=== PATIENT | female | born 1950 | race African-American/Black ===

== ENCOUNTER 2019-01-14 08:41 | Inpatient (IN) | payer MEDICARE, OTHER ==
[~2019-01-14] VITALS: Ht 160 cm; Wt 42.6 kg
[~2019-01-14 08:41] MED LIST: ACETAMINOPHEN-1 EAC2 ORAL; ADVAIR 250/501 PUFFS INH; ALBUTEROL SULF8.5 GM INH; ALBUTEROL2.5 MG/3 M INH; ANTIBIOTICS; ASPIRIN EC81 MG ORAL; ASPIRIN81 MG ORAL; Antibiotic; BENADRYL25 M3 PO; BENTYL10 MG ORAL; CULTURELLE1 EACH ORAL; DEPAKENE L250 MG/5 M GT; DIGOXIN0.25 MG/5 GT; DILANTIN100 MG GT; DILAUDID8 MG PO; DULCOLAX STOOL100 M1 PO; FLAGYL500 MG ORAL; IMODIUM2 MG ORAL; IPRATROPIU0.2 MG/1 M HHN; LACTULOSE20 GM/301 GT; LIPITOR20 MG ORAL; LOVENOX10 M4 SUBQ; MEDROL DOSEPAK4 MG ORAL; METOPROLOL TAR100 M1 GT; MIDODRINE HCL2.5 MG GT; MIRALAX17 GM ORAL; NEXIUM40 MG ORAL; NICODERM 21MG/241 EA TDERMAL; NKM; NORCO 5-325 TA1 EACH GT; PANCREASE1 EA ORAL; PANCRELIPASE ORAL; PANTOPRAZOLE SO40 MG GT; PERI-COLACE1 EA ORAL; PROAIR HFA8.5 GM INH; PROMETHAZINE-C118 M1 ORAL; PROTONIX40 MG ORAL; REGLAN5 MG ORAL; SPIRIVA18 MCG INH; TEGRETOL200 MG GT; UNOBMED; VANCOMYCIN250 MG/5 M ORAL; VITAMIN C500 M1 GT; XIFAXAN200 MG ORAL; ZOFRAN ODT4 MG ORAL; ZOFRAN4 M1 ORAL; ZOFRAN4 MG ORAL; antibio
--- NOTE | 2019-01-14 08:55 | NUR ---
ED Nurse Note: Patient walked into ED from home c/o flu like illness for 2 weeks, patient reports she has been coughing persistently with runny nose and pain in her chest for 2 days. patient also reports right hip pain, reports had hip surgery before. patient is alert awake x4 ambulatory.
[2019-01-14] MEDS ORDERED: cefTRIAXone 1 GM in NS 55 ML IVPB ONE (09:30)
[2019-01-14] MEDS ORDERED: Ipratropium 0.02% Inh Soln 2.5ml UD HHN ONE (09:30)
[2019-01-14] MEDS ORDERED: Albuterol ud Inhalation HHN ONE ×2 (09:30→10:15)
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
[2019-01-14] MEDS ORDERED: Heparin1,000 units/500ml Premix(Conc:2 units/ml) IV ONE (10:00)
[2019-01-14] MEDS ORDERED: Lidocaine 1% Plain 30 ml INJ ONE (10:00)
[2019-01-14 10:07] LABS: HEMATOCRIT 38.3 % (37.0-47.0); HEMOGLOBIN 12.1 G/DL (12.0-16.0); MEAN CORPUSCULAR VOLUME 107 FL (80-99); PLATELET COUNT 204 K/UL (150-450); RED BLOOD COUNT 3.57 M/UL (4.20-5.40); RED CELL DISTRIBUTION WIDTH 14.5 % (11.6-14.8); WHITE BLOOD COUNT 3.1 K/UL (4.8-10.8)
[2019-01-14 10:09] VITALS: BP 136/85
[2019-01-14] MEDS ORDERED: Ipratropium 0.02% Inh Soln 2.5ml UD ONE (10:13)
[2019-01-14] MEDS ORDERED: Albuterol ud Inhalation ONE (10:13)
[2019-01-14 10:18] LABS: ANION GAP 7 mmol/L (5-15); BLOOD UREA NITROGEN 6 mg/dL (7-18); CALCIUM 9.4 MG/DL (8.5-10.1); CARBON DIOXIDE 27 MMOL/L (21-32); CHLORIDE 107 MMOL/L (98-107); CREATININE 0.6 MG/DL (0.55-1.30); POTASSIUM 3.8 MMOL/L (3.5-5.1); SODIUM 141 MMOL/L (136-145)
[2019-01-14 10:30] LABS: ALANINE AMINOTRANSFERASE 20 U/L (12-78); ALBUMIN 3.6 G/DL (3.4-5.0); ALKALINE PHOSPHATASE 75 U/L (46-116); ASPARTATE AMINO TRANSFERASE 20 U/L (15-37); BILIRUBIN,TOTAL 0.4 MG/DL (0.2-1.0); CKMB 0.9 NG/ML (0.0-3.6); CREATINE KINASE 76 U/L (26-308)
--- NOTE | 2019-01-14 10:55 | NUR ---
ED Nurse Note: notified Dr. Sifuentes about patient's c/o of right hip pain and wants to get xray.
[2019-01-14] MEDS ORDERED: Ketorolac 30mg Inj IV ONE (11:15)
--- NOTE | 2019-01-14 11:19 | NUR ---
ED Nurse Note: notified Dr. Sifuentes that patient declined to take Toradol stating that it is not going to help her pain.
--- NOTE | 2019-01-14 11:41 | Diagnostic Imaging Report ---
Indication: Cough Technique: One view of the chest Comparison: 07/23/2016 Findings: Lungs and pleural spaces are clear. Heart size is normal. The aorta is tortuous ectatic and calcified. Upper mediastinum is unremarkable Impression: No acute process
--- NOTE | 2019-01-14 11:55 | NUR ---
ED Nurse Note: patient went to xray
--- NOTE | 2019-01-14 12:04 | NUR ---
ED Nurse Note: Report given to Thierry MARTÍNEZ in 2E, endorsed all plan of care
--- NOTE | 2019-01-14 12:12 | NUR ---
ED Nurse Note: patient transferred to with all of her belongings in stable condition.
--- NOTE | 2019-01-14 12:13 | Diagnostic Imaging Report ---
Indication: Pelvic pain Technique: One view of the pelvis, 2 views of the right hip Comparison: none Findings: There are bilateral total hip arthroplasty prostheses. These appear well aligned. No evidence of hardware fracture. No acute fractures. No dislocations. No worrisome periprosthetic lucency. Impression: No acute process. Findings as noted
--- NOTE | 2019-01-14 12:23 | NUR ---
NURSE NOTES: received pt awake alert, no distress. no sob. call light within reach. bed in lowest position, locked
--- NOTE | 2019-01-14 12:28 | NUR ---
NURSE NOTES: left msg to Dr Arndt re admit orders, awaiting orders
[2019-01-14] MEDS ORDERED: Nitroglycerin Subl 0.4mg tab SL PRN (12:30)
[2019-01-14] MEDS ORDERED: Promethazine/Codeine 5ml UD ORAL PRN (12:30)
[2019-01-14 12:40] VITALS: BP 160/92
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
[2019-01-14] MEDS: Pancrelipase Dr Cap ORAL SCH ×2 (13:00→17:01)
--- NOTE | 2019-01-14 13:05 | NUR ---
NURSE NOTES: PER PT SHE DOESNT TAKE PANCREASE CAPS
[2019-01-14] MEDS ORDERED: carBAMazepine 200mg tab GT SCH (14:00)
[2019-01-14] MEDS ORDERED: Piperacillin/Tazobactam 2.25 GM in D5W 55 ML IV SCH (14:00)
--- NOTE | 2019-01-14 15:08 | NUR ---
CASE MANAGEMENT: INITIAL REVIEW 68 YO F PRESENTED TO OUR ED FROM HOME CC: CP PMHx: ASTHMA. COPD. CERVICAL CA. SBO. [place]. SI:COPD EXACERBATION. T 96.4 HR 88 RR 20 B/P 108/66 SATS 99% ON RA WBC 3.1 BUN 6 GLU 110 IS: ALBUTEROL HHN X1 CEFTRIAXONE IV X1 PREDNISONE PO X1 NS BOLUS X1 PATIENT ADMITTED TO TELE 01/14/2019 @ 0948 DCP: PATIENT TO BE DISCHARGED TO HOME ONCE MEDICALLY CLEARED. PLAN OF CARE: IV STEROID 2D ECHO SPUTUM CX Addendum: 01/14/19 at 1518 by Angle Hines CM INTERQUAL MET
[2019-01-14] MEDS: carBAMazepine 200mg tab ORAL SCH ×2 (15:28→21:18)
[2019-01-14] MEDS: Zosyn 3.375gm q8h **Extended infusion IVPB SCH ×4 (15:28→21:20)
--- NOTE | 2019-01-14 16:14 | History & Physical ---
History and Physical History & Physicial Dictated for Int Med-Dr Garrison no. [id number]. Harvey Olivares MD Jan 14, 2019 16:14
[2019-01-14] MEDS: Solu-MEDROL 125mg Inj IV SCH ×2 (17:11→23:46)
--- NOTE | 2019-01-14 19:30 | NUR ---
NURSE NOTES: Received report from TANYA Molina. Pt is awake and resting in bed. In no acute distress. IV line intact and patent. Bed in lowest position, call light within reach. Will continue plan of care.
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
[2019-01-14 20:00] VITALS: BP 131/78
[2019-01-14] MEDS ORDERED: Dyna-Hex 2% Top Sol 2oz TOPIC SCH (20:00)
--- NOTE | 2019-01-14 21:00 | NUR ---
NURSE NOTES:Patient AT 20:20 pm c/o generalized pain. pain rating 6 out of 10 .Dilaudid 1 mg ivp given by Arnulfo ZARATE and fletcher assist with good relief. Explained to patient her pain will be controlled with pain medications . patient verbalized her understanding .will continue to monitor .
[2019-01-14] MEDS: Theophylline ER 100mg ORAL SCH (21:17)
[2019-01-14] MEDS: Albuterol/Ipratropium 3ml neb HHN PRN (21:19)
[2019-01-14] MEDS: Heparin 5000 units/ml inj SUBQ SCH (21:21)
--- NOTE | 2019-01-14 23:15 | Consultation ---
DATE OF CONSULTATION: 01/14/2019 CONSULTING PHYSICIAN: Anne-Marie Faria M.D. HISTORY OF PRESENT ILLNESS: This is a 68-year-old female, who has been admitted to the hospital for cough and shortness of breath. The patient is severely agitated, yelling, screaming, and verbally abusive towards the staff. The patient was uncooperative with the examination. The patient is very entitled and at times refusing care. Prior to the hospitalization, the patient has been on Tegretol 300 mg t.i.d. The patient presents with target symptoms of irritable mood, anger, anxiety, insomnia, mood lability, volatile. PAST PSYCHIATRIC HISTORY: The patient was uncooperative with providing the history however per records the patient has a history of bipolar disorder and anxiety disorder. PAST MEDICAL HISTORY: Significant for chronic pancreatitis, UTI, history of C. difficile colitis, gastritis, CAD, CHF, GERD, hypertension, anemia, gastroparesis, COPD, VRE carrier. ALLERGIES: 1. Hydrocodone. 2. Lorazepam. 3. Morphine. 4. Prochlorperazine. 5. Vancomycin. SUBSTANCE ABUSE HISTORY: The patient has history of opiate dependence and has med-seeking behaviors. She has been taking Dilaudid 4 mg 2 tablets every 4 hours as needed. She also is a smoker 1 pack a day. MENTAL STATUS EXAMINATION: The patient is alert, oriented times self, place, and situation. Irritable and uncooperative. Mood is angry. Affect is constricted, congruent with mood. Thought process is concrete. Thought content, no suicidal or homicidal ideations. Memory is impaired. Insight and judgment is impaired. ASSESSMENT: [place] I Bipolar disorder. Anxiety disorder. [place] II Deferred. [place] III Chest pain. [place] IV Moderate. [place] V 50. PLAN: 1. We will start the patient on Tegretol 200 mg t.i.d. 2. She was given 1 dose of Valium for severe agitation. 3. Start the patient on Depakote 250 at bedtime. 4. Provide the patient with reality orientation. Discussed with the charge nurse. Anne-Marie Faria M.D. DR: ALFRED JOB#: [id number] CC:
[2019-01-15] VITALS: BP 115/83
--- NOTE | 2019-01-15 00:29 | NUR ---
NURSE NOTES: Per Pt's request, handed 2 house keys to son Jacinto in the lobby.
[2019-01-15 04:00] VITALS: BP 132/71
[2019-01-15] MEDS: Albuterol/Ipratropium 3ml neb HHN PRN ×2 (04:43→22:48)
[2019-01-15] MEDS: carBAMazepine 200mg tab ORAL SCH ×3 (06:30→21:09)
[2019-01-15] MEDS: Solu-MEDROL 125mg Inj IV SCH ×4 (06:30→23:32)
[2019-01-15] MEDS: Zosyn 3.375gm q8h **Extended infusion IVPB SCH ×6 (06:31→22:16)
[2019-01-15 06:38] LABS: HEMATOCRIT 34.9 % (37.0-47.0); HEMOGLOBIN 11.1 G/DL (12.0-16.0); MEAN CORPUSCULAR VOLUME 107 FL (80-99); PLATELET COUNT 195 K/UL (150-450); RED BLOOD COUNT 3.26 M/UL (4.20-5.40); RED CELL DISTRIBUTION WIDTH 14.5 % (11.6-14.8); WHITE BLOOD COUNT 6.6 K/UL (4.8-10.8)
[2019-01-15] MEDS: HYDROmorphone 1mg/ml Carpuject IVP PRN ×2 (06:40→23:37)
--- NOTE | 2019-01-15 07:22 | NUR ---
HAND-OFF: Report given to TANYA Molina.
[2019-01-15 07:24] LABS: ALANINE AMINOTRANSFERASE 16 U/L (12-78); ALBUMIN 3.5 G/DL (3.4-5.0); ALBUMIN/GLOBULIN RATIO 1.1 (1.0-2.7); ALKALINE PHOSPHATASE 70 U/L (46-116); ANION GAP 10 mmol/L (5-15); ASPARTATE AMINO TRANSFERASE 20 U/L (15-37); BILIRUBIN,TOTAL 0.2 MG/DL (0.2-1.0); BLOOD UREA NITROGEN 15 mg/dL (7-18); CALCIUM 9.5 MG/DL (8.5-10.1); CARBON DIOXIDE 24 MMOL/L (21-32); CHLORIDE 103 MMOL/L (98-107); CREATININE 0.8 MG/DL (0.55-1.30); PHOSPHORUS 3.1 MG/DL (2.5-4.9); SODIUM 137 MMOL/L (136-145)
--- NOTE | 2019-01-15 07:56 | NUR ---
Report was given by Arnulfo MARTÍNEZ. Patient's awake and sitting in Semi-Willis position. Patient's comfortable, AO x 4, no s/s of distress, SOB, no pain or discomfort. Patient's on NC 2L. Bed is in lowest position, side rails on and call light within reach. IV site is on the Left, no s/s of tenderness, occlusion, patient denied pain.
[2019-01-15 08:00] VITALS: BP 105/53
[2019-01-15] MEDS: Theophylline ER 100mg ORAL SCH ×2 (09:14→20:23)
[2019-01-15] MEDS: Pancrelipase Dr Cap ORAL SCH ×3 (09:15→17:04)
[2019-01-15] MEDS: Heparin 5000 units/ml inj SUBQ SCH ×2 (09:18→20:27)
[2019-01-15 12:00] VITALS: BP 120/85
--- NOTE | 2019-01-15 12:32 | NUR ---
RD ASSESSMENT & RECOMMENDATIONS SEE CARE ACTIVITY FOR COMPLETE ASSESSMENT DAILY ESTIMATED NEEDS: Needs based on Pulmonary, underweight 43kg 30-35 kcals/kg 7069-1953 total kcals 1-1.5 g protein/kg 43-65 g total protein 25-30 mL/kg 5130-6665 total fluid mLs NUTRITION DIAGNOSIS: 1) Underweight R/T chronic disease, linical status as evidenced by BMI 16.7, @ 82% [place] Body Weight, w COPD, on solumedrol. CURRENT DIET:Regular PO DIET RECOMMENDATIONS: Regular diet + Ensure BID . ADDITIONAL RECOMMENDATIONS: 1) Obtain a standing weight for accurate CBW 2) Monitor BG w/ solumedrol / need for ssi 3) Snacks in b/w meals as tolerated 4) Weekly weights
--- NOTE | 2019-01-15 13:03 | NUR ---
CASE MANAGEMENT:REVIEW 01/15/19 SI: COPD EXACERBATION. ACS. CAD COSTOCHONDRITIS 98.4 97 18 120/85 97% ON 2L/NC H/H-11.1/34.9 IS: IV SOLUMEDROL 60MG Q6HRS IV ZOSYN Q8HRS HEPARIN SQ Q12 INEZ-DUR PO Q12 DEPAKOTE PO QHS TEGRETOL PO Q8HRS : TELEMETRY STATUS DCP: FROM HOME
--- NOTE | 2019-01-15 13:36 | Pulmonology Progress Note ---
Assessment/Plan Problems: (1) COPD exacerbation (2) ACS (acute coronary syndrome) (3) Costochondritis (4) CAD (coronary artery disease) (5) Severe protein-calorie malnutrition Assessment/Plan improving respiratory treatment pain management psych evaluation check electrolytes all reviewed Subjective ROS Limited/Unobtainable: No Constitutional: Reports: no symptoms HEENT: Repors: no symptoms Respiratory: Reports: no symptoms Allergies: Coded Allergies: HYDROCODONE (Verified Allergy, Severe, 06/23/13) LORAZEPAM (Verified Allergy, Severe, Hives, 02/13/14) RASH/HIVES MORPHINE (Unverified Allergy, Severe, 01/14/19) Not true allergy; tolerated Dilaudid in past. Extensive opiate hx PROCHLORPERAZINE (Verified Allergy, Severe, 06/23/13) VANCOMYCIN (Unverified Allergy, Mild, Itching, 03/06/14) Objective Last 24 Hour Vital Signs Date Time Temp Pulse Resp B/P (MAP) Pulse Ox O2 Delivery O2 Flow Rate FiO2 01/15/19 12:00 98.4 97 18 120/85 (97) 97 01/15/19 12:00 94 01/15/19 08:57 Nasal Cannula 2.0 01/15/19 08:00 98.3 92 20 105/53 (70) 99 01/15/19 08:00 84 01/15/19 04:50 63 20 99 Nasal Cannula 2.0 28 01/15/19 04:44 64 20 90 Room Air 21 01/15/19 04:00 77 01/15/19 04:00 98.5 77 18 132/71 (91) 99 01/15/19 00:00 90 01/15/19 00:00 97.6 90 18 115/83 (94) 98 01/14/19 21:18 95 20 99 Nasal Cannula 2.0 28 01/14/19 21:08 96 20 99 Nasal Cannula 2.0 28 01/14/19 21:07 99 Nasal Cannula 2.0 28 01/14/19 21:06 96 20 99 Nasal Cannula 2.0 28 01/14/19 21:00 Nasal Cannula 2.0 01/14/19 20:00 98.6 109 18 131/78 (95) 96 01/14/19 20:00 109 01/14/19 17:33 98.0 01/14/19 16:00 98 Intake and Output 6/13/19 6/14/19 19:00 07:00 Intake Total 560 ml Balance 560 ml Intake Oral 560 ml # Voids 3 General Appearance: WD/WN, no acute distress HEENT: normocephalic, atraumatic Respiratory/Chest: chest wall non-tender, normal breath sounds Abdomen: soft, non tender, no organomegaly Genitourinary: normal external genitalia Neurologic/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: 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 II-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 grossly normal Lymphatic: no neck adenopathy Laboratory Tests 01/15/19 05:20: White Blood Count 6.6#, Red Blood Count 3.26L, Hemoglobin 11.1L, Hematocrit 34.9L, Mean Corpuscular Volume 107H, Mean Corpuscular Hemoglobin 33.9H, Mean Corpuscular Hemoglobin Concent 31.7L, Red Cell Distribution Width 14.5, Platelet Count 195, Mean Platelet Volume 5.3L, Neutrophils (%) (Auto) , Lymphocytes (%) (Auto) , Monocytes (%) (Auto) , Eosinophils (%) (Auto) , Basophils (%) (Auto) , Differential Total Cells Counted 100, Neutrophils % ( Manual) 94H, Lymphocytes % (Manual) 5L, Monocytes % (Manual) 1, Eosinophils % ( Manual) 0, Basophils % (Manual) 0, Band Neutrophils 0, Platelet Estimate Adequate, Platelet Morphology Normal, Hypochromasia 2+, Anisocytosis , Macrocytosis 2+, Erythrocyte Sedimentation Rate 44H, Sodium Level 137, Potassium Level 4.0, Chloride Level 103, Carbon Dioxide Level 24, Anion Gap 10, Blood Urea Nitrogen 15, Creatinine 0.8, Estimat Glomerular Filtration Rate > 60 , Glucose Level 160H, Calcium Level 9.5, Phosphorus Level 3.1, Magnesium Level 2.0, Total Bilirubin 0.2, Aspartate Amino Transf (AST/SGOT) 20, Alanine Aminotransferase (ALT/SGPT) 16, Alkaline Phosphatase 70, Troponin I 0.000, Total Protein 6.7, Albumin 3.5, Globulin 3.2, Albumin/Globulin Ratio 1.1 Current Medications Medications (Trade) Dose Ordered Sig/Haley Route PRN Reason Start Time Stop Time Status Last Admin Dose Admin Albuterol/ Ipratropium (Albuterol/ Ipratropium) 3 ml Q4H PRN HHN dyspnea 01/14/19 12:30 01/19/19 12:29 01/15/19 04:43 Amylase/Lipase/ Protease (Zenpep) 2 ea THREE TIMES A DAY ORAL 01/14/19 13:00 02/13/19 12:59 01/15/19 12:31 Carbamazepine (TEGretol) 200 mg Q8HR ORAL 01/14/19 14:00 02/13/19 13:59 01/15/19 06:30 Dextrose (Dextrose 50%) 25 ml Q30M PRN IV Hypoglycemia 01/14/19 12:30 02/13/19 12:29 Dextrose (Dextrose 50%) 50 ml Q30M PRN IV Hypoglycemia 01/14/19 12:30 02/13/19 12:29 Diphenhydramine HCl (Benadryl) 25 mg Q8HR PRN ORAL Itching 01/14/19 22:00 02/13/19 21:59 01/15/19 09:48 Divalproex Sodium (Depakote) 250 mg BEDTIME ORAL 01/14/19 21:00 02/13/19 20:59 01/14/19 21:17 Heparin Sodium (Porcine) (Heparin 5000 units/ml) 5,000 units EVERY 12 HOURS SUBQ 01/14/19 21:00 02/13/19 20:59 01/15/19 09:18 Hydromorphone HCl (Dilaudid) 1 mg Q3H PRN IVP pain 5-6 01/14/19 13:15 01/21/19 13:14 01/15/19 06:40 Hydromorphone HCl (Dilaudid) 2 mg Q3H PRN IVP Severe Pain (Pain Scale 7-10) 01/14/19 13:15 01/21/19 13:14 01/15/19 09:40 Methylprednisolone Sodium Succinate (Solu-MEDROL) 60 mg EVERY 6 HOURS IV 01/14/19 18:00 02/13/19 17:59 01/15/19 11:58 Nitroglycerin (Ntg) 0.4 mg Q5M X 3 DOSES PRN SL Prn Chest Pain 01/14/19 12:30 02/13/19 12:29 Ondansetron HCl (Zofran) 4 mg Q6H PRN IVP Nausea & Vomiting 01/14/19 12:30 02/13/19 12:29 01/15/19 09:40 Piperacillin Sod/ Tazobactam Sod 3.375 gm/Sodium Chloride 110 ml @ 27.5 mls/hr EVERY 8 HOURS IVPB 01/14/19 14:00 01/19/19 13:59 01/15/19 06:31 Promethazine HCl/ Codeine (Phenergan with Codeine) 5 ml Q6H PRN ORAL cough 01/14/19 12:30 02/13/19 12:29 Theophylline (Juancho-Dur) 100 mg EVERY 12 HOURS ORAL 01/14/19 21:00 02/13/19 20:59 01/15/19 09:14 Lorraine Arndt MD Jan 15, 2019 13:36
[2019-01-15 16:00] VITALS: BP 113/70
--- NOTE | 2019-01-15 19:11 | Internal Med Progress Note ---
Subjective Physician Name Dawood Garrison Attending Physician Dawood Garrison MD Current Medications Medications (Trade) Dose Ordered Sig/Haley Route PRN Reason Start Time Stop Time Status Last Admin Dose Admin Albuterol/ Ipratropium (Albuterol/ Ipratropium) 3 ml Q4H PRN HHN dyspnea 01/14/19 12:30 01/19/19 12:29 01/15/19 04:43 Amylase/Lipase/ Protease (Zenpep) 2 ea THREE TIMES A DAY ORAL 01/14/19 13:00 02/13/19 12:59 01/15/19 17:04 Carbamazepine (TEGretol) 200 mg Q8HR ORAL 01/14/19 14:00 02/13/19 13:59 01/15/19 06:30 Dextrose (Dextrose 50%) 25 ml Q30M PRN IV Hypoglycemia 01/14/19 12:30 02/13/19 12:29 Dextrose (Dextrose 50%) 50 ml Q30M PRN IV Hypoglycemia 01/14/19 12:30 02/13/19 12:29 Diphenhydramine HCl (Benadryl) 25 mg Q8HR PRN ORAL Itching 01/14/19 22:00 02/13/19 21:59 01/15/19 09:48 Divalproex Sodium (Depakote) 250 mg BEDTIME ORAL 01/14/19 21:00 02/13/19 20:59 01/14/19 21:17 Heparin Sodium (Porcine) (Heparin 5000 units/ml) 5,000 units EVERY 12 HOURS SUBQ 01/14/19 21:00 02/13/19 20:59 01/15/19 09:18 Hydromorphone HCl (Dilaudid) 1 mg Q3H PRN IVP pain 5-6 01/14/19 13:15 01/21/19 13:14 01/15/19 06:40 Hydromorphone HCl (Dilaudid) 2 mg Q3H PRN IVP Severe Pain (Pain Scale 7-10) 01/14/19 13:15 01/21/19 13:14 01/15/19 17:06 Methylprednisolone Sodium Succinate (Solu-MEDROL) 60 mg EVERY 6 HOURS IV 01/14/19 18:00 02/13/19 17:59 01/15/19 17:07 Nitroglycerin (Ntg) 0.4 mg Q5M X 3 DOSES PRN SL Prn Chest Pain 01/14/19 12:30 02/13/19 12:29 Ondansetron HCl (Zofran) 4 mg Q6H PRN IVP Nausea & Vomiting 01/14/19 12:30 02/13/19 12:29 01/15/19 09:40 Piperacillin Sod/ Tazobactam Sod 3.375 gm/Sodium Chloride 110 ml @ 27.5 mls/hr EVERY 8 HOURS IVPB 01/14/19 14:00 01/19/19 13:59 01/15/19 13:36 Promethazine HCl/ Codeine (Phenergan with Codeine) 5 ml Q6H PRN ORAL cough 01/14/19 12:30 02/13/19 12:29 Theophylline (Juancho-Dur) 100 mg EVERY 12 HOURS ORAL 01/14/19 21:00 02/13/19 20:59 01/15/19 09:14 Allergies: Coded Allergies: HYDROCODONE (Verified Allergy, Severe, 06/23/13) LORAZEPAM (Verified Allergy, Severe, Hives, 02/13/14) RASH/HIVES MORPHINE (Unverified Allergy, Severe, 01/14/19) Not true allergy; tolerated Dilaudid in past. Extensive opiate hx PROCHLORPERAZINE (Verified Allergy, Severe, 06/23/13) VANCOMYCIN (Unverified Allergy, Mild, Itching, 03/06/14) Subjective awake, alert, responsive, NAD, No CP or SOB, C/O Right hip pain Objective Last Vital Signs Date Time Temp Pulse Resp B/P (MAP) Pulse Ox O2 Delivery O2 Flow Rate FiO2 01/15/19 17:36 98.1 01/15/19 16:00 88 20 113/70 (84) 97 01/15/19 08:57 Nasal Cannula 2.0 01/15/19 04:50 28 Laboratory Tests Test 01/15/19 05:20 White Blood Count 6.6 K/UL (4.8-10.8) # Red Blood Count 3.26 M/UL (4.20-5.40) L Hemoglobin 11.1 G/DL (12.0-16.0) L Hematocrit 34.9 % (37.0-47.0) L Mean Corpuscular Volume 107 FL (80-99) H Mean Corpuscular Hemoglobin 33.9 PG (27.0-31.0) H Mean Corpuscular Hemoglobin Concent 31.7 G/DL (32.0-36.0) L Red Cell Distribution Width 14.5 % (11.6-14.8) Platelet Count 195 K/UL (150-450) Mean Platelet Volume 5.3 FL (6.5-10.1) L Neutrophils (%) (Auto) % (45.0-75.0) Lymphocytes (%) (Auto) % (20.0-45.0) Monocytes (%) (Auto) % (1.0-10.0) Eosinophils (%) (Auto) % (0.0-3.0) Basophils (%) (Auto) % (0.0-2.0) Differential Total Cells Counted 100 Neutrophils % (Manual) 94 % (45-75) H Lymphocytes % (Manual) 5 % (20-45) L Monocytes % (Manual) 1 % (1-10) Eosinophils % (Manual) 0 % (0-3) Basophils % (Manual) 0 % (0-2) Band Neutrophils 0 % (0-8) Platelet Estimate Adequate Platelet Morphology Normal Hypochromasia 2+ Anisocytosis Macrocytosis 2+ Erythrocyte Sedimentation Rate 44 MM/HR (0-30) H Sodium Level 137 MMOL/L (136-145) Potassium Level 4.0 MMOL/L (3.5-5.1) Chloride Level 103 MMOL/L (98-107) Carbon Dioxide Level 24 MMOL/L (21-32) Anion Gap 10 mmol/L (5-15) Blood Urea Nitrogen 15 mg/dL (7-18) Creatinine 0.8 MG/DL (0.55-1.30) Estimat Glomerular Filtration Rate > 60 mL/min (>60) Glucose Level 160 MG/DL (74-106) H Calcium Level 9.5 MG/DL (8.5-10.1) Phosphorus Level 3.1 MG/DL (2.5-4.9) Magnesium Level 2.0 MG/DL (1.8-2.4) Total Bilirubin 0.2 MG/DL (0.2-1.0) Aspartate Amino Transf (AST/SGOT) 20 U/L (15-37) Alanine Aminotransferase (ALT/SGPT) 16 U/L (12-78) Alkaline Phosphatase 70 U/L (46-116) Troponin I 0.000 ng/mL (0.000-0.056) Total Protein 6.7 G/DL (6.4-8.2) Albumin 3.5 G/DL (3.4-5.0) Globulin 3.2 g/dL Albumin/Globulin Ratio 1.1 (1.0-2.7) Intake and Output 01/14/19 01/15/19 18:59 06:59 Intake Total 560 ml Balance 560 ml Intake Oral 560 ml # Voids 3 Objective General: No acute distress, awake and alert HEENT: NCAT, sclera anicteric, PERRL, EOMI. Neck: Supple, no significant jugular venous distention, Lungs: Good inspiratory effort, clear to auscultation bilaterally, no Wheeze or Rales. Heart: Regular rate and rhythm, normal S1/S2, no murmur. Abdomen: soft, nontender, nondistended. Normoactive bowel sounds. / Rectal: Refused and deferred. Extremities: No Cyanosis , clubbing or edema. Neuro: A&O x 3, Able to move all extremities Skin: warm, no rash. Psych: Anxious mood and affect Assessment/Plan Assessment/Plan (1) COPD exacerbation (2) Chest pain possible ACS (acute coronary syndrome) (3) Costochondritis (4) CAD (coronary artery disease) (5) Severe protein-calorie malnutrition (6) Bipolar disorder. Plan: Psych consult by Dr. Faria noted PT Mobility Monitor Labs DVT prophylaxis with Heparin SQ Full code DC planning in 1 or 2 days. Dawood Garrison MD Jan 15, 2019 19:11
--- NOTE | 2019-01-15 19:16 | NUR ---
HAND-OFF: Report given to NEAL Khan; TANYA Arredondo.
--- NOTE | 2019-01-15 19:30 | NUR ---
NURSE NOTES:Patient received from [facility]. Patient A/A/O X3 with episode of confusion . Patient denies any pain at this time . no s/s of distress noted . JOSELUIS g# 20 H/L Patent and intact . Patient ambulated uses BSC. Safety. fall implemented . call light within reach . bed in low position at all times.. will continue to monitor.
[2019-01-15 20:00] VITALS: BP 114/76
--- NOTE | 2019-01-15 20:22 | Cardiology Progress Note ---
Assessment/Plan Assessment/Plan full note to follow Objective Last 24 Hour Vital Signs Date Time Temp Pulse Resp B/P (MAP) Pulse Ox O2 Delivery O2 Flow Rate FiO2 01/15/19 17:36 98.1 01/15/19 16:00 98.1 88 20 113/70 (84) 97 01/15/19 16:00 105 01/15/19 12:00 98.4 97 18 120/85 (97) 97 01/15/19 12:00 94 01/15/19 08:57 Nasal Cannula 2.0 01/15/19 08:00 98.3 92 20 105/53 (70) 99 01/15/19 08:00 84 01/15/19 04:50 63 20 99 Nasal Cannula 2.0 28 01/15/19 04:44 64 20 90 Room Air 21 01/15/19 04:00 77 01/15/19 04:00 98.5 77 18 132/71 (91) 99 01/15/19 00:00 90 01/15/19 00:00 97.6 90 18 115/83 (94) 98 01/14/19 21:18 95 20 99 Nasal Cannula 2.0 28 01/14/19 21:08 96 20 99 Nasal Cannula 2.0 28 01/14/19 21:07 99 Nasal Cannula 2.0 28 01/14/19 21:06 96 20 99 Nasal Cannula 2.0 28 01/14/19 21:00 Nasal Cannula 2.0 Intake and Output 01/14/19 01/15/19 19:00 07:00 Intake Total 560 ml Balance 560 ml Intake Oral 560 ml # Voids 3 Laboratory Tests Test 01/15/19 05:20 White Blood Count 6.6 K/UL (4.8-10.8) # Red Blood Count 3.26 M/UL (4.20-5.40) L Hemoglobin 11.1 G/DL (12.0-16.0) L Hematocrit 34.9 % (37.0-47.0) L Mean Corpuscular Volume 107 FL (80-99) H Mean Corpuscular Hemoglobin 33.9 PG (27.0-31.0) H Mean Corpuscular Hemoglobin Concent 31.7 G/DL (32.0-36.0) L Red Cell Distribution Width 14.5 % (11.6-14.8) Platelet Count 195 K/UL (150-450) Mean Platelet Volume 5.3 FL (6.5-10.1) L Neutrophils (%) (Auto) % (45.0-75.0) Lymphocytes (%) (Auto) % (20.0-45.0) Monocytes (%) (Auto) % (1.0-10.0) Eosinophils (%) (Auto) % (0.0-3.0) Basophils (%) (Auto) % (0.0-2.0) Differential Total Cells Counted 100 Neutrophils % (Manual) 94 % (45-75) H Lymphocytes % (Manual) 5 % (20-45) L Monocytes % (Manual) 1 % (1-10) Eosinophils % (Manual) 0 % (0-3) Basophils % (Manual) 0 % (0-2) Band Neutrophils 0 % (0-8) Platelet Estimate Adequate Platelet Morphology Normal Hypochromasia 2+ Anisocytosis Macrocytosis 2+ Erythrocyte Sedimentation Rate 44 MM/HR (0-30) H Sodium Level 137 MMOL/L (136-145) Potassium Level 4.0 MMOL/L (3.5-5.1) Chloride Level 103 MMOL/L (98-107) Carbon Dioxide Level 24 MMOL/L (21-32) Anion Gap 10 mmol/L (5-15) Blood Urea Nitrogen 15 mg/dL (7-18) Creatinine 0.8 MG/DL (0.55-1.30) Estimat Glomerular Filtration Rate > 60 mL/min (>60) Glucose Level 160 MG/DL (74-106) H Calcium Level 9.5 MG/DL (8.5-10.1) Phosphorus Level 3.1 MG/DL (2.5-4.9) Magnesium Level 2.0 MG/DL (1.8-2.4) Total Bilirubin 0.2 MG/DL (0.2-1.0) Aspartate Amino Transf (AST/SGOT) 20 U/L (15-37) Alanine Aminotransferase (ALT/SGPT) 16 U/L (12-78) Alkaline Phosphatase 70 U/L (46-116) Troponin I 0.000 ng/mL (0.000-0.056) Total Protein 6.7 G/DL (6.4-8.2) Albumin 3.5 G/DL (3.4-5.0) Globulin 3.2 g/dL Albumin/Globulin Ratio 1.1 (1.0-2.7) Wale Collins MD Jan 15, 2019 20:22
[2019-01-16] VITALS: BP 117/76
--- NOTE | 2019-01-16 01:00 | Progress Note ---
DATE: 01/15/2019 SUBJECTIVE: The patient is still having episodes of confusion and anxiety, overall improved than previous encounter. The patient is having anxiety . She has taken her Depakote. Irritable today. MENTAL STATUS EXAMINATION: The patient is alert, oriented times self, place, and situation. Mood is less irritable. Affect is constricted, congruent with mood. Thought process is concrete. Thought content, no suicidal or homicidal ideations. ASSESSMENT: Bipolar disorder. PLAN: 1. We will continue Tegretol 200 mg t.i.d. and Depakote 250 mg at bedtime. 2. Provide the patient with reality orientation. Anne-Marie Faria M.D. DR: LIV JOB#: [id number] CC:
[2019-01-16] MEDS: HYDROmorphone 1mg/ml Carpuject IVP PRN ×2 (02:43→09:25)
[2019-01-16 04:00] VITALS: BP 112/77
[2019-01-16] MEDS: carBAMazepine 200mg tab ORAL SCH ×3 (05:33→20:26)
[2019-01-16] MEDS: Solu-MEDROL 125mg Inj IV SCH (05:36)
[2019-01-16] MEDS: Zosyn 3.375gm q8h **Extended infusion IVPB SCH ×6 (05:36→20:30)
--- NOTE | 2019-01-16 07:20 | NUR ---
HAND-OFF: Report given to Rodney Suarez
--- NOTE | 2019-01-16 07:35 | NUR ---
NURSE NOTES: Pt received from [facility] SUSTAINABLE SYSTEMS ANALYST alert and oriented x3 with no acute s/s of distress noted. IV site asymptomatic and patent on L UA 20g running to [employer] as ordered. Bed in lowest position, call light and belongings within reach. services delivery driver on - ST (102).
[2019-01-16 08:00] VITALS: BP 117/71
--- NOTE | 2019-01-16 08:33 | Pulmonology Progress Note ---
Assessment/Plan Assessment/Plan ASSESSMENT Chest pain , possibly due to COPD exacerbation , r/o ACS Possible costochondritis COPD exacerbation History of CHF Hypertension Chronic back pain Severe protein calorie malnutrition History of cervical cancer Bipolar disorder PLAN OF CARE tele supplemental O2 titrate to keep pulse ox above 92% HHN with bronchodilator IV steroids and taper empiric abx, fup with CX antitussive PRN trial of theophylline DVT prophylaxis Echo with pEF 60-65 %, mild LVH , no evidence of WMA Serial troponin x2 negative , ECG no acute ischemic changes, pt ruled out for acute MD TSH within normal limits. Cardio on board home medication resumed dietary recs implemented in plan of care pain management psych follows PT eval and Rx case discussed and evaluated by supervising physician case discussed and evaluated by supervising physician Subjective Allergies: Coded Allergies: HYDROCODONE (Verified Allergy, Severe, 06/23/13) LORAZEPAM (Verified Allergy, Severe, Hives, 02/13/14) RASH/HIVES MORPHINE (Unverified Allergy, Severe, 01/14/19) Not true allergy; tolerated Dilaudid in past. Extensive opiate hx PROCHLORPERAZINE (Verified Allergy, Severe, 06/23/13) VANCOMYCIN (Unverified Allergy, Mild, Itching, 03/06/14) Subjective reports cough, wheezing, pulse ox stable on O2 2 L via NC Objective Last 24 Hour Vital Signs Date Time Temp Pulse Resp B/P (MAP) Pulse Ox O2 Delivery O2 Flow Rate FiO2 01/16/19 06:13 97.7 01/16/19 04:00 96 01/16/19 04:00 97.7 88 20 112/77 (89) 96 01/16/19 03:13 98.1 01/16/19 00:00 99 01/16/19 00:00 98.0 99 20 117/76 (90) 95 01/15/19 23:04 78 24 100 Room Air 21 01/15/19 22:57 93 Nasal Cannula 2.0 28 01/15/19 22:54 78 23 93 Nasal Cannula 21 01/15/19 22:49 78 18 93 Nasal Cannula 21 01/15/19 21:00 Nasal Cannula 2.0 01/15/19 20:00 99.0 99 20 114/76 (89) 98 01/15/19 20:00 89 01/15/19 16:00 98.1 88 20 113/70 (84) 97 01/15/19 16:00 105 01/15/19 12:00 98.4 97 18 120/85 (97) 97 01/15/19 12:00 94 01/15/19 08:57 Nasal Cannula 2.0 Intake and Output 01/15/19 01/16/19 19:00 07:00 Intake Total 840 ml Balance 840 ml Intake Oral 840 ml # Voids 3 # Bowel Movements 1 General Appearance: no acute distress HEENT: normocephalic, atraumatic, anicteric, mucous membranes moist Respiratory/Chest: expiratory wheezing Cardiovascular: normal rate, regular rhythm Abdomen: normal bowel sounds, soft, non tender Extremities: no edema, pedal pulses normal Neurologic/Psychiatric: abnormal gait - unsteady, alert, oriented x 3 Musculoskeletal: normal muscle bulk Current Medications Medications (Trade) Dose Ordered Sig/Haley Route PRN Reason Start Time Stop Time Status Last Admin Dose Admin Albuterol/ Ipratropium (Albuterol/ Ipratropium) 3 ml Q4H PRN HHN dyspnea 01/14/19 12:30 01/19/19 12:29 01/15/19 22:48 Amylase/Lipase/ Protease (Zenpep) 2 ea THREE TIMES A DAY ORAL 01/14/19 13:00 02/13/19 12:59 01/15/19 17:04 Carbamazepine (TEGretol) 200 mg Q8HR ORAL 01/14/19 14:00 02/13/19 13:59 01/16/19 05:33 Dextrose (Dextrose 50%) 25 ml Q30M PRN IV Hypoglycemia 01/14/19 12:30 02/13/19 12:29 Dextrose (Dextrose 50%) 50 ml Q30M PRN IV Hypoglycemia 01/14/19 12:30 02/13/19 12:29 Diphenhydramine HCl (Benadryl) 25 mg Q8HR PRN ORAL Itching 01/14/19 22:00 02/13/19 21:59 01/16/19 05:33 Divalproex Sodium (Depakote) 250 mg BEDTIME ORAL 01/14/19 21:00 02/13/19 20:59 01/15/19 20:24 Heparin Sodium (Porcine) (Heparin 5000 units/ml) 5,000 units EVERY 12 HOURS SUBQ 01/14/19 21:00 02/13/19 20:59 01/15/19 20:27 Hydromorphone HCl (Dilaudid) 1 mg Q3H PRN IVP pain 5-6 01/14/19 13:15 01/21/19 13:14 01/16/19 02:43 Hydromorphone HCl (Dilaudid) 2 mg Q3H PRN IVP Severe Pain (Pain Scale 7-10) 01/14/19 13:15 01/21/19 13:14 01/16/19 05:43 Methylprednisolone Sodium Succinate (Solu-MEDROL) 60 mg EVERY 6 HOURS IV 01/14/19 18:00 02/13/19 17:59 01/16/19 05:36 Nitroglycerin (Ntg) 0.4 mg Q5M X 3 DOSES PRN SL Prn Chest Pain 01/14/19 12:30 02/13/19 12:29 Ondansetron HCl (Zofran) 4 mg Q6H PRN IVP Nausea & Vomiting 01/14/19 12:30 02/13/19 12:29 01/15/19 20:14 Piperacillin Sod/ Tazobactam Sod 3.375 gm/Sodium Chloride 110 ml @ 27.5 mls/hr EVERY 8 HOURS IVPB 01/14/19 14:00 01/19/19 13:59 01/16/19 05:36 Promethazine HCl/ Codeine (Phenergan with Codeine) 5 ml Q6H PRN ORAL cough 01/14/19 12:30 02/13/19 12:29 Theophylline (Juancho-Dur) 100 mg EVERY 12 HOURS ORAL 01/14/19 21:00 02/13/19 20:59 01/15/19 20:23 Nakia Alvarenga SHIRT CLEANER Jan 16, 2019 08:33
--- NOTE | 2019-01-16 09:25 | NUR ---
NURSE NOTES: Pt complaining of pain on lower legs, asked for Dilaudid 2mg PRN, RN administered Dilaudid 2mg PRN to manage pain. Addendum: 01/16/19 at 1313 by Rodney Castillo RN TANYA discussed and clarified Youth Program Director schedule with Sree pharmacist. Addendum: 01/16/19 at 1320 by Rodney Castillo RN RN administered 1mg PRN instead of 2 mg PRN to manage pain.
[2019-01-16] MEDS: Pancrelipase Dr Cap ORAL SCH ×3 (09:26→17:23)
[2019-01-16] MEDS: Theophylline ER 100mg ORAL SCH ×2 (09:26→20:27)
[2019-01-16] MEDS: Heparin 5000 units/ml inj SUBQ SCH ×2 (09:34→20:29)
[2019-01-16 12:00] VITALS: BP 114/69
--- NOTE | 2019-01-16 14:31 | Internal Med Progress Note ---
Subjective Date of Service: Jan 16, 2019 Physician Name Harvey Olivares Attending Physician Dawood Garrison MD Current Medications Medications (Trade) Dose Ordered Sig/Haley Route PRN Reason Start Time Stop Time Status Last Admin Dose Admin Albuterol/ Ipratropium (Albuterol/ Ipratropium) 3 ml Q4H PRN HHN dyspnea 01/14/19 12:30 01/19/19 12:29 01/15/19 22:48 Amylase/Lipase/ Protease (Zenpep) 2 ea THREE TIMES A DAY ORAL 01/14/19 13:00 02/13/19 12:59 01/16/19 13:22 Carbamazepine (TEGretol) 200 mg Q8HR ORAL 01/14/19 14:00 02/13/19 13:59 01/16/19 13:21 Dextrose (Dextrose 50%) 25 ml Q30M PRN IV Hypoglycemia 01/14/19 12:30 02/13/19 12:29 Dextrose (Dextrose 50%) 50 ml Q30M PRN IV Hypoglycemia 01/14/19 12:30 02/13/19 12:29 Diphenhydramine HCl (Benadryl) 25 mg Q8HR PRN ORAL Itching 01/14/19 22:00 02/13/19 21:59 01/16/19 14:19 Divalproex Sodium (Depakote) 250 mg BEDTIME ORAL 01/14/19 21:00 02/13/19 20:59 01/15/19 20:24 Heparin Sodium (Porcine) (Heparin 5000 units/ml) 5,000 units EVERY 12 HOURS SUBQ 01/14/19 21:00 02/13/19 20:59 01/16/19 09:34 Hydromorphone HCl (Dilaudid) 1 mg Q3H PRN IVP pain 5-6 01/14/19 13:15 01/21/19 13:14 01/16/19 09:25 Hydromorphone HCl (Dilaudid) 2 mg Q3H PRN IVP Severe Pain (Pain Scale 7-10) 01/14/19 13:15 01/21/19 13:14 01/16/19 14:04 Methylprednisolone Sodium Succinate (Solu-MEDROL) 60 mg EVERY 8 HOURS IM 01/16/19 22:00 02/13/19 17:59 Nitroglycerin (Ntg) 0.4 mg Q5M X 3 DOSES PRN SL Prn Chest Pain 01/14/19 12:30 02/13/19 12:29 Ondansetron HCl (Zofran) 4 mg Q6H PRN IVP Nausea & Vomiting 01/14/19 12:30 02/13/19 12:29 01/16/19 09:26 Piperacillin Sod/ Tazobactam Sod 3.375 gm/Sodium Chloride 110 ml @ 27.5 mls/hr EVERY 8 HOURS IVPB 01/14/19 14:00 01/19/19 13:59 01/16/19 13:21 Promethazine HCl/ Codeine (Phenergan with Codeine) 5 ml Q6H PRN ORAL cough 01/14/19 12:30 02/13/19 12:29 Theophylline (Juancho-Dur) 100 mg EVERY 12 HOURS ORAL 01/14/19 21:00 02/13/19 20:59 01/16/19 09:26 Allergies: Coded Allergies: HYDROCODONE (Verified Allergy, Severe, 06/23/13) LORAZEPAM (Verified Allergy, Severe, Hives, 02/13/14) RASH/HIVES MORPHINE (Unverified Allergy, Severe, 01/14/19) Not true allergy; tolerated Dilaudid in past. Extensive opiate hx PROCHLORPERAZINE (Verified Allergy, Severe, 06/23/13) VANCOMYCIN (Unverified Allergy, Mild, Itching, 03/06/14) ROS Limited/Unobtainable: No Constitutional: Reports: no symptoms HEENT: Reports: no symptoms Cardiovascular: Reports: no symptoms Respiratory: Reports: shortness of breath Gastrointestinal/Abdominal: Reports: no symptoms Genitourinary: Reports: no symptoms Neurologic/Psychiatric: Reports: no symptoms Subjective 68 YO F admitted with shortness of breath and chest pain. Cvoer for Int Derian-Dr Torres. Objective Last Vital Signs Date Time Temp Pulse Resp B/P (MAP) Pulse Ox O2 Delivery O2 Flow Rate FiO2 01/16/19 12:00 98.3 97 20 114/69 (84) 99 01/16/19 09:00 Nasal Cannula 2.0 01/15/19 23:04 21 Intake and Output 01/15/19 01/16/19 19:00 07:00 Intake Total 840 ml Balance 840 ml Intake Oral 840 ml # Voids 3 # Bowel Movements 1 Objective PHYSICAL EXAMINATION: GENERALLY: The patient is thin-appearing female, no apparent distress. HEENT: Eyes, pupils are equal and responsive to light and accommodation. Extraocular movements are intact. NECK: Supple without lymphadenopathy. CHEST: Lungs are clear to auscultation bilaterally without wheezes or rales. CARDIOVASCULAR: Regular rate. S1 and S2 normal without murmurs, rubs, gallops. ABDOMEN: Soft, nontender, and nondistended. Positive bowel sounds. No evidence of hepatosplenomegaly. Currently, no rebound or guarding noted. EXTREMITIES: Negative for clubbing, cyanosis, or edema. RECTAL/GENITAL: Refused. NEUROLOGIC: Cranial nerves II through XII are grossly intact without focal deficits. Motor strength is 5/5 bilaterally. Deep tendon reflexes are 2+ plantar. Assessment/Plan Assessment/Plan ASSESSMENT: This is a 68-year-old female. 1. Chest pain. 2. Shortness of breath. 3. Hypertension. 4. Hypercholesterolemia. 5. History of congestive heart failure. 6. COPD 7. Coronary artery dis 8. Bipolar D/O TREATMENT: 1. Chest pain/shortness of breath. This may be bronchitis or acute coronary syndrome. Serial troponin levels will be performed. A chest x-ray was reported as no acute disease. A Pulmonary consultation has been obtained with Dr. Lorraine Arndt. The patient has been started on albuterol nebulized q. 4 h p.r.n. The patient is also on Zosyn intravenously. We will follow recommendations of Pulmonary. 2. Hypertension, the patient is currently normotensive. 3. Hypercholesterolemia. Continue atorvastatin as above. 4. Congestive heart failure. 5. Seroquel per psych Harvey Olivares MD Jan 16, 2019 14:31
--- NOTE | 2019-01-16 15:16 | Cardiology Progress Note ---
Assessment/Plan Status: stable, unchanged Status Narrative Chest pain - ruled out for [place] COPD/ bronchitis Tobacco use Assessment/Plan Consider stress testing to r/o ischemia when pulmonary status improved. Continue steroids, bronchodilators, iv abx for treatment of COPD exacerbation. Pt advised to dc tobacco use Subjective ROS Limited/Unobtainable: No Subjective Cardiology for Dr. Collins Pt c/o cough, congestion. Some chest pain w/ cough Objective Last 24 Hour Vital Signs Date Time Temp Pulse Resp B/P (MAP) Pulse Ox O2 Delivery O2 Flow Rate FiO2 01/16/19 12:00 74 20 95 Nasal Cannula 2.0 28 01/16/19 12:00 96 Nasal Cannula 2.0 28 01/16/19 12:00 98.3 97 20 114/69 (84) 99 01/16/19 12:00 95 01/16/19 09:00 Nasal Cannula 2.0 01/16/19 08:00 98.0 89 18 117/71 (86) 98 01/16/19 08:00 103 01/16/19 06:13 97.7 01/16/19 04:00 96 01/16/19 04:00 97.7 88 20 112/77 (89) 96 01/16/19 03:13 98.1 01/16/19 00:00 99 01/16/19 00:00 98.0 99 20 117/76 (90) 95 01/15/19 23:04 78 24 100 Room Air 21 01/15/19 22:57 93 Nasal Cannula 2.0 28 01/15/19 22:54 78 23 93 Nasal Cannula 21 01/15/19 22:49 78 18 93 Nasal Cannula 21 01/15/19 21:00 Nasal Cannula 2.0 01/15/19 20:00 99.0 99 20 114/76 (89) 98 01/15/19 20:00 89 01/15/19 16:00 98.1 88 20 113/70 (84) 97 01/15/19 16:00 105 General Appearance: WD/WN, alert, mild distress EENT: PERRL/EOMI Neck: supple, no JVD Rhythm: NSR Cardiovascular: regular rhythm, no gallop/murmur Respiratory/Chest: other - coarse BS bilat, occ expiratory wheezes Abdomen: normal bowel sounds, non tender, soft Extremities: no swelling Intake and Output 01/15/19 01/16/19 19:00 07:00 Intake Total 840 ml Balance 840 ml Intake Oral 840 ml # Voids 3 # Bowel Movements 1 Cyn Pate MD Jan 16, 2019 15:16
[2019-01-16 16:00] VITALS: BP 111/68
--- NOTE | 2019-01-16 19:44 | NUR ---
HAND-OFF: Report given to TANYA Cormier. No acute s/s of distress noted.
--- NOTE | 2019-01-16 19:45 | NUR ---
NURSE NOTES: Received report from TANYA Stevens. Pt awake, alert, and complaining of the care shes receiving. Bed in lowest position. Call light within reach. Will continue to monitor.
[2019-01-16 20:00] VITALS: BP 118/65
[2019-01-16] MEDS: Solu-MEDROL 125mg Inj IM SCH (23:15)
[2019-01-17] VITALS: BP 117/66
[2019-01-17 04:00] VITALS: BP 121/79
[2019-01-17] MEDS: Solu-MEDROL 125mg Inj IM SCH ×2 (06:49→21:34)
[2019-01-17] MEDS: Zosyn 3.375gm q8h **Extended infusion IVPB SCH ×4 (06:49→13:21)
[2019-01-17] MEDS: carBAMazepine 200mg tab ORAL SCH ×3 (06:49→21:34)
--- NOTE | 2019-01-17 07:45 | NUR ---
NURSE NOTES: Received pt from TANYA Cormier in stable condition with no cardiopulmonary distress noted. Pt is [id number] Addendum: 01/17/19 at 0801 by Marilyn Montgomery RN Correction: Received pt from TANYA Cormier in stable condition with no cardiopulmonary distress noted. Pt is [id number] 2L NC. Pt uses bedside commodeto eliminate and was instructed to call me for assistance out of bed. No skin alterations noted. Pt has a JOSELUIS 20g IV.Bed is in lowest position, side rails up x2, call light within reach, will continue to monitor.
--- NOTE | 2019-01-17 07:57 | NUR ---
HAND-OFF: Report given to TANYA Bay. Pt stable.
[2019-01-17 07:59] LABS: HEMATOCRIT 32.5 % (37.0-47.0); HEMOGLOBIN 10.2 G/DL (12.0-16.0); MEAN CORPUSCULAR VOLUME 108 FL (80-99); PLATELET COUNT 206 K/UL (150-450); RED BLOOD COUNT 3.01 M/UL (4.20-5.40); RED CELL DISTRIBUTION WIDTH 14.6 % (11.6-14.8); WHITE BLOOD COUNT 6.6 K/UL (4.8-10.8)
[2019-01-17 08:00] VITALS: BP 122/79
[2019-01-17 08:07] LABS: ANION GAP 8 mmol/L (5-15); BLOOD UREA NITROGEN 23 mg/dL (7-18); CALCIUM 9.5 MG/DL (8.5-10.1); CARBON DIOXIDE 29 MMOL/L (21-32); CHLORIDE 106 MMOL/L (98-107); CREATININE 0.9 MG/DL (0.55-1.30); POTASSIUM 3.5 MMOL/L (3.5-5.1); SODIUM 143 MMOL/L (136-145)
[2019-01-17] MEDS: Theophylline ER 100mg ORAL SCH ×2 (08:33→21:33)
[2019-01-17] MEDS: HYDROmorphone 1mg/ml Carpuject IVP PRN ×5 (08:33→21:30)
[2019-01-17] MEDS: Pancrelipase Dr Cap ORAL SCH ×3 (08:33→18:17)
[2019-01-17] MEDS: Heparin 5000 units/ml inj SUBQ SCH ×2 (08:35→21:36)
--- NOTE | 2019-01-17 10:01 | Pulmonology Progress Note ---
Assessment/Plan Assessment/Plan ASSESSMENT Chest pain , possibly due to COPD exacerbation , r/o ACS Possible costochondritis COPD exacerbation History of CHF Hypertension Chronic back pain Severe protein calorie malnutrition History of cervical cancer Bipolar disorder PLAN OF CARE tele supplemental O2 titrate to keep pulse ox above 92% HHN with bronchodilator IV steroids and taper empiric abx, fup with CX antitussive PRN trial of theophylline DVT prophylaxis Echo with pEF 60-65 %, mild LVH , no evidence of WMA serial troponin x2 negative , ECG no acute ischemic changes, pt ruled out for acute PR TSH within normal limits. cardio on board home medication resumed dietary recs implemented in plan of care pain management psych follows PT eval and Rx transfer to [place] if ok with cardio case discussed and evaluated by supervising physician Subjective Allergies: Coded Allergies: HYDROCODONE (Verified Allergy, Severe, 06/23/13) LORAZEPAM (Verified Allergy, Severe, Hives, 02/13/14) RASH/HIVES MORPHINE (Unverified Allergy, Severe, 01/14/19) Not true allergy; tolerated Dilaudid in past. Extensive opiate hx PROCHLORPERAZINE (Verified Allergy, Severe, 06/23/13) VANCOMYCIN (Unverified Allergy, Mild, Itching, 03/06/14) Subjective reports cough, wheezing, pulse ox stable on O2 2 L via NC Objective Last 24 Hour Vital Signs Date Time Temp Pulse Resp B/P (MAP) Pulse Ox O2 Delivery O2 Flow Rate FiO2 01/17/19 09:44 95 Room Air 21 01/17/19 09:44 83 18 96 Room Air 21 01/17/19 04:00 81 01/17/19 04:00 98.0 93 18 121/79 (93) 97 01/17/19 00:00 92 01/17/19 00:00 98.5 107 18 117/66 (83) 100 01/16/19 23:49 92 18 95 Room Air 21 01/16/19 23:49 95 Room Air 21 01/16/19 21:00 Nasal Cannula 2.0 01/16/19 20:00 98.7 107 18 118/65 (82) 98 01/16/19 20:00 98 01/16/19 16:00 111 01/16/19 16:00 98.4 108 18 111/68 (82) 98 01/16/19 12:00 74 20 95 Nasal Cannula 2.0 28 01/16/19 12:00 96 Nasal Cannula 2.0 28 01/16/19 12:00 98.3 97 20 114/69 (84) 99 01/16/19 12:00 95 Intake and Output 01/16/19 01/17/19 19:00 07:00 Intake Total 360 ml Balance 360 ml Intake Oral 360 ml # Voids 3 Objective General Appearance: no acute distress HEENT: normocephalic, atraumatic, anicteric, mucous membranes moist Respiratory/Chest: scattered expiratory wheezes Cardiovascular: normal rate, regular rhythm Abdomen: normal bowel sounds, soft, non tender Extremities: no edema, pedal pulses normal Neurologic/Psychiatric: abnormal gait - unsteady, alert, oriented x 3 Musculoskeletal: normal muscle bulk Microbiology Date/Time Source Procedure Growth Status 01/16/19 18:16 Sputum Gram Stain - Final Resulted 01/16/19 18:16 Sputum Sputum Culture Pending Resulted Laboratory Tests 01/17/19 07:35: White Blood Count 6.6, Red Blood Count 3.01L, Hemoglobin 10.2L, Hematocrit 32.5L , Mean Corpuscular Volume 108H, Mean Corpuscular Hemoglobin 34.0H, Mean Corpuscular Hemoglobin Concent 31.5L, Red Cell Distribution Width 14.6, Platelet Count 206, Mean Platelet Volume 6.0L, Neutrophils (%) (Auto) , Lymphocytes (%) (Auto) , Monocytes (%) (Auto) , Eosinophils (%) (Auto) , Basophils (%) (Auto) , Neutrophils % (Manual) [Pending], Lymphocytes % (Manual) [Pending], Platelet Estimate [Pending], Platelet Morphology [Pending], Sodium Level 143, Potassium Level 3.5, Chloride Level 106, Carbon Dioxide Level 29, Anion Gap 8, Blood Urea Nitrogen 23H, Creatinine 0.9, Estimat Glomerular Filtration Rate > 60, Glucose Level 143H, Calcium Level 9.5 Current Medications Medications (Trade) Dose Ordered Sig/Haley Route PRN Reason Start Time Stop Time Status Last Admin Dose Admin Albuterol/ Ipratropium (Albuterol/ Ipratropium) 3 ml Q4H PRN HHN dyspnea 01/14/19 12:30 01/19/19 12:29 01/15/19 22:48 Amylase/Lipase/ Protease (Zenpep) 2 ea THREE TIMES A DAY ORAL 01/14/19 13:00 02/13/19 12:59 01/17/19 08:33 Carbamazepine (TEGretol) 200 mg Q8HR ORAL 01/14/19 14:00 02/13/19 13:59 01/17/19 06:49 Dextrose (Dextrose 50%) 25 ml Q30M PRN IV Hypoglycemia 01/14/19 12:30 02/13/19 12:29 Dextrose (Dextrose 50%) 50 ml Q30M PRN IV Hypoglycemia 01/14/19 12:30 02/13/19 12:29 Diphenhydramine HCl (Benadryl) 25 mg Q8HR PRN ORAL Itching 01/14/19 22:00 02/13/19 21:59 01/17/19 03:47 Divalproex Sodium (Depakote) 250 mg BEDTIME ORAL 01/14/19 21:00 02/13/19 20:59 01/15/19 20:24 Heparin Sodium (Porcine) (Heparin 5000 units/ml) 5,000 units EVERY 12 HOURS SUBQ 01/14/19 21:00 02/13/19 20:59 01/17/19 08:35 Hydromorphone HCl (Dilaudid) 1 mg Q3H PRN IVP pain 5-6 01/14/19 13:15 01/21/19 13:14 01/17/19 08:33 Hydromorphone HCl (Dilaudid) 2 mg Q3H PRN IVP Severe Pain (Pain Scale 7-10) 01/14/19 13:15 01/21/19 13:14 01/17/19 03:47 Methylprednisolone Sodium Succinate (Solu-MEDROL) 60 mg EVERY 8 HOURS IM 01/16/19 22:00 02/13/19 17:59 01/17/19 06:49 Nitroglycerin (Ntg) 0.4 mg Q5M X 3 DOSES PRN SL Prn Chest Pain 01/14/19 12:30 02/13/19 12:29 Ondansetron HCl (Zofran) 4 mg Q6H PRN IVP Nausea & Vomiting 01/14/19 12:30 02/13/19 12:29 01/16/19 23:16 Piperacillin Sod/ Tazobactam Sod 3.375 gm/Sodium Chloride 110 ml @ 27.5 mls/hr EVERY 8 HOURS IVPB 01/14/19 14:00 01/19/19 13:59 01/17/19 06:49 Promethazine HCl/ Codeine (Phenergan with Codeine) 5 ml Q6H PRN ORAL cough 01/14/19 12:30 02/13/19 12:29 01/17/19 03:47 Theophylline (Juancho-Dur) 100 mg EVERY 12 HOURS ORAL 01/14/19 21:00 02/13/19 20:59 01/17/19 08:33 Nakia Alvarenga TRAINING CONSULTANT Jan 17, 2019 10:01
[2019-01-17] MEDS ORDERED: Albuterol/Ipratropium 3ml neb HHN PRN (10:05)
[2019-01-17 12:00] VITALS: BP 114/71
--- NOTE | 2019-01-17 13:31 | NUR ---
NURSE NOTES: Pt observed removing NC. SaO2 w/o NC 94%. Explained to pt importance of keeping it on but pt insisted on removing it. Will monitor pt.
--- NOTE | 2019-01-17 13:54 | Cardiology Report ---
APPROVED REPORT EKG Measurement Heart [id number] Normal sinus rhythm Nonspecific ST and T wave abnormality Abnormal ECG
--- NOTE | 2019-01-17 14:25 | Internal Med Progress Note ---
Subjective Date of Service: Jan 17, 2019 Physician Name Harvey Olivares Attending Physician Dawood Garrison MD Current Medications Medications (Trade) Dose Ordered Sig/Haley Route PRN Reason Start Time Stop Time Status Last Admin Dose Admin Albuterol/ Ipratropium (Albuterol/ Ipratropium) 3 ml Q4H PRN HHN dyspnea 01/17/19 10:05 01/22/19 10:04 Amylase/Lipase/ Protease (Zenpep) 2 ea THREE TIMES A DAY ORAL 01/14/19 13:00 02/13/19 12:59 01/17/19 12:12 Carbamazepine (TEGretol) 200 mg Q8HR ORAL 01/14/19 14:00 02/13/19 13:59 01/17/19 13:21 Dextrose (Dextrose 50%) 25 ml Q30M PRN IV Hypoglycemia 01/14/19 12:30 02/13/19 12:29 Dextrose (Dextrose 50%) 50 ml Q30M PRN IV Hypoglycemia 01/14/19 12:30 02/13/19 12:29 Diphenhydramine HCl (Benadryl) 25 mg Q8HR PRN ORAL Itching 01/14/19 22:00 02/13/19 21:59 01/17/19 03:47 Divalproex Sodium (Depakote) 250 mg BEDTIME ORAL 01/14/19 21:00 02/13/19 20:59 01/15/19 20:24 Heparin Sodium (Porcine) (Heparin 5000 units/ml) 5,000 units EVERY 12 HOURS SUBQ 01/14/19 21:00 02/13/19 20:59 01/17/19 08:35 Hydromorphone HCl (Dilaudid) 1 mg Q3H PRN IVP pain 5-6 01/14/19 13:15 01/21/19 13:14 01/17/19 12:15 Hydromorphone HCl (Dilaudid) 2 mg Q3H PRN IVP Severe Pain (Pain Scale 7-10) 01/14/19 13:15 01/21/19 13:14 01/17/19 03:47 Methylprednisolone Sodium Succinate (Solu-MEDROL) 60 mg EVERY 12 HOURS IM 01/17/19 21:00 02/13/19 17:59 Nitroglycerin (Ntg) 0.4 mg Q5M X 3 DOSES PRN SL Prn Chest Pain 01/14/19 12:30 02/13/19 12:29 Ondansetron HCl (Zofran) 4 mg Q6H PRN IVP Nausea & Vomiting 01/14/19 12:30 02/13/19 12:29 01/16/19 23:16 Piperacillin Sod/ Tazobactam Sod 3.375 gm/Sodium Chloride 110 ml @ 27.5 mls/hr EVERY 8 HOURS IVPB 01/14/19 14:00 01/19/19 13:59 01/17/19 13:21 Promethazine HCl/ Codeine (Phenergan with Codeine) 5 ml Q6H PRN ORAL cough 01/14/19 12:30 02/13/19 12:29 01/17/19 03:47 Theophylline (Juancho-Dur) 100 mg EVERY 12 HOURS ORAL 01/14/19 21:00 02/13/19 20:59 01/17/19 08:33 Allergies: Coded Allergies: HYDROCODONE (Verified Allergy, Severe, 06/23/13) LORAZEPAM (Verified Allergy, Severe, Hives, 02/13/14) RASH/HIVES MORPHINE (Unverified Allergy, Severe, 01/14/19) Not true allergy; tolerated Dilaudid in past. Extensive opiate hx PROCHLORPERAZINE (Verified Allergy, Severe, 06/23/13) VANCOMYCIN (Unverified Allergy, Mild, Itching, 03/06/14) ROS Limited/Unobtainable: No Constitutional: Reports: no symptoms HEENT: Reports: no symptoms Cardiovascular: Reports: chest pain Respiratory: Reports: no symptoms Gastrointestinal/Abdominal: Reports: no symptoms Genitourinary: Reports: no symptoms Neurologic/Psychiatric: Reports: no symptoms Subjective 68 YO F admitted with shortness of breath and chest pain. Cvoer for Int Derian-Dr Torres. Objective Last Vital Signs Date Time Temp Pulse Resp B/P (MAP) Pulse Ox O2 Delivery O2 Flow Rate FiO2 01/17/19 12:00 87 01/17/19 12:00 98.2 20 114/71 (85) 98 01/17/19 09:44 Room Air 21 01/17/19 09:00 2.0 Laboratory Tests Test 01/17/19 07:35 White Blood Count 6.6 K/UL (4.8-10.8) Red Blood Count 3.01 M/UL (4.20-5.40) L Hemoglobin 10.2 G/DL (12.0-16.0) L Hematocrit 32.5 % (37.0-47.0) L Mean Corpuscular Volume 108 FL (80-99) H Mean Corpuscular Hemoglobin 34.0 PG (27.0-31.0) H Mean Corpuscular Hemoglobin Concent 31.5 G/DL (32.0-36.0) L Red Cell Distribution Width 14.6 % (11.6-14.8) Platelet Count 206 K/UL (150-450) Mean Platelet Volume 6.0 FL (6.5-10.1) L Neutrophils (%) (Auto) % (45.0-75.0) Lymphocytes (%) (Auto) % (20.0-45.0) Monocytes (%) (Auto) % (1.0-10.0) Eosinophils (%) (Auto) % (0.0-3.0) Basophils (%) (Auto) % (0.0-2.0) Differential Total Cells Counted 100 Neutrophils % (Manual) 86 % (45-75) H Lymphocytes % (Manual) 9 % (20-45) L Monocytes % (Manual) 5 % (1-10) Eosinophils % (Manual) 0 % (0-3) Basophils % (Manual) 0 % (0-2) Band Neutrophils 0 % (0-8) Platelet Estimate Adequate Platelet Morphology Normal Hypochromasia 1+ Anisocytosis 1+ Macrocytosis 1+ Sodium Level 143 MMOL/L (136-145) Potassium Level 3.5 MMOL/L (3.5-5.1) Chloride Level 106 MMOL/L (98-107) Carbon Dioxide Level 29 MMOL/L (21-32) Anion Gap 8 mmol/L (5-15) Blood Urea Nitrogen 23 mg/dL (7-18) H Creatinine 0.9 MG/DL (0.55-1.30) Estimat Glomerular Filtration Rate > 60 mL/min (>60) Glucose Level 143 MG/DL (74-106) H Calcium Level 9.5 MG/DL (8.5-10.1) Microbiology Date/Time Source Procedure Growth Status 01/16/19 18:16 Sputum Gram Stain - Final Resulted 01/16/19 18:16 Sputum Sputum Culture Pending Resulted Intake and Output 01/16/19 01/17/19 19:00 07:00 Intake Total 360 ml Balance 360 ml Intake Oral 360 ml # Voids 3 Objective PHYSICAL EXAMINATION: GENERALLY: The patient is thin-appearing female, no apparent distress. HEENT: Eyes, pupils are equal and responsive to light and accommodation. Extraocular movements are intact. NECK: Supple without lymphadenopathy. CHEST: Lungs are clear to auscultation bilaterally without wheezes or rales. CARDIOVASCULAR: Regular rate. S1 and S2 normal without murmurs, rubs, gallops. ABDOMEN: Soft, nontender, and nondistended. Positive bowel sounds. No evidence of hepatosplenomegaly. Currently, no rebound or guarding noted. EXTREMITIES: Negative for clubbing, cyanosis, or edema. RECTAL/GENITAL: Refused. NEUROLOGIC: Cranial nerves II through XII are grossly intact without focal deficits. Motor strength is 5/5 bilaterally. Deep tendon reflexes are 2+ plantar. Assessment/Plan Assessment/Plan ASSESSMENT: This is a 68-year-old female. 1. Chest pain. 2. Shortness of breath. 3. Hypertension. 4. Hypercholesterolemia. 5. History of congestive heart failure. 6. COPD 7. Coronary artery dis 8. Bipolar D/O TREATMENT: 1. Chest pain/shortness of breath. This may be bronchitis or acute coronary syndrome. Serial troponin levels will be performed. A chest x-ray was reported as no acute disease. A Pulmonary consultation has been obtained with Dr. Lorraine Arndt. The patient has been started on albuterol nebulized q. 4 h. The patient is also on Zosyn intravenously. We will follow recommendations of Pulmonary. 2. Hypertension, the patient is currently normotensive. 3. Hypercholesterolemia. Continue atorvastatin as above. 4. Congestive heart failure. 5. Seroquel per psych Harvey Olivares MD Jan 17, 2019 14:25
--- NOTE | 2019-01-17 14:42 | NUR ---
TRANSFER TO FLOOR: Patient transferred to [facility] via hospital bed in stable condition with no cardiopulmonary distress noted, per Nakia Alvarenga NP. Report given to TANYA Angel. Belongings and medications given to TANYA Angel. secured entrance monitor removed and returned to tele floor.
[2019-01-17] MEDS ORDERED: Nitroglycerin Subl 0.4mg tab SL PRN (14:45)
--- NOTE | 2019-01-17 14:50 | NUR ---
NURSE NOTES: patient transfered from tele to room 415-2. dx with copd ex. patient alert. oriented. verbally responsive. no respiratory distress on room air. refused to use o2 via NC. c/o pain both legs. pain med due at 1520. IV on JOSELUIS 20 running Zosyn. no ase noted. skin intact. no n/v at this time. bed in the lowest position. call light within reach. will continue to provide plan of care and monitor condition.
[2019-01-17 16:00] VITALS: BP 123/76
--- NOTE | 2019-01-17 16:42 | Cardiology Progress Note ---
Assessment/Plan Status: stable, unchanged Status Narrative Chest pain - ruled out for [place] w/ negative troponins COPD/ bronchitis - continues w/ dry cough/wheeze Tobacco use Assessment/Plan Pt transferred off telemetry. On steroids, iv abx, and bronchodilator rx. CXR w/o infiltrate. Maintain hydration. Consider for stress testing ( can be done as outpt) for evaluation of CP. Suspect noncardiac CP, however, given EKG, troponins and ECHO findings Subjective ROS Limited/Unobtainable: No Subjective Cardiology for Dr. Collins Pt continues w/ cough w/o sputum. CP w/ cough Objective Last 24 Hour Vital Signs Date Time Temp Pulse Resp B/P (MAP) Pulse Ox O2 Delivery O2 Flow Rate FiO2 01/17/19 16:00 98.4 108 20 123/76 (92) 100 01/17/19 12:00 87 01/17/19 12:00 98.2 82 20 114/71 (85) 98 01/17/19 09:44 95 Room Air 21 01/17/19 09:44 83 18 96 Room Air 21 01/17/19 09:00 Nasal Cannula 2.0 01/17/19 08:00 98.0 116 18 122/79 (93) 97 01/17/19 08:00 101 01/17/19 04:00 81 01/17/19 04:00 98.0 93 18 121/79 (93) 97 01/17/19 00:00 92 01/17/19 00:00 98.5 107 18 117/66 (83) 100 01/16/19 23:49 92 18 95 Room Air 21 01/16/19 23:49 95 Room Air 21 01/16/19 21:00 Nasal Cannula 2.0 01/16/19 20:00 98.7 107 18 118/65 (82) 98 01/16/19 20:00 98 General Appearance: WD/WN, alert, mild distress EENT: PERRL/EOMI Neck: no JVD Rhythm: NSR Cardiovascular: normal rate, regular rhythm, no gallop/murmur Respiratory/Chest: chest wall non-tender, other - bilat expir wheezing. Fair air movement Abdomen: non tender, soft, no mass Extremities: no swelling Intake and Output 01/16/19 01/17/19 19:00 07:00 Intake Total 360 ml Balance 360 ml Intake Oral 360 ml # Voids 3 Laboratory Tests Test 01/17/19 07:35 White Blood Count 6.6 K/UL (4.8-10.8) Red Blood Count 3.01 M/UL (4.20-5.40) L Hemoglobin 10.2 G/DL (12.0-16.0) L Hematocrit 32.5 % (37.0-47.0) L Mean Corpuscular Volume 108 FL (80-99) H Mean Corpuscular Hemoglobin 34.0 PG (27.0-31.0) H Mean Corpuscular Hemoglobin Concent 31.5 G/DL (32.0-36.0) L Red Cell Distribution Width 14.6 % (11.6-14.8) Platelet Count 206 K/UL (150-450) Mean Platelet Volume 6.0 FL (6.5-10.1) L Neutrophils (%) (Auto) % (45.0-75.0) Lymphocytes (%) (Auto) % (20.0-45.0) Monocytes (%) (Auto) % (1.0-10.0) Eosinophils (%) (Auto) % (0.0-3.0) Basophils (%) (Auto) % (0.0-2.0) Differential Total Cells Counted 100 Neutrophils % (Manual) 86 % (45-75) H Lymphocytes % (Manual) 9 % (20-45) L Monocytes % (Manual) 5 % (1-10) Eosinophils % (Manual) 0 % (0-3) Basophils % (Manual) 0 % (0-2) Band Neutrophils 0 % (0-8) Platelet Estimate Adequate Platelet Morphology Normal Hypochromasia 1+ Anisocytosis 1+ Macrocytosis 1+ Sodium Level 143 MMOL/L (136-145) Potassium Level 3.5 MMOL/L (3.5-5.1) Chloride Level 106 MMOL/L (98-107) Carbon Dioxide Level 29 MMOL/L (21-32) Anion Gap 8 mmol/L (5-15) Blood Urea Nitrogen 23 mg/dL (7-18) H Creatinine 0.9 MG/DL (0.55-1.30) Estimat Glomerular Filtration Rate > 60 mL/min (>60) Glucose Level 143 MG/DL (74-106) H Calcium Level 9.5 MG/DL (8.5-10.1) Microbiology Date/Time Source Procedure Growth Status 01/16/19 18:16 Sputum Gram Stain - Final Resulted 01/16/19 18:16 Sputum Sputum Culture Pending Resulted Cyn Pate MD Jan 17, 2019 16:42
--- NOTE | 2019-01-17 19:00 | NUR ---
NURSE NOTES: Received a report from TANYA Angel. Pt is in stable condition. AAOX4. Able to make needs known. On room air. No c/o pain/discomfort. IV site is patent and intact. Bed in lowest position. Bed alarm is on. Call light within reach. Will continue to monitor.
--- NOTE | 2019-01-17 19:29 | NUR ---
HAND-OFF: Report given to TANYA Calvillo.
[2019-01-17 19:48] VITALS: BP 116/66
[2019-01-17] MEDS: Albuterol/Ipratropium 3ml neb HHN PRN (19:53)
[2019-01-17] MEDS ORDERED: Solu-MEDROL 125mg Inj IM SCH (21:00)
[2019-01-17] MEDS: Piperacillin/Tazobactam 3.375 GM in NS 110 ML IVPB SCH (21:35)
[2019-01-18] VITALS (7 sets, daily range): BP systolic 106–121; BP diastolic 68–79
[2019-01-18] MEDS: carBAMazepine 200mg tab ORAL SCH ×3 (05:03→21:09)
[2019-01-18] MEDS: Piperacillin/Tazobactam 3.375 GM in NS 110 ML IVPB SCH ×3 (05:04→21:11)
[2019-01-18 06:43] LABS: BASOPHILS % (AUTO) 1.1 % (0.0-2.0); EOSINOPHILS % (AUTO) 0.1 % (0.0-3.0); HEMATOCRIT 31.3 % (37.0-47.0); HEMOGLOBIN 9.9 G/DL (12.0-16.0); LYMPHOCYTES % (AUTO) 15.3 % (20.0-45.0); MEAN CORPUSCULAR VOLUME 108 FL (80-99); MONOCYTES % (AUTO) 5.6 % (1.0-10.0); NEUTROPHILS % (AUTO) 77.9 % (45.0-75.0); PLATELET COUNT 213 K/UL (150-450); RED BLOOD COUNT 2.89 M/UL (4.20-5.40); RED CELL DISTRIBUTION WIDTH 15.2 % (11.6-14.8); WHITE BLOOD COUNT 6.1 K/UL (4.8-10.8)
[2019-01-18 06:49] LABS: ANION GAP 5 mmol/L (5-15); BLOOD UREA NITROGEN 21 mg/dL (7-18); CALCIUM 9.1 MG/DL (8.5-10.1); CARBON DIOXIDE 32 MMOL/L (21-32); CHLORIDE 107 MMOL/L (98-107); CREATININE 0.8 MG/DL (0.55-1.30); POTASSIUM 3.9 MMOL/L (3.5-5.1); SODIUM 144 MMOL/L (136-145)
--- NOTE | 2019-01-18 07:43 | NUR ---
HAND-OFF: Report given to Tara Walters RN.
--- NOTE | 2019-01-18 07:53 | NUR ---
NURSE NOTES: Patient received eating breakfast in bed. Breathing unlabored on room air. Patient denies SOB. IV on left arm observed. Dressing is c/d/i. Patient anticipating pain medication q3h. Bed locked in lowest position, call light placed within reach. Will continue to monitor.
[2019-01-18] MEDS: Theophylline ER 100mg ORAL SCH ×2 (08:02→21:10)
[2019-01-18] MEDS: Solu-MEDROL 125mg Inj IM SCH ×2 (08:02→21:10)
[2019-01-18] MEDS: Pancrelipase Dr Cap ORAL SCH ×3 (08:02→18:20)
[2019-01-18] MEDS: Heparin 5000 units/ml inj SUBQ SCH ×2 (08:16→21:12)
--- NOTE | 2019-01-18 09:16 | NUR ---
CASE MANAGEMENT:REVIEW 01/18/19 SI: COPD EXACERBATION. ACS. CAD COSTOCHONDRITIS 98.9 96 19 121/79 95% 2L/NC IS: IV SOLUMEDROL 60MG Q6HRS IV ZOSYN Q8HRS HEPARIN SQ Q12 INEZ-DUR PO Q12 DEPAKOTE PO QHS TEGRETOL PO Q8HRS : TELEMETRY STATUS DCP: FROM HOME
--- NOTE | 2019-01-18 09:23 | NUR ---
DISCHARGE PLANNING PATIENT WILL RETURN HOME UPON DISCHARGE AWAITING OFFICIAL DISCHARGE ORDER
--- NOTE | 2019-01-18 09:49 | Cardiology Report ---
APPROVED REPORT EXAM: Two-dimensional and M-mode echocardiogram with Doppler and color Doppler. INDICATION Coronary artery disease M-Mode DIMENSIONS IVSd0.8 (0.7-1.1cm)Left Atrium (MM)2.3 (1.6-4.0cm) LVDd3.8 (3.5-5.6cm)Aortic Root3.9 (2.0-3.7cm) PWd0.9 (0.7-1.1cm)Aortic Cusp Exc.1.7 (1.5-2.0cm) IVSs1.2 cm LVDs2.5 (2.5-4.0cm) PWs0.9 cm Normal left ventricular chamber size, systolic function and wall motion to extent visualized. Left ventricular ejection fraction estimated to be 60-65%. Mild left ventricular hypertrophy. No evidence of pericardial effusion . All other cardiac chamber sizes are within normal limits. Aortic valve calcification with normal cusp excursion . Moderately thickened mitral valve leaflets with normal excursion. Mild mitral annulus and aortic root calcification. Pulmonic valve not well visualized. IVC at normal size with physiologic collapse. A color flow and spectral Doppler study was performed and revealed: No aortic insufficiency . Mitral diastolic velocities suggest reduced left ventricular relaxation c/w mild LV diastolic dysfunction (Grade I ) Mild mitral regurgitation. Trace tricuspid regurgitation. Tricuspid systolic velocities suggests peak right ventricular systolic pressure of 13mmHg.
--- NOTE | 2019-01-18 10:30 | NUR ---
PT EVALUATION NOTE Patient seen for initial evaluation, see complete evaluation for details. Patient presents with generalized weakness and decreased activity tolerance. Patient able to ambulate 100 ft with CGA, impaired balance and c/o dizziness. Patient will benefit from skilled inpatient PT intervention to address strength, balance, safety and functional mobility. Anticipate discharge home once medically cleared by MD. Addendum: 01/18/19 at 1336 by CALLI ARMIJO PT Amended: Links added.
--- NOTE | 2019-01-18 14:32 | Pulmonology Progress Note ---
Assessment/Plan Problems: (1) COPD exacerbation (2) ACS (acute coronary syndrome) (3) Costochondritis (4) CAD (coronary artery disease) (5) Severe protein-calorie malnutrition Assessment/Plan still coughing improving respiratory treatment pain management psych evaluation check electrolytes all reviewed Subjective ROS Limited/Unobtainable: No Constitutional: Reports: no symptoms HEENT: Repors: no symptoms Allergies: Coded Allergies: HYDROCODONE (Verified Allergy, Severe, 06/23/13) LORAZEPAM (Verified Allergy, Severe, Hives, 02/13/14) RASH/HIVES MORPHINE (Unverified Allergy, Severe, 01/14/19) Not true allergy; tolerated Dilaudid in past. Extensive opiate hx PROCHLORPERAZINE (Verified Allergy, Severe, 06/23/13) VANCOMYCIN (Unverified Allergy, Mild, Itching, 03/06/14) Objective Last 24 Hour Vital Signs Date Time Temp Pulse Resp B/P (MAP) Pulse Ox O2 Delivery O2 Flow Rate FiO2 01/18/19 12:00 98.4 93 18 118/74 (89) 94 01/18/19 09:00 Nasal Cannula 2.0 01/18/19 08:00 98.9 96 19 121/79 (93) 95 01/18/19 03:54 98.2 91 18 106/70 (82) 100 01/18/19 01:08 98.0 01/18/19 00:00 98.0 87 19 108/68 (81) 99 01/17/19 21:00 Nasal Cannula 2.0 01/17/19 20:01 75 20 99 Room Air 21 01/17/19 19:55 95 Room Air 21 01/17/19 19:55 75 18 95 Room Air 21 01/17/19 19:53 74 18 95 Nasal Cannula 21 01/17/19 19:48 98.2 101 18 116/66 (83) 97 01/17/19 16:00 98.4 108 20 123/76 (92) 100 Intake and Output 01/17/19 01/18/19 19:00 07:00 Intake Total 497.5 ml 137.5 ml Balance 497.5 ml 137.5 ml Intake Oral 360 ml IV Total 137.5 ml 137.5 ml # Voids 3 General Appearance: WD/WN HEENT: normocephalic Respiratory/Chest: chest wall non-tender, accessory muscle use, stridor Cardiovascular: normal peripheral pulses, normal rate Abdomen: normal bowel sounds, soft, non tender 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 Microbiology Date/Time Source Procedure Growth Status 01/16/19 18:16 Sputum Gram Stain - Final Resulted 01/16/19 18:16 Sputum Sputum Culture Pending Resulted Laboratory Tests 01/18/19 05:45: White Blood Count 6.1, Red Blood Count 2.89L, Hemoglobin 9.9L, Hematocrit 31.3L , Mean Corpuscular Volume 108H, Mean Corpuscular Hemoglobin 34.3H, Mean Corpuscular Hemoglobin Concent 31.6L, Red Cell Distribution Width 15.2H, Platelet Count 213, Mean Platelet Volume 5.2L, Neutrophils (%) (Auto) 77.9H, Lymphocytes (%) (Auto) 15.3L, Monocytes (%) (Auto) 5.6, Eosinophils (%) (Auto) 0.1, Basophils (%) (Auto) 1.1, Sodium Level 144, Potassium Level 3.9, Chloride Level 107, Carbon Dioxide Level 32, Anion Gap 5, Blood Urea Nitrogen 21H, Creatinine 0.8, Estimat Glomerular Filtration Rate > 60, Glucose Level 128H, Calcium Level 9.1 Current Medications Medications (Trade) Dose Ordered Sig/Haley Route PRN Reason Start Time Stop Time Status Last Admin Dose Admin Albuterol/ Ipratropium (Albuterol/ Ipratropium) 3 ml Q4H PRN HHN dyspnea 01/17/19 14:50 01/22/19 14:49 01/17/19 19:53 Amylase/Lipase/ Protease (Zenpep) 2 ea THREE TIMES A DAY ORAL 01/17/19 18:00 02/13/19 12:59 01/18/19 11:55 Carbamazepine (TEGretol) 200 mg Q8HR ORAL 01/17/19 22:00 02/13/19 13:59 01/18/19 13:51 Dextrose (Dextrose 50%) 25 ml Q30M PRN IV Hypoglycemia 01/17/19 15:00 02/13/19 12:29 Dextrose (Dextrose 50%) 50 ml Q30M PRN IV Hypoglycemia 01/17/19 15:00 02/13/19 12:29 Diphenhydramine HCl (Benadryl) 25 mg Q8H PRN ORAL Itching 01/17/19 14:50 02/16/19 14:49 01/18/19 11:52 Divalproex Sodium (Depakote) 250 mg BEDTIME ORAL 01/17/19 21:00 02/13/19 20:59 01/17/19 21:33 Heparin Sodium (Porcine) (Heparin 5000 units/ml) 5,000 units EVERY 12 HOURS SUBQ 01/17/19 21:00 02/13/19 20:59 01/18/19 08:16 Hydromorphone HCl (Dilaudid) 1 mg Q3H PRN IVP pain 5-6 01/17/19 14:51 01/24/19 14:50 01/17/19 21:30 Hydromorphone HCl (Dilaudid) 2 mg Q3H PRN IVP Severe Pain (Pain Scale 7-10) 01/17/19 14:51 01/24/19 14:50 01/18/19 11:46 Methylprednisolone Sodium Succinate (Solu-MEDROL) 60 mg EVERY 12 HOURS IM 01/17/19 21:00 02/13/19 17:59 01/18/19 08:02 Nitroglycerin (Ntg) 0.4 mg Q5M X 3 DOSES PRN SL Prn Chest Pain 01/17/19 14:45 02/13/19 12:29 Ondansetron HCl (Zofran) 4 mg Q6H PRN IVP Nausea & Vomiting 01/17/19 14:51 02/16/19 14:50 01/18/19 11:52 Piperacillin Sod/ Tazobactam Sod 3.375 gm/Sodium Chloride 110 ml @ 27.5 mls/hr EVERY 8 HOURS IVPB 01/17/19 22:00 01/19/19 13:59 01/18/19 13:52 Promethazine HCl/ Codeine (Phenergan with Codeine) 5 ml Q6H PRN ORAL cough 01/17/19 14:52 02/16/19 14:51 Theophylline (Juancho-Dur) 100 mg EVERY 12 HOURS ORAL 01/17/19 21:00 02/13/19 20:59 01/18/19 08:02 Lorraine Arndt MD Jan 18, 2019 14:32
--- NOTE | 2019-01-18 19:03 | Internal Med Progress Note ---
Subjective Date of Service: Jan 18, 2019 Physician Name Olivares,Harvey Attending Physician Dawood Garrison MD Current Medications Medications (Trade) Dose Ordered Sig/Haley Route PRN Reason Start Time Stop Time Status Last Admin Dose Admin Albuterol/ Ipratropium (Albuterol/ Ipratropium) 3 ml Q4H PRN HHN dyspnea 01/17/19 14:50 01/22/19 14:49 01/17/19 19:53 Amylase/Lipase/ Protease (Zenpep) 2 ea THREE TIMES A DAY ORAL 01/17/19 18:00 02/13/19 12:59 01/18/19 18:20 Carbamazepine (TEGretol) 200 mg Q8HR ORAL 01/17/19 22:00 02/13/19 13:59 01/18/19 13:51 Dextrose (Dextrose 50%) 25 ml Q30M PRN IV Hypoglycemia 01/17/19 15:00 02/13/19 12:29 Dextrose (Dextrose 50%) 50 ml Q30M PRN IV Hypoglycemia 01/17/19 15:00 02/13/19 12:29 Diphenhydramine HCl (Benadryl) 25 mg Q8H PRN ORAL Itching 01/17/19 14:50 02/16/19 14:49 01/18/19 11:52 Divalproex Sodium (Depakote) 250 mg BEDTIME ORAL 01/17/19 21:00 02/13/19 20:59 01/17/19 21:33 Heparin Sodium (Porcine) (Heparin 5000 units/ml) 5,000 units EVERY 12 HOURS SUBQ 01/17/19 21:00 02/13/19 20:59 01/18/19 08:16 Hydromorphone HCl (Dilaudid) 1 mg Q3H PRN IVP pain 5-6 01/17/19 14:51 01/24/19 14:50 01/17/19 21:30 Hydromorphone HCl (Dilaudid) 2 mg Q3H PRN IVP Severe Pain (Pain Scale 7-10) 01/17/19 14:51 01/24/19 14:50 01/18/19 18:21 Methylprednisolone Sodium Succinate (Solu-MEDROL) 60 mg EVERY 12 HOURS IM 01/17/19 21:00 02/13/19 17:59 01/18/19 08:02 Nitroglycerin (Ntg) 0.4 mg Q5M X 3 DOSES PRN SL Prn Chest Pain 01/17/19 14:45 02/13/19 12:29 Ondansetron HCl (Zofran) 4 mg Q6H PRN IVP Nausea & Vomiting 01/17/19 14:51 02/16/19 14:50 01/18/19 18:21 Piperacillin Sod/ Tazobactam Sod 3.375 gm/Sodium Chloride 110 ml @ 27.5 mls/hr EVERY 8 HOURS IVPB 01/17/19 22:00 01/19/19 13:59 01/18/19 13:52 Promethazine HCl/ Codeine (Phenergan with Codeine) 5 ml Q6H PRN ORAL cough 01/17/19 14:52 02/16/19 14:51 Theophylline (Juancho-Dur) 100 mg EVERY 12 HOURS ORAL 01/17/19 21:00 02/13/19 20:59 01/18/19 08:02 Allergies: Coded Allergies: HYDROCODONE (Verified Allergy, Severe, 06/23/13) LORAZEPAM (Verified Allergy, Severe, Hives, 02/13/14) RASH/HIVES MORPHINE (Unverified Allergy, Severe, 01/14/19) Not true allergy; tolerated Dilaudid in past. Extensive opiate hx PROCHLORPERAZINE (Verified Allergy, Severe, 06/23/13) VANCOMYCIN (Unverified Allergy, Mild, Itching, 03/06/14) ROS Limited/Unobtainable: No Constitutional: Reports: no symptoms HEENT: Reports: no symptoms Cardiovascular: Reports: no symptoms Respiratory: Reports: shortness of breath Gastrointestinal/Abdominal: Reports: no symptoms Genitourinary: Reports: no symptoms Subjective 68 YO F admitted with shortness of breath and chest pain. Now COPD exacerbation. Cover for Int Med-Dr Torres. Objective Last Vital Signs Date Time Temp Pulse Resp B/P (MAP) Pulse Ox O2 Delivery O2 Flow Rate FiO2 01/18/19 16:00 98.4 100 20 113/72 (86) 92 01/18/19 09:00 Nasal Cannula 2.0 01/17/19 20:01 21 Laboratory Tests Test 01/18/19 05:45 White Blood Count 6.1 K/UL (4.8-10.8) Red Blood Count 2.89 M/UL (4.20-5.40) L Hemoglobin 9.9 G/DL (12.0-16.0) L Hematocrit 31.3 % (37.0-47.0) L Mean Corpuscular Volume 108 FL (80-99) H Mean Corpuscular Hemoglobin 34.3 PG (27.0-31.0) H Mean Corpuscular Hemoglobin Concent 31.6 G/DL (32.0-36.0) L Red Cell Distribution Width 15.2 % (11.6-14.8) H Platelet Count 213 K/UL (150-450) Mean Platelet Volume 5.2 FL (6.5-10.1) L Neutrophils (%) (Auto) 77.9 % (45.0-75.0) H Lymphocytes (%) (Auto) 15.3 % (20.0-45.0) L Monocytes (%) (Auto) 5.6 % (1.0-10.0) Eosinophils (%) (Auto) 0.1 % (0.0-3.0) Basophils (%) (Auto) 1.1 % (0.0-2.0) Sodium Level 144 MMOL/L (136-145) Potassium Level 3.9 MMOL/L (3.5-5.1) Chloride Level 107 MMOL/L (98-107) Carbon Dioxide Level 32 MMOL/L (21-32) Anion Gap 5 mmol/L (5-15) Blood Urea Nitrogen 21 mg/dL (7-18) H Creatinine 0.8 MG/DL (0.55-1.30) Estimat Glomerular Filtration Rate > 60 mL/min (>60) Glucose Level 128 MG/DL (74-106) H Calcium Level 9.1 MG/DL (8.5-10.1) Microbiology Date/Time Source Procedure Growth Status 01/16/19 18:16 Sputum Gram Stain - Final Resulted 01/16/19 18:16 Sputum Sputum Culture Pending Resulted Intake and Output 01/17/19 01/18/19 19:00 07:00 Intake Total 497.5 ml 137.5 ml Balance 497.5 ml 137.5 ml Intake Oral 360 ml IV Total 137.5 ml 137.5 ml # Voids 3 Objective PHYSICAL EXAMINATION: GENERALLY: The patient is thin-appearing female, no apparent distress. HEENT: Eyes, pupils are equal and responsive to light and accommodation. Extraocular movements are intact. NECK: Supple without lymphadenopathy. CHEST: Lungs are clear to auscultation bilaterally without wheezes or rales. CARDIOVASCULAR: Regular rate. S1 and S2 normal without murmurs, rubs, gallops. ABDOMEN: Soft, nontender, and nondistended. Positive bowel sounds. No evidence of hepatosplenomegaly. Currently, no rebound or guarding noted. EXTREMITIES: Negative for clubbing, cyanosis, or edema. RECTAL/GENITAL: Refused. NEUROLOGIC: Cranial nerves II through XII are grossly intact without focal deficits. Motor strength is 5/5 bilaterally. Deep tendon reflexes are 2+ plantar. Assessment/Plan Assessment/Plan ASSESSMENT: This is a 68-year-old female. 1. Chest pain. 2. Shortness of breath. 3. Hypertension. 4. Hypercholesterolemia. 5. History of congestive heart failure. 6. COPD Exacerbation 7. Coronary artery dis 8. Bipolar D/O TREATMENT: 1. Copd exacerbation/bronchitis A Pulmonary consultation has been obtained with Dr. Lorraine Arndt. The patient has been started on albuterol nebulized q. 4 hr and IV solumedrol. The patient is also on Zosyn intravenously. We will follow recommendations of Pulmonary. 2. Hypertension, the patient is currently normotensive. 3. Hypercholesterolemia. Continue atorvastatin as above. 4. Congestive heart failure. 5. Seroquel per Harvey Shaw MD Jan 18, 2019 19:03
--- NOTE | 2019-01-18 19:15 | NUR ---
NURSE NOTES: Received a report from Tara Walters RN. Pt is in stable condition. Sleeping comfortably. On room air. No c/o pain/discomfort. IV site is patent and intact. Bed in lowest position. Bed alarm is on. Call light within reach. Will continue to monitor.
--- NOTE | 2019-01-18 19:21 | NUR ---
HAND-OFF: Report given to Karli MARTÍNEZ.
[2019-01-18] MEDS: Albuterol/Ipratropium 3ml neb HHN PRN (20:04)
--- NOTE | 2019-01-19 00:15 | Progress Note ---
DATE: 01/19/2019 SUBJECTIVE: The patient is much improved, less agitated, calmer, more cooperative, but still has episodes of agitation. MENTAL STATUS EXAMINATION: The patient is alert and oriented to time, self, place, and situation. Mood is dysphoric. Affect is constricted. Congruent mood. Thought process is concrete. Thought content, no suicidal or homicidal ideation. ASSESSMENT: Stable. PLAN: We will continue the current medication. Provide the patient with reality orientation and supportive therapy. Anne-Marie Faria M.D. DR: JYOTI JOB#: [id number] CC:
[2019-01-19 04:00] VITALS: BP 143/96
--- NOTE | 2019-01-19 05:00 | NUR ---
NURSE NOTES: Pt was upset because she wanted the Dilaudid, Zofran, and Benadryl every 3 hours. She also wanted to get those medications without her asking for those. Karli MARTÍNEZ explained to the pt that she needs to ask for those medications because they were not scheduled. They are as needed. Karli MARTÍNEZ also explained to the pt that the frequency of those 3 medications are different such as Dilaudid 2 mg q3h, Benadryl q8h, and Zofran q6h. But she kept insisting that she wanted all 3 medications altogether. Pt is being mean to the staff. She kept complaining about everything. Charge Nurse Meryl made aware.
[2019-01-19] MEDS: Piperacillin/Tazobactam 3.375 GM in NS 110 ML IVPB SCH (05:09)
[2019-01-19] MEDS: carBAMazepine 200mg tab ORAL SCH ×3 (05:09→22:15)
[2019-01-19 06:47] LABS: BASOPHILS % (AUTO) 0.3 % (0.0-2.0); EOSINOPHILS % (AUTO) 0.4 % (0.0-3.0); HEMATOCRIT 30.9 % (37.0-47.0); HEMOGLOBIN 9.6 G/DL (12.0-16.0); LYMPHOCYTES % (AUTO) 17.4 % (20.0-45.0); MEAN CORPUSCULAR VOLUME 109 FL (80-99); MONOCYTES % (AUTO) 5.8 % (1.0-10.0); NEUTROPHILS % (AUTO) 76.1 % (45.0-75.0); PLATELET COUNT 226 K/UL (150-450); RED BLOOD COUNT 2.83 M/UL (4.20-5.40); RED CELL DISTRIBUTION WIDTH 15.5 % (11.6-14.8); WHITE BLOOD COUNT 5.6 K/UL (4.8-10.8)
[2019-01-19 07:15] LABS: ANION GAP 12 mmol/L (5-15); BLOOD UREA NITROGEN 24 mg/dL (7-18); CALCIUM 9.1 MG/DL (8.5-10.1); CARBON DIOXIDE 28 MMOL/L (21-32); CHLORIDE 104 MMOL/L (98-107); CREATININE 0.8 MG/DL (0.55-1.30); POTASSIUM 3.8 MMOL/L (3.5-5.1); SODIUM 144 MMOL/L (136-145)
--- NOTE | 2019-01-19 07:35 | NUR ---
HAND-OFF: Report given to TANYA Gresham.
--- NOTE | 2019-01-19 07:40 | NUR ---
NURSE NOTES: WALKING ROUNDS DONE WITH OUTGOING RN. PATIENT AWAKE IN BED. QUESTIONS ANSWERED, NEEDS MET. DISCUSSED PLAN OF CARE FOR THE DAY, VERBALIZED UNDERSTANDING. CALL LIGHT WITHIN REACH. BED IN LOWEST POSITION.
[2019-01-19 08:00] VITALS: BP 121/62
[2019-01-19] MEDS: Pancrelipase Dr Cap ORAL SCH ×3 (09:00→18:22)
[2019-01-19] MEDS: Theophylline ER 100mg ORAL SCH ×2 (09:01→20:56)
[2019-01-19] MEDS: Solu-MEDROL 125mg Inj IM SCH (09:01)
[2019-01-19] MEDS: Heparin 5000 units/ml inj SUBQ SCH ×2 (09:02→20:57)
[2019-01-19 12:00] VITALS: BP 128/72
--- NOTE | 2019-01-19 14:58 | NUR ---
RD ASSESSMENT & RECOMMENDATIONS SEE CARE ACTIVITY FOR COMPLETE ASSESSMENT DAILY ESTIMATED NEEDS: Needs based on Pulmonary, underweight 43kg 30-35 kcals/kg 5942-5257 total kcals 1-1.5 g protein/kg 43-65 g total protein 25-30 mL/kg 3969-1298 total fluid mLs NUTRITION DIAGNOSIS: 1) Underweight R/T chronic disease, clinical status as evidenced by BMI 16.7, @ 82% [place] Body Weight, w COPD, on solumedrol. CURRENT DIET:Regular PO DIET RECOMMENDATIONS: Regular diet + Ensure BID . ADDITIONAL RECOMMENDATIONS: 1) Obtain a standing weight for accurate CBW 2) Monitor BG w/ solumedrol / need for ssi 3) Snacks in b/w meals as tolerated 4) Weekly weights
--- NOTE | 2019-01-19 15:05 | Pulmonology Progress Note ---
Assessment/Plan Problems: (1) COPD exacerbation (2) ACS (acute coronary syndrome) (3) Costochondritis (4) CAD (coronary artery disease) (5) Severe protein-calorie malnutrition Assessment/Plan wants more pain meds still coughing improving respiratory treatment pain management psych evaluation check electrolytes all reviewed Subjective ROS Limited/Unobtainable: No Constitutional: Reports: no symptoms HEENT: Repors: no symptoms Respiratory: Reports: no symptoms Allergies: Coded Allergies: HYDROCODONE (Verified Allergy, Severe, 06/23/13) LORAZEPAM (Verified Allergy, Severe, Hives, 02/13/14) RASH/HIVES MORPHINE (Unverified Allergy, Severe, 01/14/19) Not true allergy; tolerated Dilaudid in past. Extensive opiate hx PROCHLORPERAZINE (Verified Allergy, Severe, 06/23/13) VANCOMYCIN (Unverified Allergy, Mild, Itching, 03/06/14) Objective Last 24 Hour Vital Signs Date Time Temp Pulse Resp B/P (MAP) Pulse Ox O2 Delivery O2 Flow Rate FiO2 01/19/19 12:00 98.3 67 19 128/72 (90) 97 01/19/19 10:30 97.9 01/19/19 09:00 Room Air 01/19/19 08:00 97.9 100 21 121/62 (81) 95 01/19/19 04:00 98.2 92 17 143/96 (112) 99 01/18/19 23:45 98.4 97 17 118/72 (87) 99 01/18/19 21:00 Nasal Cannula 2.0 01/18/19 20:14 78 18 99 Room Air 21 01/18/19 20:04 94 18 95 Room Air 21 01/18/19 20:00 98.4 101 18 116/75 (89) 99 01/18/19 19:32 79 16 95 Room Air 21 01/18/19 19:32 96 Room Air 21 01/18/19 16:00 98.4 100 20 113/72 (86) 92 Intake and Output 01/18/19 01/19/19 19:00 07:00 Intake Total 480 ml 877.5 ml Balance 480 ml 877.5 ml Intake Oral 480 ml 740 ml IV Total 137.5 ml # Voids 2 3 # Bowel Movements 1 1 General Appearance: WD/WN HEENT: normocephalic Respiratory/Chest: chest wall non-tender Breasts: no masses Cardiovascular: normal rate Abdomen: normal bowel sounds, no scars Extremities: no clubbing Microbiology Date/Time Source Procedure Growth Status 01/16/19 18:16 Sputum Gram Stain - Final Resulted 01/16/19 18:16 Sputum Culture - Preliminary YEAST Usual Respiratory Roxann Resulted Laboratory Tests 01/19/19 05:30: White Blood Count 5.6, Red Blood Count 2.83L, Hemoglobin 9.6L, Hematocrit 30.9L , Mean Corpuscular Volume 109H, Mean Corpuscular Hemoglobin 34.0H, Mean Corpuscular Hemoglobin Concent 31.1L, Red Cell Distribution Width 15.5H, Platelet Count 226, Mean Platelet Volume 5.6L, Neutrophils (%) (Auto) 76.1H, Lymphocytes (%) (Auto) 17.4L, Monocytes (%) (Auto) 5.8, Eosinophils (%) (Auto) 0.4, Basophils (%) (Auto) 0.3, Sodium Level 144, Potassium Level 3.8, Chloride Level 104, Carbon Dioxide Level 28, Anion Gap 12, Blood Urea Nitrogen 24H, Creatinine 0.8, Estimat Glomerular Filtration Rate > 60, Glucose Level 144H, Calcium Level 9.1 Current Medications Medications (Trade) Dose Ordered Sig/Haley Route PRN Reason Start Time Stop Time Status Last Admin Dose Admin Albuterol/ Ipratropium (Albuterol/ Ipratropium) 3 ml Q4H PRN HHN dyspnea 01/17/19 14:50 01/22/19 14:49 01/18/19 20:04 Amylase/Lipase/ Protease (Zenpep) 2 ea THREE TIMES A DAY ORAL 01/17/19 18:00 02/13/19 12:59 01/19/19 14:15 Carbamazepine (TEGretol) 200 mg Q8HR ORAL 01/17/19 22:00 02/13/19 13:59 01/19/19 14:15 Dextrose (Dextrose 50%) 25 ml Q30M PRN IV Hypoglycemia 01/17/19 15:00 02/13/19 12:29 Dextrose (Dextrose 50%) 50 ml Q30M PRN IV Hypoglycemia 01/17/19 15:00 02/13/19 12:29 Diphenhydramine HCl (Benadryl) 25 mg Q8H PRN ORAL Itching 01/17/19 14:50 02/16/19 14:49 01/19/19 04:01 Divalproex Sodium (Depakote) 250 mg BEDTIME ORAL 01/17/19 21:00 02/13/19 20:59 01/18/19 21:10 Heparin Sodium (Porcine) (Heparin 5000 units/ml) 5,000 units EVERY 12 HOURS SUBQ 01/17/19 21:00 02/13/19 20:59 01/19/19 09:02 Hydromorphone HCl (Dilaudid) 1 mg Q3H PRN IVP pain 5-6 01/17/19 14:51 01/24/19 14:50 01/17/19 21:30 Hydromorphone HCl (Dilaudid) 2 mg Q3H PRN IVP Severe Pain (Pain Scale 7-10) 01/17/19 14:51 01/24/19 14:50 01/19/19 14:16 Methylprednisolone Sodium Succinate (Solu-MEDROL) 60 mg EVERY 12 HOURS IM 01/17/19 21:00 02/13/19 17:59 01/19/19 09:01 Nitroglycerin (Ntg) 0.4 mg Q5M X 3 DOSES PRN SL Prn Chest Pain 01/17/19 14:45 02/13/19 12:29 Ondansetron HCl (Zofran) 4 mg Q6H PRN IVP Nausea & Vomiting 01/17/19 14:51 02/16/19 14:50 01/19/19 14:15 Promethazine HCl/ Codeine (Phenergan with Codeine) 5 ml Q6H PRN ORAL cough 01/17/19 14:52 02/16/19 14:51 Theophylline (Juancho-Dur) 100 mg EVERY 12 HOURS ORAL 01/17/19 21:00 02/13/19 20:59 01/19/19 09:01 Lorraine Arndt MD Jan 19, 2019 15:05
--- NOTE | 2019-01-19 15:28 | Cardiology Progress Note ---
Assessment/Plan Assessment/Plan cp mi rulled out copd tobacco use do bp is magali elelvated mi rulled out hhn per pulm out pt fu Subjective Cardiovascular: Reports: chest pain, lightheadedness Respiratory: Reports: cough, shortness of breath Gastrointestinal/Abdominal: Denies: abdominal pain Genitourinary: Denies: burning Objective Last 24 Hour Vital Signs Date Time Temp Pulse Resp B/P (MAP) Pulse Ox O2 Delivery O2 Flow Rate FiO2 01/19/19 14:46 98.3 01/19/19 12:00 98.3 67 19 128/72 (90) 97 01/19/19 09:00 Room Air 01/19/19 08:00 97.9 100 21 121/62 (81) 95 01/19/19 04:00 98.2 92 17 143/96 (112) 99 01/18/19 23:45 98.4 97 17 118/72 (87) 99 01/18/19 21:00 Nasal Cannula 2.0 01/18/19 20:14 78 18 99 Room Air 21 01/18/19 20:04 94 18 95 Room Air 21 01/18/19 20:00 98.4 101 18 116/75 (89) 99 01/18/19 19:32 79 16 95 Room Air 21 01/18/19 19:32 96 Room Air 21 01/18/19 16:00 98.4 100 20 113/72 (86) 92 General Appearance: no apparent distress, alert Neck: supple Cardiovascular: normal rate Respiratory/Chest: expiratory wheezing Abdomen: normal bowel sounds, non tender, soft Extremities: no swelling Intake and Output 01/18/19 01/19/19 19:00 07:00 Intake Total 480 ml 877.5 ml Balance 480 ml 877.5 ml Intake Oral 480 ml 740 ml IV Total 137.5 ml # Voids 2 3 # Bowel Movements 1 1 Laboratory Tests Test 01/19/19 05:30 White Blood Count 5.6 K/UL (4.8-10.8) Red Blood Count 2.83 M/UL (4.20-5.40) L Hemoglobin 9.6 G/DL (12.0-16.0) L Hematocrit 30.9 % (37.0-47.0) L Mean Corpuscular Volume 109 FL (80-99) H Mean Corpuscular Hemoglobin 34.0 PG (27.0-31.0) H Mean Corpuscular Hemoglobin Concent 31.1 G/DL (32.0-36.0) L Red Cell Distribution Width 15.5 % (11.6-14.8) H Platelet Count 226 K/UL (150-450) Mean Platelet Volume 5.6 FL (6.5-10.1) L Neutrophils (%) (Auto) 76.1 % (45.0-75.0) H Lymphocytes (%) (Auto) 17.4 % (20.0-45.0) L Monocytes (%) (Auto) 5.8 % (1.0-10.0) Eosinophils (%) (Auto) 0.4 % (0.0-3.0) Basophils (%) (Auto) 0.3 % (0.0-2.0) Sodium Level 144 MMOL/L (136-145) Potassium Level 3.8 MMOL/L (3.5-5.1) Chloride Level 104 MMOL/L (98-107) Carbon Dioxide Level 28 MMOL/L (21-32) Anion Gap 12 mmol/L (5-15) Blood Urea Nitrogen 24 mg/dL (7-18) H Creatinine 0.8 MG/DL (0.55-1.30) Estimat Glomerular Filtration Rate > 60 mL/min (>60) Glucose Level 144 MG/DL (74-106) H Calcium Level 9.1 MG/DL (8.5-10.1) Microbiology Date/Time Source Procedure Growth Status 01/16/19 18:16 Sputum Gram Stain - Final Resulted 01/16/19 18:16 Sputum Culture - Preliminary YEAST Usual Respiratory Roxann Resulted Wale Collins MD Jan 19, 2019 15:28
[2019-01-19 16:00] VITALS: BP 151/80
--- NOTE | 2019-01-19 17:23 | NUR ---
NURSE NOTES: PATIENT REMAINS STABLE. SEEN BY P.T. AND MD CONSULTS. NEW ORDERS RECEIVED. PATIENT ENCOURAGED TO CALL FOR ASSISTANCE. VERBALIZED UNDERSTANDING. CALL LIGHT WITHIN REACH. BED IN LOWEST POSITION.
--- NOTE | 2019-01-19 18:19 | Internal Med Progress Note ---
Subjective Date of Service: Jan 19, 2019 Physician Name Olivares,Harvey Attending Physician Dawood Garrison MD Current Medications Medications (Trade) Dose Ordered Sig/Haley Route PRN Reason Start Time Stop Time Status Last Admin Dose Admin Albuterol/ Ipratropium (Albuterol/ Ipratropium) 3 ml Q4H PRN HHN dyspnea 01/17/19 14:50 01/22/19 14:49 01/18/19 20:04 Amylase/Lipase/ Protease (Zenpep) 2 ea THREE TIMES A DAY ORAL 01/17/19 18:00 02/13/19 12:59 01/19/19 14:15 Carbamazepine (TEGretol) 200 mg Q8HR ORAL 01/17/19 22:00 02/13/19 13:59 01/19/19 14:15 Dextrose (Dextrose 50%) 25 ml Q30M PRN IV Hypoglycemia 01/17/19 15:00 02/13/19 12:29 Dextrose (Dextrose 50%) 50 ml Q30M PRN IV Hypoglycemia 01/17/19 15:00 02/13/19 12:29 Diphenhydramine HCl (Benadryl) 25 mg Q8H PRN ORAL Itching 01/17/19 14:50 02/16/19 14:49 01/19/19 04:01 Divalproex Sodium (Depakote) 250 mg BEDTIME ORAL 01/17/19 21:00 02/13/19 20:59 01/18/19 21:10 Heparin Sodium (Porcine) (Heparin 5000 units/ml) 5,000 units EVERY 12 HOURS SUBQ 01/17/19 21:00 02/13/19 20:59 01/19/19 09:02 Hydromorphone HCl (Dilaudid) 1 mg Q3H PRN IVP pain 5-6 01/17/19 14:51 01/24/19 14:50 01/17/19 21:30 Hydromorphone HCl (Dilaudid) 3 mg Q3H PRN IVP Severe Pain (Pain Scale 7-10) 01/19/19 16:00 01/24/19 15:59 Methylprednisolone Sodium Succinate (Solu-MEDROL) 60 mg EVERY 12 HOURS IM 01/17/19 21:00 02/13/19 17:59 01/19/19 09:01 Nitroglycerin (Ntg) 0.4 mg Q5M X 3 DOSES PRN SL Prn Chest Pain 01/17/19 14:45 02/13/19 12:29 Ondansetron HCl (Zofran) 4 mg Q6H PRN IVP Nausea & Vomiting 01/17/19 14:51 02/16/19 14:50 01/19/19 14:15 Promethazine HCl/ Codeine (Phenergan with Codeine) 5 ml Q6H PRN ORAL cough 01/17/19 14:52 02/16/19 14:51 Theophylline (Juancho-Dur) 100 mg EVERY 12 HOURS ORAL 01/17/19 21:00 02/13/19 20:59 01/19/19 09:01 Allergies: Coded Allergies: HYDROCODONE (Verified Allergy, Severe, 06/23/13) LORAZEPAM (Verified Allergy, Severe, Hives, 02/13/14) RASH/HIVES MORPHINE (Unverified Allergy, Severe, 01/14/19) Not true allergy; tolerated Dilaudid in past. Extensive opiate hx PROCHLORPERAZINE (Verified Allergy, Severe, 06/23/13) VANCOMYCIN (Unverified Allergy, Mild, Itching, 03/06/14) ROS Limited/Unobtainable: No Constitutional: Reports: no symptoms HEENT: Reports: no symptoms Cardiovascular: Reports: no symptoms Respiratory: Reports: no symptoms Gastrointestinal/Abdominal: Reports: no symptoms Genitourinary: Reports: no symptoms Neurologic/Psychiatric: Reports: no symptoms Subjective 68 YO F admitted with shortness of breath and chest pain. Now COPD exacerbation. Cover for Int Med-Dr Torres. Objective Last Vital Signs Date Time Temp Pulse Resp B/P (MAP) Pulse Ox O2 Delivery O2 Flow Rate FiO2 01/19/19 16:00 99.5 100 20 151/80 (103) 96 01/19/19 09:00 Room Air 01/18/19 21:00 2.0 01/18/19 20:14 21 Laboratory Tests Test 01/19/19 05:30 White Blood Count 5.6 K/UL (4.8-10.8) Red Blood Count 2.83 M/UL (4.20-5.40) L Hemoglobin 9.6 G/DL (12.0-16.0) L Hematocrit 30.9 % (37.0-47.0) L Mean Corpuscular Volume 109 FL (80-99) H Mean Corpuscular Hemoglobin 34.0 PG (27.0-31.0) H Mean Corpuscular Hemoglobin Concent 31.1 G/DL (32.0-36.0) L Red Cell Distribution Width 15.5 % (11.6-14.8) H Platelet Count 226 K/UL (150-450) Mean Platelet Volume 5.6 FL (6.5-10.1) L Neutrophils (%) (Auto) 76.1 % (45.0-75.0) H Lymphocytes (%) (Auto) 17.4 % (20.0-45.0) L Monocytes (%) (Auto) 5.8 % (1.0-10.0) Eosinophils (%) (Auto) 0.4 % (0.0-3.0) Basophils (%) (Auto) 0.3 % (0.0-2.0) Sodium Level 144 MMOL/L (136-145) Potassium Level 3.8 MMOL/L (3.5-5.1) Chloride Level 104 MMOL/L (98-107) Carbon Dioxide Level 28 MMOL/L (21-32) Anion Gap 12 mmol/L (5-15) Blood Urea Nitrogen 24 mg/dL (7-18) H Creatinine 0.8 MG/DL (0.55-1.30) Estimat Glomerular Filtration Rate > 60 mL/min (>60) Glucose Level 144 MG/DL (74-106) H Calcium Level 9.1 MG/DL (8.5-10.1) Intake and Output 01/18/19 01/19/19 19:00 07:00 Intake Total 480 ml 877.5 ml Balance 480 ml 877.5 ml Intake Oral 480 ml 740 ml IV Total 137.5 ml # Voids 2 3 # Bowel Movements 1 1 Objective PHYSICAL EXAMINATION: GENERALLY: The patient is thin-appearing female, no apparent distress. HEENT: Eyes, pupils are equal and responsive to light and accommodation. Extraocular movements are intact. NECK: Supple without lymphadenopathy. CHEST: Lungs are clear to auscultation bilaterally without wheezes or rales. CARDIOVASCULAR: Regular rate. S1 and S2 normal without murmurs, rubs, gallops. ABDOMEN: Soft, nontender, and nondistended. Positive bowel sounds. No evidence of hepatosplenomegaly. Currently, no rebound or guarding noted. EXTREMITIES: Negative for clubbing, cyanosis, or edema. RECTAL/GENITAL: Refused. NEUROLOGIC: Cranial nerves II through XII are grossly intact without focal deficits. Motor strength is 5/5 bilaterally. Deep tendon reflexes are 2+ plantar. Assessment/Plan Assessment/Plan ASSESSMENT: This is a 68-year-old female. 1. Chest pain. 2. Shortness of breath. 3. Hypertension. 4. Hypercholesterolemia. 5. History of congestive heart failure. 6. COPD Exacerbation 7. Coronary artery dis 8. Bipolar D/O TREATMENT: 1. Copd exacerbation/bronchitis A Pulmonary consultation has been obtained with Dr. Lorraine Arndt. The patient has been started on albuterol nebulized q. 4 hr and IV solumedrol. The patient is also on Zosyn intravenously. We will follow recommendations of Pulmonary. 2. Hypertension, the patient is currently normotensive. 3. Hypercholesterolemia. Continue atorvastatin as above. 4. Congestive heart failure. 5. Seroquel per psych Harvey Olivares MD Jan 19, 2019 18:19
--- NOTE | 2019-01-19 19:30 | NUR ---
NURSE NOTES: Received patient in bed, awake, alert, oriented, no acute distress noted, VSS, afebrile, noted with slight cough and congestion. Call light is within reach, bed is in low position, locked and alarm is on, will continue to monitor for safety and comfort.
--- NOTE | 2019-01-19 19:36 | NUR ---
HAND-OFF: Report given to LIAN MARTIN RN.
[2019-01-19 20:00] VITALS: BP 109/67
[2019-01-19] MEDS: Solu-MEDROL 125mg Inj IVP SCH (20:58)
[2019-01-19] MEDS: Albuterol/Ipratropium 3ml neb HHN PRN (21:31)
[2019-01-20] VITALS: BP 101/65
--- NOTE | 2019-01-20 | Progress Note ---
DATE: 01/19/2019 SUBJECTIVE: The patient is doing better. , still has multiple complaints, less irritable, less hostile, and more cooperative. MENTAL STATUS EXAMINATION: The patient is alert and oriented to times self, place, and situation. She had makeup on. Mood was irritable. Affect is constricted. Congruent mood. Thought process is linear. Thought content, no suicidal or homicidal ideation. ASSESSMENT: . Anne-Marie Faria M.D. DR: LIV JOB#: [id number] CC:
[2019-01-20 04:00] VITALS: BP 109/65
[2019-01-20] MEDS: Promethazine/Codeine 5ml UD ORAL PRN ×2 (04:41→23:49)
[2019-01-20] MEDS: carBAMazepine 200mg tab ORAL SCH ×3 (05:45→22:11)
--- NOTE | 2019-01-20 07:40 | NUR ---
HAND-OFF: Report given to Nadia MARTÍNEZ.
--- NOTE | 2019-01-20 07:46 | NUR ---
NURSE NOTES: RN received pt alert and oriented in bed. No signs or symptoms of acute distress or SOB. Bed in low, locked position, call light within reach. Pt states she is in pain. RN will administer pain medication as ordered PRN. Will continue plan of care.
[2019-01-20 08:00] VITALS: BP 101/59
[2019-01-20] MEDS: Pancrelipase Dr Cap ORAL SCH ×3 (08:08→18:20)
[2019-01-20] MEDS: Theophylline ER 100mg ORAL SCH ×2 (08:08→22:11)
[2019-01-20] MEDS: Solu-MEDROL 125mg Inj IVP SCH ×2 (08:09→23:44)
[2019-01-20] MEDS: Heparin 5000 units/ml inj SUBQ SCH ×2 (08:11→22:17)
[2019-01-20 08:42] LABS: BASOPHILS % (AUTO) 0.6 % (0.0-2.0); HEMATOCRIT 29.5 % (37.0-47.0); HEMOGLOBIN 9.4 G/DL (12.0-16.0); LYMPHOCYTES % (AUTO) 13.9 % (20.0-45.0); MEAN CORPUSCULAR VOLUME 107 FL (80-99); MONOCYTES % (AUTO) 5.7 % (1.0-10.0); NEUTROPHILS % (AUTO) 79.7 % (45.0-75.0); PLATELET COUNT 234 K/UL (150-450); RED BLOOD COUNT 2.75 M/UL (4.20-5.40); RED CELL DISTRIBUTION WIDTH 14.9 % (11.6-14.8); WHITE BLOOD COUNT 6.5 K/UL (4.8-10.8)
[2019-01-20 09:03] LABS: ANION GAP 4 mmol/L (5-15); BLOOD UREA NITROGEN 20 mg/dL (7-18); CALCIUM 9.3 MG/DL (8.5-10.1); CARBON DIOXIDE 36 MMOL/L (21-32); CHLORIDE 102 MMOL/L (98-107); CREATININE 0.5 MG/DL (0.55-1.30); POTASSIUM 4.4 MMOL/L (3.5-5.1); SODIUM 142 MMOL/L (136-145)
--- NOTE | 2019-01-20 11:52 | Internal Med Progress Note ---
Subjective Date of Service: Jan 20, 2019 Physician Name Olivares,Harvey Attending Physician Dawood Garrison MD Current Medications Medications (Trade) Dose Ordered Sig/Haley Route PRN Reason Start Time Stop Time Status Last Admin Dose Admin Albuterol/ Ipratropium (Albuterol/ Ipratropium) 3 ml Q4H PRN HHN dyspnea 01/17/19 14:50 01/22/19 14:49 01/19/19 21:31 Amylase/Lipase/ Protease (Zenpep) 2 ea THREE TIMES A DAY ORAL 01/17/19 18:00 02/13/19 12:59 01/20/19 08:08 Carbamazepine (TEGretol) 200 mg Q8HR ORAL 01/17/19 22:00 02/13/19 13:59 01/20/19 05:45 Dextrose (Dextrose 50%) 25 ml Q30M PRN IV Hypoglycemia 01/17/19 15:00 02/13/19 12:29 Dextrose (Dextrose 50%) 50 ml Q30M PRN IV Hypoglycemia 01/17/19 15:00 02/13/19 12:29 Diphenhydramine HCl (Benadryl) 25 mg Q8H PRN ORAL Itching 01/17/19 14:50 02/16/19 14:49 01/19/19 18:22 Divalproex Sodium (Depakote) 250 mg BEDTIME ORAL 01/17/19 21:00 02/13/19 20:59 01/19/19 20:56 Heparin Sodium (Porcine) (Heparin 5000 units/ml) 5,000 units EVERY 12 HOURS SUBQ 01/17/19 21:00 02/13/19 20:59 01/20/19 08:11 Hydromorphone HCl (Dilaudid) 1 mg Q3H PRN IVP pain 5-6 01/17/19 14:51 01/24/19 14:50 01/17/19 21:30 Hydromorphone HCl (Dilaudid) 3 mg Q3H PRN IVP Severe Pain (Pain Scale 7-10) 01/19/19 16:00 01/24/19 15:59 01/20/19 11:13 Methylprednisolone Sodium Succinate (Solu-MEDROL) 60 mg EVERY 12 HOURS IVP 01/19/19 21:00 02/18/19 20:59 01/20/19 08:09 Nitroglycerin (Ntg) 0.4 mg Q5M X 3 DOSES PRN SL Prn Chest Pain 01/17/19 14:45 02/13/19 12:29 Ondansetron HCl (Zofran) 4 mg Q6H PRN IVP Nausea & Vomiting 01/17/19 14:51 02/16/19 14:50 01/19/19 14:15 Promethazine HCl/ Codeine (Phenergan with Codeine) 5 ml Q6H PRN ORAL cough 01/17/19 14:52 02/16/19 14:51 01/20/19 04:41 Theophylline (Juancho-Dur) 100 mg EVERY 12 HOURS ORAL 01/17/19 21:00 02/13/19 20:59 01/20/19 08:08 Allergies: Coded Allergies: HYDROCODONE (Verified Allergy, Severe, 06/23/13) LORAZEPAM (Verified Allergy, Severe, Hives, 02/13/14) RASH/HIVES MORPHINE (Unverified Allergy, Severe, 01/14/19) Not true allergy; tolerated Dilaudid in past. Extensive opiate hx PROCHLORPERAZINE (Verified Allergy, Severe, 06/23/13) VANCOMYCIN (Unverified Allergy, Mild, Itching, 03/06/14) ROS Limited/Unobtainable: No Constitutional: Reports: no symptoms HEENT: Reports: no symptoms Cardiovascular: Reports: no symptoms Respiratory: Reports: no symptoms Gastrointestinal/Abdominal: Reports: no symptoms Genitourinary: Reports: no symptoms Neurologic/Psychiatric: Reports: no symptoms Subjective 68 YO F admitted with shortness of breath and chest pain. Now COPD exacerbation. Cover for Int Med-Dr Torres. Objective Last Vital Signs Date Time Temp Pulse Resp B/P (MAP) Pulse Ox O2 Delivery O2 Flow Rate FiO2 01/20/19 09:00 Nasal Cannula 2.0 01/20/19 08:40 97.9 01/20/19 08:00 89 18 101/59 (73) 99 01/20/19 07:25 21 Laboratory Tests Test 01/20/19 06:40 White Blood Count 6.5 K/UL (4.8-10.8) Red Blood Count 2.75 M/UL (4.20-5.40) L Hemoglobin 9.4 G/DL (12.0-16.0) L Hematocrit 29.5 % (37.0-47.0) L Mean Corpuscular Volume 107 FL (80-99) H Mean Corpuscular Hemoglobin 34.2 PG (27.0-31.0) H Mean Corpuscular Hemoglobin Concent 31.9 G/DL (32.0-36.0) L Red Cell Distribution Width 14.9 % (11.6-14.8) H Platelet Count 234 K/UL (150-450) Mean Platelet Volume 5.9 FL (6.5-10.1) L Neutrophils (%) (Auto) 79.7 % (45.0-75.0) H Lymphocytes (%) (Auto) 13.9 % (20.0-45.0) L Monocytes (%) (Auto) 5.7 % (1.0-10.0) Eosinophils (%) (Auto) 0.0 % (0.0-3.0) Basophils (%) (Auto) 0.6 % (0.0-2.0) Sodium Level 142 MMOL/L (136-145) Potassium Level 4.4 MMOL/L (3.5-5.1) Chloride Level 102 MMOL/L (98-107) Carbon Dioxide Level 36 MMOL/L (21-32) H Anion Gap 4 mmol/L (5-15) L Blood Urea Nitrogen 20 mg/dL (7-18) H Creatinine 0.5 MG/DL (0.55-1.30) L Estimat Glomerular Filtration Rate > 60 mL/min (>60) Glucose Level 108 MG/DL (74-106) H Calcium Level 9.3 MG/DL (8.5-10.1) Intake and Output 01/19/19 01/20/19 18:59 06:59 Intake Total 960 ml Balance 960 ml Intake Oral 960 ml # Voids 3 # Bowel Movements 1 Objective PHYSICAL EXAMINATION: GENERALLY: The patient is thin-appearing female, no apparent distress. HEENT: Eyes, pupils are equal and responsive to light and accommodation. Extraocular movements are intact. NECK: Supple without lymphadenopathy. CHEST: Lungs are clear to auscultation bilaterally without wheezes or rales. CARDIOVASCULAR: Regular rate. S1 and S2 normal without murmurs, rubs, gallops. ABDOMEN: Soft, nontender, and nondistended. Positive bowel sounds. No evidence of hepatosplenomegaly. Currently, no rebound or guarding noted. EXTREMITIES: Negative for clubbing, cyanosis, or edema. RECTAL/GENITAL: Refused. NEUROLOGIC: Cranial nerves II through XII are grossly intact without focal deficits. Motor strength is 5/5 bilaterally. Deep tendon reflexes are 2+ plantar. Assessment/Plan Assessment/Plan ASSESSMENT: This is a 68-year-old female. 1. Chest pain. 2. Shortness of breath. 3. Hypertension. 4. Hypercholesterolemia. 5. History of congestive heart failure. 6. COPD Exacerbation 7. Coronary artery dis 8. Bipolar D/O TREATMENT: 1. Copd exacerbation/bronchitis A Pulmonary consultation has been obtained with Dr. Lorraine Arndt. The patient has been started on albuterol nebulized q. 4 hr and IV solumedrol. The patient is also on Zosyn intravenously. We will follow recommendations of Pulmonary. 2. Hypertension, the patient is currently normotensive. 3. Hypercholesterolemia. Continue atorvastatin as above. 4. Congestive heart failure. 5. Seroquel per psych Harvey Olivares MD Jan 20, 2019 11:52
[2019-01-20 12:00] VITALS: BP 118/72
--- NOTE | 2019-01-20 15:02 | Pulmonology Progress Note ---
Assessment/Plan Problems: (1) COPD exacerbation (2) ACS (acute coronary syndrome) (3) Costochondritis (4) CAD (coronary artery disease) (5) Severe protein-calorie malnutrition Assessment/Plan wants more pain meds, increase to 4 mg dilaudid still coughing improving respiratory treatment pain management psych evaluation check electrolytes all reviewed Subjective ROS Limited/Unobtainable: No Constitutional: Reports: no symptoms HEENT: Repors: no symptoms Respiratory: Reports: no symptoms Allergies: Coded Allergies: HYDROCODONE (Verified Allergy, Severe, 06/23/13) LORAZEPAM (Verified Allergy, Severe, Hives, 02/13/14) RASH/HIVES MORPHINE (Unverified Allergy, Severe, 01/14/19) Not true allergy; tolerated Dilaudid in past. Extensive opiate hx PROCHLORPERAZINE (Verified Allergy, Severe, 06/23/13) VANCOMYCIN (Unverified Allergy, Mild, Itching, 03/06/14) Objective Last 24 Hour Vital Signs Date Time Temp Pulse Resp B/P (MAP) Pulse Ox O2 Delivery O2 Flow Rate FiO2 01/20/19 12:00 98.9 91 18 118/72 (87) 100 01/20/19 11:43 98.9 01/20/19 09:00 Nasal Cannula 2.0 01/20/19 08:00 98.5 89 18 101/59 (73) 99 01/20/19 07:25 81 18 96 Room Air 21 01/20/19 07:25 97 Room Air 21 01/20/19 04:00 97.9 76 16 109/65 (80) 01/20/19 00:00 98.0 91 16 101/65 (77) 01/19/19 21:32 98 18 99 Room Air 21 01/19/19 21:21 97 18 97 Room Air 21 01/19/19 21:00 Nasal Cannula 2.0 01/19/19 20:00 99.1 89 16 109/67 (81) 01/19/19 20:00 97 20 97 Room Air 21 01/19/19 20:00 97 Room Air 21 01/19/19 16:00 99.5 100 20 151/80 (103) 96 Intake and Output 01/19/19 01/20/19 18:59 06:59 Intake Total 960 ml Balance 960 ml Intake Oral 960 ml # Voids 3 # Bowel Movements 1 General Appearance: WD/WN HEENT: normocephalic, anicteric Respiratory/Chest: chest wall non-tender, lungs clear Cardiovascular: normal peripheral pulses, normal rate, no JVD Abdomen: soft, non tender Genitourinary: normal external genitalia Extremities: no clubbing Skin: no lesions Laboratory Tests 01/20/19 06:40: White Blood Count 6.5, Red Blood Count 2.75L, Hemoglobin 9.4L, Hematocrit 29.5L , Mean Corpuscular Volume 107H, Mean Corpuscular Hemoglobin 34.2H, Mean Corpuscular Hemoglobin Concent 31.9L, Red Cell Distribution Width 14.9H, Platelet Count 234, Mean Platelet Volume 5.9L, Neutrophils (%) (Auto) 79.7H, Lymphocytes (%) (Auto) 13.9L, Monocytes (%) (Auto) 5.7, Eosinophils (%) (Auto) 0.0, Basophils (%) (Auto) 0.6, Sodium Level 142, Potassium Level 4.4, Chloride Level 102, Carbon Dioxide Level 36H, Anion Gap 4L, Blood Urea Nitrogen 20H, Creatinine 0.5L, Estimat Glomerular Filtration Rate > 60, Glucose Level 108H, Calcium Level 9.3 Current Medications Medications (Trade) Dose Ordered Sig/Haley Route PRN Reason Start Time Stop Time Status Last Admin Dose Admin Albuterol/ Ipratropium (Albuterol/ Ipratropium) 3 ml Q4H PRN HHN dyspnea 01/17/19 14:50 01/22/19 14:49 01/19/19 21:31 Amylase/Lipase/ Protease (Zenpep) 2 ea THREE TIMES A DAY ORAL 01/17/19 18:00 02/13/19 12:59 01/20/19 13:53 Carbamazepine (TEGretol) 200 mg Q8HR ORAL 01/17/19 22:00 02/13/19 13:59 01/20/19 13:54 Dextrose (Dextrose 50%) 25 ml Q30M PRN IV Hypoglycemia 01/17/19 15:00 02/13/19 12:29 Dextrose (Dextrose 50%) 50 ml Q30M PRN IV Hypoglycemia 01/17/19 15:00 02/13/19 12:29 Diphenhydramine HCl (Benadryl) 25 mg Q8H PRN ORAL Itching 01/17/19 14:50 02/16/19 14:49 01/19/19 18:22 Divalproex Sodium (Depakote) 250 mg BEDTIME ORAL 01/17/19 21:00 02/13/19 20:59 01/19/19 20:56 Heparin Sodium (Porcine) (Heparin 5000 units/ml) 5,000 units EVERY 12 HOURS SUBQ 01/17/19 21:00 02/13/19 20:59 01/20/19 08:11 Hydromorphone HCl (Dilaudid) 1 mg Q3H PRN IVP pain 5-6 01/17/19 14:51 01/24/19 14:50 01/17/19 21:30 Hydromorphone HCl (Dilaudid) 3 mg Q3H PRN IVP Severe Pain (Pain Scale 7-10) 01/19/19 16:00 01/24/19 15:59 01/20/19 14:33 Hydromorphone HCl (Dilaudid) 4 mg Q3H PRN IVP Severe Pain (Pain Scale 7-10) 01/20/19 15:00 01/27/19 14:59 Methylprednisolone Sodium Succinate (Solu-MEDROL) 60 mg EVERY 12 HOURS IVP 01/19/19 21:00 02/18/19 20:59 01/20/19 08:09 Nitroglycerin (Ntg) 0.4 mg Q5M X 3 DOSES PRN SL Prn Chest Pain 01/17/19 14:45 02/13/19 12:29 Ondansetron HCl (Zofran) 4 mg Q6H PRN IVP Nausea & Vomiting 01/17/19 14:51 02/16/19 14:50 01/19/19 14:15 Promethazine HCl/ Codeine (Phenergan with Codeine) 5 ml Q6H PRN ORAL cough 01/17/19 14:52 02/16/19 14:51 01/20/19 04:41 Theophylline (Juancho-Dur) 100 mg EVERY 12 HOURS ORAL 01/17/19 21:00 02/13/19 20:59 01/20/19 08:08 Lorraine Arndt MD Jan 20, 2019 15:02
--- NOTE | 2019-01-20 15:21 | NUR ---
SS note Chart reviewed; patient will discharge to home. No SW needs identified at this time.
--- NOTE | 2019-01-20 15:51 | NUR ---
CASE MANAGEMENT:REVIEW 01/20/19 SI: COPD EXACERBATION. ACS. CAD COSTOCHONDRITIS 98.9 91 18 118/72 100% ON 2L/NC H/H-9.4/29.5 BUN+20 IS: IV SOLUMEDROL 60MG Q12HRS IV DILAUDID Q3HRS PRN HEPARIN SQ Q12 INEZ-DUR PO Q12 DEPAKOTE PO QHS TEGRETOL PO Q8HRS : NOW ON MED/SURG UNIT DCP: FROM HOME
[2019-01-20 16:00] VITALS: BP 124/69
--- NOTE | 2019-01-20 19:46 | NUR ---
HAND-OFF: Report given to TANYA Quiles.
--- NOTE | 2019-01-20 19:48 | Cardiology Progress Note ---
Assessment/Plan Assessment/Plan cp mi rulled out copd tobacco use do bp is mildey elelvated mi rulled out hhn per pulm out pt fu Subjective Cardiovascular: Reports: chest pain, lightheadedness Respiratory: Reports: shortness of breath, wheezing Gastrointestinal/Abdominal: Denies: abdominal pain Genitourinary: Denies: burning Objective Last 24 Hour Vital Signs Date Time Temp Pulse Resp B/P (MAP) Pulse Ox O2 Delivery O2 Flow Rate FiO2 01/20/19 19:35 78 18 95 Room Air 21 01/20/19 16:00 99.6 108 18 124/69 (87) 99 01/20/19 15:03 98.9 01/20/19 12:00 98.9 91 18 118/72 (87) 100 01/20/19 09:00 Nasal Cannula 2.0 01/20/19 08:00 98.5 89 18 101/59 (73) 99 01/20/19 07:25 81 18 96 Room Air 21 01/20/19 07:25 97 Room Air 21 01/20/19 04:00 97.9 76 16 109/65 (80) 01/20/19 00:00 98.0 91 16 101/65 (77) 01/19/19 21:32 98 18 99 Room Air 21 01/19/19 21:21 97 18 97 Room Air 21 01/19/19 21:00 Nasal Cannula 2.0 01/19/19 20:00 99.1 89 16 109/67 (81) 01/19/19 20:00 97 20 97 Room Air 21 01/19/19 20:00 97 Room Air 21 General Appearance: alert Neck: supple Cardiovascular: normal rate Respiratory/Chest: expiratory wheezing Abdomen: normal bowel sounds, non tender, soft Extremities: no swelling Intake and Output 01/19/19 01/20/19 19:00 07:00 Intake Total 960 ml Balance 960 ml Intake Oral 960 ml # Voids 3 # Bowel Movements 1 Laboratory Tests Test 01/20/19 06:40 White Blood Count 6.5 K/UL (4.8-10.8) Red Blood Count 2.75 M/UL (4.20-5.40) L Hemoglobin 9.4 G/DL (12.0-16.0) L Hematocrit 29.5 % (37.0-47.0) L Mean Corpuscular Volume 107 FL (80-99) H Mean Corpuscular Hemoglobin 34.2 PG (27.0-31.0) H Mean Corpuscular Hemoglobin Concent 31.9 G/DL (32.0-36.0) L Red Cell Distribution Width 14.9 % (11.6-14.8) H Platelet Count 234 K/UL (150-450) Mean Platelet Volume 5.9 FL (6.5-10.1) L Neutrophils (%) (Auto) 79.7 % (45.0-75.0) H Lymphocytes (%) (Auto) 13.9 % (20.0-45.0) L Monocytes (%) (Auto) 5.7 % (1.0-10.0) Eosinophils (%) (Auto) 0.0 % (0.0-3.0) Basophils (%) (Auto) 0.6 % (0.0-2.0) Sodium Level 142 MMOL/L (136-145) Potassium Level 4.4 MMOL/L (3.5-5.1) Chloride Level 102 MMOL/L (98-107) Carbon Dioxide Level 36 MMOL/L (21-32) H Anion Gap 4 mmol/L (5-15) L Blood Urea Nitrogen 20 mg/dL (7-18) H Creatinine 0.5 MG/DL (0.55-1.30) L Estimat Glomerular Filtration Rate > 60 mL/min (>60) Glucose Level 108 MG/DL (74-106) H Calcium Level 9.3 MG/DL (8.5-10.1) Wale Collins MD Jan 20, 2019 19:48
[2019-01-20 20:00] VITALS: BP 127/77
--- NOTE | 2019-01-20 20:07 | NUR ---
NURSE NOTES: Patient received in bed. Patient is AAO X 4, on room air. No acute distress noted at this time. Bed locked in lowest position, call light placed within reach. Will continue to monitor.
[2019-01-20] MEDS: Albuterol/Ipratropium 3ml neb HHN PRN (20:22)
[2019-01-21] VITALS: BP 116/97
--- NOTE | 2019-01-21 02:45 | Progress Note ---
DATE: 01/20/2019 SUBJECTIVE: The patient is presenting with anxiety, irritable mood. Symptoms are much improved. She is more cooperative and pleasant. mood lability is improved. She is less impulsive. MENTAL STATUS EXAMINATION: The patient is alert and oriented times self, place, and situation. Mood is neutral. Affect is flat. Thought process, linear. Thought content, no suicidal or homicidal ideation. ASSESSMENT: Stable. PLAN: 1. We will continue current medication. 2. Provide the patient with reality orientation and supportive therapy. Anne-Marie Faria M.D. DR: ALFRED JOB#: [id number] CC: MARCELLA
[2019-01-21 04:00] VITALS: BP 160/92
--- NOTE | 2019-01-21 04:00 | NUR ---
NURSE NOTES: Patient c/o pain on the chest and hips. Pain meds given as ordered. IV on Left thumb 24G is intact and patent. Patient encouraged to call for assistance. Bed locked and lowest position, bed alarms on, side rails up X2, call light is within reach, will continue to monitor.
[2019-01-21] MEDS: carBAMazepine 200mg tab ORAL SCH ×3 (05:45→21:27)
--- NOTE | 2019-01-21 07:26 | NUR ---
NURSE NOTES: RN received pt in stable condition, drowsy, sitting on side of bed. RN assisted pt back in bed and advised pt use call light if needed to ambulate to bathroom. No signs or symptoms of acute distress. Bed in low, locked position, call light within reach. RN informed in report that pt's plan is discharge today. RN awaiting discharge order. Will continue plan of care.
--- NOTE | 2019-01-21 07:36 | NUR ---
HAND-OFF: Report given to TANYA Rodriguez.
[2019-01-21 08:00] VITALS: BP 118/74
--- NOTE | 2019-01-21 09:00 | NUR ---
NURSE NOTES: Pt states pain is 10/10 and requests Dilauded. RN to administer PRN med as ordered.
[2019-01-21] MEDS: Theophylline ER 100mg ORAL SCH ×2 (09:15→21:27)
[2019-01-21] MEDS: Pancrelipase Dr Cap ORAL SCH ×3 (09:16→17:15)
[2019-01-21] MEDS: Solu-MEDROL 125mg Inj IVP SCH (09:16)
[2019-01-21] MEDS: Heparin 5000 units/ml inj SUBQ SCH ×2 (09:18→21:29)
[2019-01-21 12:00] VITALS: BP 111/67
--- NOTE | 2019-01-21 13:10 | Pulmonology Progress Note ---
Assessment/Plan Problems: (1) COPD exacerbation (2) ACS (acute coronary syndrome) (3) Costochondritis (4) CAD (coronary artery disease) (5) Severe protein-calorie malnutrition Assessment/Plan on dilaudid 4 mg dilaudid still coughing taper steroids to qd improving respiratory treatment pain management psych evaluation check electrolytes all reviewed Subjective ROS Limited/Unobtainable: No Constitutional: Reports: no symptoms HEENT: Repors: no symptoms Respiratory: Reports: no symptoms Allergies: Coded Allergies: HYDROCODONE (Verified Allergy, Severe, 06/23/13) LORAZEPAM (Verified Allergy, Severe, Hives, 02/13/14) RASH/HIVES MORPHINE (Unverified Allergy, Severe, 01/14/19) Not true allergy; tolerated Dilaudid in past. Extensive opiate hx PROCHLORPERAZINE (Verified Allergy, Severe, 06/23/13) VANCOMYCIN (Unverified Allergy, Mild, Itching, 03/06/14) Objective Last 24 Hour Vital Signs Date Time Temp Pulse Resp B/P (MAP) Pulse Ox O2 Delivery O2 Flow Rate FiO2 01/21/19 09:46 98.6 01/21/19 08:31 101 18 96 Room Air 21 01/21/19 08:00 98.6 18 118/74 (89) 95 01/21/19 04:00 98.1 19 160/92 (114) 98 01/21/19 00:00 97.8 20 116/97 (103) 95 01/20/19 21:00 Room Air 01/20/19 20:31 102 20 99 Room Air 21 01/20/19 20:22 104 20 94 Room Air 21 01/20/19 20:00 98.3 115 18 127/77 (94) 99 01/20/19 19:35 78 18 95 Room Air 21 01/20/19 16:00 99.6 108 18 124/69 (87) 99 01/20/19 15:03 98.9 Intake and Output 01/20/19 01/21/19 18:59 06:59 Intake Total 1000 ml Balance 1000 ml Intake Oral 1000 ml # Voids 4 Objective General Appearance: WD/WN HEENT: normocephalic, atraumatic Respiratory/Chest: chest wall non-tender, rhonchi and wheezing Cardiovascular: normal peripheral pulses, normal rate Abdomen: normal bowel sounds, soft, non tender Genitourinary: normal external genitalia Extremities: no clubbing Skin: no rash Microbiology Date/Time Source Procedure Growth Status 01/20/19 13:00 Stool Clostridium difficile Toxin Assay - Final Complete Current Medications Medications (Trade) Dose Ordered Sig/Haley Route PRN Reason Start Time Stop Time Status Last Admin Dose Admin Albuterol/ Ipratropium (Albuterol/ Ipratropium) 3 ml Q4H PRN HHN dyspnea 01/17/19 14:50 01/22/19 14:49 01/20/19 20:22 Amylase/Lipase/ Protease (Zenpep) 2 ea THREE TIMES A DAY ORAL 01/17/19 18:00 02/13/19 12:59 01/21/19 13:00 Carbamazepine (TEGretol) 200 mg Q8HR ORAL 01/17/19 22:00 02/13/19 13:59 01/21/19 05:45 Dextrose (Dextrose 50%) 25 ml Q30M PRN IV Hypoglycemia 01/17/19 15:00 02/13/19 12:29 Dextrose (Dextrose 50%) 50 ml Q30M PRN IV Hypoglycemia 01/17/19 15:00 02/13/19 12:29 Diphenhydramine HCl (Benadryl) 25 mg Q8H PRN ORAL Itching 01/17/19 14:50 02/16/19 14:49 01/19/19 18:22 Divalproex Sodium (Depakote) 250 mg BEDTIME ORAL 01/17/19 21:00 02/13/19 20:59 01/20/19 22:14 Heparin Sodium (Porcine) (Heparin 5000 units/ml) 5,000 units EVERY 12 HOURS SUBQ 01/17/19 21:00 02/13/19 20:59 01/21/19 09:18 Hydromorphone HCl (Dilaudid) 1 mg Q3H PRN IVP pain 5-6 01/17/19 14:51 01/24/19 14:50 01/17/19 21:30 Hydromorphone HCl (Dilaudid) 4 mg Q3H PRN IVP Severe Pain (Pain Scale 7-10) 01/20/19 15:00 01/27/19 14:59 01/21/19 13:00 Methylprednisolone Sodium Succinate (Solu-MEDROL) 60 mg EVERY 12 HOURS IVP 01/19/19 21:00 02/18/19 20:59 01/21/19 09:16 Nitroglycerin (Ntg) 0.4 mg Q5M X 3 DOSES PRN SL Prn Chest Pain 01/17/19 14:45 02/13/19 12:29 Ondansetron HCl (Zofran) 4 mg Q6H PRN IVP Nausea & Vomiting 01/17/19 14:51 02/16/19 14:50 01/19/19 14:15 Promethazine HCl/ Codeine (Phenergan with Codeine) 5 ml Q6H PRN ORAL cough 01/17/19 14:52 02/16/19 14:51 01/20/19 23:49 Theophylline (Juancho-Dur) 100 mg EVERY 12 HOURS ORAL 01/17/19 21:00 02/13/19 20:59 01/21/19 09:15 Lorraine Arndt MD Jan 21, 2019 13:10
[2019-01-21 16:00] VITALS: BP 129/82
--- NOTE | 2019-01-21 17:04 | Internal Med Progress Note ---
Subjective Date of Service: Jan 21, 2019 Physician Name Olivares,Harvey Attending Physician Dawood Garrison MD Current Medications Medications (Trade) Dose Ordered Sig/Haley Route PRN Reason Start Time Stop Time Status Last Admin Dose Admin Albuterol/ Ipratropium (Albuterol/ Ipratropium) 3 ml Q4H PRN HHN dyspnea 01/17/19 14:50 01/22/19 14:49 01/20/19 20:22 Amylase/Lipase/ Protease (Zenpep) 2 ea THREE TIMES A DAY ORAL 01/17/19 18:00 02/13/19 12:59 01/21/19 13:00 Carbamazepine (TEGretol) 200 mg Q8HR ORAL 01/17/19 22:00 02/13/19 13:59 01/21/19 14:46 Dextrose (Dextrose 50%) 25 ml Q30M PRN IV Hypoglycemia 01/17/19 15:00 02/13/19 12:29 Dextrose (Dextrose 50%) 50 ml Q30M PRN IV Hypoglycemia 01/17/19 15:00 02/13/19 12:29 Diphenhydramine HCl (Benadryl) 25 mg Q8H PRN ORAL Itching 01/17/19 14:50 02/16/19 14:49 01/19/19 18:22 Divalproex Sodium (Depakote) 250 mg BEDTIME ORAL 01/17/19 21:00 02/13/19 20:59 01/20/19 22:14 Heparin Sodium (Porcine) (Heparin 5000 units/ml) 5,000 units EVERY 12 HOURS SUBQ 01/17/19 21:00 02/13/19 20:59 01/21/19 09:18 Hydromorphone HCl (Dilaudid) 1 mg Q3H PRN IVP pain 5-6 01/17/19 14:51 01/24/19 14:50 01/17/19 21:30 Hydromorphone HCl (Dilaudid) 4 mg Q3H PRN IVP Severe Pain (Pain Scale 7-10) 01/20/19 15:00 01/27/19 14:59 01/21/19 13:00 Methylprednisolone Sodium Succinate (Solu-MEDROL) 60 mg DAILY IVP 01/22/19 09:00 02/18/19 20:59 Nitroglycerin (Ntg) 0.4 mg Q5M X 3 DOSES PRN SL Prn Chest Pain 01/17/19 14:45 02/13/19 12:29 Ondansetron HCl (Zofran) 4 mg Q6H PRN IVP Nausea & Vomiting 01/17/19 14:51 02/16/19 14:50 01/19/19 14:15 Promethazine HCl/ Codeine (Phenergan with Codeine) 5 ml Q6H PRN ORAL cough 01/17/19 14:52 02/16/19 14:51 01/20/19 23:49 Theophylline (Juancho-Dur) 100 mg EVERY 12 HOURS ORAL 01/17/19 21:00 02/13/19 20:59 01/21/19 09:15 Allergies: Coded Allergies: HYDROCODONE (Verified Allergy, Severe, 06/23/13) LORAZEPAM (Verified Allergy, Severe, Hives, 02/13/14) RASH/HIVES MORPHINE (Unverified Allergy, Severe, 01/14/19) Not true allergy; tolerated Dilaudid in past. Extensive opiate hx PROCHLORPERAZINE (Verified Allergy, Severe, 06/23/13) VANCOMYCIN (Unverified Allergy, Mild, Itching, 03/06/14) ROS Limited/Unobtainable: No Constitutional: Reports: no symptoms HEENT: Reports: no symptoms Cardiovascular: Reports: no symptoms Respiratory: Reports: shortness of breath Gastrointestinal/Abdominal: Reports: no symptoms Genitourinary: Reports: no symptoms Neurologic/Psychiatric: Reports: no symptoms Subjective 68 YO F admitted with shortness of breath and chest pain. Now COPD exacerbation. Cover for Int Med-Dr Torres. Objective Last Vital Signs Date Time Temp Pulse Resp B/P (MAP) Pulse Ox O2 Delivery O2 Flow Rate FiO2 01/21/19 16:00 97.7 106 16 129/82 (98) 95 01/21/19 09:00 Room Air 01/21/19 08:31 21 01/20/19 09:00 2.0 Microbiology Date/Time Source Procedure Growth Status 01/20/19 13:00 Stool Clostridium difficile Toxin Assay - Final Complete Intake and Output 01/20/19 01/21/19 18:59 06:59 Intake Total 1000 ml Balance 1000 ml Intake Oral 1000 ml # Voids 4 Objective PHYSICAL EXAMINATION: GENERALLY: The patient is thin-appearing female, no apparent distress. HEENT: Eyes, pupils are equal and responsive to light and accommodation. Extraocular movements are intact. NECK: Supple without lymphadenopathy. CHEST: Lungs are clear to auscultation bilaterally without wheezes or rales. CARDIOVASCULAR: Regular rate. S1 and S2 normal without murmurs, rubs, gallops. ABDOMEN: Soft, nontender, and nondistended. Positive bowel sounds. No evidence of hepatosplenomegaly. Currently, no rebound or guarding noted. EXTREMITIES: Negative for clubbing, cyanosis, or edema. RECTAL/GENITAL: Refused. NEUROLOGIC: Cranial nerves II through XII are grossly intact without focal deficits. Motor strength is 5/5 bilaterally. Deep tendon reflexes are 2+ plantar. Assessment/Plan Assessment/Plan ASSESSMENT: This is a 68-year-old female. 1. Chest pain. 2. Shortness of breath. 3. Hypertension. 4. Hypercholesterolemia. 5. History of congestive heart failure. 6. COPD Exacerbation 7. Coronary artery dis 8. Bipolar D/O TREATMENT: 1. Copd exacerbation/bronchitis A Pulmonary consultation has been obtained with Dr. Lorraine Arndt. The patient has been started on albuterol nebulized q. 4 hr and IV solumedrol. The patient is also on Zosyn intravenously. We will follow recommendations of Pulmonary. 2. Hypertension, the patient is currently normotensive. 3. Hypercholesterolemia. Continue atorvastatin as above. 4. Congestive heart failure. 5. Seroquel per Harvey Shaw MD Jan 21, 2019 17:04
--- NOTE | 2019-01-21 19:22 | Cardiology Progress Note ---
Assessment/Plan Assessment/Plan cp mi rulled out copd tobacco use do bp is ok today mi rulled out hhn per pulm out pt fu Subjective ROS Limited/Unobtainable: Yes Subjective sleeping Objective Last 24 Hour Vital Signs Date Time Temp Pulse Resp B/P (MAP) Pulse Ox O2 Delivery O2 Flow Rate FiO2 01/21/19 16:00 97.7 106 16 129/82 (98) 95 01/21/19 13:30 98.6 01/21/19 12:00 98.1 84 18 111/67 (82) 100 01/21/19 09:00 Room Air 01/21/19 08:31 101 18 96 Room Air 21 01/21/19 08:00 98.6 18 118/74 (89) 95 01/21/19 04:00 98.1 19 160/92 (114) 98 01/21/19 00:00 97.8 20 116/97 (103) 95 01/20/19 21:00 Room Air 01/20/19 20:31 102 20 99 Room Air 21 01/20/19 20:22 104 20 94 Room Air 21 01/20/19 20:00 98.3 115 18 127/77 (94) 99 01/20/19 19:35 78 18 95 Room Air 21 General Appearance: no apparent distress Intake and Output 01/20/19 01/21/19 19:00 07:00 Intake Total 1000 ml Balance 1000 ml Intake Oral 1000 ml # Voids 4 Microbiology Date/Time Source Procedure Growth Status 01/20/19 13:00 Stool Clostridium difficile Toxin Assay - Final Complete Wale Collins MD Jan 21, 2019 19:22
--- NOTE | 2019-01-21 19:24 | NUR ---
HAND-OFF: Report given to TANYA Alvarado.
[2019-01-21 20:00] VITALS: BP 115/75
--- NOTE | 2019-01-21 20:01 | NUR ---
NURSE NOTES: Patient received in sleeping bed. Morning shift nurse informed she took off her IV on L hand. Will try a new IV. No acute distress noted at this time. Bed locked in lowest position, call light placed within reach. Will continue to monitor.
--- NOTE | 2019-01-21 23:30 | NUR ---
NURSE NOTES: New IV inserted on L hand with 24G. Patient c/o pain 10/10 and Dilaudid PRN med given as ordered. Will continue to monitor.
[2019-01-22] VITALS: BP 130/93
[2019-01-22 04:00] VITALS: BP 115/71
--- NOTE | 2019-01-22 04:00 | Progress Note ---
DATE: 01/21/2019 SUBJECTIVE: The patient is presenting with irritable mood today, has some anxiety, and overall more cooperative and is cooperative and pleasant. No suicidal or homicidal ideations, compliant with medications. MENTAL STATUS EXAMINATION: The patient is alert and oriented times self, place, and situation. Mood is irritable. Affect is constricted, congruent with mood. Thought process is concrete. Thought content, no suicidal or homicidal ideation. ASSESSMENT: 1. Depression. 2. Anxiety. PLAN: We will continue current medication. Provide the patient with reality orientation and supportive therapy. Anne-Marie Faria M.D. DR: HAYDEN JOB#: [id number] CC:
[2019-01-22] MEDS: carBAMazepine 200mg tab ORAL SCH ×2 (05:42→14:01)
[2019-01-22 06:55] LABS: ANION GAP 9 mmol/L (5-15); BLOOD UREA NITROGEN 21 mg/dL (7-18); CALCIUM 9.4 MG/DL (8.5-10.1); CARBON DIOXIDE 31 MMOL/L (21-32); CHLORIDE 102 MMOL/L (98-107); CREATININE 0.7 MG/DL (0.55-1.30); SODIUM 142 MMOL/L (136-145)
[2019-01-22 06:56] LABS: BASOPHILS % (AUTO) 1.2 % (0.0-2.0); EOSINOPHILS % (AUTO) 0.5 % (0.0-3.0); HEMATOCRIT 32.1 % (37.0-47.0); HEMOGLOBIN 10.5 G/DL (12.0-16.0); MEAN CORPUSCULAR VOLUME 107 FL (80-99); MONOCYTES % (AUTO) 9.7 % (1.0-10.0); NEUTROPHILS % (AUTO) 62.7 % (45.0-75.0); PLATELET COUNT 256 K/UL (150-450); RED BLOOD COUNT 3.01 M/UL (4.20-5.40); RED CELL DISTRIBUTION WIDTH 14.7 % (11.6-14.8)
--- NOTE | 2019-01-22 07:21 | NUR ---
HAND-OFF: Report given to TANYA Hoff.
--- NOTE | 2019-01-22 07:30 | NUR ---
NURSE NOTES: Received pt from RN JOYCELYN/DALIA. Pt is alert and orient x4. Pt is in RA, no SOB or acute respiratory distress noted. pt is eating breakfast independently. pt has intact iv access L thumb 24G is SL. all needs attended, bed is locked and is in the lowest position, call light within easy reach. will continue to monitor.
[2019-01-22 08:00] VITALS: BP 142/92
[2019-01-22] MEDS ORDERED: Solu-MEDROL 125mg Inj IVP SCH (09:00)
[2019-01-22] MEDS: HYDROmorphone 1mg/ml Carpuject IVP PRN (09:02)
[2019-01-22] MEDS: Pancrelipase Dr Cap ORAL SCH ×2 (09:05→14:01)
[2019-01-22] MEDS: Theophylline ER 100mg ORAL SCH (09:05)
[2019-01-22] MEDS: Heparin 5000 units/ml inj SUBQ SCH (09:11)
[2019-01-22 12:00] VITALS: BP 117/80
--- NOTE | 2019-01-22 13:14 | Pulmonology Progress Note ---
Assessment/Plan Problems: (1) COPD exacerbation (2) ACS (acute coronary syndrome) (3) Costochondritis (4) CAD (coronary artery disease) (5) Severe protein-calorie malnutrition Assessment/Plan on dilaudid 4 mg dilaudid less coughing improving respiratory treatment pain management psych evaluation check electrolytes all reviewed Subjective ROS Limited/Unobtainable: No Constitutional: Reports: no symptoms HEENT: Repors: no symptoms Respiratory: Reports: no symptoms Allergies: Coded Allergies: HYDROCODONE (Verified Allergy, Severe, 06/23/13) LORAZEPAM (Verified Allergy, Severe, Hives, 02/13/14) RASH/HIVES MORPHINE (Unverified Allergy, Severe, 01/14/19) Not true allergy; tolerated Dilaudid in past. Extensive opiate hx PROCHLORPERAZINE (Verified Allergy, Severe, 06/23/13) VANCOMYCIN (Unverified Allergy, Mild, Itching, 03/06/14) Objective Last 24 Hour Vital Signs Date Time Temp Pulse Resp B/P (MAP) Pulse Ox O2 Delivery O2 Flow Rate FiO2 01/22/19 12:00 98.5 90 20 117/80 (92) 96 01/22/19 09:32 97.7 01/22/19 09:00 Room Air 01/22/19 08:36 87 20 97 Room Air 21 01/22/19 08:00 97.7 100 20 142/92 (109) 98 01/22/19 04:00 98.1 81 18 115/71 (86) 99 01/22/19 00:00 98.3 93 18 130/93 (105) 95 01/21/19 21:00 Room Air 01/21/19 20:45 89 20 97 Room Air 21 01/21/19 20:00 98.7 97 18 115/75 (88) 96 01/21/19 16:00 97.7 106 16 129/82 (98) 95 01/21/19 13:30 98.6 Objective General Appearance: WD/WN HEENT: normocephalic, atraumatic Respiratory/Chest: chest wall non-tender, rhonchi and wheezing Cardiovascular: normal peripheral pulses, normal rate Abdomen: normal bowel sounds, soft, non tender Genitourinary: normal external genitalia Extremities: no clubbing Skin: no rash Microbiology Date/Time Source Procedure Growth Status 01/20/19 13:00 Stool Clostridium difficile Toxin Assay - Final Complete Laboratory Tests 01/22/19 05:55: White Blood Count 7.0, Red Blood Count 3.01L, Hemoglobin 10.5L, Hematocrit 32.1L , Mean Corpuscular Volume 107H, Mean Corpuscular Hemoglobin 34.9H, Mean Corpuscular Hemoglobin Concent 32.7, Red Cell Distribution Width 14.7, Platelet Count 256, Mean Platelet Volume 5.9L, Neutrophils (%) (Auto) 62.7, Lymphocytes ( %) (Auto) 26.0, Monocytes (%) (Auto) 9.7, Eosinophils (%) (Auto) 0.5, Basophils (%) (Auto) 1.2, Sodium Level 142, Potassium Level 4.0, Chloride Level 102, Carbon Dioxide Level 31, Anion Gap 9, Blood Urea Nitrogen 21H, Creatinine 0.7, Estimat Glomerular Filtration Rate > 60, Glucose Level 124H, Calcium Level 9.4 Current Medications Medications (Trade) Dose Ordered Sig/Haley Route PRN Reason Start Time Stop Time Status Last Admin Dose Admin Albuterol/ Ipratropium (Albuterol/ Ipratropium) 3 ml Q4H PRN HHN dyspnea 01/17/19 14:50 01/22/19 14:49 01/20/19 20:22 Amylase/Lipase/ Protease (Zenpep) 2 ea THREE TIMES A DAY ORAL 01/17/19 18:00 02/13/19 12:59 01/22/19 09:05 Carbamazepine (TEGretol) 200 mg Q8HR ORAL 01/17/19 22:00 02/13/19 13:59 01/22/19 05:42 Dextrose (Dextrose 50%) 25 ml Q30M PRN IV Hypoglycemia 01/17/19 15:00 02/13/19 12:29 Dextrose (Dextrose 50%) 50 ml Q30M PRN IV Hypoglycemia 01/17/19 15:00 02/13/19 12:29 Diphenhydramine HCl (Benadryl) 25 mg Q8H PRN ORAL Itching 01/17/19 14:50 02/16/19 14:49 01/19/19 18:22 Divalproex Sodium (Depakote) 250 mg BEDTIME ORAL 01/17/19 21:00 02/13/19 20:59 01/21/19 21:27 Heparin Sodium (Porcine) (Heparin 5000 units/ml) 5,000 units EVERY 12 HOURS SUBQ 01/17/19 21:00 02/13/19 20:59 01/22/19 09:11 Hydromorphone HCl (Dilaudid) 1 mg Q3H PRN IVP pain 5-6 01/17/19 14:51 01/24/19 14:50 01/22/19 09:02 Hydromorphone HCl (Dilaudid) 4 mg Q3H PRN IVP Severe Pain (Pain Scale 7-10) 01/20/19 15:00 01/27/19 14:59 01/22/19 12:15 Methylprednisolone Sodium Succinate (Solu-MEDROL) 60 mg DAILY IVP 01/22/19 09:00 02/18/19 20:59 01/22/19 09:05 Nitroglycerin (Ntg) 0.4 mg Q5M X 3 DOSES PRN SL Prn Chest Pain 01/17/19 14:45 02/13/19 12:29 Ondansetron HCl (Zofran) 4 mg Q6H PRN IVP Nausea & Vomiting 01/17/19 14:51 02/16/19 14:50 01/19/19 14:15 Promethazine HCl/ Codeine (Phenergan with Codeine) 5 ml Q6H PRN ORAL cough 01/17/19 14:52 02/16/19 14:51 01/20/19 23:49 Theophylline (Juancho-Dur) 100 mg EVERY 12 HOURS ORAL 01/17/19 21:00 02/13/19 20:59 01/22/19 09:05 Lorraine Arndt MD Jan 22, 2019 13:14
--- NOTE | 2019-01-22 15:00 | NUR ---
NURSE NOTES: pt has D/C order, all discharge assessments and instructions done and pt verbally confirmed to understand all. pt is stable. V/S stable. hospital provide taxi per pt's request. all belongings are with pt and checked with RN. iv access D/C. pt left hospital.
--- NOTE | 2019-01-22 16:31 | Internal Med Progress Note ---
Subjective Physician Name Dawood Garrison Attending Physician Dawood Garrison MD Allergies: Coded Allergies: HYDROCODONE (Verified Allergy, Severe, 06/23/13) LORAZEPAM (Verified Allergy, Severe, Hives, 02/13/14) RASH/HIVES MORPHINE (Unverified Allergy, Severe, 01/14/19) Not true allergy; tolerated Dilaudid in past. Extensive opiate hx PROCHLORPERAZINE (Verified Allergy, Severe, 06/23/13) VANCOMYCIN (Unverified Allergy, Mild, Itching, 03/06/14) Subjective awake, alert, responsive, NAD, No CP or SOB Objective Last Vital Signs Date Time Temp Pulse Resp B/P (MAP) Pulse Ox O2 Delivery O2 Flow Rate FiO2 01/22/19 12:45 97.7 01/22/19 12:00 90 20 117/80 (92) 96 01/22/19 09:00 Room Air 01/22/19 08:36 21 01/20/19 09:00 2.0 Laboratory Tests Test 01/22/19 05:55 White Blood Count 7.0 K/UL (4.8-10.8) Red Blood Count 3.01 M/UL (4.20-5.40) L Hemoglobin 10.5 G/DL (12.0-16.0) L Hematocrit 32.1 % (37.0-47.0) L Mean Corpuscular Volume 107 FL (80-99) H Mean Corpuscular Hemoglobin 34.9 PG (27.0-31.0) H Mean Corpuscular Hemoglobin Concent 32.7 G/DL (32.0-36.0) Red Cell Distribution Width 14.7 % (11.6-14.8) Platelet Count 256 K/UL (150-450) Mean Platelet Volume 5.9 FL (6.5-10.1) L Neutrophils (%) (Auto) 62.7 % (45.0-75.0) Lymphocytes (%) (Auto) 26.0 % (20.0-45.0) Monocytes (%) (Auto) 9.7 % (1.0-10.0) Eosinophils (%) (Auto) 0.5 % (0.0-3.0) Basophils (%) (Auto) 1.2 % (0.0-2.0) Sodium Level 142 MMOL/L (136-145) Potassium Level 4.0 MMOL/L (3.5-5.1) Chloride Level 102 MMOL/L (98-107) Carbon Dioxide Level 31 MMOL/L (21-32) Anion Gap 9 mmol/L (5-15) Blood Urea Nitrogen 21 mg/dL (7-18) H Creatinine 0.7 MG/DL (0.55-1.30) Estimat Glomerular Filtration Rate > 60 mL/min (>60) Glucose Level 124 MG/DL (74-106) H Calcium Level 9.4 MG/DL (8.5-10.1) Microbiology Date/Time Source Procedure Growth Status 01/20/19 13:00 Stool Clostridium difficile Toxin Assay - Final Complete Objective General: No acute distress, awake and alert HEENT: NCAT, sclera anicteric, PERRL, EOMI. Neck: Supple, no significant jugular venous distention, Lungs: Good inspiratory effort, clear to auscultation bilaterally, no Wheeze or Rales. Heart: Regular rate and rhythm, normal S1/S2, no murmur. Abdomen: soft, nontender, nondistended. Normoactive bowel sounds. / Rectal: Refused and deferred. Extremities: No Cyanosis , clubbing or edema. Neuro: A&O x 3, Able to move all extremities Skin: warm, no rash. Psych: Anxious mood and affect Assessment/Plan Assessment/Plan (1) COPD exacerbation (2) Chest pain possible ACS (acute coronary syndrome) (3) Costochondritis (4) CAD (coronary artery disease) (5) Severe protein-calorie malnutrition (6) Bipolar disorder. Plan: Psych consult by Dr. Faria PT Mobility Monitor Labs DVT prophylaxis with Heparin SQ Full code DC planning today. Dawood Garrison MD Jan 22, 2019 16:31
--- NOTE | 2019-01-25 07:41 | Discharge Summary ---
Discharge Summary Discharge Summary _ DATE OF ADMISSION: 01/14/2019 DATE OF DISCHARGE: 01/22/2019 DISCHARGED BY: Dr. Garrison REASON FOR ADMISSION: 68 years old female with past medical history of HTN, CHF, COPD, cervical cancer , chronic back pain, presented to emergency department complaining of shortness of breath , chest pain and coughing up greenish phlegm. No hemoptysis Cough was present for 2 weeks with some chest tightness. Patient also reported intermittent chest pain without radiation. She denied fever and chills. She denied nausea, vomiting, abdominal pain. Upon evaluation patient was afebrile. Vital signs overall were stable. Troponin was negative. EKG revealed normal sinus rhythm, no acute ischemic changes. Chest x-ray demonstrated no acute cardiopulmonary pathology. Laboratory work-up revealed leukopenia with WBC 3.1, stable hemoglobin and hematocrit. Stable electrolytes and renal parameters. Patient subsequently admitted initially to telemetry floor for further management. CONSULTANTS: analysis internship Dr. Collins pulmonary Dr. Arndt psychiatrist [facility] COURSE: Patient admitted initially to telemetry floor. [employer] Purchasing Agent followed. Serial troponin were negative. KG revealed no acute ischemic changes. Patient was ruled out for acute [place]. Echocardiogram revealed preserved ejection fraction of 60 to 65% with mild left ventricular hypertrophy, no evidence of wall motion abnormality. Supplemental oxygen titrated as needed to keep pulse oximetry above 90%. Pulmonary toilet provided with nebulizing therapy around the clock and as needed. [place] Brazer closely followed. Patient was started on intravenous steroids with gradual tapering down. Patient was started on empiric antibiotic. Sputum culture revealed growth of Berkley. CXR revealed no acute cardiopulmonary pathology. Trial of theophylline initiated. Antitussive provided as needed Patient was counseled on smoking cessation. Patient declined nicotine patch at this time.. DVT prophylaxis provided Chest pain was likely due to COPD exacerbation, possible costochondritis. Blood pressure was closely monitored. No evidence of CHF decompensation. Merch[employer] Purchasing Agent cleared for discharge with outpatient follow-up. Pain management was addressed as needed. Supportive care provided. Patient developed diarrhea. Stool for C. difficile was negative. Protein supplements implemented in plan of care as per registered respiratory technician recommendation. Psychiatric evaluation was requested. Per psychiatrist, patient started on Tegretol and Depakote. Reality orientation and supportive therapy provided. Patient clinically stabilized and was ready for discharge home. FINAL DIAGNOSES: Chest pain, probably due to COPD exacerbation resolved COPD exacerbation Possible costochondritis History of CHF Hypertension Chronic back pain Severe protein calorie malnutrition History of cervical cancer Bipolar disorder Tobacco use disorder DISCHARGE MEDICATIONS: See Medication Reconciliation list. DISCHARGE INSTRUCTIONS: Patient was discharged home. Follow up with primary care provider in one week. Follow-up with analysis internship as outpatient recommended. Nakia Alvarenga NP Jan 25, 2019 07:41
== END 2019-01-22 15:54 | disposition home or self-care (01) | DRG 190 ==
LOC: EMR 08:54 → 2E 09:48 → EDBEDREQ 11:56 → 4E 01-17 14:45
DX: J44.1 Chronic obstructive pulmonary disease with (acute) exacerbation (principal); E43 Unspecified severe protein-calorie malnutrition; Z68.1 Body mass index [BMI] 19.9 or less, adult; I24.9 Acute ischemic heart disease, unspecified; I25.10 Atherosclerotic heart disease of native coronary artery without angina pectoris; Z85.41 Personal history of malignant neoplasm of cervix uteri; I10 Essential (primary) hypertension; Z90.710 Acquired absence of both cervix and uterus; Z88.6 Allergy status to analgesic agent; Z88.1 Allergy status to other antibiotic agents; Z88.8 Allergy status to other drugs, medicaments and biological substances; Z96.643 Presence of artificial hip joint, bilateral; F17.200 Nicotine dependence, unspecified, uncomplicated; E78.00 Pure hypercholesterolemia, unspecified; I11.0 Hypertensive heart disease with heart failure; I50.9 Heart failure, unspecified; M94.0 Chondrocostal junction syndrome [Tietze]; G89.29 Other chronic pain; M54.9 Dorsalgia, unspecified; F31.9 Bipolar disorder, unspecified; K21.9 Gastro-esophageal reflux disease without esophagitis; F11.21 Opioid dependence, in remission; Z79.82 Long term (current) use of aspirin
CPT/HCPCS: 36415; 71045; 80048; 80053; 82550; 82553; 83735; 84100; 84484; 85007; 85025; 85651; 87070; 87205; 87324; 93005; 93306; 94640; 94664; 96361; 96365; 99285; J2405; J7620

== ENCOUNTER 2019-04-04 15:43 | Inpatient (IN) | payer MEDICARE, OTHER ==
[~2019-04-04] VITALS: Ht 160 cm; Wt 45.0 kg
[2019-04-04 15:50] VITALS: BP 130/81
--- NOTE | 2019-04-04 16:12 | NUR ---
ED Nurse Note: chest x-ray at bedside.
[2019-04-04] MEDS ORDERED: Albuterol ud Inhalation HHN ONE (16:15)
[2019-04-04] MEDS ORDERED: Dexamethasone 4mg/ml vial IVP ONE (16:15)
[2019-04-04] MEDS ORDERED: Ipratropium 0.02% Inh Soln 2.5ml UD HHN ONE (16:15)
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
[2019-04-04 17:29] LABS: BASOPHILS % (AUTO) 1.6 % (0.0-2.0); EOSINOPHILS % (AUTO) 0.8 % (0.0-3.0); HEMATOCRIT 35.2 % (37.0-47.0); HEMOGLOBIN 12.1 G/DL (12.0-16.0); LYMPHOCYTES % (AUTO) 35.7 % (20.0-45.0); MEAN CORPUSCULAR VOLUME 99 FL (80-99); NEUTROPHILS % (AUTO) 53.8 % (45.0-75.0); PLATELET COUNT 261 K/UL (150-450); RED BLOOD COUNT 3.54 M/UL (4.20-5.40); RED CELL DISTRIBUTION WIDTH 12.9 % (11.6-14.8); WHITE BLOOD COUNT 4.2 K/UL (4.8-10.8)
[2019-04-04 17:41] LABS: INR 0.9 (0.9-1.1)
--- NOTE | 2019-04-04 17:41 | Diagnostic Imaging Report ---
EXAM: XR Chest, 1 View CLINICAL HISTORY: CP TECHNIQUE: Frontal view of the chest. COMPARISON: Chest radiograph on 01/14/2019 FINDINGS: Hardware: None. Lungs/pleura: Normal. No focal consolidation. No pleural effusion or pneumothorax. Heart/mediastinum: Normal. No cardiomegaly. Soft tissues: Unremarkable. Bones: No acute fracture. Upper abdomen: Normal. IMPRESSION: No acute disease identified.
[2019-04-04 18:07] LABS: ANION GAP 11 mmol/L (5-15); BLOOD UREA NITROGEN 16 mg/dL (7-18); CALCIUM 9.7 MG/DL (8.5-10.1); CARBON DIOXIDE 24 MMOL/L (21-32); CHLORIDE 103 MMOL/L (98-107); CREATININE 0.8 MG/DL (0.55-1.30); POTASSIUM 4.1 MMOL/L (3.5-5.1); SODIUM 138 MMOL/L (136-145)
[2019-04-04 18:22] LABS: ALANINE AMINOTRANSFERASE 24 U/L (12-78); ALBUMIN 4.2 G/DL (3.4-5.0); ALBUMIN/GLOBULIN RATIO 1.1 (1.0-2.7); ALKALINE PHOSPHATASE 75 U/L (46-116); ASPARTATE AMINO TRANSFERASE 30 U/L (15-37); BILIRUBIN,TOTAL 0.3 MG/DL (0.2-1.0); CREATINE KINASE 96 U/L (26-308)
--- NOTE | 2019-04-04 18:36 | NUR ---
ED Nurse Note: REPORT GIVEN TO TANYA DING.
[2019-04-04] MEDS ORDERED: Morphine Sulfate 4mg/ml Inj (IV USE ONLY) IVP ONE (18:45)
[2019-04-04] MEDS ORDERED: DiphenhydrAMINE 50mg/ml Inj IVP ONE (18:45)
--- NOTE | 2019-04-04 18:59 | NUR ---
ED Nurse Note: pt left unit with 1 RN and 1 office technology instructor in stable condition.
--- NOTE | 2019-04-04 19:00 | NUR ---
NURSE NOTES: Patient arrived at 19:00 from ER. patient is AAO x 4. patient is breathing on room air. patient was placed on ekg monitor tech. IV of right arm is intact and patent. Patient belonging list was completed. Report was received. Orientate patient to unit. Call light within reach, bed in lowest position.
[2019-04-04] MEDS ORDERED: Albuterol/Ipratropium 3ml neb HHN PRN (19:30)
[2019-04-04] MEDS ORDERED: Nitroglycerin Subl 0.4mg tab SL PRN (19:30)
[2019-04-04 20:00] VITALS: BP 116/59
--- NOTE | 2019-04-04 20:10 | NUR ---
HAND-OFF: Patient stated she wanted a specific nurse to take care of her. Charge nurse and primary nurse spoke with patient. Afterwards, report was givent to TANYA Dolan.
--- NOTE | 2019-04-04 20:16 | NUR ---
NURSE NOTES: Received report from TANYA Monte. Patient is awake lying semi-chun's; resting comfortably. No signs of acute distress noted; complains of pain. AOx4; able to make needs known. Ambulates with assistance. Checked IV site; patent and flushed. No erythema, bleeding, or infiltration noted. Bed at lowest position, brakes on, siderails up x3. Call light within reach. Will continue to monitor.
--- NOTE | 2019-04-04 21:02 | NUR ---
NURSE NOTES: Received new order from Dr. Arndt for Dilaudid 1mg IV Q4HR PRN. Noted and carried out.
[2019-04-04] MEDS: Theophylline ER 100mg ORAL SCH (21:16)
[2019-04-04] MEDS: Heparin 5000 units/ml inj SUBQ SCH (21:17)
[2019-04-04] MEDS: Zoysn 3.37gm in NS 100ML IVPB SCH (21:18)
[2019-04-04] MEDS ORDERED: Piperacillin/Tazobactam 2.25 GM in D5W 55 ML IV SCH (22:00)
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
--- NOTE | 2019-04-04 23:54 | NUR ---
NURSE NOTES: Called Dr. Arndt regarding patient's request for Benadryl. Received new order for Benadryl 25 mg IV q4hr PRN. Noted and carried out.
[2019-04-05] VITALS: BP 124/81
[2019-04-05] MEDS: DiphenhydrAMINE 50mg/ml Inj IVP PRN ×5 (00:13→17:08)
[2019-04-05] MEDS: Solu-MEDROL 125mg Inj IV SCH ×2 (00:13→06:22)
[2019-04-05] MEDS: HYDROmorphone 1mg/ml Carpuject IVP PRN ×4 (00:14→12:47)
--- NOTE | 2019-04-05 03:47 | NUR ---
NURSE NOTES: Patient is assisted to bedside commode. No signs of acute distress noted; denies pain at this time.
[2019-04-05 04:00] VITALS: BP 129/77
[2019-04-05] MEDS: Zoysn 3.37gm in NS 100ML IVPB SCH (06:20)
--- NOTE | 2019-04-05 07:14 | NUR ---
HAND-OFF: Report given to TANYA Samuels. Patient is awake lying semi-chun's; resting comfortably. In stable condition.
--- NOTE | 2019-04-05 07:30 | NUR ---
NURSE NOTES: Received report from Roxanne Dunham RN. Patient awake in bed, alert and oriented x 4, able to make needs known. On room air, respirations even and unlabored. Right upper arm 20g IV site infusing Zosyn @ 27.5 cc/hr, asymptomatic. All needs attended to. Call light within reach. Will continue to monitor.
[2019-04-05 08:00] VITALS: BP 106/67
[2019-04-05] MEDS: carBAMazepine 200mg tab GT SCH ×3 (08:36→17:08)
[2019-04-05] MEDS: Theophylline ER 100mg ORAL SCH (08:36)
[2019-04-05] MEDS: Heparin 5000 units/ml inj SUBQ SCH ×2 (08:37→21:00)
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
--- NOTE | 2019-04-05 11:54 | Pulmonology Progress Note ---
Assessment/Plan Problems: (1) COPD (chronic obstructive pulmonary disease) (2) Constipation (3) Anxiety (4) Severe protein-calorie malnutrition (5) ACS (acute coronary syndrome) (6) GERD (gastroesophageal reflux disease) (7) Costochondritis (8) CAD (coronary artery disease) Assessment/Plan telemetry records reviewed, sinus rhythm, serial ekg, troponin, echo respiratory treatment check sputum GI evaluation symptomatic treatment. Subjective ROS Limited/Unobtainable: No Constitutional: Reports: no symptoms HEENT: Repors: no symptoms Respiratory: Reports: no symptoms Cardiovascular: Reports: no symptoms Allergies: Coded Allergies: HYDROCODONE (Verified Allergy, Severe, 06/23/13) LORAZEPAM (Verified Allergy, Severe, Hives, 02/13/14) RASH/HIVES MORPHINE (Unverified Allergy, Severe, 01/14/19) Not true allergy; tolerated Dilaudid in past. Extensive opiate hx PROCHLORPERAZINE (Verified Allergy, Severe, 06/23/13) VANCOMYCIN (Unverified Allergy, Mild, Itching, 03/06/14) Objective Last 24 Hour Vital Signs Date Time Temp Pulse Resp B/P (MAP) Pulse Ox O2 Delivery O2 Flow Rate FiO2 04/05/19 08:23 95 18 99 Room Air 21 04/05/19 08:00 98.2 83 18 106/67 (80) 99 04/05/19 07:40 78 04/05/19 04:00 98.4 91 18 129/77 (94) 100 04/05/19 04:00 82 04/05/19 00:00 99.5 100 18 124/81 (95) 97 04/05/19 00:00 98 04/04/19 23:25 Room Air 04/04/19 20:00 98.2 84 18 116/59 (78) 99 04/04/19 20:00 83 04/04/19 18:59 98.3 86 19 129/74 100 Room Air 04/04/19 16:25 81 14 100 Room Air 21 89 21 100 04/04/19 16:10 90 25 100 Room Air 21 04/04/19 15:50 95 21 Room Air 04/04/19 15:50 98.8 82 21 130/81 96 Room Air 04/04/19 15:47 98.8 95 21 130/81 (97) 96 Room Air Intake and Output 04/04/19 04/05/19 19:00 07:00 Intake Total 0 ml 748.3 ml Balance 0 ml 748.3 ml Intake Oral 0 ml 620 ml IV Total 128.3 ml # Voids 2 # Bowel Movements 2 General Appearance: WD/WN HEENT: normocephalic, anicteric Respiratory/Chest: chest wall non-tender, lungs clear Breasts: no masses Cardiovascular: normal rate, no JVD Abdomen: soft, non tender, no organomegaly Laboratory Tests 04/04/19 17:10: White Blood Count 4.2L, Red Blood Count 3.54L, Hemoglobin 12.1, Hematocrit 35.2L , Mean Corpuscular Volume 99, Mean Corpuscular Hemoglobin 34.3H, Mean Corpuscular Hemoglobin Concent 34.5, Red Cell Distribution Width 12.9, Platelet Count 261, Mean Platelet Volume 5.6L, Neutrophils (%) (Auto) 53.8, Lymphocytes ( %) (Auto) 35.7, Monocytes (%) (Auto) 8.0, Eosinophils (%) (Auto) 0.8, Basophils (%) (Auto) 1.6, Prothrombin Time 10.0, Prothromb Time International Ratio 0.9, Activated Partial Thromboplast Time 25, Sodium Level 138, Potassium Level 4.1, Chloride Level 103, Carbon Dioxide Level 24, Anion Gap 11, Blood Urea Nitrogen 16, Creatinine 0.8, Estimat Glomerular Filtration Rate > 60, Glucose Level 100, Calcium Level 9.7, Total Bilirubin 0.3, Aspartate Amino Transf (AST/SGOT) 30, Alanine Aminotransferase (ALT/SGPT) 24, Alkaline Phosphatase 75, Total Creatine Kinase 96, Creatine Kinase MB 1.0, Creatine Kinase MB Relative Index 1.0, Troponin I 0.000, Pro-B-Type Natriuretic Peptide 84, Total Protein 8.1, Albumin 4.2, Globulin 3.9, Albumin/Globulin Ratio 1.1 Current Medications Medications (Trade) Dose Ordered Sig/Haley Route PRN Reason Start Time Stop Time Status Last Admin Dose Admin Albuterol/ Ipratropium (Albuterol/ Ipratropium) 3 ml Q4H PRN HHN dyspnea 04/04/19 19:30 04/09/19 19:29 Carbamazepine (TEGretol) 400 mg TID GT 04/05/19 09:00 05/05/19 08:59 04/05/19 08:36 Dextrose (Dextrose 50%) 25 ml Q30M PRN IV Hypoglycemia 04/04/19 19:30 05/04/19 19:29 Dextrose (Dextrose 50%) 50 ml Q30M PRN IV Hypoglycemia 04/04/19 19:30 05/04/19 19:29 Diphenhydramine HCl (Benadryl) 25 mg Q4H PRN IVP Itching 04/05/19 00:00 05/05/19 00:00 04/05/19 08:50 Docusate Sodium (Colace) 100 mg TID ORAL 04/05/19 13:00 05/05/19 12:59 Heparin Sodium (Porcine) (Heparin 5000 units/ml) 5,000 units EVERY 12 HOURS SUBQ 04/04/19 21:00 05/04/19 20:59 04/05/19 08:37 Hydromorphone HCl (Dilaudid) 1 mg Q4H PRN IVP Severe Pain (Pain Scale 7-10) 04/04/19 22:30 04/11/19 22:29 04/05/19 08:39 Nitroglycerin (Ntg) 0.4 mg Q5M X 3 DOSES PRN SL Prn Chest Pain 04/04/19 19:30 05/04/19 19:29 Ondansetron HCl (Zofran) 4 mg Q6H PRN IVP Nausea & Vomiting 04/04/19 19:30 05/04/19 19:29 04/05/19 08:50 Polyethylene Glycol (Miralax) 17 gm BEDTIME ORAL 04/05/19 21:00 05/05/19 20:59 Lorraine Arndt MD Apr 05, 2019 11:54
[2019-04-05 12:00] VITALS: BP 123/73
[2019-04-05] MEDS: Docusate 100mg tablet ORAL SCH ×2 (12:45→17:08)
--- NOTE | 2019-04-05 14:53 | History & Physical ---
History and Physical History & Physicial Dictated for Int Med-Dr Garrison no. [id number]. Harvey Olivares MD Apr 05, 2019 14:53
[2019-04-05] MEDS ORDERED: HYDROmorphone 1mg/ml Carpuject IVP PRN (15:00)
[2019-04-05 16:00] VITALS: BP 120/70
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
--- NOTE | 2019-04-05 19:03 | NUR ---
HAND-OFF: Report given to Alex Valencia RN. Addendum: 04/05/19 at 1904 by THANG JOY RN Report given to Love Pappas RN.
--- NOTE | 2019-04-05 19:10 | NUR ---
NURSE NOTES: Received report TANYA Urena. Patient in bed awake showing no signs of acute distress. Respiration even and non labored on ra. No sob noted. Iv noted on right ua 20g sl patent and intact. Side rails up x2. Bed in lowest position, wheels locked and alarm on. Call light button within reach. All needs attended and met. Will continue plan of care.
[2019-04-05] MEDS: Albuterol/Ipratropium 3ml neb HHN SCH (19:32)
[2019-04-05] MEDS ORDERED: Miralax 17gm pkt ORAL SCH (21:00)
[2019-04-06] MEDS: Albuterol/Ipratropium 3ml neb HHN SCH ×4 (01:00→19:00)
[2019-04-06 04:00] VITALS: BP 164/61
--- NOTE | 2019-04-06 04:30 | NUR ---
NURSE NOTES: Found the IV was pulled out. Attempted to start IV access with 3 different RNs, still unsuccessful. Pt. refused to be poked again for IV. Pt. wanted to rest at the moment.
--- NOTE | 2019-04-06 07:15 | NUR ---
NURSE NOTES: Report received from TANYA Nance. Pt. sleeping comfortably. No breathing distress or discomfort noted. In RA. Bed on lowest position, side rails upx2, brakes engaged. Call light within easy reach.
[2019-04-06 07:24] LABS: BASOPHILS % (AUTO) 0.8 % (0.0-2.0); HEMATOCRIT 33.8 % (37.0-47.0); HEMOGLOBIN 10.8 G/DL (12.0-16.0); LYMPHOCYTES % (AUTO) 20.4 % (20.0-45.0); MEAN CORPUSCULAR VOLUME 106 FL (80-99); MONOCYTES % (AUTO) 6.2 % (1.0-10.0); NEUTROPHILS % (AUTO) 72.6 % (45.0-75.0); PLATELET COUNT 222 K/UL (150-450); RED BLOOD COUNT 3.18 M/UL (4.20-5.40); RED CELL DISTRIBUTION WIDTH 14.1 % (11.6-14.8); WHITE BLOOD COUNT 7.7 K/UL (4.8-10.8)
--- NOTE | 2019-04-06 07:25 | NUR ---
HAND-OFF: Report given to TANYA Gonzales.
[2019-04-06 07:29] LABS: ANION GAP 10 mmol/L (5-15); BLOOD UREA NITROGEN 21 mg/dL (7-18); CALCIUM 9.4 MG/DL (8.5-10.1); CARBON DIOXIDE 27 MMOL/L (21-32); CHLORIDE 107 MMOL/L (98-107); CREATININE 0.7 MG/DL (0.55-1.30); PHOSPHORUS 2.6 MG/DL (2.5-4.9); POTASSIUM 4.1 MMOL/L (3.5-5.1); SODIUM 143 MMOL/L (136-145)
[2019-04-06 08:00] VITALS: BP 119/73
--- NOTE | 2019-04-06 08:48 | Diagnostic Imaging Report ---
Indication: Abdominal pain and distention Technique: One view of the abdomen Comparison: 07/27/2016 Findings: Bowel gas pattern is unremarkable. Rounded opacities in the pelvis are more numerous than on the prior exam. Some of these clearly represent phleboliths, others may represent foreign bodies, either ingested or external to the patient. No unusual masses or hip prostheses Impression: No acute process
[2019-04-06] MEDS: Heparin 5000 units/ml inj SUBQ SCH ×2 (09:00→20:48)
[2019-04-06] MEDS: carBAMazepine 200mg tab GT SCH ×3 (09:19→18:01)
[2019-04-06] MEDS: Docusate 100mg tablet ORAL SCH ×4 (09:19→18:01)
--- NOTE | 2019-04-06 10:59 | Pulmonology Progress Note ---
Assessment/Plan Problems: (1) COPD (chronic obstructive pulmonary disease) (2) Constipation (3) Anxiety (4) Severe protein-calorie malnutrition (5) ACS (acute coronary syndrome) (6) GERD (gastroesophageal reflux disease) (7) Costochondritis (8) CAD (coronary artery disease) Assessment/Plan telemetry records reviewed, sinus rhythm, serial ekg, troponin, echo respiratory treatment check sputum GI evaluation symptomatic treatment. Subjective ROS Limited/Unobtainable: No Constitutional: Reports: no symptoms HEENT: Repors: no symptoms Respiratory: Reports: no symptoms Allergies: Coded Allergies: HYDROCODONE (Verified Allergy, Severe, 06/23/13) LORAZEPAM (Verified Allergy, Severe, Hives, 02/13/14) RASH/HIVES MORPHINE (Unverified Allergy, Severe, 01/14/19) Not true allergy; tolerated Dilaudid in past. Extensive opiate hx PROCHLORPERAZINE (Verified Allergy, Severe, 06/23/13) VANCOMYCIN (Unverified Allergy, Mild, Itching, 03/06/14) Objective Last 24 Hour Vital Signs Date Time Temp Pulse Resp B/P (MAP) Pulse Ox O2 Delivery O2 Flow Rate FiO2 04/06/19 09:00 Room Air 04/06/19 09:00 74 04/06/19 08:00 97.6 20 119/73 (88) 95 04/06/19 07:11 Room Air 21 04/06/19 04:00 98.0 77 18 164/61 (95) 98 04/06/19 04:00 77 04/06/19 01:14 Room Air 21 04/06/19 00:00 77 04/05/19 21:00 Room Air 04/05/19 20:00 80 04/05/19 19:32 90 14 99 Room Air 21 90 21 98 04/05/19 16:00 99.1 87 18 120/70 (87) 98 04/05/19 15:14 102 04/05/19 12:00 98.4 80 20 123/73 (90) 97 04/05/19 11:55 81 Intake and Output 04/05/19 04/06/19 19:00 07:00 Intake Total 720 ml Balance 720 ml Intake Oral 720 ml # Voids 2 3 General Appearance: cachetic HEENT: normocephalic, atraumatic Respiratory/Chest: chest wall non-tender, lungs clear Breasts: no masses Cardiovascular: normal peripheral pulses Abdomen: normal bowel sounds, soft, non tender, no mass, no scars Genitourinary: normal external genitalia Skin: no rash 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 Lymphatic: no neck adenopathy Laboratory Tests 04/06/19 06:27: White Blood Count 7.7, Red Blood Count 3.18L, Hemoglobin 10.8L, Hematocrit 33.8L , Mean Corpuscular Volume 106H, Mean Corpuscular Hemoglobin 34.1H, Mean Corpuscular Hemoglobin Concent 32.0, Red Cell Distribution Width 14.1, Platelet Count 222, Mean Platelet Volume 5.8L, Neutrophils (%) (Auto) 72.6, Lymphocytes ( %) (Auto) 20.4, Monocytes (%) (Auto) 6.2, Eosinophils (%) (Auto) 0.0, Basophils (%) (Auto) 0.8, Sodium Level 143, Potassium Level 4.1, Chloride Level 107, Carbon Dioxide Level 27, Anion Gap 10, Blood Urea Nitrogen 21H, Creatinine 0.7, Estimat Glomerular Filtration Rate > 60, Glucose Level 92, Calcium Level 9.4, Phosphorus Level 2.6, Magnesium Level 2.1, Troponin I 0.000, Pro-B-Type Natriuretic Peptide 135H Current Medications Medications (Trade) Dose Ordered Sig/Haley Route PRN Reason Start Time Stop Time Status Last Admin Dose Admin Albuterol/ Ipratropium (Albuterol/ Ipratropium) 3 ml Q6HRT HHN 04/05/19 18:00 04/10/19 17:59 04/05/19 19:32 Carbamazepine (TEGretol) 400 mg TID GT 04/05/19 09:00 05/05/19 08:59 04/06/19 09:19 Dextrose (Dextrose 50%) 25 ml Q30M PRN IV Hypoglycemia 04/04/19 19:30 05/04/19 19:29 Dextrose (Dextrose 50%) 50 ml Q30M PRN IV Hypoglycemia 04/04/19 19:30 05/04/19 19:29 Diphenhydramine HCl (Benadryl) 25 mg Q4H PRN IVP Itching 04/05/19 00:00 05/05/19 00:00 04/05/19 17:08 Docusate Sodium (Colace) 100 mg TID ORAL 04/05/19 13:00 05/05/19 12:59 04/06/19 09:19 Heparin Sodium (Porcine) (Heparin 5000 units/ml) 5,000 units EVERY 12 HOURS SUBQ 04/04/19 21:00 05/04/19 20:59 04/05/19 08:37 Hydromorphone HCl (Dilaudid) 1 mg Q4H PRN IVP Moderate Pain (Pain Scale 4-6) 04/05/19 15:00 04/11/19 14:59 Hydromorphone HCl (Dilaudid) 2 mg Q4H PRN IVP Severe Pain (Pain Scale 7-10) 04/05/19 15:00 04/12/19 14:59 04/05/19 17:09 Nitroglycerin (Ntg) 0.4 mg Q5M X 3 DOSES PRN SL Prn Chest Pain 04/04/19 19:30 05/04/19 19:29 Ondansetron HCl (Zofran) 4 mg Q6H PRN IVP Nausea & Vomiting 04/04/19 19:30 05/04/19 19:29 04/05/19 17:08 Polyethylene Glycol (Miralax) 17 gm BEDTIME ORAL 04/05/19 21:00 05/05/19 20:59 Lorraine Arndt MD Apr 06, 2019 10:59
[2019-04-06] MEDS ORDERED: DiphenhydrAMINE 50mg/ml Inj IVP PRN (11:00)
[2019-04-06] MEDS ORDERED: Nitroglycerin Subl 0.4mg tab SL PRN (11:00)
[2019-04-06] MEDS ORDERED: HYDROmorphone 1mg/ml Carpuject IVP PRN (11:00)
--- NOTE | 2019-04-06 11:30 | NUR ---
NURSE NOTES: Received patient from [facility] from tele. Patient is awake, but dozed off, verbally responsive. No IV received.Per tele nurse Dr. reid is aware. All belongings were checked and accounted for. Skin intact, re-orientation given about the unit. Bed alarm is on. Patient is able to transfer form bed to commode but unsteady. Call light within reach. Reminded patient to use call light if needed. Will continue plan of care.
--- NOTE | 2019-04-06 11:30 | NUR ---
TRANSFER TO FLOOR: Patient VS stable. Aware of transfer plan. Transferred to Med Surg unit, 419-1, per Dr. Arndt. Report given to Ana María Castle. Belongings given to TANYA.
[2019-04-06 12:00] VITALS: BP 115/77
--- NOTE | 2019-04-06 12:38 | NUR ---
RESPIRATORY NOTE: Pt became combative and terminated nebulized tx early. Will continue to monitor & follow up.
--- NOTE | 2019-04-06 13:00 | NUR ---
NURSE NOTES: Patient refused to have lunch and scheduled medication and wants to sleep @ this time. V/S stable.
--- NOTE | 2019-04-06 13:13 | GI Progress Note ---
Assessment/Plan Problems: (1) Severe protein-calorie malnutrition ICD Codes: E43 - Unspecified severe protein-calorie malnutrition SNOMED: 437170923 (2) GERD (gastroesophageal reflux disease) ICD Codes: K21.9 - Gastro-esophageal reflux disease without esophagitis SNOMED: 976279573 (3) Drug-seeking behavior ICD Codes: F19.10 - Other psychoactive substance abuse, uncomplicated SNOMED: 746904773 (4) Abdominal pain ICD Codes: R10.9 - Unspecified abdominal pain SNOMED: 42628401 (5) Constipation ICD Codes: K59.00 - Constipation, unspecified SNOMED: 29307498 (6) Anemia ICD Codes: D64.9 - Anemia SNOMED: 342369716 Status: stable, unchanged Status Narrative Discussed with Dr. Salazar. Assessment/Plan negative KUB symptomatically treatment at this time bowel regime, miralax + colace + prune juice pain mgmt zofran prn, reglan for gastroparesis ppi OB stool r/o any GI bleed adv diet as tolerated The patient was seen and examined at bedside and all new and available data was reviewed in the patients chart. I agree with the above findings, impression and plan. (Patient seen earlier today. Signature stamp does not reflect patient encounter time.). - Ruben Salazar MD Subjective Gastrointestinal/Abdominal: Reports: no symptoms Objective Last 24 Hour Vital Signs Date Time Temp Pulse Resp B/P (MAP) Pulse Ox O2 Delivery O2 Flow Rate FiO2 04/06/19 12:25 70 16 99 Room Air 21 66 16 96 04/06/19 09:00 Room Air 04/06/19 09:00 74 04/06/19 08:00 97.6 20 119/73 (88) 95 04/06/19 07:11 Room Air 21 04/06/19 04:00 98.0 77 18 164/61 (95) 98 04/06/19 04:00 77 04/06/19 01:14 Room Air 21 04/06/19 00:00 77 04/05/19 21:00 Room Air 04/05/19 20:00 80 04/05/19 19:32 90 14 99 Room Air 21 90 21 98 04/05/19 16:00 99.1 87 18 120/70 (87) 98 04/05/19 15:14 102 Intake and Output 04/05/19 04/06/19 19:00 07:00 Intake Total 720 ml Balance 720 ml Intake Oral 720 ml # Voids 2 3 Laboratory Tests Test 04/06/19 06:27 White Blood Count 7.7 K/UL (4.8-10.8) Red Blood Count 3.18 M/UL (4.20-5.40) L Hemoglobin 10.8 G/DL (12.0-16.0) L Hematocrit 33.8 % (37.0-47.0) L Mean Corpuscular Volume 106 FL (80-99) H Mean Corpuscular Hemoglobin 34.1 PG (27.0-31.0) H Mean Corpuscular Hemoglobin Concent 32.0 G/DL (32.0-36.0) Red Cell Distribution Width 14.1 % (11.6-14.8) Platelet Count 222 K/UL (150-450) Mean Platelet Volume 5.8 FL (6.5-10.1) L Neutrophils (%) (Auto) 72.6 % (45.0-75.0) Lymphocytes (%) (Auto) 20.4 % (20.0-45.0) Monocytes (%) (Auto) 6.2 % (1.0-10.0) Eosinophils (%) (Auto) 0.0 % (0.0-3.0) Basophils (%) (Auto) 0.8 % (0.0-2.0) Sodium Level 143 MMOL/L (136-145) Potassium Level 4.1 MMOL/L (3.5-5.1) Chloride Level 107 MMOL/L (98-107) Carbon Dioxide Level 27 MMOL/L (21-32) Anion Gap 10 mmol/L (5-15) Blood Urea Nitrogen 21 mg/dL (7-18) H Creatinine 0.7 MG/DL (0.55-1.30) Estimat Glomerular Filtration Rate > 60 mL/min (>60) Glucose Level 92 MG/DL (74-106) Calcium Level 9.4 MG/DL (8.5-10.1) Phosphorus Level 2.6 MG/DL (2.5-4.9) Magnesium Level 2.1 MG/DL (1.8-2.4) Troponin I 0.000 ng/mL (0.000-0.056) Pro-B-Type Natriuretic Peptide 135 pg/mL (0-125) H Height (Feet): 5 Height (Inches): 3.00 Weight (Pounds): 100 General Appearance: WD/WN, no apparent distress, alert Cardiovascular: normal rate Respiratory/Chest: normal breath sounds, no respiratory distress Abdominal Exam: normal bowel sounds, non tender, soft Extremities: normal range of motion, non-tender Arlyn Monsivais NP Apr 06, 2019 13:13
[2019-04-06 16:00] VITALS: BP 113/72
--- NOTE | 2019-04-06 16:50 | Internal Med Progress Note ---
Subjective Date of Service: Apr 06, 2019 Physician Name Harvey Olivares Attending Physician Dawood Garrison MD Current Medications Medications (Trade) Dose Ordered Sig/Haley Route PRN Reason Start Time Stop Time Status Last Admin Dose Admin Albuterol/ Ipratropium (Albuterol/ Ipratropium) 3 ml Q6HRT HHN 04/06/19 13:00 04/10/19 17:59 04/06/19 12:25 Carbamazepine (TEGretol) 400 mg TID GT 04/06/19 13:00 05/05/19 08:59 Dextrose (Dextrose 50%) 25 ml Q30M PRN IV Hypoglycemia 04/06/19 11:00 05/04/19 19:29 Dextrose (Dextrose 50%) 50 ml Q30M PRN IV Hypoglycemia 04/06/19 11:00 05/04/19 19:29 Diphenhydramine HCl (Benadryl) 25 mg Q4H PRN IVP Itching 04/06/19 11:00 05/05/19 10:59 Docusate Sodium (Colace) 100 mg TID ORAL 04/06/19 13:00 05/05/19 12:59 Heparin Sodium (Porcine) (Heparin 5000 units/ml) 5,000 units EVERY 12 HOURS SUBQ 04/06/19 21:00 05/04/19 20:59 Hydromorphone HCl (Dilaudid) 1 mg Q4H PRN IVP Moderate Pain (Pain Scale 4-6) 04/06/19 11:00 04/11/19 14:59 Hydromorphone HCl (Dilaudid) 2 mg Q4H PRN IVP Severe Pain (Pain Scale 7-10) 04/06/19 11:00 04/12/19 14:59 Nitroglycerin (Ntg) 0.4 mg Q5M X 3 DOSES PRN SL Prn Chest Pain 04/06/19 11:00 05/04/19 19:29 Ondansetron HCl (Zofran) 4 mg Q6H PRN IVP Nausea & Vomiting 04/06/19 11:03 05/04/19 11:02 Polyethylene Glycol (Miralax) 17 gm BEDTIME ORAL 04/06/19 21:00 05/05/19 20:59 Allergies: Coded Allergies: HYDROCODONE (Verified Allergy, Severe, 06/23/13) LORAZEPAM (Verified Allergy, Severe, Hives, 02/13/14) RASH/HIVES MORPHINE (Unverified Allergy, Severe, 01/14/19) Not true allergy; tolerated Dilaudid in past. Extensive opiate hx PROCHLORPERAZINE (Verified Allergy, Severe, 06/23/13) VANCOMYCIN (Unverified Allergy, Mild, Itching, 03/06/14) ROS Limited/Unobtainable: No Constitutional: Reports: no symptoms HEENT: Reports: no symptoms Cardiovascular: Reports: no symptoms Respiratory: Reports: no symptoms Gastrointestinal/Abdominal: Reports: no symptoms Genitourinary: Reports: no symptoms Neurologic/Psychiatric: Reports: no symptoms Subjective 68 YO F admitted with shortness of breath, chest pain and abdominal pain. Cover for Int Derian-Dr Garrison Objective Last Vital Signs Date Time Temp Pulse Resp B/P (MAP) Pulse Ox O2 Delivery O2 Flow Rate FiO2 04/06/19 16:00 98.7 78 18 113/72 (86) 98 04/06/19 12:25 Room Air 21 Laboratory Tests Test 04/06/19 06:27 White Blood Count 7.7 K/UL (4.8-10.8) Red Blood Count 3.18 M/UL (4.20-5.40) L Hemoglobin 10.8 G/DL (12.0-16.0) L Hematocrit 33.8 % (37.0-47.0) L Mean Corpuscular Volume 106 FL (80-99) H Mean Corpuscular Hemoglobin 34.1 PG (27.0-31.0) H Mean Corpuscular Hemoglobin Concent 32.0 G/DL (32.0-36.0) Red Cell Distribution Width 14.1 % (11.6-14.8) Platelet Count 222 K/UL (150-450) Mean Platelet Volume 5.8 FL (6.5-10.1) L Neutrophils (%) (Auto) 72.6 % (45.0-75.0) Lymphocytes (%) (Auto) 20.4 % (20.0-45.0) Monocytes (%) (Auto) 6.2 % (1.0-10.0) Eosinophils (%) (Auto) 0.0 % (0.0-3.0) Basophils (%) (Auto) 0.8 % (0.0-2.0) Sodium Level 143 MMOL/L (136-145) Potassium Level 4.1 MMOL/L (3.5-5.1) Chloride Level 107 MMOL/L (98-107) Carbon Dioxide Level 27 MMOL/L (21-32) Anion Gap 10 mmol/L (5-15) Blood Urea Nitrogen 21 mg/dL (7-18) H Creatinine 0.7 MG/DL (0.55-1.30) Estimat Glomerular Filtration Rate > 60 mL/min (>60) Glucose Level 92 MG/DL (74-106) Calcium Level 9.4 MG/DL (8.5-10.1) Phosphorus Level 2.6 MG/DL (2.5-4.9) Magnesium Level 2.1 MG/DL (1.8-2.4) Troponin I 0.000 ng/mL (0.000-0.056) Pro-B-Type Natriuretic Peptide 135 pg/mL (0-125) H Intake and Output 04/05/19 04/06/19 19:00 07:00 Intake Total 720 ml Balance 720 ml Intake Oral 720 ml # Voids 2 3 Objective PHYSICAL EXAMINATION: GENERALLY: The patient is a thin-appearing female, in no apparent distress. HEENT: Eyes, pupils are equal and responsive to light and accommodation. Extraocular movements are intact. NECK: Supple without lymphadenopathy. CHEST: Lungs are clear to auscultation bilaterally without wheezes or rales. CARDIOVASCULAR: Regular rhythm and rate. S1 and S2 are normal without murmurs, rubs, or gallops. ABDOMEN: Soft, nontender, and nondistended. Positive bowel sounds. No evidence of hepatosplenomegaly. Currently, no rebound or guarding noted. EXTREMITIES: Negative for clubbing, cyanosis, or edema. RECTAL/GENITAL: Not performed. NEUROLOGIC: Cranial nerves II through XII are grossly intact without focal deficits. Motor strength is 5/5 bilaterally. Deep tendon reflexes are 2+ plantar. Assessment/Plan Assessment/Plan ASSESSMENT: This is a 68-year-old female. 1. Shortness of breath. 2. Chest pain. 3. Constipation. 4. Abdominal pain. 5. Abdominal bloating. 6. Congestive heart failure. 7. Hypertension. 8. Hypercholesterolemia. 9. Chronic obstructive pulmonary disease. TREATMENT: 1. Shortness of breath. This may be secondary to congestive heart failure versus chronic obstructive pulmonary disease. BNP was not diagnostic for CHF. An initial chest x-ray is reported as no acute disease. A Pulmonary consultation has been obtained with Dr. Lorraine Arndt. 2. Constipation/abdominal pain/abdominal bloating. A Gastroenterology consultation has been obtained with Dr. Ruben Salazar. KUB = no acute disease No GI procedures are scheduled. 3. Congestive heart failure. BNP=non diagnostic for CHF. Cardiology consultation has been obtained with Dr. Wale Collins. 4. Hypertension. 5. Hypercholesterolemia. Continue atorvastatin as above. 6. Chronic obstructive pulmonary disease. As above, a Pulmonary consultation has been obtained with Dr. Lorraine Arndt. Duonebs q 6hr routine. Harvey Olivares MD Apr 06, 2019 16:50
--- NOTE | 2019-04-06 16:58 | NUR ---
CASE MANAGEMENT:REVIEW 68 YR OLD MALE PRESENTED TO ER FROM HOME CC: LT SIDED CHEST PAIN. NEAR SYNCOPAL EPISODE AT [facility] SOB. WHEEZING SI: ACS 98.8 95 21 130/81 96% ON RA TROPONIN(-) IS: DUONEB HHN IV DECADRON ASA IV MORPHINE CXR : TO TELEMETRY
--- NOTE | 2019-04-06 18:00 | NUR ---
NURSE NOTES: Patient is awake, verbally responsive. patient tried to grab fork but dropped it due to weakness on her right hand and arm. RN assessed the patient. Patient able to follow commands but response is delayed. Able to say her birthday, name right but no orientation about the place. Able to move her bilateral legs without any problems but left and right hands with weak strength, right is weaker than left. Able to stick her tongue put to the middle and able to move to left and right, face is symmetric and no drooling. Patient did not take any pain meds since yesterday , she is only taking tegretol. Bed is in lowest position and locked. Provide safe environment. Dr. Arndt was paged.
--- NOTE | 2019-04-06 18:45 | NUR ---
NURSE NOTES: Dr. Arndt agreed with CT scan and tegretol level but he changed his mind, he d/c CT of the head, Rn received to d/c dilvicid, do tegretol level and neuro consult with Dr. Umana and neuro check Q4Hr. Order read back and carried out. Will continue to monitor. V/S stable. Will continue to monitor.
--- NOTE | 2019-04-06 18:55 | NUR ---
NURSE NOTES: patient is asleep @ this time.
--- NOTE | 2019-04-06 19:26 | NUR ---
HAND-OFF: Report given to Connie.
[2019-04-06 20:00] VITALS: BP 108/70
--- NOTE | 2019-04-06 20:05 | NUR ---
NURSE NOTES: Carbamezepine level at 17.9, left message for Dr Arndt. Awaiting orders. Addendum: 04/06/19 at 2116 by Connie Barroso RN Aknowledged by Dr Arndt. No new orders.
[2019-04-06] MEDS ORDERED: Miralax 17gm pkt ORAL SCH (21:00)
--- NOTE | 2019-04-06 21:16 | NUR ---
NURSE NOTES: Patient extremely fatigued, arousable only by shaking. Dr Arndt aware.
[2019-04-07] MEDS: Albuterol/Ipratropium 3ml neb HHN SCH ×3 (01:00→13:15)
[2019-04-07 04:00] VITALS: BP 127/72
[2019-04-07 06:26] LABS: BASOPHILS % (AUTO) 0.8 % (0.0-2.0); EOSINOPHILS % (AUTO) 0.4 % (0.0-3.0); HEMATOCRIT 43.1 % (37.0-47.0); HEMOGLOBIN 13.4 G/DL (12.0-16.0); LYMPHOCYTES % (AUTO) 23.6 % (20.0-45.0); MEAN CORPUSCULAR VOLUME 107 FL (80-99); MONOCYTES % (AUTO) 5.4 % (1.0-10.0); NEUTROPHILS % (AUTO) 69.8 % (45.0-75.0); PLATELET COUNT 183 K/UL (150-450); RED BLOOD COUNT 4.03 M/UL (4.20-5.40); RED CELL DISTRIBUTION WIDTH 13.8 % (11.6-14.8); WHITE BLOOD COUNT 4.4 K/UL (4.8-10.8)
[2019-04-07 06:32] LABS: ANION GAP 8 mmol/L (5-15); BLOOD UREA NITROGEN 17 mg/dL (7-18); CALCIUM 9.8 MG/DL (8.5-10.1); CARBON DIOXIDE 28 MMOL/L (21-32); CHLORIDE 106 MMOL/L (98-107); CREATININE 0.6 MG/DL (0.55-1.30); POTASSIUM 4.2 MMOL/L (3.5-5.1); SODIUM 142 MMOL/L (136-145)
--- NOTE | 2019-04-07 07:34 | NUR ---
HAND-OFF: Report given to TANYA Ocasio. Patient LOC improved.
--- NOTE | 2019-04-07 07:35 | NUR ---
NURSE NOTES: patient is more awake and alert but still with weakness on hands and unsteady gait. Patient denies pain or discomfort. Reminded patient to use call light if needed. Bed alarm is on on sensitive. Will continue plan of care.
[2019-04-07 08:00] VITALS: BP 145/52
[2019-04-07] MEDS: carBAMazepine 200mg tab GT SCH ×2 (08:53→13:00)
[2019-04-07] MEDS: Docusate 100mg tablet ORAL SCH ×2 (09:31→13:00)
[2019-04-07] MEDS: Heparin 5000 units/ml inj SUBQ SCH (09:32)
--- NOTE | 2019-04-07 10:22 | GI Progress Note ---
Assessment/Plan Problems: (1) Severe protein-calorie malnutrition ICD Codes: E43 - Unspecified severe protein-calorie malnutrition SNOMED: 758624454 (2) GERD (gastroesophageal reflux disease) ICD Codes: K21.9 - Gastro-esophageal reflux disease without esophagitis SNOMED: 214595714 (3) Drug-seeking behavior ICD Codes: F19.10 - Other psychoactive substance abuse, uncomplicated SNOMED: 051414513 (4) Abdominal pain ICD Codes: R10.9 - Unspecified abdominal pain SNOMED: 73479083 (5) Constipation ICD Codes: K59.00 - Constipation, unspecified SNOMED: 11809438 (6) Anemia ICD Codes: D64.9 - Anemia SNOMED: 028490142 Status: stable Status Narrative Discussed with Dr. Salazar. Assessment/Plan negative KUB symptomatically treatment at this time bowel regime, miralax + colace + prune juice pain mgmt zofran prn, reglan for gastroparesis ppi OB stool r/o any GI bleed adv diet as tolerated PT evaluation The patient was seen and examined at bedside and all new and available data was reviewed in the patients chart. I agree with the above findings, impression and plan. (Patient seen earlier today. Signature stamp does not reflect patient encounter time.). - Ruben Salazar MD Subjective Gastrointestinal/Abdominal: Reports: no symptoms Objective Last 24 Hour Vital Signs Date Time Temp Pulse Resp B/P (MAP) Pulse Ox O2 Delivery O2 Flow Rate FiO2 04/07/19 08:00 98.4 78 19 145/52 (83) 95 04/07/19 07:51 88 16 99 Room Air 21 82 16 96 04/07/19 04:00 98.3 77 18 127/72 (90) 100 04/07/19 01:36 Room Air 04/06/19 23:12 Room Air 04/06/19 20:00 97.3 72 17 108/70 (83) 100 04/06/19 19:40 Room Air 04/06/19 16:00 98.7 78 18 113/72 (86) 98 04/06/19 12:25 70 16 99 Room Air 21 66 16 96 04/06/19 12:00 98.9 77 18 115/77 (90) 98 Intake and Output 04/06/19 04/07/19 19:00 07:00 Intake Total 200 ml 50 ml Balance 200 ml 50 ml Intake Oral 200 ml 50 ml # Voids 2 2 Laboratory Tests Test 04/06/19 19:00 04/07/19 06:04 Carbamazepine (Tegretol) Level 17.9 ug/mL (4.0-12.0) *H White Blood Count 4.4 K/UL (4.8-10.8) L Red Blood Count 4.03 M/UL (4.20-5.40) L Hemoglobin 13.4 G/DL (12.0-16.0) Hematocrit 43.1 % (37.0-47.0) Mean Corpuscular Volume 107 FL (80-99) H Mean Corpuscular Hemoglobin 33.2 PG (27.0-31.0) H Mean Corpuscular Hemoglobin Concent 31.0 G/DL (32.0-36.0) L Red Cell Distribution Width 13.8 % (11.6-14.8) Platelet Count 183 K/UL (150-450) Mean Platelet Volume 5.6 FL (6.5-10.1) L Neutrophils (%) (Auto) 69.8 % (45.0-75.0) Lymphocytes (%) (Auto) 23.6 % (20.0-45.0) Monocytes (%) (Auto) 5.4 % (1.0-10.0) Eosinophils (%) (Auto) 0.4 % (0.0-3.0) Basophils (%) (Auto) 0.8 % (0.0-2.0) Sodium Level 142 MMOL/L (136-145) Potassium Level 4.2 MMOL/L (3.5-5.1) Chloride Level 106 MMOL/L (98-107) Carbon Dioxide Level 28 MMOL/L (21-32) Anion Gap 8 mmol/L (5-15) Blood Urea Nitrogen 17 mg/dL (7-18) Creatinine 0.6 MG/DL (0.55-1.30) Estimat Glomerular Filtration Rate > 60 mL/min (>60) Glucose Level 99 MG/DL (74-106) Calcium Level 9.8 MG/DL (8.5-10.1) Height (Feet): 5 Height (Inches): 3.00 Weight (Pounds): 99 General Appearance: no apparent distress, alert, other - poor historian Cardiovascular: normal rate Respiratory/Chest: normal breath sounds, no respiratory distress Abdominal Exam: normal bowel sounds, non tender, soft Extremities: normal range of motion, non-tender Arlyn Monsivais NP Apr 07, 2019 10:22
--- NOTE | 2019-04-07 10:53 | NUR ---
NURSE NOTES: Patient is awake alert and oriented x3-4. Patient insisting to be discharge stating. " I want to go home. There is no reason for me to be here.Let me go. I have better place to go." Charge nurse contacted to Dr. Arndt and obtained discharge order.Rn contacted Dr. Umana but Dr. Umana cannot take new patient. Will follow up with Dr. Arndt.
--- NOTE | 2019-04-07 11:03 | NUR ---
NURSE NOTES: pt wants to leave [facility] , reported to dr Marina per ok to dc home w home health even if neuro hasnt seen pt and tegretol high. packet done, however pt son convinced pt to stay at this time. dr marina made aware pt in bed sitting , stable no sob. unsteady gait when walking, with regular clothes on , armband and iv still with patient
[2019-04-07 12:00] VITALS: BP 104/73
--- NOTE | 2019-04-07 12:00 | NUR ---
NURSE NOTES: Rn and patient contacted patient's son Sy Casey on the phone, after patient talked to her son , she changed her mind. She said she would stay.
--- NOTE | 2019-04-07 13:00 | NUR ---
NURSE NOTES: RN contacted Dr. Arndt for neuro consult. Dr. Cleveland Dewey on the case. Rn placed a call to Dr. Cleveland's office and left message to Pam. Patient started shouting and raised her voice saying " I want to go home, I am ok, I' am not sick." Patient was seen by Dr. Arndt and Dr. Arndt assessed patient himself. Patient is alert and oriented x4,able to walk steady, denies pain or discomfort.No SOB or other respiratory distress. Dr. Arndt said patient is clear to be discharged.
--- NOTE | 2019-04-07 13:15 | NUR ---
RD ASSESSMENT & RECOMMENDATIONS SEE CARE ACTIVITY FOR COMPLETE ASSESSMENT DAILY ESTIMATED NEEDS: Needs based on Pulmonary, 48.7kg 25-30 kcals/kg 6719-3079 total kcals 1-1.5 g protein/kg 49-73 g total protein 25-30 mL/kg 1556-4813 total fluid mLs NUTRITION DIAGNOSIS: Altered nutrition related lab values r/t clinical status as evidenced by low WBC (4.4), elev BP (145/52) CURRENT DIET: Regular PO DIET RECOMMENDATIONS: Regular diet / texture as tolerated ADDITIONAL RECOMMENDATIONS: 1) Obtain a standing weight for accurate CBW EMR wt: 99# BED wt: 107# 2) Ensure x1 daily 3) Monitor for BM/ rec high fiber diet w/ chronic constipation
--- NOTE | 2019-04-07 13:35 | Pulmonology Progress Note ---
Assessment/Plan Problems: (1) COPD (chronic obstructive pulmonary disease) (2) Constipation (3) Anxiety (4) Severe protein-calorie malnutrition (5) ACS (acute coronary syndrome) (6) GERD (gastroesophageal reflux disease) (7) Costochondritis (8) CAD (coronary artery disease) Assessment/Plan serial ekg, troponin, echo respiratory treatment check sputum GI evaluation symptomatic treatment. Subjective ROS Limited/Unobtainable: No Constitutional: Reports: no symptoms HEENT: Repors: no symptoms Allergies: Coded Allergies: HYDROCODONE (Verified Allergy, Severe, 06/23/13) LORAZEPAM (Verified Allergy, Severe, Hives, 02/13/14) RASH/HIVES MORPHINE (Unverified Allergy, Severe, 01/14/19) Not true allergy; tolerated Dilaudid in past. Extensive opiate hx PROCHLORPERAZINE (Verified Allergy, Severe, 06/23/13) VANCOMYCIN (Unverified Allergy, Mild, Itching, 03/06/14) Objective Last 24 Hour Vital Signs Date Time Temp Pulse Resp B/P (MAP) Pulse Ox O2 Delivery O2 Flow Rate FiO2 04/07/19 13:15 84 20 100 Room Air 21 87 20 97 04/07/19 12:00 98.1 88 20 104/73 (83) 97 04/07/19 09:00 Room Air 04/07/19 08:00 98.4 78 19 145/52 (83) 95 04/07/19 07:51 88 16 99 Room Air 21 82 16 96 04/07/19 04:00 98.3 77 18 127/72 (90) 100 04/07/19 01:36 Room Air 04/06/19 23:12 Room Air 04/06/19 20:00 97.3 72 17 108/70 (83) 100 04/06/19 19:40 Room Air 04/06/19 16:00 98.7 78 18 113/72 (86) 98 Intake and Output 04/06/19 04/07/19 19:00 07:00 Intake Total 200 ml 50 ml Balance 200 ml 50 ml Intake Oral 200 ml 50 ml # Voids 2 2 General Appearance: WD/WN HEENT: normocephalic, atraumatic Respiratory/Chest: chest wall non-tender, lungs clear Breasts: no masses Cardiovascular: normal peripheral pulses Abdomen: normal bowel sounds, soft, non tender Genitourinary: normal external genitalia Extremities: no cyanosis Skin: no rash Laboratory Tests 04/06/19 19:00: Carbamazepine (Tegretol) Level 17.9*H 04/07/19 06:04: White Blood Count 4.4L, Red Blood Count 4.03L, Hemoglobin 13.4, Hematocrit 43.1 , Mean Corpuscular Volume 107H, Mean Corpuscular Hemoglobin 33.2H, Mean Corpuscular Hemoglobin Concent 31.0L, Red Cell Distribution Width 13.8, Platelet Count 183, Mean Platelet Volume 5.6L, Neutrophils (%) (Auto) 69.8, Lymphocytes (%) (Auto) 23.6, Monocytes (%) (Auto) 5.4, Eosinophils (%) (Auto) 0.4, Basophils (%) (Auto) 0.8, Sodium Level 142, Potassium Level 4.2, Chloride Level 106, Carbon Dioxide Level 28, Anion Gap 8, Blood Urea Nitrogen 17, Creatinine 0.6, Estimat Glomerular Filtration Rate > 60, Glucose Level 99, Calcium Level 9.8 Current Medications Medications (Trade) Dose Ordered Sig/Haley Route PRN Reason Start Time Stop Time Status Last Admin Dose Admin Albuterol/ Ipratropium (Albuterol/ Ipratropium) 3 ml Q6HRT HHN 04/06/19 13:00 04/10/19 17:59 04/07/19 13:15 Carbamazepine (TEGretol) 400 mg TID GT 04/06/19 13:00 05/05/19 08:59 04/06/19 18:01 Dextrose (Dextrose 50%) 25 ml Q30M PRN IV Hypoglycemia 04/06/19 11:00 05/04/19 19:29 Dextrose (Dextrose 50%) 50 ml Q30M PRN IV Hypoglycemia 04/06/19 11:00 05/04/19 19:29 Diphenhydramine HCl (Benadryl) 25 mg Q4H PRN IVP Itching 04/06/19 11:00 05/05/19 10:59 Docusate Sodium (Colace) 100 mg TID ORAL 04/06/19 13:00 05/05/19 12:59 04/07/19 09:31 Heparin Sodium (Porcine) (Heparin 5000 units/ml) 5,000 units EVERY 12 HOURS SUBQ 04/06/19 21:00 05/04/19 20:59 04/07/19 09:32 Nitroglycerin (Ntg) 0.4 mg Q5M X 3 DOSES PRN SL Prn Chest Pain 04/06/19 11:00 05/04/19 19:29 Ondansetron HCl (Zofran) 4 mg Q6H PRN IVP Nausea & Vomiting 04/06/19 11:03 05/04/19 11:02 Polyethylene Glycol (Miralax) 17 gm BEDTIME ORAL 04/06/19 21:00 05/05/19 20:59 Lorraine Arndt MD Apr 07, 2019 13:35
--- NOTE | 2019-04-07 15:05 | NUR ---
NURSE NOTES: Dr. Cleveland came to see the patient. RN relayed to Dr. Cleveland patient was cleared by Dr. Arndt for discharge. Dr. Cleveland assessed patient and did not clear the patient for discharge. Dr. Cleveland said patient needs to be stay @ the hospital or AMA. Dr. Cleveland spoke to Dr. Arndt and RN spoke to Dr. Arndt, he said patient can not be discharged but AMA if she insist. Patient was cursing and screaming @ doctor and nurses. She changed her clothes and holding her belongings.Charge nurse and house painting instructor spoke to the patient, son and Dr. Chan about her discharge. RN explained about AMA and she fully understood. Patient signed on AMA paper and belonging list. All belongings accounted for. RN spoke to Son and let him know and explained that patient was discharged.Patient's son said he has no car and he is sick and patient did not want to wait for the taxi, she said " I will take the bus. I do not want to be here." Patient left the building in stable condition. Rn wrote down her address and phone number on the piece of paper.No skin issue.IV and ID were removed.
--- NOTE | 2019-04-07 18:52 | Internal Med Progress Note ---
Subjective Date of Service: Apr 07, 2019 Physician Name Harvey Olivares Attending Physician Dawood Garrison MD Allergies: Coded Allergies: HYDROCODONE (Verified Allergy, Severe, 06/23/13) LORAZEPAM (Verified Allergy, Severe, Hives, 02/13/14) RASH/HIVES MORPHINE (Unverified Allergy, Severe, 01/14/19) Not true allergy; tolerated Dilaudid in past. Extensive opiate hx PROCHLORPERAZINE (Verified Allergy, Severe, 06/23/13) VANCOMYCIN (Unverified Allergy, Mild, Itching, 03/06/14) ROS Limited/Unobtainable: No Constitutional: Reports: no symptoms HEENT: Reports: no symptoms Cardiovascular: Reports: no symptoms Respiratory: Reports: shortness of breath Gastrointestinal/Abdominal: Reports: no symptoms Genitourinary: Reports: no symptoms Neurologic/Psychiatric: Reports: no symptoms Subjective 68 YO F admitted with shortness of breath, chest pain and abdominal pain. Cover for Int Med-Dr Garrison Objective Last Vital Signs Date Time Temp Pulse Resp B/P (MAP) Pulse Ox O2 Delivery O2 Flow Rate FiO2 04/07/19 13:15 84 20 100 Room Air 21 87 20 97 04/07/19 12:00 98.1 104/73 (83) Laboratory Tests Test 04/06/19 19:00 04/07/19 06:04 Carbamazepine (Tegretol) Level 17.9 ug/mL (4.0-12.0) *H White Blood Count 4.4 K/UL (4.8-10.8) L Red Blood Count 4.03 M/UL (4.20-5.40) L Hemoglobin 13.4 G/DL (12.0-16.0) Hematocrit 43.1 % (37.0-47.0) Mean Corpuscular Volume 107 FL (80-99) H Mean Corpuscular Hemoglobin 33.2 PG (27.0-31.0) H Mean Corpuscular Hemoglobin Concent 31.0 G/DL (32.0-36.0) L Red Cell Distribution Width 13.8 % (11.6-14.8) Platelet Count 183 K/UL (150-450) Mean Platelet Volume 5.6 FL (6.5-10.1) L Neutrophils (%) (Auto) 69.8 % (45.0-75.0) Lymphocytes (%) (Auto) 23.6 % (20.0-45.0) Monocytes (%) (Auto) 5.4 % (1.0-10.0) Eosinophils (%) (Auto) 0.4 % (0.0-3.0) Basophils (%) (Auto) 0.8 % (0.0-2.0) Sodium Level 142 MMOL/L (136-145) Potassium Level 4.2 MMOL/L (3.5-5.1) Chloride Level 106 MMOL/L (98-107) Carbon Dioxide Level 28 MMOL/L (21-32) Anion Gap 8 mmol/L (5-15) Blood Urea Nitrogen 17 mg/dL (7-18) Creatinine 0.6 MG/DL (0.55-1.30) Estimat Glomerular Filtration Rate > 60 mL/min (>60) Glucose Level 99 MG/DL (74-106) Calcium Level 9.8 MG/DL (8.5-10.1) Intake and Output 04/06/19 04/07/19 19:00 07:00 Intake Total 200 ml 50 ml Balance 200 ml 50 ml Intake Oral 200 ml 50 ml # Voids 2 2 Objective PHYSICAL EXAMINATION: GENERALLY: The patient is a thin-appearing female, in no apparent distress. HEENT: Eyes, pupils are equal and responsive to light and accommodation. Extraocular movements are intact. NECK: Supple without lymphadenopathy. CHEST: Lungs are clear to auscultation bilaterally without wheezes or rales. CARDIOVASCULAR: Regular rhythm and rate. S1 and S2 are normal without murmurs, rubs, or gallops. ABDOMEN: Soft, nontender, and nondistended. Positive bowel sounds. No evidence of hepatosplenomegaly. Currently, no rebound or guarding noted. EXTREMITIES: Negative for clubbing, cyanosis, or edema. RECTAL/GENITAL: Not performed. NEUROLOGIC: Cranial nerves II through XII are grossly intact without focal deficits. Motor strength is 5/5 bilaterally. Deep tendon reflexes are 2+ plantar. Assessment/Plan Assessment/Plan ASSESSMENT: This is a 68-year-old female. 1. Shortness of breath. 2. Chest pain. 3. Constipation. 4. Abdominal pain. 5. Abdominal bloating. 6. Congestive heart failure. 7. Hypertension. 8. Hypercholesterolemia. 9. Chronic obstructive pulmonary disease. TREATMENT: 1. Shortness of breath. This may be secondary to congestive heart failure versus chronic obstructive pulmonary disease. BNP was not diagnostic for CHF. An initial chest x-ray is reported as no acute disease. A Pulmonary consultation has been obtained with Dr. Lorraine Arndt. 2. Constipation/abdominal pain/abdominal bloating. A Gastroenterology consultation has been obtained with Dr. Ruben Salazar. KUB = no acute disease No GI procedures are scheduled. 3. Congestive heart failure. BNP=non diagnostic for CHF. Cardiology consultation has been obtained with Dr. Wale Collins. 4. Hypertension. 5. Hypercholesterolemia. Continue atorvastatin as above. 6. Chronic obstructive pulmonary disease. As above, a Pulmonary consultation has been obtained with Dr. Lorraine Arndt. Duonebs q 6hr routine. Harvey Olivares MD Apr 07, 2019 18:52
--- NOTE | 2019-04-08 04:15 | Consultation ---
DATE OF CONSULTATION: 04/07/2019 NOTE: POOR AUDIO CONSULTING PHYSICIAN: Dewey Cleveland M.D. CHIEF COMPLAINT: This is a 68-year-old woman with previous history of hypertension, hyperlipidemia, coronary artery disease who was admitted with a chief complaint of shortness of breath and chest tightness for 3 days. She also had abdominal pain, distention, constipation, and black tarry stool. No fever or chills. I was asked to see the patient for confusional state. The patient has above history. She was seen by Dr. Dawood Garrison in GI consult. She has GI history of chronic pancreatitis, Clostridium difficile colitis, gastritis, internal hemorrhoids, and colon polyps. right renal lesion. She also has a history of opiate dependency and drug-seeking behavior. The patient denies any use of alcohol. The patient's initial laboratory data revealed that she was mildly anemic with slight decrease in her blood cell count. Her platelets were normal. Chemistry is normal except for initial BUN today of 21, creatinine of 0.7, and GFR was greater than 60. The patient had a chest x-ray, which revealed no acute disease. Abdominal x-ray yesterday revealed some phlebolith and opacities in the pelvis, which could be foreign body external to the patient. There is no acute process. The patient is on Tegretol on admission. Tegretol was continued 400 mg 3 times a day. The patient's Tegretol blood level yesterday was . Yesterday, she has been more confused and her Tegretol was stopped. The patient was supposed to be discharged walking into the room. The patient denies any history of seizures, trigeminal neuralgia, peripheral neuropathy, migraines, or headache disorder. She has memory loss as well as muscle weakness, disorder, loss of bowel or bladder function. She denied diplopia, loss of . She denies any dizziness while in this hospital. She denies any depression or anxiety. There is no history of neck or back pain. She denies any alcohol use. She smokes occasionally. There is no family history of neurologic disease. PAST MEDICAL HISTORY/PAST MEDICAL ILLNESSES: 1. Chronic pancreatitis, etiology unclear. 2. Hyperlipidemia. 3. Coronary artery disease. 4. . 5. History of cervical cancer. 6. . ALLERGIES: She is allergic to hydrocodone, lorazepam, morphine, prochlorperazine, and vancomycin. MEDICATIONS: She is on aspirin, lipase, amylase and protease, Tegretol 200 mg p.r.n., 40 mg t.i.d., albuterol sulfate, Benadryl 25 mg, , atorvastatin, calcium 20 mg, hydromorphone . SURGERIES: Not available. REVIEW OF SYSTEMS: Unavailable. PHYSICAL EXAMINATION: GENERAL: The patient is dressed , in moderate distress. VITAL SIGNS: Blood pressure 104/73, temperature is 98.9 degrees, pulse is regular, SpO2 97, respiration rate 20. HEENT: Reveals poor dentition and arcus senilis . NECK: There is tenderness and muscle spasm. Carotids are +2. No bruits could be appreciated. LUNGS: Decreased breath sounds bilaterally. CARDIOVASCULAR: PMI not felt. JVP is not visualized. The patient has normal S1 and S2 is physiologically split. No S3, S4. No murmurs or rubs appreciated. ABDOMEN: Large vertical surgical scar. She has some diffuse abdominal pain and has bowel sounds noted. No organomegaly was appreciated. There is tenderness to percussion. EXTREMITIES: Basically intact. NEUROLOGIC: Mental status, judgment could not be tested. Affect, her affect is appropriate. Memory, her past memory is intact. Her mood appears angry. Memory and attention intact, date, she does not know the month or the year. Place, she knows she was in the hospital. . Comprehension is intact. She can spell world forward, but cannot spell backwards. CRANIAL NERVE EXAMINATION: CRANIAL NERVE II: Visual brown are intact to confrontation. Fundi are not well visualized. CRANIAL NERVES III, IV, AND : Extraocular motility was full. Pupils are approximately 3 mm to 4 mm, round, and light reactive. CRANIAL NERVE V: Corneal sensation appeared to be intact to fine touch. Pterygoid strength is 5/5. CRANIAL NERVE VII: Facial strength is 5/5. CRANIAL NERVE VIII: Auditory acuity intact. CRANIAL NERVES IX AND X: Gag is intact bilaterally. CRANIAL NERVE XI: Sternocleidomastoid strength is 5/5. CRANIAL NERVE XII: Tongue protrudes in the midline without fasciculations or atrophy. MUSCLE EXAMINATION: Muscle bulk is symmetrically decreased. Muscle tone is normal. Muscle strength is 5/5 proximally and distally. There is bilateral asterixis noted. +3 in the upper extremities, +2 at the knees, 0 to trace in the ankles. signs on testing for Babinski response. COORDINATION: [id number], [id number] testing intact. GAIT AND STATION: She has a normal and slightly wide based gait. decreased. IMPRESSION: The patient has multifocal metabolic encephalopathy. Tegretol toxicity. Why she is on Tegretol, she does not know. uses of Tegretol mainly for psychiatric reasons . PLAN: . Thank you for this interesting case. Dewey Cleveland MD DR: MALDONADO JOB#: [id number] CC:
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
== END 2019-04-07 15:07 | disposition home or self-care (01) | DRG 190 ==
LOC: EMR 17:40 → 2E 17:52 → EDBEDREQ 18:16 → 4E 04-06 11:38
DX: J44.9 Chronic obstructive pulmonary disease, unspecified (principal); E43 Unspecified severe protein-calorie malnutrition; G93.41 Metabolic encephalopathy; K86.1 Other chronic pancreatitis; Z68.1 Body mass index [BMI] 19.9 or less, adult; I11.0 Hypertensive heart disease with heart failure; I50.9 Heart failure, unspecified; T42.1X5A Adverse effect of iminostilbenes, initial encounter; K21.9 Gastro-esophageal reflux disease without esophagitis; Z85.41 Personal history of malignant neoplasm of cervix uteri; R07.9 Chest pain, unspecified; Z96.643 Presence of artificial hip joint, bilateral; Z88.6 Allergy status to analgesic agent; Z88.1 Allergy status to other antibiotic agents; Z88.8 Allergy status to other drugs, medicaments and biological substances; Z79.82 Long term (current) use of aspirin; E78.00 Pure hypercholesterolemia, unspecified; K59.00 Constipation, unspecified; I25.10 Atherosclerotic heart disease of native coronary artery without angina pectoris; F41.9 Anxiety disorder, unspecified; K31.84 Gastroparesis; M94.0 Chondrocostal junction syndrome [Tietze]; Z76.5 Malingerer [conscious simulation]; D64.9 Anemia, unspecified; R14.0 Abdominal distension (gaseous)
CPT/HCPCS: 36415; 71045; 74018; 80048; 80053; 80156; 82550; 82553; 83735; 83880; 84100; 84484; 85025; 85610; 85730; 93005; 94640; 94664; 96374; 96375; 99285; J2405; J7620

== ENCOUNTER 2020-02-14 | Inpatient (IN) | payer MEDICARE, OTHER ==
[~2020-02-14] VITALS: Ht 160 cm; Wt 46.9 kg
[~2020-02-14] MED LIST changes: +VALACYCLOVIR500 MG ORAL
[2020-02-14 00:25] VITALS: BP 134/78
[2020-02-14] MEDS ORDERED: Aspirin Baby 81mg ORAL ONE (00:30)
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
[2020-02-14 01:40] LABS: HEMATOCRIT 42.8 % (37.0-47.0); HEMOGLOBIN 13.1 G/DL (12.0-16.0); MEAN CORPUSCULAR VOLUME 117 FL (80-99); PLATELET COUNT 256 K/UL (150-450); RED BLOOD COUNT 3.65 M/UL (4.20-5.40); RED CELL DISTRIBUTION WIDTH 14.1 % (11.6-14.8); WHITE BLOOD COUNT 4.1 K/UL (4.8-10.8)
[2020-02-14 01:51] LABS: ANION GAP 12 mmol/L (5-15); BLOOD UREA NITROGEN 13 mg/dL (7-18); CARBON DIOXIDE 27 MMOL/L (21-32); CHLORIDE 105 MMOL/L (98-107); CREATININE 0.8 MG/DL (0.55-1.30); POTASSIUM 4.6 MMOL/L (3.5-5.1); SODIUM 144 MMOL/L (136-145)
[2020-02-14 01:53] LABS: PHOSPHORUS 4.1 MG/DL (2.5-4.9)
[2020-02-14] MEDS ORDERED: Ketorolac 30mg Inj IV ONE (02:00)
[2020-02-14 02:02] LABS: ALANINE AMINOTRANSFERASE 20 U/L (12-78); ALBUMIN 4.1 G/DL (3.4-5.0); ALBUMIN/GLOBULIN RATIO 1.2 (1.0-2.7); ALKALINE PHOSPHATASE 69 U/L (46-116); ASPARTATE AMINO TRANSFERASE 38 U/L (15-37); BILIRUBIN,TOTAL 0.2 MG/DL (0.2-1.0)
[2020-02-14] MEDS ORDERED: Nitroglycerin Subl 0.4mg tab SL PRN ×2 (02:15→08:30)
[2020-02-14] MEDS ORDERED: DiphenhydrAMINE 50mg/ml Inj IVP ONE (02:15)
[2020-02-14 02:34] LABS: APPEARANCE,URINE CLEAR; BILIRUBIN, URINE NEGATIVE (NEGATIVE); COLOR,URINE YELLOW; GLUCOSE, URINE (UA) NEGATIVE (NEGATIVE); KETONES,URINE NEGATIVE (NEGATIVE); LEUKOCYTE ESTERASE ,URINE 1+ (NEGATIVE); NITRITE,URINE NEGATIVE (NEGATIVE); PH,URINE 6 (4.5-8.0); PROTEIN,URINE 1+ (NEGATIVE); UROBILINOGEN,URINE NORMAL MG/DL (0.0-1.0)
[2020-02-14 04:00] VITALS: BP 146/84
--- NOTE | 2020-02-14 04:46 | Diagnostic Imaging Report ---
EXAM: XR Chest, 1 View CLINICAL HISTORY: CP TECHNIQUE: Frontal view of the chest. COMPARISON: No relevant prior studies available. FINDINGS/IMPRESSION: HYPERINFLATION WITH FLATTENING OF THE DIAPHRAGMS AND EMPHYSEMATOUS CHANGES. CORRELATE FOR COPD. NO SUPERIMPOSED INFILTRATE. No pneumothorax. The heart size is prominent. Diffuse osseous demineralization.
[2020-02-14] MEDS ORDERED: Tylenol #3 tab (300mg/30mg) ORAL PRN ×2 (05:15→09:00)
[2020-02-14] MEDS ORDERED: Ketorolac 30mg Inj IV PRN ×2 (05:15→13:15)
[2020-02-14] MEDS ORDERED: Albuterol/Ipratropium 3ml neb HHN PRN ×2 (07:15→08:30)
[2020-02-14 08:00] VITALS: BP 132/86
[2020-02-14] MEDS ORDERED: Enalaprilat 2.5mg/2ml Inj IV PRN (08:30)
[2020-02-14] MEDS ORDERED: Miralax 17gm pkt ORAL PRN (08:30)
[2020-02-14] MEDS ORDERED: dilTIAZem HCl 25mg/5ml Inj IV PRN (08:30)
[2020-02-14] MEDS: Aspirin Baby 81mg ORAL SCH (09:14)
[2020-02-14] MEDS: DiphenhydrAMINE 50mg/ml Inj IVP PRN ×3 (09:15→21:43)
[2020-02-14] MEDS: Heparin 5000 units/ml inj SUBQ SCH ×2 (09:16→21:45)
--- NOTE | 2020-02-14 10:45 | History and Physical Report ---
DATE OF ADMISSION: 02/14/2020 CHIEF COMPLAINT: Chest pain. HISTORY OF PRESENT ILLNESS: The patient is a 69-year-old female. She is known to me from several prior admissions to the outside hospitals. She has a complicated past history, which includes a history of chronic pancreatitis, history of bowel obstruction, GERD, ischemic cardiomyopathy, hypertension, DVT, right hip fracture, and COPD. She presented with complaints of one day of severe chest pain. According to the patient, she has had similar symptoms in the past when she had a blood clot in her lung after her hip surgery. She has not been on anticoagulation for some time now. She denies any fevers or chills. She has had no cough. Denies any ill contacts. On evaluation in the emergency room, her white count was normal. Troponin was negative. EKG showed no changes. Because of her prior history of chest pain and multiple medical issues, she is now admitted for further evaluation and care. PAST MEDICAL HISTORY: As above. PAST SURGICAL HISTORY: Includes hip surgery and bowel surgery. CURRENT MEDICATIONS: Reconciled and reviewed. ALLERGIES: Include hydrocodone, lorazepam, morphine, Compazine, and vancomycin. FAMILY HISTORY: Noncontributory. SOCIAL HISTORY: Negative for tobacco or ethanol. She has a prior history of opiate and substance abuse based upon review of the current medical records. REVIEW OF SYSTEMS: GENERAL: No fevers or chills. HEENT: No headaches or visual changes. CARDIOPULMONARY: Positive chest pain. No shortness of breath. No cough. GASTROINTESTINAL: No nausea or vomiting. GENITOURINARY: No urgency or frequency. MUSCULOSKELETAL: No joint pain or swelling. NEUROLOGIC: No evidence of seizures. PHYSICAL EXAMINATION: VITAL SIGNS: Temperature 97.7, pulse 85, respirations 20, and blood pressure 132/86. GENERAL: The patient is well developed, in no apparent distress. HEENT: Head is normocephalic and atraumatic. NECK: Supple. No jugular venous distention. HEART: Regular rate and rhythm. LUNGS: Clear. ABDOMEN: Soft, nontender, and nondistended. EXTREMITIES: Without clubbing, cyanosis, or edema. LABORATORY DATA: White count 4, hemoglobin 13, hematocrit 42, and platelets 256. Sodium 144, potassium 4.6, chloride 105, bicarb 27, BUN 13, creatinine 0.8. Troponin was 0.001. Coags were normal. EKG showed no acute changes. ASSESSMENT: This is a 69-year-old female with a prior history of opiate dependence, hypertension, prior history of DVT, right hip fracture, chronic pancreatitis, hypertension, COPD, and ischemic cardiomyopathy, admitted with complaints of chest pain, unlikely to be cardiac. In light of the prior history of PE and similar symptoms, we will start the patient on Lovenox, order a V/Q scan, and check a venous duplex of the legs. Check an echo. Repeat troponin. IV pain medications as needed. Cardiology consultation will be obtained. Hopefully discharge planning tomorrow once workup is completed and if the patient is stable. Aquilino Bahena M.D. DR: ADELIA JOB#: [id number] CC:
[2020-02-14] MEDS ORDERED: Albuterol/Ipratropium 3ml neb HHN SCH (11:00)
[2020-02-14] MEDS ORDERED: Albuterol ud Inhalation HHN PRN (11:30)
[2020-02-14 12:00] VITALS: BP 127/78
--- NOTE | 2020-02-14 13:13 | Consultation ---
History of Present Illness General Date patient seen: Feb 14, 2020 Chief Complaint: Chest Pain Present Illness HPI 69-year-old female with extensive PMHx, including chronic pancreatitis, chronic pain, COPD, CAD, presented to ED for evaluation of sharp chest pain X2 days. Pain is sharp, 8 out of 10, nonradiating. She claims that she doesn't have any appetite and loosing weigh recently. She claims that her abdomen is distended for sometime now. Allergies: Coded Allergies: HYDROCODONE (Verified Allergy, Severe, 06/23/13) LORAZEPAM (Verified Allergy, Severe, Hives, 02/13/14) RASH/HIVES MORPHINE (Unverified Allergy, Severe, 01/14/19) Not true allergy; tolerated Dilaudid in past. Extensive opiate hx PROCHLORPERAZINE (Verified Allergy, Severe, 06/23/13) VANCOMYCIN (Unverified Allergy, Mild, Itching, 03/06/14) Medication History Scheduled Albuterol Sulfate* (Albuterol Sulfate Mdi*), 2 PUFF INH Q6H, (Reported) Scheduled PRN Acetaminophen With Codeine (T#4) (Tylenol #4 Tab*), 1 TAB ORAL for For Pain, ( Reported) Valacyclovir Hcl* (Valtrex*), 500 MG ORAL EVERY 8 HOURS PRN for Per rx protocol, (Reported) Patient History Healthcare decision maker Resuscitation status Advanced Directive on File Past Medical/Surgical History Past Medical/Surgical History: (1) Chronic pancreatitis (2) CAD (coronary artery disease) (3) GERD (gastroesophageal reflux disease) (4) HTN (hypertension) (5) Gastroparesis (6) COPD (chronic obstructive pulmonary disease) (7) Shingles Review of Systems All Other Systems: negative except mentioned in HPI Physical Exam General Appearance: cachetic, thin Lines, tubes and drains: peripheral HEENT: normocephalic, atraumatic Neck: non-tender, normal alignment Respiratory/Chest: chest wall non-tender, lungs clear Cardiovascular/Chest: normal peripheral pulses, normal rate Abdomen: normal bowel sounds Genitourinary/Rectal: normal genital exam, normal rectal exam Extremities: normal range of motion Last 24 Hour Vital Signs Date Time Temp Pulse Resp B/P (MAP) Pulse Ox O2 Delivery O2 Flow Rate FiO2 02/14/20 09:00 Room Air 7/13/20 08:00 87 02/14/20 08:00 97.7 85 20 132/86 (101) 100 02/14/20 04:22 Room Air 02/14/20 04:09 Room Air 02/14/20 04:00 98.8 80 20 146/84 (104) 100 02/14/20 04:00 77 02/14/20 03:30 98.2 68 18 116/68 97 Room Air 02/14/20 02:16 133/77 02/14/20 00:25 90 20 Room Air 02/14/20 00:25 98.4 90 20 134/78 96 Room Air 02/14/20 00:14 98.4 94 20 138/79 (98) 98 Intake and Output 02/13/20 02/14/20 19:00 07:00 Intake Total 0 ml Balance 0 ml Intake Oral 0 ml # Voids 1 # Bowel Movements 2 Laboratory Tests Test 02/14/20 00:23 02/14/20 01:30 02/14/20 09:20 Urine Color Yellow Urine Appearance Clear Urine pH 6 (4.5-8.0) Urine Specific [place] 1.025 (1.005-1.035) Urine Protein 1+ (NEGATIVE) H Urine Glucose (UA) Negative (NEGATIVE) Urine Ketones Negative (NEGATIVE) Urine Blood 1+ (NEGATIVE) H Urine Nitrite Negative (NEGATIVE) Urine Bilirubin Negative (NEGATIVE) Urine Urobilinogen Normal MG/DL (0.0-1.0) Urine Leukocyte Esterase 1+ (NEGATIVE) H Urine RBC 2-4 /HPF (0 - 2) H Urine WBC 0-2 /HPF (0 - 2) Urine Squamous Epithelial Cells Few /LPF (NONE/OCC) Urine Bacteria Few /HPF (NONE) Urine Opiates Screen Positive (NEGATIVE) H Urine Barbiturates Screen Negative (NEGATIVE) Phencyclidine (PCP) Screen Negative (NEGATIVE) Urine Amphetamines Screen Negative (NEGATIVE) Urine Benzodiazepines Screen Negative (NEGATIVE) Urine Cocaine Screen Negative (NEGATIVE) Urine Marijuana (THC) Screen Negative (NEGATIVE) White Blood Count 4.1 K/UL (4.8-10.8) L Red Blood Count 3.65 M/UL (4.20-5.40) L Hemoglobin 13.1 G/DL (12.0-16.0) Hematocrit 42.8 % (37.0-47.0) Mean Corpuscular Volume 117 FL (80-99) H Mean Corpuscular Hemoglobin 35.9 PG (27.0-31.0) H Mean Corpuscular Hemoglobin Concent 30.6 G/DL (32.0-36.0) L Red Cell Distribution Width 14.1 % (11.6-14.8) Platelet Count 256 K/UL (150-450) Mean Platelet Volume 5.4 FL (6.5-10.1) L Neutrophils (%) (Auto) % (45.0-75.0) Lymphocytes (%) (Auto) % (20.0-45.0) Monocytes (%) (Auto) % (1.0-10.0) Eosinophils (%) (Auto) % (0.0-3.0) Basophils (%) (Auto) % (0.0-2.0) Prothrombin Time 11.1 SEC (9.30-11.50) Prothromb Time International Ratio 1.0 (0.9-1.1) Activated Partial Thromboplast Time 23 SEC (23-33) Sodium Level 144 MMOL/L (136-145) Potassium Level 4.6 MMOL/L (3.5-5.1) Chloride Level 105 MMOL/L (98-107) Carbon Dioxide Level 27 MMOL/L (21-32) Anion Gap 12 mmol/L (5-15) Blood Urea Nitrogen 13 mg/dL (7-18) Creatinine 0.8 MG/DL (0.55-1.30) Estimat Glomerular Filtration Rate > 60 mL/min (>60) Glucose Level 122 MG/DL (74-106) H Calcium Level 9.0 MG/DL (8.5-10.1) Phosphorus Level 4.1 MG/DL (2.5-4.9) Magnesium Level 2.4 MG/DL (1.8-2.4) Total Bilirubin 0.2 MG/DL (0.2-1.0) Aspartate Amino Transf (AST/SGOT) 38 U/L (15-37) H Alanine Aminotransferase (ALT/SGPT) 20 U/L (12-78) Alkaline Phosphatase 69 U/L (46-116) Troponin I 0.001 ng/mL (0.000-0.056) 0.004 ng/mL (0.000-0.056) Pro-B-Type Natriuretic Peptide 212 pg/mL (0-125) H Total Protein 7.4 G/DL (6.4-8.2) Albumin 4.1 G/DL (3.4-5.0) Globulin 3.3 g/dL Albumin/Globulin Ratio 1.2 (1.0-2.7) Lipase 213 U/L (73-393) Height (Feet): 5 Height (Inches): 3.00 Weight (Pounds): 80 Medications Current Medications Medications (Trade) Dose Ordered Sig/Haley Route PRN Reason Start Time Stop Time Status Last Admin Dose Admin Acetaminophen (Tylenol) 650 mg Q4H PRN ORAL FEVER 02/14/20 08:30 03/15/20 08:29 Acetaminophen/ Codeine Phosphate (Tylenol #3) 2 tab Q6H PRN ORAL Moderate Pain (Pain Scale 4-6) 02/14/20 09:00 02/21/20 08:59 Albuterol Sulfate (Proventil) 2.5 mg Q4H PRN HHN Shortness of Breath 02/14/20 11:30 02/19/20 11:29 Aspirin (ASA) 162 mg DAILY ORAL 02/14/20 09:00 03/30/20 08:59 02/14/20 09:14 Diltiazem HCl (Cardizem) 10 mg Q1H PRN IV heart rate more than 120, 02/14/20 08:30 03/15/20 08:29 Diphenhydramine HCl (Benadryl) 50 mg Q6H PRN IVP Itching 02/14/20 08:45 03/15/20 08:44 02/14/20 09:15 Dronabinol (Marinol) 2.5 mg DAILY ORAL 02/14/20 13:15 05/14/20 13:14 UNV Enalaprilat (Vasotec) 2.5 mg Q6H PRN IV sbp more than 160 02/14/20 08:30 03/15/20 08:29 Heparin Sodium (Porcine) (Heparin 5000 units/ml) 5,000 units EVERY 12 HOURS SUBQ 02/14/20 09:00 03/30/20 08:59 02/14/20 09:16 Hydromorphone HCl (Dilaudid) 1 mg EVERY 3 HOURS PRN IVP Severe Pain (Pain Scale 7-10) 02/14/20 13:15 02/21/20 08:59 UNV Lactulose (Cephulac) 30 gm THREE TIMES A DAY ORAL 02/14/20 13:00 03/15/20 12:59 UNV Nitroglycerin (Ntg) 0.4 mg Q5M PRN SL Prn Chest Pain 02/14/20 08:30 03/15/20 08:29 Ondansetron HCl (Zofran) 4 mg Q6H PRN IVP Nausea & Vomiting 02/14/20 08:30 03/15/20 08:29 02/14/20 09:14 Polyethylene Glycol (Miralax) 17 gm DAILYPRN PRN ORAL Constipation 02/14/20 08:30 03/15/20 08:29 Temazepam (Restoril) 15 mg HSPRN PRN ORAL Insomnia 02/14/20 08:30 02/21/20 08:29 Assessment/Plan Problem List: (1) Chest pain ICD Codes: R07.9 - Chest pain, unspecified SNOMED: 41406661 (2) ACS (acute coronary syndrome) ICD Codes: I24.9 - ACS (acute coronary syndrome) SNOMED: 344920517 (3) COPD (chronic obstructive pulmonary disease) ICD Codes: J44.9 - COPD (chronic obstructive pulmonary disease) SNOMED: 14348530 (4) Gastroparesis ICD Codes: K31.84 - Gastroparesis SNOMED: 423531532 (5) Chronic pancreatitis ICD Codes: K86.1 - Chronic pancreatitis SNOMED: 047532756 (6) CAD (coronary artery disease) ICD Codes: I25.10 - Atherosclerotic heart disease of [place] coronary artery without angina pectoris SNOMED: 60694072 (7) HTN (hypertension) ICD Codes: I10 - Essential (primary) hypertension SNOMED: 93239554 Assessment/Plan: symptomatic treatment serial EKG, troponin, echocardiogram pain management Marinol to stimulate appetite Cardiology to see, Dr. Collins has seen the pt previously. monitor BP Lorraine Arndt MD Feb 14, 2020 13:13
[2020-02-14] MEDS ORDERED: HYDROmorphone 1mg/ml Carpuject IVP PRN (13:15)
[2020-02-14] MEDS: Lactulose 20gm/30ml UDC ORAL SCH ×3 (13:40→18:00)
[2020-02-14] MEDS: Dronabinol 2.5mg Cap ORAL SCH (13:41)
[2020-02-14 16:00] VITALS: BP 123/84
[2020-02-14] MEDS: HYDROmorphone 1mg/ml Carpuject IVP PRN ×2 (16:05→21:43)
[2020-02-14 20:00] VITALS: BP 143/87
[2020-02-15] VITALS: BP 112/66
[2020-02-15] MEDS: HYDROmorphone 1mg/ml Carpuject IVP PRN ×6 (03:58→23:56)
[2020-02-15] MEDS: DiphenhydrAMINE 50mg/ml Inj IVP PRN ×6 (03:59→23:56)
[2020-02-15 04:00] VITALS: BP 125/83
--- NOTE | 2020-02-15 05:15 | Consultation ---
DATE OF CONSULTATION: 02/14/2020 CARDIOLOGY CONSULT CONSULTING PHYSICIAN: Arun Castaneda M.D. REQUESTING PHYSICIAN: Aquilino Bahena M.D. REASON FOR CONSULTATION: Chest pain. HISTORY OF PRESENT ILLNESS: This is a 69-year-old female. She has a history of chronic pancreatitis, hypertension, ischemic heart disease, and history of DVT. She presented to the hospital last evening with 1 day of severe chest pain. She has had similar symptoms in the past, which were associated with a blood clot in her lung after hip surgery. The patient has not been on any anticoagulation for some time. She has not had any recent cough, upper respiratory infection, fevers, or chills. She has not had any pressure-like sensation that has been associated with activity. PAST MEDICAL HISTORY: Includes COPD, prior hip fracture, history of DVT and pulmonary embolus, gastroesophageal reflux disease, history of bowel obstruction and resection, chronic pancreatitis, hypertensive heart disease, and ischemic cardiomyopathy. ALLERGIES: Include lorazepam, morphine, hydrocodone, Compazine, vancomycin. CURRENT MEDICATIONS: Reviewed and reconciled. FAMILY HISTORY: Noncontributory. SOCIAL HISTORY: Negative for smoking or alcohol abuse. She does have a history of opiate and substance abuse in the past. REVIEW OF SYSTEMS: The patient has had a prior nuclear stress test at [facility] within the last several years that were reportedly negative for ischemia. Echocardiograms at this facility in the past have revealed normal ejection fraction. No pulmonary hypertension and a diastolic relaxation abnormality with no valvular disease. PHYSICAL EXAMINATION: VITAL SIGNS: Afebrile, blood pressure 132/86, pulse 85, respiratory rate 20. HEENT: Conjunctivae pink. Oropharynx clear. Sclerae are anicteric. NECK: Supple. Jugular venous pressure normal. LUNGS: Clear. CARDIAC: Regular rhythm rate. Normal S1, S2 with no murmur. ABDOMEN: Soft, and nontender. EXTREMITIES: No edema. LABORATORY AND DIAGNOSTIC DATA: Troponin negative. EKG sinus rhythm with nonspecific ST change. BUN 14, creatinine 0.8. IMPRESSION: 1. Chest pain syndrome with low clinical suspicion for acute coronary insufficiency at this time. Other considerations would be pleural, pericarditic, musculoskeletal. 2. Other concerns include history of DVT, hypertension, chronic pancreatitis, COPD. PLAN: 1. VQ scan. 2. DVT prophylaxis. 3. Venous duplex of lower extremity. 4. Echocardiogram. 5. Follow up troponin level. 6. No additional cardiovascular medications presently indicated, however, plan of care will be updated based on results of aforementioned diagnostic studies. Arun Castaneda M.D. DR: MITCHEL JOB#: [id number] CC:
[2020-02-15 07:37] LABS: HEMOGLOBIN 11.2 G/DL (12.0-16.0); MEAN CORPUSCULAR VOLUME 117 FL (80-99); PLATELET COUNT 212 K/UL (150-450); RED BLOOD COUNT 3.08 M/UL (4.20-5.40); WHITE BLOOD COUNT 3.5 K/UL (4.8-10.8)
[2020-02-15 07:42] LABS: PHOSPHORUS 3.9 MG/DL (2.5-4.9)
[2020-02-15 07:51] LABS: ALANINE AMINOTRANSFERASE 18 U/L (12-78); ALBUMIN 3.5 G/DL (3.4-5.0); ALBUMIN/GLOBULIN RATIO 1.2 (1.0-2.7); ALKALINE PHOSPHATASE 56 U/L (46-116); ANION GAP 7 mmol/L (5-15); ASPARTATE AMINO TRANSFERASE 22 U/L (15-37); BILIRUBIN,TOTAL 0.2 MG/DL (0.2-1.0); BLOOD UREA NITROGEN 13 mg/dL (7-18); CALCIUM 8.5 MG/DL (8.5-10.1); CARBON DIOXIDE 29 MMOL/L (21-32); CHLORIDE 104 MMOL/L (98-107); CHOLESTEROL 236 MG/DL (< 200); CREATININE 0.8 MG/DL (0.55-1.30); HDL CHOLESTEROL 110 MG/DL (40-60); POTASSIUM 4.1 MMOL/L (3.5-5.1); SODIUM 140 MMOL/L (136-145); TRIGLYCERIDES 104 MG/DL (30-150)
[2020-02-15 08:56] VITALS: BP 145/82
[2020-02-15] MEDS: Lactulose 20gm/30ml UDC ORAL SCH ×3 (10:06→17:50)
[2020-02-15] MEDS: Aspirin Baby 81mg ORAL SCH (10:07)
[2020-02-15] MEDS: Heparin 5000 units/ml inj SUBQ SCH ×2 (10:08→19:30)
[2020-02-15] MEDS: Dronabinol 2.5mg Cap ORAL SCH (10:08)
[2020-02-15 12:00] VITALS: BP 158/76
--- NOTE | 2020-02-15 12:04 | Pulmonology Progress Note ---
Subjective ROS Limited/Unobtainable: No Interval Events: still c/o chest pain, VQ pending Allergies: Coded Allergies: HYDROCODONE (Verified Allergy, Severe, 06/23/13) LORAZEPAM (Verified Allergy, Severe, Hives, 02/13/14) RASH/HIVES MORPHINE (Unverified Allergy, Severe, 01/14/19) Not true allergy; tolerated Dilaudid in past. Extensive opiate hx PROCHLORPERAZINE (Verified Allergy, Severe, 06/23/13) VANCOMYCIN (Unverified Allergy, Mild, Itching, 03/06/14) Objective Last 24 Hour Vital Signs Date Time Temp Pulse Resp B/P (MAP) Pulse Ox O2 Delivery O2 Flow Rate FiO2 02/15/20 09:00 Room Air 02/15/20 08:56 98.3 85 21 145/82 (103) 98 02/15/20 04:28 98.1 02/15/20 04:00 98.1 80 20 125/83 (97) 99 02/15/20 04:00 92 02/15/20 00:00 73 02/15/20 00:00 98.8 70 20 112/66 (81) 97 02/14/20 21:00 Room Air 02/14/20 20:00 99.1 85 20 143/87 (105) 99 02/14/20 20:00 83 02/14/20 20:00 99.1 85 20 143/87 (105) 99 02/14/20 16:00 97.9 76 20 123/84 (97) 100 02/14/20 16:00 82 02/14/20 12:00 62 02/14/20 12:00 97.3 67 20 127/78 (94) 99 Intake and Output 02/14/20 02/15/20 19:00 07:00 Intake Total 800 ml 300 ml Balance 800 ml 300 ml Intake Oral 800 ml Other 300 ml # Voids 5 2 # Bowel Movements 1 1 General Appearance: WD/WN HEENT: normocephalic, atraumatic Respiratory: chest wall non-tender, lungs clear Breasts: no masses Cardiovascular: normal peripheral pulses, normal rate, regular rhythm Abdomen: normal bowel sounds Genitourinary: normal external genitalia Extremities: no cyanosis 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 Lymphatic: no neck adenopathy Laboratory Tests 02/15/20 07:00: White Blood Count 3.5L, Red Blood Count 3.08L, Hemoglobin 11.2L, Hematocrit 36.0L, Mean Corpuscular Volume 117H, Mean Corpuscular Hemoglobin 36.3H, Mean Corpuscular Hemoglobin Concent 31.1L, Red Cell Distribution Width 14.0, Platelet Count 212, Mean Platelet Volume 5.2L, Neutrophils (%) (Auto) , Lymphocytes (%) (Auto) , Monocytes (%) (Auto) , Eosinophils (%) (Auto) , Basophils (%) (Auto) , Differential Total Cells Counted 100, Neutrophils % ( Manual) 50, Lymphocytes % (Manual) 39, Monocytes % (Manual) 9, Eosinophils % ( Manual) 2, Basophils % (Manual) 0, Band Neutrophils 0, Platelet Estimate Adequate, Platelet Morphology Normal, Anisocytosis 1+, Macrocytosis 2+, Erythrocyte Sedimentation Rate 22, Prothrombin Time 10.6, Prothromb Time International Ratio 1.0, Activated Partial Thromboplast Time 23, Sodium Level 140, Potassium Level 4.1, Chloride Level 104, Carbon Dioxide Level 29, Anion Gap 7, Blood Urea Nitrogen 13, Creatinine 0.8, Estimat Glomerular Filtration Rate > 60, Glucose Level 69L, Calcium Level 8.5, Phosphorus Level 3.9, Magnesium Level 2.1, Total Bilirubin 0.2, Aspartate Amino Transf (AST/SGOT) 22, Alanine Aminotransferase (ALT/SGPT) 18, Alkaline Phosphatase 56, Troponin I 0.000, C-Reactive Protein, Quantitative < 0.4, Total Protein 6.4, Albumin 3.5, Globulin 2.9, Albumin/Globulin Ratio 1.2, Triglycerides Level 104, Cholesterol Level 236H, LDL Cholesterol 87, HDL Cholesterol 110H, Cholesterol/HDL Ratio 2.1L , Thyroid Stimulating Hormone (TSH) 2.148 Current Medications Medications (Trade) Dose Ordered Sig/Haley Route PRN Reason Start Time Stop Time Status Last Admin Dose Admin Acetaminophen (Tylenol) 650 mg Q4H PRN ORAL FEVER 02/14/20 08:30 03/15/20 08:29 Acetaminophen/ Codeine Phosphate (Tylenol #3) 2 tab Q6H PRN ORAL Moderate Pain (Pain Scale 4-6) 02/14/20 09:00 02/21/20 08:59 Albuterol Sulfate (Proventil) 2.5 mg Q4H PRN HHN Shortness of Breath 02/14/20 11:30 02/19/20 11:29 Aspirin (ASA) 162 mg DAILY ORAL 02/14/20 09:00 03/30/20 08:59 02/15/20 10:07 Diltiazem HCl (Cardizem) 10 mg Q1H PRN IV heart rate more than 120, 02/14/20 08:30 03/15/20 08:29 Diphenhydramine HCl (Benadryl) 50 mg Q6H PRN IVP Itching 02/14/20 08:45 03/15/20 08:44 02/15/20 10:07 Dronabinol (Marinol) 2.5 mg DAILY ORAL 02/14/20 13:15 05/14/20 13:14 02/15/20 10:08 Enalaprilat (Vasotec) 2.5 mg Q6H PRN IV sbp more than 160 02/14/20 08:30 03/15/20 08:29 Heparin Sodium (Porcine) (Heparin 5000 units/ml) 5,000 units EVERY 12 HOURS SUBQ 02/14/20 09:00 03/30/20 08:59 02/15/20 10:08 Hydromorphone HCl (Dilaudid) 1 mg Q3H PRN IVP Severe Pain (Pain Scale -10) 02/14/20 16:15 02/21/20 13:14 02/15/20 10:08 Ketorolac Tromethamine (Toradol 30mg) 15 mg Q6H PRN IV pain 7-9 02/14/20 13:15 02/19/20 13:14 Lactulose (Cephulac) 30 gm THREE TIMES A DAY ORAL 02/14/20 13:00 03/15/20 12:59 02/15/20 10:06 Nitroglycerin (Ntg) 0.4 mg Q5M PRN SL Prn Chest Pain 02/14/20 08:30 03/15/20 08:29 Ondansetron HCl (Zofran) 4 mg Q6H PRN IVP Nausea & Vomiting 02/14/20 08:30 03/15/20 08:29 02/15/20 10:07 Polyethylene Glycol (Miralax) 17 gm DAILYPRN PRN ORAL Constipation 7/13/20 08:30 03/15/20 08:29 Temazepam (Restoril) 15 mg HSPRN PRN ORAL Insomnia 02/14/20 08:30 02/21/20 08:29 Assessment/Plan Problems: (1) Chest pain (2) ACS (acute coronary syndrome) (3) COPD (chronic obstructive pulmonary disease) (4) Gastroparesis (5) Chronic pancreatitis (6) CAD (coronary artery disease) (7) HTN (hypertension) Assessment/Plan troponin negative X3 VQ scan pending symptomatic treatment respiratory treatment Pt had BM with Lactulose On Heparin SQ for DVT prophylaxis. Lorraine Arndt MD Feb 15, 2020 12:04
[2020-02-15] MEDS ORDERED: HYDROmorphone 1mg/ml Carpuject IVP SCH (12:20)
[2020-02-15 16:00] VITALS: BP 151/86
--- NOTE | 2020-02-15 17:11 | General Progress Note ---
Assessment/Plan Problem List: (1) Chest pain ICD Codes: R07.9 - Chest pain, unspecified SNOMED: 36164308 (2) Acute bronchitis ICD Codes: J20.9 - Acute bronchitis, unspecified SNOMED: 34766049 (3) COPD exacerbation ICD Codes: J44.1 - Chronic obstructive pulmonary disease with (acute) exacerbation SNOMED: 878236606 (4) Gastroparesis ICD Codes: K31.84 - Gastroparesis SNOMED: 603621395 Status: stable, progressing Assessment/Plan: stable. limits set on pain meds midline for v/q scan dvt/stress ulcer prophylaxis Subjective ROS Limited/Unobtainable: No Constitutional: Reports: malaise, weakness HEENT: Reports: no symptoms Cardiovascular: Reports: no symptoms Respiratory: Reports: no symptoms Gastrointestinal/Abdominal: Reports: no symptoms Genitourinary: Reports: no symptoms Neurologic/Psychiatric: Reports: anxiety Endocrine: Reports: no symptoms Hematologic/Lymphatic: Reports: no symptoms Allergies: Coded Allergies: HYDROCODONE (Verified Allergy, Severe, 06/23/13) LORAZEPAM (Verified Allergy, Severe, Hives, 02/13/14) RASH/HIVES MORPHINE (Unverified Allergy, Severe, 01/14/19) Not true allergy; tolerated Dilaudid in past. Extensive opiate hx PROCHLORPERAZINE (Verified Allergy, Severe, 06/23/13) VANCOMYCIN (Unverified Allergy, Mild, Itching, 03/06/14) All Systems: reviewed and negative except above Subjective no events. c/o generalized pain. no sob. asking for more frequent and higher doses of dilaudid. Objective Last 24 Hour Vital Signs Date Time Temp Pulse Resp B/P (MAP) Pulse Ox O2 Delivery O2 Flow Rate FiO2 02/15/20 12:00 86 02/15/20 09:00 Room Air 02/15/20 08:56 98.3 85 21 145/82 (103) 98 02/15/20 08:00 71 02/15/20 04:28 98.1 02/15/20 04:00 98.1 80 20 125/83 (97) 99 02/15/20 04:00 92 02/15/20 00:00 73 02/15/20 00:00 98.8 70 20 112/66 (81) 97 02/14/20 21:00 Room Air 02/14/20 20:00 99.1 85 20 143/87 (105) 99 02/14/20 20:00 83 02/14/20 20:00 99.1 85 20 143/87 (105) 99 Intake and Output 02/14/20 02/15/20 19:00 07:00 Intake Total 800 ml 300 ml Balance 800 ml 300 ml Intake Oral 800 ml Other 300 ml # Voids 5 2 # Bowel Movements 1 1 Laboratory Tests 02/15/20 07:00: White Blood Count 3.5L, Red Blood Count 3.08L, Hemoglobin 11.2L, Hematocrit 36.0L, Mean Corpuscular Volume 117H, Mean Corpuscular Hemoglobin 36.3H, Mean Corpuscular Hemoglobin Concent 31.1L, Red Cell Distribution Width 14.0, Platelet Count 212, Mean Platelet Volume 5.2L, Neutrophils (%) (Auto) , Lymphocytes (%) (Auto) , Monocytes (%) (Auto) , Eosinophils (%) (Auto) , Basophils (%) (Auto) , Differential Total Cells Counted 100, Neutrophils % ( Manual) 50, Lymphocytes % (Manual) 39, Monocytes % (Manual) 9, Eosinophils % ( Manual) 2, Basophils % (Manual) 0, Band Neutrophils 0, Platelet Estimate Adequate, Platelet Morphology Normal, Anisocytosis 1+, Macrocytosis 2+, Erythrocyte Sedimentation Rate 22, Prothrombin Time 10.6, Prothromb Time International Ratio 1.0, Activated Partial Thromboplast Time 23, Sodium Level 140, Potassium Level 4.1, Chloride Level 104, Carbon Dioxide Level 29, Anion Gap 7, Blood Urea Nitrogen 13, Creatinine 0.8, Estimat Glomerular Filtration Rate > 60, Glucose Level 69L, Calcium Level 8.5, Phosphorus Level 3.9, Magnesium Level 2.1, Total Bilirubin 0.2, Aspartate Amino Transf (AST/SGOT) 22, Alanine Aminotransferase (ALT/SGPT) 18, Alkaline Phosphatase 56, Troponin I 0.000, C-Reactive Protein, Quantitative < 0.4, Total Protein 6.4, Albumin 3.5, Globulin 2.9, Albumin/Globulin Ratio 1.2, Triglycerides Level 104, Cholesterol Level 236H, LDL Cholesterol 87, HDL Cholesterol 110H, Cholesterol/HDL Ratio 2.1L , Thyroid Stimulating Hormone (TSH) 2.148 Height (Feet): 5 Height (Inches): 3.00 Weight (Pounds): 80 General Appearance: WD/WN, no apparent distress, alert Neck: supple Cardiovascular: normal rate, regular rhythm Respiratory/Chest: chest wall non-tender, lungs clear, normal breath sounds, no respiratory distress, no accessory muscle use Abdomen: normal bowel sounds, non tender, soft, no organomegaly Edema: no edema noted Arm (L), no edema noted Arm (R), no edema noted Leg (L), no edema noted Leg (R), no edema noted Pedal (L), no edema noted Pedal (R), no edema noted Generalized Aquilino Bahena MD Feb 15, 2020 17:11
[2020-02-15 20:00] VITALS: BP 118/80
[2020-02-15] MEDS ORDERED: Dyna-Hex 2% Top Sol 2oz TOPIC SCH (20:00)
--- NOTE | 2020-02-15 23:20 | Cardiology Progress Note ---
Subjective DATE OF SERVICE: Feb 15, 2020 Still c/o pain - diffusely No specific CP complaints. MONITOR: sinus with sinus tachycardia and atrial ectopy 2D Echo: Normal LVEF. Diastolic dysfxn. Minimal degenerative valve disease. Troponins: negative Objective Last 24 Hour Vital Signs Date Time Temp Pulse Resp B/P (MAP) Pulse Ox O2 Delivery O2 Flow Rate FiO2 02/15/20 20:00 97.9 78 19 118/80 (93) 99 02/15/20 16:00 98.3 94 19 151/86 (107) 96 02/15/20 16:00 82 02/15/20 12:00 97.9 64 19 158/76 (103) 97 02/15/20 12:00 86 02/15/20 09:00 Room Air 02/15/20 08:56 98.3 85 21 145/82 (103) 98 02/15/20 08:00 71 02/15/20 04:28 98.1 02/15/20 04:00 98.1 80 20 125/83 (97) 99 02/15/20 04:00 92 02/15/20 00:00 73 02/15/20 00:00 98.8 70 20 112/66 (81) 97 HEENT: normal ENT inspection RHYTHM: NSR, ST, PACs LUNGS: lungs clear bilaterally CARDIAC: regular rhythm, normal S1 and S2, gallop/S4 ABDOMEN: non tender, soft EXTREMITIES: trace edema Laboratory Tests Test 02/15/20 07:00 White Blood Count 3.5 K/UL (4.8-10.8) L Red Blood Count 3.08 M/UL (4.20-5.40) L Hemoglobin 11.2 G/DL (12.0-16.0) L Hematocrit 36.0 % (37.0-47.0) L Mean Corpuscular Volume 117 FL (80-99) H Mean Corpuscular Hemoglobin 36.3 PG (27.0-31.0) H Mean Corpuscular Hemoglobin Concent 31.1 G/DL (32.0-36.0) L Red Cell Distribution Width 14.0 % (11.6-14.8) Platelet Count 212 K/UL (150-450) Mean Platelet Volume 5.2 FL (6.5-10.1) L Neutrophils (%) (Auto) % (45.0-75.0) Lymphocytes (%) (Auto) % (20.0-45.0) Monocytes (%) (Auto) % (1.0-10.0) Eosinophils (%) (Auto) % (0.0-3.0) Basophils (%) (Auto) % (0.0-2.0) Differential Total Cells Counted 100 Neutrophils % (Manual) 50 % (45-75) Lymphocytes % (Manual) 39 % (20-45) Monocytes % (Manual) 9 % (1-10) Eosinophils % (Manual) 2 % (0-3) Basophils % (Manual) 0 % (0-2) Band Neutrophils 0 % (0-8) Platelet Estimate Adequate Platelet Morphology Normal Anisocytosis 1+ Macrocytosis 2+ Erythrocyte Sedimentation Rate 22 MM/HR (0-30) Prothrombin Time 10.6 SEC (9.30-11.50) Prothromb Time International Ratio 1.0 (0.9-1.1) Activated Partial Thromboplast Time 23 SEC (23-33) Sodium Level 140 MMOL/L (136-145) Potassium Level 4.1 MMOL/L (3.5-5.1) Chloride Level 104 MMOL/L (98-107) Carbon Dioxide Level 29 MMOL/L (21-32) Anion Gap 7 mmol/L (5-15) Blood Urea Nitrogen 13 mg/dL (7-18) Creatinine 0.8 MG/DL (0.55-1.30) Estimat Glomerular Filtration Rate > 60 mL/min (>60) Glucose Level 69 MG/DL (74-106) L Calcium Level 8.5 MG/DL (8.5-10.1) Phosphorus Level 3.9 MG/DL (2.5-4.9) Magnesium Level 2.1 MG/DL (1.8-2.4) Total Bilirubin 0.2 MG/DL (0.2-1.0) Aspartate Amino Transf (AST/SGOT) 22 U/L (15-37) Alanine Aminotransferase (ALT/SGPT) 18 U/L (12-78) Alkaline Phosphatase 56 U/L (46-116) Troponin I 0.000 ng/mL (0.000-0.056) C-Reactive Protein, Quantitative < 0.4 mg/dL (0.00-0.90) Total Protein 6.4 G/DL (6.4-8.2) Albumin 3.5 G/DL (3.4-5.0) Globulin 2.9 g/dL Albumin/Globulin Ratio 1.2 (1.0-2.7) Triglycerides Level 104 MG/DL (30-150) Cholesterol Level 236 MG/DL (< 200) H LDL Cholesterol 87 mg/dL (<100) HDL Cholesterol 110 MG/DL (40-60) H Cholesterol/HDL Ratio 2.1 (3.3-4.4) L Thyroid Stimulating Hormone (TSH) 2.148 uiU/mL (0.358-3.740) Assessment/Plan Assessment/Plan Impression: Non-cardiac chest pain Hypertension COPD Paroysmal sinus tachycardia Chronic pain syndrome PLAN: Symptom guided pain control V/Q scan to eval for PE Cardiac Monitoring Add Diltiazem Steroids with taper; inhaled bronchodilators DVT prophylaxis Arun Castaneda MD Feb 15, 2020 23:20
[2020-02-16] VITALS (7 sets, daily range): BP systolic 112–151; BP diastolic 63–94
[2020-02-16] MEDS: DiphenhydrAMINE 50mg/ml Inj IVP PRN ×5 (04:06→23:38)
[2020-02-16] MEDS: HYDROmorphone 1mg/ml Carpuject IVP PRN ×5 (04:06→23:38)
[2020-02-16] MEDS: Dronabinol 2.5mg Cap ORAL SCH (08:53)
[2020-02-16] MEDS: Lactulose 20gm/30ml UDC ORAL SCH ×3 (08:56→15:13)
[2020-02-16] MEDS ORDERED: dilTIAZem HCl CD 180mg cap ORAL SCH (09:00)
[2020-02-16] MEDS ORDERED: Lidocaine 1% Plain 30 ml INJ PRN (11:51)
[2020-02-16] MEDS ORDERED: Heparin1,000 units/500ml Premix(Conc:2 units/ml) IV PRN (11:51)
--- NOTE | 2020-02-16 11:59 | CDS Physician Query ---
Clarification is required for compliance, coding accuracy, and to reflect severity of illness for this patient Dear Dr. 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 Ensure Enlive TID w/ meals added- strawberry flavor per pt request Please select the most appropriate option: [] Protein/Calorie Malnutrition [] Mild [] Moderate [] Severe [] Hypoalbuminemia [] Cachexia [x] Underweight [] Intestinal malabsorption [] Other [] Unable to determine [] Not Applicable Present on Admission: [x] Yes [] No [] Clinically Undetermined Physician signature Date Please also document in your Progress Notes and/or Discharge Summary and indicate if the condition was present on admission. MTDD
--- NOTE | 2020-02-16 14:10 | Pre-Procedure Note/Attestation ---
Pre-Procedure Note/Attestation Complete Prior to Procedure Planned Procedure: not applicable Procedure Narrative: PICC Indications for Procedure Pre-Operative Diagnosis: needs skilled nursing IV access Attestation I attest that I discussed the nature of the procedure; its benefits; risks and complications; and alternatives (and the risks and benefits of such alternatives ), prior to the procedure, with the patient (or the patient's legal hvac sales representative). I attest that, if there was a reasonable possibility of needing a blood transfusion, the patient (or the patient's legal hvac sales representative) was given the [facility] standardized written summary, pursuant to the Juan [employer] Milo Blood Safety Act ([place] Health and Safety Code # 1645, as amended). I attest that I re-evaluated the patient just prior to the surgery and that there has been no change in the patient's H&P, except as documented below: Solomon Lopez MD Feb 16, 2020 14:10
--- NOTE | 2020-02-16 14:11 | Brief Operative Note ---
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
--- NOTE | 2020-02-16 14:26 | Diagnostic Imaging Report ---
Indications: Needs long-term IV access Technique: Ultrasound confirms patent compressible left brachial vein. Total sterile technique, including sterile probe cover and sterile gel, hat, mask, sterile gown, large sterile drape, and preparation with 2% chlorhexidine utilized. Local anesthesia with 1% lidocaine. Under real-time ultrasound guidance, puncture branch vein using 21-gauge needle, documented and archived, passage 0.018 guidewire under direct fluoroscopy, which was used to determine appropriate catheter length, exchange for 4 [place] peel-away sheath. 4 [place] Bard dual-lumen power PICC cut to 44 cm. It was inserted through the peel-away sheath. Peel-away sheath and guidewire removed. Catheter fixed to the skin. Both catheter ports aspirated and flushed. Patient tolerated procedure well, without immediate complication. Digital radiograph documents satisfactory catheter tip position, at the cavoatrial junction. Total fluoroscopy time 31.6 seconds. Total dose area product [id number] mGym2 Total number of images: 1 Impression: Successful placement of left arm PICC under sonographic and fluoroscopic guidance, as described above.
--- NOTE | 2020-02-16 14:40 | Pulmonology Progress Note ---
Subjective ROS Limited/Unobtainable: No Interval Events: PICC line was inserted Allergies: Coded Allergies: HYDROCODONE (Verified Allergy, Severe, 06/23/13) LORAZEPAM (Verified Allergy, Severe, Hives, 02/13/14) RASH/HIVES MORPHINE (Unverified Allergy, Severe, 01/14/19) Not true allergy; tolerated Dilaudid in past. Extensive opiate hx PROCHLORPERAZINE (Verified Allergy, Severe, 06/23/13) VANCOMYCIN (Unverified Allergy, Mild, Itching, 03/06/14) All Systems: reviewed and negative except above Objective Last 24 Hour Vital Signs Date Time Temp Pulse Resp B/P (MAP) Pulse Ox O2 Delivery O2 Flow Rate FiO2 02/16/20 12:00 97.9 91 18 112/81 (91) 100 02/16/20 12:00 102 02/16/20 08:53 68 115/76 02/16/20 08:12 Room Air 02/16/20 08:00 69 02/16/20 08:00 97.7 68 20 115/76 (89) 100 02/16/20 04:00 66 02/16/20 04:00 98.1 71 18 139/76 (97) 96 02/16/20 00:00 97.9 73 19 150/94 (112) 98 02/16/20 00:00 70 02/15/20 21:00 Room Air 02/15/20 20:00 97.9 78 19 118/80 (93) 99 02/15/20 20:00 98 02/15/20 16:00 98.3 94 19 151/86 (107) 96 02/15/20 16:00 82 Intake and Output 02/15/20 02/16/20 19:00 07:00 Intake Total 1200 ml 240 ml Balance 1200 ml 240 ml Intake Oral 1200 ml 240 ml # Voids 4 # Bowel Movements 1 1 General Appearance: WD/WN HEENT: normocephalic, atraumatic Respiratory: chest wall non-tender, lungs clear Breasts: no masses Cardiovascular: normal peripheral pulses, normal rate, regular rhythm Abdomen: normal bowel sounds Genitourinary: normal external genitalia Extremities: no cyanosis 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 normal Lymphatic: no neck adenopathy Current Medications Medications (Trade) Dose Ordered Sig/Haley Route PRN Reason Start Time Stop Time Status Last Admin Dose Admin Acetaminophen/ Codeine Phosphate (Tylenol #3) 2 tab Q6H PRN ORAL Moderate Pain (Pain Scale 4-6) 02/14/20 09:00 02/21/20 08:59 Albuterol Sulfate (Proventil) 2.5 mg Q4H PRN HHN Shortness of Breath 02/14/20 11:30 02/19/20 11:29 Chlorhexidine Gluconate (Yvette-Hex 2%) 1 applic DAILY@2000 TOPIC 02/16/20 20:00 05/16/20 19:59 Diltiazem HCl (Cardizem CD) 180 mg DAILY ORAL 02/16/20 09:00 03/17/20 08:59 02/16/20 08:53 Diphenhydramine HCl (Benadryl) 50 mg Q3H PRN IVP Itching 02/15/20 13:07 03/16/20 13:06 02/16/20 14:03 Dronabinol (Marinol) 2.5 mg DAILY ORAL 02/14/20 13:15 05/14/20 13:14 02/16/20 08:53 Heparin Sodium/ Sodium Chloride (Heparin 1000 units/500ml Premix) 1,000 unit ONCE PRN IV PROCEDURE 02/16/20 11:51 02/16/20 23:59 Hydromorphone HCl (Dilaudid) 1 mg Q3H PRN IVP Severe Pain (Pain Scale -10) 02/14/20 16:15 02/21/20 13:14 02/16/20 14:03 Lactulose (Cephulac) 30 gm THREE TIMES A DAY ORAL 02/14/20 13:00 03/15/20 12:59 02/15/20 12:31 Lidocaine HCl (Xylocaine 1% 30ml) 30 ml ONCE PRN INJ procedure 02/16/20 11:51 02/16/20 23:59 Ondansetron HCl (Zofran) 4 mg Q3H PRN IVP Nausea & Vomiting 02/15/20 13:07 03/16/20 13:06 02/16/20 14:03 Assessment/Plan Problems: (1) Chest pain (2) ACS (acute coronary syndrome) (3) COPD (chronic obstructive pulmonary disease) (4) Gastroparesis (5) Chronic pancreatitis (6) CAD (coronary artery disease) (7) HTN (hypertension) Assessment/Plan troponin negative X3 VQ scan pending, PICC line today symptomatic treatment respiratory treatment Pt had BM with Lactulose On Heparin SQ for DVT prophylaxis. Lorraine Arndt MD Feb 16, 2020 14:40
--- NOTE | 2020-02-16 17:05 | General Progress Note ---
Assessment/Plan Problem List: (1) Chest pain ICD Codes: R07.9 - Chest pain, unspecified SNOMED: 19412272 (2) Acute bronchitis ICD Codes: J20.9 - Acute bronchitis, unspecified SNOMED: 97524479 (3) COPD exacerbation ICD Codes: J44.1 - Chronic obstructive pulmonary disease with (acute) exacerbation SNOMED: 616664073 (4) Gastroparesis ICD Codes: K31.84 - Gastroparesis SNOMED: 099969491 Status: stable, progressing Assessment/Plan: stable. limits set on pain meds midline for v/q scan dvt/stress ulcer prophylaxis anticipate dc tomorrow Subjective Allergies: Coded Allergies: HYDROCODONE (Verified Allergy, Severe, 06/23/13) LORAZEPAM (Verified Allergy, Severe, Hives, 02/13/14) RASH/HIVES MORPHINE (Unverified Allergy, Severe, 01/14/19) Not true allergy; tolerated Dilaudid in past. Extensive opiate hx PROCHLORPERAZINE (Verified Allergy, Severe, 06/23/13) VANCOMYCIN (Unverified Allergy, Mild, Itching, 03/06/14) Subjective no events. c/o generalized pain. no sob. asking for more frequent and higher doses of dilaudid. appears comfortable. awaiting picc line Objective Last 24 Hour Vital Signs Date Time Temp Pulse Resp B/P (MAP) Pulse Ox O2 Delivery O2 Flow Rate FiO2 02/16/20 16:00 99.1 94 19 151/86 (107) 96 02/16/20 12:00 97.9 91 18 112/81 (91) 100 02/16/20 12:00 102 02/16/20 08:53 68 115/76 02/16/20 08:12 Room Air 02/16/20 08:00 69 02/16/20 08:00 97.7 68 20 115/76 (89) 100 02/16/20 04:00 66 02/16/20 04:00 98.1 71 18 139/76 (97) 96 02/16/20 00:00 97.9 73 19 150/94 (112) 98 02/16/20 00:00 70 02/15/20 21:00 Room Air 02/15/20 20:00 97.9 78 19 118/80 (93) 99 02/15/20 20:00 98 Intake and Output 02/15/20 02/16/20 19:00 07:00 Intake Total 1200 ml 240 ml Balance 1200 ml 240 ml Intake Oral 1200 ml 240 ml # Voids 4 # Bowel Movements 1 1 Height (Feet): 5 Height (Inches): 3.00 Weight (Pounds): 103 Objective General Appearance: WD/WN, no apparent distress, alert Neck: supple Cardiovascular: normal rate, regular rhythm Respiratory/Chest: chest wall non-tender, lungs clear, normal breath sounds, no respiratory distress, no accessory muscle use Abdomen: normal bowel sounds, non tender, soft, no organomegaly Edema: no edema noted Arm (L), no edema noted Arm (R), no edema noted Leg (L), no edema noted Leg (R), no edema noted Pedal (L), no edema noted Pedal (R), no edema noted Generalized Aquilino Bahena MD Feb 16, 2020 17:05
[2020-02-16] MEDS ORDERED: Dyna-Hex 2% Top Sol 2oz TOPIC SCH (20:00)
[2020-02-16] MEDS ORDERED: Albuterol ud Inhalation HHN PRN (22:00)
--- NOTE | 2020-02-16 23:33 | Cardiology Progress Note ---
Subjective DATE OF SERVICE: Feb 16, 2020 Still c/o pain - diffusely No specific CP complaints. 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 MONITOR: sinus with sinus tachycardia and atrial ectopy 2D Echo: Normal LVEF. Diastolic dysfxn. Minimal degenerative valve disease. Troponins: negative V/Q scan pending Objective Last 24 Hour Vital Signs Date Time Temp Pulse Resp B/P (MAP) Pulse Ox O2 Delivery O2 Flow Rate FiO2 02/16/20 21:00 Room Air 02/16/20 20:00 90 02/16/20 20:00 98.1 78 17 113/63 (80) 100 02/16/20 17:40 99.1 02/16/20 16:00 94 02/16/20 16:00 99.1 94 19 151/86 (107) 96 02/16/20 12:00 97.9 91 18 112/81 (91) 100 02/16/20 12:00 102 02/16/20 08:53 68 115/76 02/16/20 08:12 Room Air 02/16/20 08:00 69 02/16/20 08:00 97.7 68 20 115/76 (89) 100 02/16/20 04:00 66 02/16/20 04:00 98.1 71 18 139/76 (97) 96 02/16/20 00:00 97.9 73 19 150/94 (112) 98 02/16/20 00:00 70 HEENT: normal ENT inspection RHYTHM: NSR, ST, PACs LUNGS: lungs clear bilaterally CARDIAC: regular rhythm, normal S1 and S2, gallop/S4 ABDOMEN: non tender, soft EXTREMITIES: trace edema Assessment/Plan Assessment/Plan Impression: Non-cardiac chest pain Hypertension COPD Paroysmal sinus tachycardia Chronic pain syndrome PLAN: Symptom guided pain control V/Q scan to eval for PE; study deferred until IV access obtained. DC Cardiac Monitoring Continue Diltiazem Steroids with taper; inhaled bronchodilators DVT prophylaxis Arun Castaneda MD Feb 16, 2020 23:33
[2020-02-17] MEDS: DiphenhydrAMINE 50mg/ml Inj IVP PRN ×8 (02:36→23:43)
[2020-02-17] MEDS: HYDROmorphone 1mg/ml Carpuject IVP PRN ×8 (02:37→23:44)
[2020-02-17 04:00] VITALS: BP 116/73
[2020-02-17 08:00] VITALS: BP 110/70
[2020-02-17] MEDS: Lactulose 20gm/30ml UDC ORAL SCH ×3 (08:35→17:38)
[2020-02-17] MEDS: dilTIAZem HCl CD 180mg cap ORAL SCH (08:35)
[2020-02-17] MEDS: Dronabinol 2.5mg Cap ORAL SCH (08:36)
[2020-02-17 12:00] VITALS: BP 100/64
--- NOTE | 2020-02-17 13:27 | Pulmonology Progress Note ---
Subjective ROS Limited/Unobtainable: No Interval Events: c/o abdominal distention Allergies: Coded Allergies: HYDROCODONE (Verified Allergy, Severe, 06/23/13) LORAZEPAM (Verified Allergy, Severe, Hives, 02/13/14) RASH/HIVES MORPHINE (Unverified Allergy, Severe, 01/14/19) Not true allergy; tolerated Dilaudid in past. Extensive opiate hx PROCHLORPERAZINE (Verified Allergy, Severe, 06/23/13) VANCOMYCIN (Unverified Allergy, Mild, Itching, 03/06/14) All Systems: reviewed and negative except above Objective Last 24 Hour Vital Signs Date Time Temp Pulse Resp B/P (MAP) Pulse Ox O2 Delivery O2 Flow Rate FiO2 02/17/20 12:11 98.0 02/17/20 12:00 97.5 69 18 100/64 (76) 97 02/17/20 08:35 70 110/70 02/17/20 08:00 98.0 70 20 110/70 (83) 96 02/17/20 05:42 83 20 95 Room Air 21 02/17/20 05:40 86 20 98 Room Air 21 83 20 95 02/17/20 04:00 98.2 75 20 116/73 (87) 100 02/16/20 23:37 98.1 87 17 117/77 (90) 100 02/16/20 21:00 Room Air 02/16/20 20:00 90 02/16/20 20:00 98.1 78 17 113/63 (80) 100 02/16/20 17:40 99.1 02/16/20 16:00 94 02/16/20 16:00 99.1 94 19 151/86 (107) 96 Intake and Output 02/16/20 02/17/20 19:00 07:00 Intake Total 140 ml 360 ml Output Total 1200 ml Balance -1060 ml 360 ml Intake Oral 140 ml 360 ml Output Urine Total 1200 ml # Voids 3 6 # Bowel Movements 2 General Appearance: WD/WN HEENT: normocephalic, atraumatic Respiratory: chest wall non-tender, lungs clear Breasts: no masses Cardiovascular: normal peripheral pulses, normal rate, regular rhythm Abdomen: normal bowel sounds Genitourinary: normal external genitalia Extremities: no cyanosis 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 Lymphatic: no neck adenopathy Current Medications Medications (Trade) Dose Ordered Sig/Haley Route PRN Reason Start Time Stop Time Status Last Admin Dose Admin Acetaminophen/ Codeine Phosphate (Tylenol #3) 2 tab Q6H PRN ORAL Moderate Pain (Pain Scale 4-6) 02/16/20 22:00 02/23/20 21:59 Albuterol Sulfate (Proventil) 2.5 mg Q4H PRN HHN Shortness of Breath 02/16/20 22:00 02/19/20 21:59 Chlorhexidine Gluconate (Yvette-Hex 2%) 1 applic DAILY@1999 TOPIC 02/17/20 20:00 05/16/20 19:59 Diltiazem HCl (Cardizem CD) 180 mg DAILY ORAL 02/17/20 09:00 03/17/20 08:59 02/17/20 08:35 Diphenhydramine HCl (Benadryl) 50 mg Q3H PRN IVP Itching 02/16/20 22:00 03/17/20 21:59 02/17/20 11:41 Dronabinol (Marinol) 2.5 mg DAILY ORAL 02/17/20 09:00 05/14/20 13:14 02/17/20 08:36 Hydromorphone HCl (Dilaudid) 1 mg Q3H PRN IVP Severe Pain (Pain Scale -10) 02/16/20 22:00 02/21/20 21:59 02/17/20 11:41 Lactulose (Cephulac) 30 gm THREE TIMES A DAY ORAL 02/17/20 09:00 03/15/20 12:59 02/17/20 12:57 Ondansetron HCl (Zofran) 4 mg Q3H PRN IVP Nausea & Vomiting 02/16/20 22:15 03/16/20 13:06 02/17/20 11:41 Assessment/Plan Problems: (1) Chest pain (2) COPD (chronic obstructive pulmonary disease) (3) Gastroparesis (4) Chronic pancreatitis (5) CAD (coronary artery disease) (6) HTN (hypertension) Assessment/Plan troponin negative X3 VQ scan done, report pending trial of enema prn symptomatic treatment respiratory treatment Pt had BM with Lactulose On Heparin SQ for DVT prophylaxis. Lorraine Arndt MD Feb 17, 2020 13:27
[2020-02-17] MEDS ORDERED: Fleet's Mineral Oil Enema RECTAL SCH (13:30)
[2020-02-17 16:00] VITALS: BP 114/70
--- NOTE | 2020-02-17 16:39 | General Progress Note ---
Assessment/Plan Problem List: (1) Chest pain ICD Codes: R07.9 - Chest pain, unspecified SNOMED: 90761508 (2) Acute bronchitis ICD Codes: J20.9 - Acute bronchitis, unspecified SNOMED: 93435843 (3) COPD exacerbation ICD Codes: J44.1 - Chronic obstructive pulmonary disease with (acute) exacerbation SNOMED: 584357989 (4) Gastroparesis ICD Codes: K31.84 - Gastroparesis SNOMED: 707611290 Status: stable, progressing Assessment/Plan: stable. limits set on pain meds await vq results dvt/stress ulcer prophylaxis anticipate dc tomorrow Subjective ROS Limited/Unobtainable: No Constitutional: Reports: malaise, weakness HEENT: Reports: no symptoms Cardiovascular: Reports: chest pain Respiratory: Reports: shortness of breath Gastrointestinal/Abdominal: Reports: no symptoms Genitourinary: Reports: no symptoms Neurologic/Psychiatric: Reports: anxiety Endocrine: Reports: no symptoms Allergies: Coded Allergies: HYDROCODONE (Verified Allergy, Severe, 06/23/13) LORAZEPAM (Verified Allergy, Severe, Hives, 02/13/14) RASH/HIVES MORPHINE (Unverified Allergy, Severe, 01/14/19) Not true allergy; tolerated Dilaudid in past. Extensive opiate hx PROCHLORPERAZINE (Verified Allergy, Severe, 06/23/13) VANCOMYCIN (Unverified Allergy, Mild, Itching, 03/06/14) All Systems: reviewed and negative except above Subjective no events. c/o generalized pain. no sob. asking for more frequent and higher doses of dilaudid. appears comfortable. s/p picc line. awaiting v/q Objective Last 24 Hour Vital Signs Date Time Temp Pulse Resp B/P (MAP) Pulse Ox O2 Delivery O2 Flow Rate FiO2 02/17/20 16:00 96.3 84 18 114/70 (85) 97 02/17/20 15:01 98.0 02/17/20 12:00 97.5 69 18 100/64 (76) 97 02/17/20 08:35 70 110/70 02/17/20 08:00 98.0 70 20 110/70 (83) 96 02/17/20 05:42 83 20 95 Room Air 21 02/17/20 05:40 86 20 98 Room Air 21 83 20 95 02/17/20 04:00 98.2 75 20 116/73 (87) 100 02/16/20 23:37 98.1 87 17 117/77 (90) 100 02/16/20 21:00 Room Air 02/16/20 20:00 90 02/16/20 20:00 98.1 78 17 113/63 (80) 100 02/16/20 17:40 99.1 Intake and Output 02/16/20 02/17/20 19:00 07:00 Intake Total 140 ml 360 ml Output Total 1200 ml Balance -1060 ml 360 ml Intake Oral 140 ml 360 ml Output Urine Total 1200 ml # Voids 3 6 # Bowel Movements 2 Height (Feet): 5 Height (Inches): 3.00 Weight (Pounds): 103 Objective General Appearance: WD/WN, no apparent distress, alert Neck: supple Cardiovascular: normal rate, regular rhythm Respiratory/Chest: chest wall non-tender, lungs clear, normal breath sounds, no respiratory distress, no accessory muscle use Abdomen: normal bowel sounds, non tender, soft, no organomegaly Edema: no edema noted Arm (L), no edema noted Arm (R), no edema noted Leg (L), no edema noted Leg (R), no edema noted Pedal (L), no edema noted Pedal (R), no edema noted Generalized Aquilino Bahena MD Feb 17, 2020 16:39
[2020-02-17] MEDS: Dyna-Hex 2% Top Sol 2oz TOPIC SCH (20:43)
[2020-02-17 21:00] VITALS: BP 104/64
[2020-02-18] VITALS: BP 110/65
--- NOTE | 2020-02-18 02:25 | Cardiology Progress Note ---
Subjective DATE OF SERVICE: Feb 17, 2020 Still c/o pain - diffusely No specific CP complaints. No SOB. 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 Diastolic dysfxn. Minimal degenerative valve disease. Troponins: negative V/Q scan completed; report pending Objective Last 24 Hour Vital Signs Date Time Temp Pulse Resp B/P (MAP) Pulse Ox O2 Delivery O2 Flow Rate FiO2 02/18/20 00:14 97.9 02/18/20 00:00 97.9 92 24 110/65 (80) 97 02/17/20 21:00 97.7 88 20 104/64 (77) 97 02/17/20 19:49 79 18 96 Room Air 21 02/17/20 16:00 96.3 84 18 114/70 (85) 97 02/17/20 12:00 97.5 69 18 100/64 (76) 97 02/17/20 08:35 70 110/70 02/17/20 08:00 98.0 70 20 110/70 (83) 96 02/17/20 05:42 83 20 95 Room Air 21 02/17/20 05:40 86 20 98 Room Air 21 83 20 95 02/17/20 04:00 98.2 75 20 116/73 (87) 100 HEENT: normal ENT inspection RHYTHM: NSR, ST, PACs LUNGS: lungs clear bilaterally CARDIAC: regular rhythm, normal S1 and S2, gallop/S4 ABDOMEN: non tender, soft EXTREMITIES: trace edema Assessment/Plan Assessment/Plan Impression: Non-cardiac chest pain Hypertension COPD Paroysmal sinus tachycardia Chronic pain syndrome Possible pulmonary embolic event. PLAN: Symptom guided pain control V/Q scan to eval for PE; obtain results. DC Cardiac Monitoring Continue Diltiazem Steroids with taper; inhaled bronchodilators DVT prophylaxis Arun Castaneda MD Feb 18, 2020 02:25
[2020-02-18] MEDS: DiphenhydrAMINE 50mg/ml Inj IVP PRN ×6 (03:44→21:29)
[2020-02-18] MEDS: HYDROmorphone 1mg/ml Carpuject IVP PRN ×6 (03:45→21:30)
[2020-02-18 04:00] VITALS: BP 114/76
[2020-02-18 08:00] VITALS: BP 97/52
[2020-02-18] MEDS: Lactulose 20gm/30ml UDC ORAL SCH ×3 (08:59→16:59)
[2020-02-18] MEDS: Dronabinol 2.5mg Cap ORAL SCH (08:59)
[2020-02-18] MEDS: dilTIAZem HCl CD 180mg cap ORAL SCH (09:00)
--- NOTE | 2020-02-18 09:04 | General Progress Note ---
Assessment/Plan Problem List: (1) Chest pain ICD Codes: R07.9 - Chest pain, unspecified SNOMED: 68638944 (2) Acute bronchitis ICD Codes: J20.9 - Acute bronchitis, unspecified SNOMED: 25934281 (3) COPD exacerbation ICD Codes: J44.1 - Chronic obstructive pulmonary disease with (acute) exacerbation SNOMED: 360192343 (4) Gastroparesis ICD Codes: K31.84 - Gastroparesis SNOMED: 132183391 Status: stable, progressing Assessment/Plan: stable. limits set on pain meds await vq results dvt/stress ulcer prophylaxis dc planning pending v/q results Subjective ROS Limited/Unobtainable: No Constitutional: Reports: malaise, weakness HEENT: Reports: no symptoms Cardiovascular: Reports: chest pain Respiratory: Reports: no symptoms Gastrointestinal/Abdominal: Reports: abdomen distended Genitourinary: Reports: no symptoms Neurologic/Psychiatric: Reports: no symptoms Endocrine: Reports: no symptoms Hematologic/Lymphatic: Reports: no symptoms Allergies: Coded Allergies: HYDROCODONE (Verified Allergy, Severe, 06/23/13) LORAZEPAM (Verified Allergy, Severe, Hives, 02/13/14) RASH/HIVES MORPHINE (Unverified Allergy, Severe, 01/14/19) Not true allergy; tolerated Dilaudid in past. Extensive opiate hx PROCHLORPERAZINE (Verified Allergy, Severe, 06/23/13) VANCOMYCIN (Unverified Allergy, Mild, Itching, 03/06/14) All Systems: reviewed and negative except above Subjective no events. c/o generalized pain- back, hip, abd and chest. no sob. asking for more frequent and higher doses of dilaudid. appears comfortable. v/q completed- results pending. Objective Last 24 Hour Vital Signs Date Time Temp Pulse Resp B/P (MAP) Pulse Ox O2 Delivery O2 Flow Rate FiO2 02/18/20 04:15 97.7 02/18/20 04:00 97.7 86 20 114/76 (89) 98 02/18/20 00:00 97.9 92 24 110/65 (80) 97 02/17/20 21:00 97.7 88 20 104/64 (77) 97 02/17/20 19:49 79 18 96 Room Air 21 02/17/20 16:00 96.3 84 18 114/70 (85) 97 02/17/20 12:00 97.5 69 18 100/64 (76) 97 Intake and Output 02/17/20 02/18/20 19:00 07:00 Intake Total 900 ml 700 ml Balance 900 ml 700 ml Intake Oral 900 ml 700 ml # Voids 6 5 Height (Feet): 5 Height (Inches): 3.00 Weight (Pounds): 103 Objective General Appearance: WD/WN, no apparent distress, alert Neck: supple Cardiovascular: normal rate, regular rhythm Respiratory/Chest: chest wall non-tender, lungs clear, normal breath sounds, no respiratory distress, no accessory muscle use Abdomen: normal bowel sounds, non tender, soft, no organomegaly Edema: no edema noted Arm (L), no edema noted Arm (R), no edema noted Leg (L), no edema noted Leg (R), no edema noted Pedal (L), no edema noted Pedal (R), no edema noted Generalized Aquilino Bahena MD Feb 18, 2020 09:04
--- NOTE | 2020-02-18 11:01 | Diagnostic Imaging Report ---
Indications: Shortness of breath and bilateral lower extremity swelling Technique: IV administration 5.5 mCi 99m technetium macroaggregated albumin. Images obtained over the lungs in multiple projections. Previously, patient inhaled 41 mCi aerosolized 99m technetium DTPA. Images obtained over the lungs in multiple projections Comparison: No comparison nuclear scans. Reference made to chest radiograph dated 02/14/2020 Findings: Aerosol images are essentially unremarkable, demonstrating even distribution of tracer with some perfusion images demonstrate slightly heterogeneous tracer distribution, without discrete segmental or subsegmental perfusion defects and no evidence of aerosol/perfusion mismatch Impression: Findings deemed low probability for pulmonary embolus
[2020-02-18 12:00] VITALS: BP 142/77
--- NOTE | 2020-02-18 12:53 | Cardiology Progress Note ---
Subjective DATE OF SERVICE: Feb 18, 2020 Still asks for pain meds, but appears comfortable. 2D Echo: Normal LVEF. Diastolic dysfxn. Minimal degenerative valve disease. Troponins: negative V/Q scan completed; low likelihood for PE Objective Last 24 Hour Vital Signs Date Time Temp Pulse Resp B/P (MAP) Pulse Ox O2 Delivery O2 Flow Rate FiO2 02/18/20 09:00 94 97/52 02/18/20 08:00 97.0 94 20 97/52 (67) 100 02/18/20 07:00 94 18 98 Room Air 21 02/18/20 04:15 97.7 02/18/20 04:00 97.7 86 20 114/76 (89) 98 02/18/20 00:00 97.9 92 24 110/65 (80) 97 02/17/20 21:00 97.7 88 20 104/64 (77) 97 02/17/20 19:49 79 18 96 Room Air 21 02/17/20 16:00 96.3 84 18 114/70 (85) 97 HEENT: normal ENT inspection RHYTHM: NSR, ST, PACs LUNGS: lungs clear bilaterally CARDIAC: regular rhythm, normal S1 and S2, gallop/S4 ABDOMEN: non tender, soft EXTREMITIES: trace edema Assessment/Plan Assessment/Plan Impression: Non-cardiac chest pain Hypertension - now with low range BP COPD Paroysmal sinus tachycardia Chronic pain syndrome with medication seeking behaviour Low probability of pulmonary embolic event. PLAN: Symptom guided pain control Discontinue Diltiazem Steroids with outpatient taper; inhaled bronchodilators Outpatient follow up Arun Castaneda MD Feb 18, 2020 12:53
--- NOTE | 2020-02-18 14:36 | Pulmonology Progress Note ---
Subjective ROS Limited/Unobtainable: No Interval Events: c/o right hip pain Allergies: Coded Allergies: HYDROCODONE (Verified Allergy, Severe, 06/23/13) LORAZEPAM (Verified Allergy, Severe, Hives, 02/13/14) RASH/HIVES MORPHINE (Unverified Allergy, Severe, 01/14/19) Not true allergy; tolerated Dilaudid in past. Extensive opiate hx PROCHLORPERAZINE (Verified Allergy, Severe, 06/23/13) VANCOMYCIN (Unverified Allergy, Mild, Itching, 03/06/14) All Systems: reviewed and negative except above Objective Last 24 Hour Vital Signs Date Time Temp Pulse Resp B/P (MAP) Pulse Ox O2 Delivery O2 Flow Rate FiO2 02/18/20 12:00 97.3 93 14 142/77 (98) 97 02/18/20 09:00 94 97/52 02/18/20 08:00 97.0 94 20 97/52 (67) 100 02/18/20 07:00 94 18 98 Room Air 21 02/18/20 04:15 97.7 02/18/20 04:00 97.7 86 20 114/76 (89) 98 02/18/20 00:00 97.9 92 24 110/65 (80) 97 02/17/20 21:00 97.7 88 20 104/64 (77) 97 02/17/20 19:49 79 18 96 Room Air 21 02/17/20 16:00 96.3 84 18 114/70 (85) 97 Intake and Output 02/17/20 02/18/20 19:00 07:00 Intake Total 900 ml 700 ml Balance 900 ml 700 ml Intake Oral 900 ml 700 ml # Voids 6 5 General Appearance: WD/WN HEENT: normocephalic, atraumatic Respiratory: chest wall non-tender, lungs clear Breasts: no masses Cardiovascular: normal peripheral pulses, normal rate, regular rhythm Abdomen: normal bowel sounds Genitourinary: normal external genitalia Extremities: no cyanosis 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 Lymphatic: no neck adenopathy Current Medications Medications (Trade) Dose Ordered Sig/Haley Route PRN Reason Start Time Stop Time Status Last Admin Dose Admin Acetaminophen/ Codeine Phosphate (Tylenol #3) 2 tab Q6H PRN ORAL Moderate Pain (Pain Scale 4-6) 02/16/20 22:00 7/22/20 21:59 Albuterol Sulfate (Proventil) 2.5 mg Q4H PRN HHN Shortness of Breath 02/16/20 22:00 02/19/20 21:59 Chlorhexidine Gluconate (Yvette-Hex 2%) 1 applic DAILY@1999 TOPIC 02/17/20 20:00 05/16/20 19:59 02/17/20 20:43 Diphenhydramine HCl (Benadryl) 50 mg Q3H PRN IVP Itching 02/16/20 22:00 03/17/20 21:59 02/18/20 14:03 Dronabinol (Marinol) 2.5 mg DAILY ORAL 02/17/20 09:00 05/14/20 13:14 02/18/20 08:59 Hydromorphone HCl (Dilaudid) 1 mg Q3H PRN IVP Severe Pain (Pain Scale -10) 02/16/20 22:00 02/21/20 21:59 02/18/20 14:04 Lactulose (Cephulac) 30 gm THREE TIMES A DAY ORAL 02/17/20 09:00 03/15/20 12:59 02/18/20 08:59 Ondansetron HCl (Zofran) 4 mg Q3H PRN IVP Nausea & Vomiting 02/16/20 22:15 03/16/20 13:06 02/18/20 14:03 Assessment/Plan Problems: (1) Chest pain (2) COPD (chronic obstructive pulmonary disease) (3) Gastroparesis (4) Chronic pancreatitis (5) CAD (coronary artery disease) (6) HTN (hypertension) Assessment/Plan MRI of right hip to evaluate the pain troponin negative X3 VQ scan negative symptomatic treatment respiratory treatment Pt had BM with Lactulose On Heparin SQ for DVT prophylaxis. Lorraine Arndt MD Feb 18, 2020 14:36
[2020-02-18 20:00] VITALS: BP 126/75
[2020-02-18] MEDS: Dyna-Hex 2% Top Sol 2oz TOPIC SCH (21:29)
[2020-02-19] VITALS: BP 135/70
[2020-02-19] MEDS: DiphenhydrAMINE 50mg/ml Inj IVP PRN ×5 (00:37→22:00)
[2020-02-19] MEDS: HYDROmorphone 1mg/ml Carpuject IVP PRN ×3 (00:38→09:10)
[2020-02-19 05:18] VITALS: BP 115/78
[2020-02-19 08:00] VITALS: BP 120/80
[2020-02-19] MEDS: Lactulose 20gm/30ml UDC ORAL SCH ×3 (09:00→16:59)
[2020-02-19] MEDS: Dronabinol 2.5mg Cap ORAL SCH (09:10)
--- NOTE | 2020-02-19 09:22 | General Progress Note ---
Assessment/Plan Problem List: (1) Chest pain ICD Codes: R07.9 - Chest pain, unspecified SNOMED: 39505117 (2) Acute bronchitis ICD Codes: J20.9 - Acute bronchitis, unspecified SNOMED: 75334393 (3) COPD exacerbation ICD Codes: J44.1 - Chronic obstructive pulmonary disease with (acute) exacerbation SNOMED: 860454895 (4) Gastroparesis ICD Codes: K31.84 - Gastroparesis SNOMED: 302662607 Status: stable, progressing Assessment/Plan: stable for dc when started discussion about discharge and weaning pain meds pt became verbally abusive and agitated. pt is well know to me from prior hospitalizations. has a clear history of substance abuse and has had extensive workups in the past. i explained to her that continued pain meds (iv narcotics) are not in her best interest. will dc pain meds and convert to oral. pt was giving the option of switching to who has ordered her iv pain med. Subjective ROS Limited/Unobtainable: No Constitutional: Reports: no symptoms HEENT: Reports: no symptoms Cardiovascular: Reports: no symptoms Respiratory: Reports: no symptoms Gastrointestinal/Abdominal: Reports: abdominal pain Genitourinary: Reports: no symptoms Neurologic/Psychiatric: Reports: no symptoms Endocrine: Reports: no symptoms Hematologic/Lymphatic: Reports: no symptoms Allergies: Coded Allergies: HYDROCODONE (Verified Allergy, Severe, 06/23/13) LORAZEPAM (Verified Allergy, Severe, Hives, 02/13/14) RASH/HIVES MORPHINE (Unverified Allergy, Severe, 01/14/19) Not true allergy; tolerated Dilaudid in past. Extensive opiate hx PROCHLORPERAZINE (Verified Allergy, Severe, 06/23/13) VANCOMYCIN (Unverified Allergy, Mild, Itching, 03/06/14) All Systems: reviewed and negative except above Subjective c/o pain in the abdomen. c/o hip pain- chronic since accident. no sob. sats nml on room air vital signs stable Objective Last 24 Hour Vital Signs Date Time Temp Pulse Resp B/P (MAP) Pulse Ox O2 Delivery O2 Flow Rate FiO2 02/19/20 06:02 98.7 02/19/20 05:18 98.2 110 18 115/78 (90) 96 02/19/20 00:00 98.0 18 135/70 (91) 94 02/18/20 20:00 97.3 93 17 126/75 (92) 97 02/18/20 19:23 77 18 96 Room Air 21 02/18/20 12:00 97.3 93 14 142/77 (98) 97 Intake and Output 02/18/20 02/19/20 19:00 07:00 Intake Total 900 ml Balance 900 ml Other 900 ml # Voids 10 # Bowel Movements 2 Height (Feet): 5 Height (Inches): 3.00 Weight (Pounds): 103 Objective General Appearance: WD/WN, no apparent distress, alert Neck: supple Cardiovascular: normal rate, regular rhythm Respiratory/Chest: chest wall non-tender, lungs clear, normal breath sounds, no respiratory distress, no accessory muscle use Abdomen: normal bowel sounds, non tender, soft, no organomegaly Edema: no edema noted Arm (L), no edema noted Arm (R), no edema noted Leg (L), no edema noted Leg (R), no edema noted Pedal (L), no edema noted Pedal (R), no edema noted Generalized Aquilino Bahena MD Feb 19, 2020 09:21
[2020-02-19] MEDS ORDERED: traMADol 50mg tab ORAL PRN (09:30)
--- NOTE | 2020-02-19 11:42 | Pulmonology Progress Note ---
Subjective ROS Limited/Unobtainable: No Interval Events: c/o right hip pain Allergies: Coded Allergies: HYDROCODONE (Verified Allergy, Severe, 06/23/13) LORAZEPAM (Verified Allergy, Severe, Hives, 02/13/14) RASH/HIVES MORPHINE (Unverified Allergy, Severe, 01/14/19) Not true allergy; tolerated Dilaudid in past. Extensive opiate hx PROCHLORPERAZINE (Verified Allergy, Severe, 06/23/13) VANCOMYCIN (Unverified Allergy, Mild, Itching, 03/06/14) All Systems: reviewed and negative except above Subjective on RA pulse ox stable occasional SOB, no CP c/o pain R hip radiating down R knee Objective Last 24 Hour Vital Signs Date Time Temp Pulse Resp B/P (MAP) Pulse Ox O2 Delivery O2 Flow Rate FiO2 02/19/20 06:02 98.7 02/19/20 05:18 98.2 110 18 115/78 (90) 96 02/19/20 00:00 98.0 18 135/70 (91) 94 02/18/20 20:00 97.3 93 17 126/75 (92) 97 02/18/20 19:23 77 18 96 Room Air 21 02/18/20 12:00 97.3 93 14 142/77 (98) 97 Intake and Output 02/18/20 02/19/20 19:00 07:00 Intake Total 900 ml Balance 900 ml Other 900 ml # Voids 10 # Bowel Movements 2 General Appearance: no acute distress, other - underweight HEENT: normocephalic, atraumatic, anicteric, mucous membranes moist Respiratory: chest wall non-tender, lungs clear - with moderate air exchange Breasts: no masses Cardiovascular: normal peripheral pulses, normal rate Abdomen: normal bowel sounds, soft, non tender Extremities: no edema, other - R knee with reduced ROM due to pain, unable to observe gait 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, no motor/sensory deficits, alert, oriented x 3, responsive Lymphatic: no neck adenopathy Musculoskeletal: normal muscle bulk Current Medications Medications (Trade) Dose Ordered Sig/Haley Route PRN Reason Start Time Stop Time Status Last Admin Dose Admin Acetaminophen/ Codeine Phosphate (Tylenol #3) 2 tab Q6H PRN ORAL Moderate Pain (Pain Scale 4-6) 02/16/20 22:00 02/23/20 21:59 Albuterol Sulfate (Proventil) 2.5 mg Q4H PRN HHN Shortness of Breath 02/16/20 22:00 02/19/20 21:59 Chlorhexidine Gluconate (Yvette-Hex 2%) 1 applic DAILY@1999 TOPIC 02/17/20 20:00 05/16/20 19:59 02/18/20 21:29 Diphenhydramine HCl (Benadryl) 50 mg Q3H PRN IVP Itching 02/16/20 22:00 03/17/20 21:59 02/19/20 09:10 Dronabinol (Marinol) 2.5 mg DAILY ORAL 02/17/20 09:00 05/14/20 13:14 02/19/20 09:10 Lactulose (Cephulac) 30 gm THREE TIMES A DAY ORAL 02/17/20 09:00 03/15/20 12:59 02/18/20 08:59 Ondansetron HCl (Zofran) 4 mg Q3H PRN IVP Nausea & Vomiting 02/16/20 22:15 03/16/20 13:06 02/19/20 09:10 Tramadol HCl (Ultram) 50 mg Q6H PRN ORAL Mild Pain (Pain Scale 1-3) 02/19/20 09:30 02/26/20 09:29 Assessment/Plan Assessment/Plan ASSESSMENT Noncardiac chest pain COPD with possible exacerbation Chronic pain syndrome Chronic pancreatitis Hypertension Coronary artery disease Right hip pain Constipation PLAN of CARE MS floor serial troponin negative ,EKG no acute ischemic changes pt was ruled out for acute [place] Echo with pEF per cardio ->noncardiac chest pain VQ scan => low prob of PE O2 PRN titrate to keep sat above 92, pulse ox stable on room air pulmonary toilet with bronchodilator symptomatic treatment CXR noted DVT and GI prophylaxis BP management lipase stable a/emetic prn monitor diet tolerance judicious pain management CT of the pelvis pending bowel regimen case discussed and evaluated by supervising physician Nakia Alvarenga NP Feb 19, 2020 11:42
--- NOTE | 2020-02-19 12:45 | Diagnostic Imaging Report ---
EXAM: CT Pelvis Without Intravenous Contrast CLINICAL HISTORY: PAIN TECHNIQUE: Axial computed tomography images of the pelvis without intravenous contrast. Sagittal and coronal reformatted images were created and reviewed. CTDI is 4.0 mGy and DLP is 147.60 mGy-cm. One or more of the following dose reduction techniques were used: automated exposure control, adjustment of the mA and/or kV according to patient size, use of iterative reconstruction technique. COMPARISON: CT of the abdomen and pelvis dated 07/25/16 FINDINGS: Limitations: Beam hardening artifact from bilateral hip hardware completely obscures many central pelvic structures including urinary bladder and uterus, if present. Bowel: Mild colonic fecal retention, suggesting mild constipation. No focal wall thickening in the pelvic loops of colon or small bowel. No obstruction. Appendix: No findings to suggest acute appendicitis. Intraperitoneal space: Unremarkable. No free air. No significant fluid collection. Bladder: Obscured due to beam hardening artifact and cannot be evaluated. Reproductive: Cannot determine if uterus and ovaries are present, as this region is obscured due to beam hardening artifact from the hip hardware. Bones/joints: Bilateral hip replacement. Hardware appears intact, with expected alignment. No acute fracture or dislocation seen. Soft tissues: Unremarkable. Vasculature: Mild atherosclerosis in the abdominal aorta and its proximal branches. No visible aneurysm. Lymph nodes: Unremarkable. No enlarged lymph nodes. IMPRESSION: 1. Beam hardening artifact from bilateral hip hardware completely obscures many central pelvic structures including urinary bladder and uterus, if present. 2. Bilateral hip replacement. Hardware appears intact, with expected alignment. No acute fracture or dislocation seen. 3. Mild colonic fecal retention, suggesting mild constipation.
[2020-02-19 16:00] VITALS: BP 101/68
[2020-02-19] MEDS: Tylenol #3 tab (300mg/30mg) ORAL PRN (17:00)
[2020-02-19 20:00] VITALS: BP 113/86
[2020-02-19] MEDS: Dyna-Hex 2% Top Sol 2oz TOPIC SCH (22:00)
[2020-02-20] VITALS (15 sets, daily range): BP systolic 90–129; BP diastolic 66–84
[2020-02-20] MEDS: Tylenol #3 tab (300mg/30mg) ORAL PRN ×4 (00:15→22:41)
[2020-02-20] MEDS: DiphenhydrAMINE 50mg/ml Inj IVP PRN ×3 (01:10→22:46)
[2020-02-20] MEDS ORDERED: HYDROmorphone 1mg/ml Carpuject IM SCH (05:45)
[2020-02-20] MEDS ORDERED: HYDROmorphone 1mg/ml Carpuject IVP SCH (06:15)
[2020-02-20] MEDS: Dronabinol 2.5mg Cap ORAL SCH (08:11)
[2020-02-20] MEDS: Lactulose 20gm/30ml UDC ORAL SCH ×3 (08:12→17:21)
--- NOTE | 2020-02-20 09:18 | Diagnostic Imaging Report ---
EXAM: XR Pelvis, 1 or 2 Views CLINICAL HISTORY: FALL TECHNIQUE: Frontal view of the pelvis. COMPARISON: 01/14/19 FINDINGS: Bones/joints: There are bilateral hip prostheses which appear intact. No acute fracture or subluxation is identified. Soft tissues: Unremarkable. IMPRESSION: No acute findings in the pelvis.
--- NOTE | 2020-02-20 09:19 | Diagnostic Imaging Report ---
EXAM: CT Head Without Intravenous Contrast CLINICAL HISTORY: FALL TECHNIQUE: Axial computed tomography images of the head/brain without intravenous contrast. CTDI is 53 mGy and DLP is 960 mGy-cm. One or more of the following dose reduction techniques were used: automated exposure control, adjustment of the mA and/or kV according to patient size, use of iterative reconstruction technique. COMPARISON: No relevant prior studies available. FINDINGS: Brain: Unremarkable. No hemorrhage. No significant white matter disease. No edema. Ventricles: Unremarkable. No ventriculomegaly. Bones/joints: Unremarkable. No acute fracture. Soft tissues: Unremarkable. Sinuses: Unremarkable as visualized. No acute sinusitis. Mastoid air cells: Unremarkable as visualized. No mastoid effusion. IMPRESSION: No evidence of acute intracranial process. Paranasal sinuses and mastoids are clear.
--- NOTE | 2020-02-20 11:39 | Pulmonology Progress Note ---
Subjective ROS Limited/Unobtainable: No Interval Events: c/o right hip pain Allergies: Coded Allergies: HYDROCODONE (Verified Allergy, Severe, 06/23/13) LORAZEPAM (Verified Allergy, Severe, Hives, 02/13/14) RASH/HIVES MORPHINE (Unverified Allergy, Severe, 01/14/19) Not true allergy; tolerated Dilaudid in past. Extensive opiate hx PROCHLORPERAZINE (Verified Allergy, Severe, 06/23/13) VANCOMYCIN (Unverified Allergy, Mild, Itching, 03/06/14) All Systems: reviewed and negative except above Subjective on RA pulse ox stable occasional SOB, no CP c/o pain R hip radiating down R knee CT pelvis NGT dc ordered written 02/28, pt appealed s/p fall that day, CT head and X ray pelvis NGT for acute findings pt is still c/o pain hip Objective Last 24 Hour Vital Signs Date Time Temp Pulse Resp B/P (MAP) Pulse Ox O2 Delivery O2 Flow Rate FiO2 02/20/20 08:00 98.2 96 Room Air 02/20/20 08:00 98.1 81 17 118/79 (92) 97 02/20/20 07:00 81 18 96 Room Air 21 02/20/20 07:00 97.7 100 19 125/75 (92) 97 02/20/20 06:30 98.2 100 18 110/80 (90) 97 02/20/20 06:00 97.8 97 18 115/78 (90) 97 02/20/20 05:30 97.9 96 17 119/75 (90) 96 02/20/20 05:00 97.8 95 17 121/79 (93) 96 02/20/20 04:30 98.0 90 17 118/78 (91) 95 02/20/20 04:00 98.0 88 17 117/77 (90) 95 02/20/20 03:30 98.2 99 17 115/84 (94) 100 02/20/20 03:00 98.1 99 17 120/71 (87) 97 02/20/20 02:30 98.2 100 17 129/72 (91) 100 02/20/20 00:00 97.7 91 16 110/77 (88) 100 02/19/20 20:00 97.9 106 20 113/86 (95) 100 02/19/20 16:00 98.3 64 18 101/68 (79) 95 Intake and Output 02/19/20 02/20/20 19:00 07:00 Intake Total 1000 ml Balance 1000 ml Intake Oral 1000 ml # Voids 6 2 General Appearance: no acute distress, other - underweight HEENT: normocephalic, atraumatic, anicteric, mucous membranes moist Respiratory: chest wall non-tender, lungs clear - with moderate air exchange Breasts: no masses Cardiovascular: normal peripheral pulses, normal rate Abdomen: normal bowel sounds, soft, non tender Extremities: no edema, other - R knee with reduced ROM due to pain, unable to observe gait 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, no motor/sensory deficits, alert, oriented x 3, responsive Lymphatic: no neck adenopathy Musculoskeletal: normal muscle bulk Current Medications Medications (Trade) Dose Ordered Sig/Haley Route PRN Reason Start Time Stop Time Status Last Admin Dose Admin Acetaminophen/ Codeine Phosphate (Tylenol #3) 2 tab Q6H PRN ORAL Moderate Pain (Pain Scale 4-6) 02/16/20 22:00 02/23/20 21:59 02/20/20 08:11 Chlorhexidine Gluconate (Yvette-Hex 2%) 1 applic DAILY@1999 TOPIC 02/17/20 20:00 05/16/20 19:59 02/19/20 22:00 Diphenhydramine HCl (Benadryl) 50 mg Q3H PRN IVP Itching 02/16/20 22:00 03/17/20 21:59 02/20/20 01:10 Dronabinol (Marinol) 2.5 mg DAILY ORAL 02/17/20 09:00 05/14/20 13:14 02/20/20 08:11 Lactulose (Cephulac) 30 gm THREE TIMES A DAY ORAL 02/17/20 09:00 03/15/20 12:59 02/18/20 08:59 Ondansetron HCl (Zofran) 4 mg Q3H PRN IVP Nausea & Vomiting 02/16/20 22:15 03/16/20 13:06 02/20/20 01:10 Tramadol HCl (Ultram) 50 mg Q6H PRN ORAL Mild Pain (Pain Scale 1-3) 02/19/20 09:30 02/26/20 09:29 Assessment/Plan Assessment/Plan ASSESSMENT Noncardiac chest pain COPD with possible exacerbation Chronic pain syndrome Chronic pancreatitis Hypertension Coronary artery disease Right hip pain Constipation PLAN of CARE MS floor serial troponin negative ,EKG no acute ischemic changes pt was ruled out for acute [place] Echo with pEF per cardio ->noncardiac chest pain VQ scan => low prob of PE O2 PRN titrate to keep sat above 92, pulse ox stable on room air pulmonary toilet with bronchodilator symptomatic treatment CXR noted DVT and GI prophylaxis BP management lipase stable a/emetic prn monitor diet tolerance judicious pain management CT of the pelvis pending bowel regimen dc order written pt appealed s/p fall that day, CT head and X ray pelvis NGT for acute findings pt is still c/o pain hip , pain management with oral analgesic PT eval and Rx in am with recs while awaiting result of appeal case discussed and evaluated by supervising physician Nakia Alvarenga NP Feb 20, 2020 11:39
[2020-02-20] MEDS: Dyna-Hex 2% Top Sol 2oz TOPIC SCH (20:07)
[2020-02-21 00:19] VITALS: BP 111/72
[2020-02-21] MEDS: DiphenhydrAMINE 50mg/ml Inj IVP PRN (03:50)
[2020-02-21 04:00] VITALS: BP 138/80
[2020-02-21] MEDS: Tylenol #3 tab (300mg/30mg) ORAL PRN (04:58)
[2020-02-21 07:59] VITALS: BP 110/73
[2020-02-21] MEDS: Dronabinol 2.5mg Cap ORAL SCH (08:20)
[2020-02-21] MEDS: Lactulose 20gm/30ml UDC ORAL SCH (08:20)
--- NOTE | 2020-02-21 20:45 | Discharge Summary ---
DATE OF ADMISSION: 02/14/2020 DATE OF DISCHARGE: 02/21/2020 ADMISSION DIAGNOSES: 1. Generalized pain. 2. Osteoarthritis. HOSPITAL COURSE: Mrs Proctor is a 69-year-old female. She is known to me from multiple prior admissions, presented with multiple complaints specifically pain. Her workup, which included chest x-ray, V/Q scan, CT scan of the pelvis, head and hip were all unremarkable. The patient is known to have a history of substance abuse. She continually asked for IV Dilaudid, stating that she was allergic to all of her pain medications. She was given this, but when all tested returned back negative, she was switched to oral medications. She became belligerent and verbally abusive and aggressive towards staff. She was discharged as she was stable, filed an appeal, but lost her Medicare appeal. She will be discharged home. She has been asked to follow up with her regular physician. She is asked to continue her home pain medication regimen. DISCHARGE MEDICATIONS: Please see discharge medication list for discharge medications. DIET: Regular. ACTIVITY: Ad filipe. Aquilino Bahena M.D. DR: Lorena JOB#: [id number] CC:
== END 2020-02-21 09:56 | disposition home or self-care (01) | DRG 191 ==
LOC: EMR 00:30 → 2E 01:16 → EDBEDREQ 02:52 → 4E 02-16 21:27
PROC: 02HV33Z Insertion of Infusion Device into Superior Vena Cava, Percutaneous Approach (ICD-10-PCS; principal; 2020-02-16)
DX: J44.0 Chronic obstructive pulmonary disease with (acute) lower respiratory infection (principal); K86.1 Other chronic pancreatitis; F11.20 Opioid dependence, uncomplicated; Z68.1 Body mass index [BMI] 19.9 or less, adult; J44.1 Chronic obstructive pulmonary disease with (acute) exacerbation; R07.89 Other chest pain; R63.6 Underweight; R19.7 Diarrhea, unspecified; I25.10 Atherosclerotic heart disease of native coronary artery without angina pectoris; I10 Essential (primary) hypertension; K31.84 Gastroparesis; Z88.6 Allergy status to analgesic agent; Z88.8 Allergy status to other drugs, medicaments and biological substances; K21.9 Gastro-esophageal reflux disease without esophagitis; Z88.1 Allergy status to other antibiotic agents; F11.11 Opioid abuse, in remission; F19.10 Other psychoactive substance abuse, uncomplicated; I25.5 Ischemic cardiomyopathy; Z86.718 Personal history of other venous thrombosis and embolism; M19.90 Unspecified osteoarthritis, unspecified site; B02.9 Zoster without complications; J44.9 Chronic obstructive pulmonary disease, unspecified; I47.9 Paroxysmal tachycardia, unspecified; G89.4 Chronic pain syndrome; M25.551 Pain in right hip; K59.00 Constipation, unspecified; J20.9 Acute bronchitis, unspecified
CPT/HCPCS: 36415; 36569; 70450; 71045; 72170; 72192; 76937; 78579; 78580; 80053; 80061; 80307; 81003; 83690; 83735; 83880; 84100; 84443; 84484; 85007; 85025; 85610; 85651; 85730; 86140; 93005; 93306; 94640; 94664; 96361; 96374; 96375; 99285; A9503; J2405

== ENCOUNTER 2020-05-31 12:05 | Inpatient (IN) | payer MEDICARE, OTHER ==
[~2020-05-31] VITALS: Ht 165.1 cm; Wt 41.9 kg
[2020-05-31 12:30] VITALS: BP 119/63
[2020-05-31 13:35] LABS: HEMATOCRIT 41.7 % (37.0-47.0); HEMOGLOBIN 13.2 G/DL (12.0-16.0); MEAN CORPUSCULAR VOLUME 111 FL (80-99); PLATELET COUNT 265 K/UL (150-450); RED BLOOD COUNT 3.76 M/UL (4.20-5.40); RED CELL DISTRIBUTION WIDTH 14.2 % (11.6-14.8); WHITE BLOOD COUNT 4.2 K/UL (4.8-10.8)
[2020-05-31 13:41] LABS: ANION GAP 8 mmol/L (5-15); BLOOD UREA NITROGEN 15 mg/dL (7-18); CALCIUM 9.5 MG/DL (8.5-10.1); CARBON DIOXIDE 30 MMOL/L (21-32); CHLORIDE 103 MMOL/L (98-107); CREATININE 0.9 MG/DL (0.55-1.30); POTASSIUM 4.3 MMOL/L (3.5-5.1); SODIUM 141 MMOL/L (136-145)
[2020-05-31 13:46] LABS: ALANINE AMINOTRANSFERASE 19 U/L (12-78); ALBUMIN 4.4 G/DL (3.4-5.0); ALBUMIN/GLOBULIN RATIO 1.2 (1.0-2.7); ALKALINE PHOSPHATASE 78 U/L (46-116); ASPARTATE AMINO TRANSFERASE 24 U/L (15-37); BILIRUBIN,TOTAL 0.4 MG/DL (0.2-1.0)
[2020-05-31 14:10] LABS: APPEARANCE,URINE SLIGHTLY CLOUDY; BILIRUBIN, URINE NEGATIVE (NEGATIVE); GLUCOSE, URINE (UA) NEGATIVE (NEGATIVE); KETONES,URINE NEGATIVE (NEGATIVE); LEUKOCYTE ESTERASE ,URINE 1+ (NEGATIVE); NITRITE,URINE NEGATIVE (NEGATIVE); PH,URINE 5 (4.5-8.0); PROTEIN,URINE 2+ (NEGATIVE); UROBILINOGEN,URINE NORMAL MG/DL (0.0-1.0)
[2020-05-31 14:17] LABS: COLOR,URINE YELLOW
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
[2020-05-31 15:46] VITALS: BP 120/65
--- NOTE | 2020-05-31 15:49 | Diagnostic Imaging Report ---
Indication: Chest pain Technique: One view of the chest Comparison: 02/14/2020 Findings: Lungs and pleural spaces are clear. Heart size is normal. No significant change Impression: No acute process
[2020-05-31 16:00] VITALS: BP 156/90
[2020-05-31] MEDS ORDERED: Miralax 17gm pkt ORAL PRN (18:45)
[2020-05-31] MEDS ORDERED: Zolpidem 5mg tab ORAL PRN (18:45)
[2020-05-31] MEDS: DiphenhydrAMINE 50mg/ml Inj IVP PRN (19:01)
[2020-05-31 20:00] VITALS: BP 118/89
[2020-05-31] MEDS: Heparin 5000 units/ml inj SUBQ SCH (21:27)
[2020-06-01] VITALS: BP 125/75
[2020-06-01] MEDS: DiphenhydrAMINE 50mg/ml Inj IVP PRN ×4 (01:18→19:51)
[2020-06-01 04:00] VITALS: BP 129/68
[2020-06-01 08:00] VITALS: BP 131/86
[2020-06-01] MEDS ORDERED: Albuterol/Ipratropium 3ml neb HHN PRN (08:30)
[2020-06-01 08:54] LABS: HEMATOCRIT 36.2 % (37.0-47.0); HEMOGLOBIN 11.4 G/DL (12.0-16.0); MEAN CORPUSCULAR VOLUME 112 FL (80-99); PLATELET COUNT 212 K/UL (150-450); RED BLOOD COUNT 3.23 M/UL (4.20-5.40); RED CELL DISTRIBUTION WIDTH 14.1 % (11.6-14.8); WHITE BLOOD COUNT 4.3 K/UL (4.8-10.8)
[2020-06-01] MEDS: Heparin 5000 units/ml inj SUBQ SCH ×2 (09:17→20:45)
[2020-06-01 09:35] LABS: ALANINE AMINOTRANSFERASE 14 U/L (12-78); ALBUMIN 3.3 G/DL (3.4-5.0); ALBUMIN/GLOBULIN RATIO 1.1 (1.0-2.7); ALKALINE PHOSPHATASE 55 U/L (46-116); ANION GAP 5 mmol/L (5-15); ASPARTATE AMINO TRANSFERASE 21 U/L (15-37); BILIRUBIN,TOTAL 0.3 MG/DL (0.2-1.0); BLOOD UREA NITROGEN 16 mg/dL (7-18); CALCIUM 8.4 MG/DL (8.5-10.1); CARBON DIOXIDE 30 MMOL/L (21-32); CHLORIDE 108 MMOL/L (98-107); CREATININE 0.9 MG/DL (0.55-1.30); POTASSIUM 3.9 MMOL/L (3.5-5.1); SODIUM 143 MMOL/L (136-145)
[2020-06-01 12:00] VITALS: BP 127/67
--- NOTE | 2020-06-01 12:32 | History and Physical ---
History of Present Illness General Date patient seen: Jun 01, 2020 Reason for Hospitalization: Chest Pain Present Illness HPI 69-year-old female with multiple chronic medical problems, gastroparesis, including pancreatitis, HTN, COPD, presented to ED for evaluation of generalized pain and weakness. States she is been having diarrhea for the last week. She developed lower GI bleeding as well. Denies shortness of breath. Denies fevers or chills. No other aggravating relieving factors. Denies any other associated symptoms Allergies: Coded Allergies: HYDROCODONE (Verified Allergy, Severe, 06/23/13) LORAZEPAM (Verified Allergy, Severe, Hives, 02/13/14) RASH/HIVES MORPHINE (Unverified Allergy, Severe, 01/14/19) Not true allergy; tolerated Dilaudid in past. 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 (3) CAD (coronary artery disease) (4) GERD (gastroesophageal reflux disease) (5) HTN (hypertension) (6) Severe protein-calorie malnutrition Review of Systems All Other Systems: negative except mentioned in HPI Physical Exam General Appearance: cachetic, thin Lines, tubes and drains: peripheral HEENT: normocephalic, atraumatic Neck: non-tender, normal alignment Respiratory/Chest: chest wall non-tender, lungs clear, normal breath sounds, no respiratory distress Breasts: no masses Cardiovascular/Chest: regular rhythm Abdomen: normal bowel sounds, non tender, distended Genitourinary/Rectal: normal genital exam, normal rectal exam Extremities: normal range of motion Last 24 Hour Vital Signs Date Time Temp Pulse Resp B/P (MAP) Pulse Ox O2 Delivery O2 Flow Rate FiO2 06/01/20 10:54 97.7 06/01/20 09:00 Room Air 06/01/20 08:00 97.7 86 19 131/86 (101) 98 06/01/20 07:55 97.7 06/01/20 04:00 96.9 72 19 129/68 (88) 98 06/01/20 01:49 97.8 06/01/20 00:00 97.8 75 18 125/75 (92) 99 05/31/20 21:38 Room Air 05/31/20 20:00 97.9 78 18 118/89 (99) 98 05/31/20 16:42 Room Air 05/31/20 16:15 97.9 67 20 130/68 99 Room Air 05/31/20 16:00 96.3 82 19 156/90 (112) 100 05/31/20 15:46 98.4 76 17 120/65 95 Room Air 05/31/20 12:30 101 17 Room Air 05/31/20 12:30 98.4 17 119/63 95 Room Air Intake and Output 05/31/20 06/01/20 19:00 07:00 Intake Total 500 ml Balance 500 ml Intake Oral 500 ml # Voids 2 4 Laboratory Tests Test 05/31/20 13:13 05/31/20 13:49 06/01/20 08:15 White Blood Count 4.2 K/UL (4.8-10.8) L 4.3 K/UL (4.8-10.8) L Red Blood Count 3.76 M/UL (4.20-5.40) L 3.23 M/UL (4.20-5.40) L Hemoglobin 13.2 G/DL (12.0-16.0) 11.4 G/DL (12.0-16.0) L Hematocrit 41.7 % (37.0-47.0) 36.2 % (37.0-47.0) L Mean Corpuscular Volume 111 FL (80-99) H 112 FL (80-99) H Mean Corpuscular Hemoglobin 35.1 PG (27.0-31.0) H 35.2 PG (27.0-31.0) H Mean Corpuscular Hemoglobin Concent 31.7 G/DL (32.0-36.0) L 31.5 G/DL (32.0-36.0) L Red Cell Distribution Width 14.2 % (11.6-14.8) 14.1 % (11.6-14.8) Platelet Count 265 K/UL (150-450) 212 K/UL (150-450) Mean Platelet Volume 5.7 FL (6.5-10.1) L 5.6 FL (6.5-10.1) L Neutrophils (%) (Auto) % (45.0-75.0) % (45.0-75.0) Lymphocytes (%) (Auto) % (20.0-45.0) % (20.0-45.0) Monocytes (%) (Auto) % (1.0-10.0) % (1.0-10.0) Eosinophils (%) (Auto) % (0.0-3.0) % (0.0-3.0) Basophils (%) (Auto) % (0.0-2.0) % (0.0-2.0) Differential Total Cells Counted 100 100 Neutrophils % (Manual) 58 % (45-75) 58 % (45-75) Lymphocytes % (Manual) 31 % (20-45) 33 % (20-45) Monocytes % (Manual) 11 % (1-10) H 9 % (1-10) Eosinophils % (Manual) 0 % (0-3) 0 % (0-3) Basophils % (Manual) 0 % (0-2) 0 % (0-2) Band Neutrophils 0 % (0-8) 0 % (0-8) Platelet Estimate Adequate Adequate Platelet Morphology Normal Normal Hypochromasia 1+ 1+ Macrocytosis 1+ 2+ Sodium Level 141 MMOL/L (136-145) 143 MMOL/L (136-145) Potassium Level 4.3 MMOL/L (3.5-5.1) 3.9 MMOL/L (3.5-5.1) Chloride Level 103 MMOL/L (98-107) 108 MMOL/L (98-107) H Carbon Dioxide Level 30 MMOL/L (21-32) 30 MMOL/L (21-32) Anion Gap 8 mmol/L (5-15) 5 mmol/L (5-15) Blood Urea Nitrogen 15 mg/dL (7-18) 16 mg/dL (7-18) Creatinine 0.9 MG/DL (0.55-1.30) 0.9 MG/DL (0.55-1.30) Estimat Glomerular Filtration Rate > 60 mL/min (>60) > 60 mL/min (>60) Glucose Level 110 MG/DL (74-106) H 58 MG/DL (74-106) L Calcium Level 9.5 MG/DL (8.5-10.1) 8.4 MG/DL (8.5-10.1) L Total Bilirubin 0.4 MG/DL (0.2-1.0) 0.3 MG/DL (0.2-1.0) Aspartate Amino Transf (AST/SGOT) 24 U/L (15-37) 21 U/L (15-37) Alanine Aminotransferase (ALT/SGPT) 19 U/L (12-78) 14 U/L (12-78) Alkaline Phosphatase 78 U/L (46-116) 55 U/L (46-116) Troponin I 0.000 ng/mL (0.000-0.056) Total Protein 8.1 G/DL (6.4-8.2) 6.3 G/DL (6.4-8.2) L Albumin 4.4 G/DL (3.4-5.0) 3.3 G/DL (3.4-5.0) L Globulin 3.7 g/dL 3.0 g/dL Albumin/Globulin Ratio 1.2 (1.0-2.7) 1.1 (1.0-2.7) Urine Color Yellow Urine Appearance Slightly cloudy Urine pH 5 (4.5-8.0) Urine Specific [place] 1.020 (1.005-1.035) Urine Protein 2+ (NEGATIVE) H Urine Glucose (UA) Negative (NEGATIVE) Urine Ketones Negative (NEGATIVE) Urine Blood 2+ (NEGATIVE) H Urine Nitrite Negative (NEGATIVE) Urine Bilirubin Negative (NEGATIVE) Urine Urobilinogen Normal MG/DL (0.0-1.0) Urine Leukocyte Esterase 1+ (NEGATIVE) H Urine RBC 0-2 /HPF (0 - 2) Urine WBC 2-4 /HPF (0 - 2) Urine Squamous Epithelial Cells Moderate /LPF (NONE/OCC) H Urine Bacteria Few /HPF (NONE) Thyroid Stimulating Hormone (TSH) 2.374 uiU/mL (0.358-3.740) Height (Feet): 5 Height (Inches): 3.00 Weight (Pounds): 88 Medications Current Medications Medications (Trade) Dose Ordered Sig/Haley Route PRN Reason Start Time Stop Time Status Last Admin Dose Admin Acetaminophen (Tylenol) 650 mg Q4H PRN ORAL fever 05/31/20 18:45 06/30/20 18:44 Albuterol/ Ipratropium (Albuterol/ Ipratropium) 3 ml Q4H PRN HHN Shortness of Breath 06/01/20 08:30 06/06/20 08:29 Dextrose (Dextrose 50%) 25 ml Q30M PRN IV Hypoglycemia 05/31/20 18:45 08/29/20 18:44 Dextrose (Dextrose 50%) 50 ml Q30M PRN IV Hypoglycemia 05/31/20 18:45 08/29/20 18:44 Diphenhydramine HCl (Benadryl) 50 mg Q6H PRN IVP Itching 05/31/20 18:45 06/30/20 18:44 06/01/20 07:25 Heparin Sodium (Porcine) (Heparin 5000 units/ml) 5,000 units EVERY 12 HOURS SUBQ 05/31/20 21:00 07/15/20 20:59 06/01/20 09:17 Hydromorphone HCl (Dilaudid) 2 mg Q3H PRN IVP pain >7 05/31/20 18:45 06/07/20 18:44 06/01/20 10:24 Loperamide HCl (Imodium) 2 mg Q4H PRN ORAL Diarrhea 06/01/20 11:00 07/01/20 10:59 06/01/20 11:19 Ondansetron HCl (Zofran) 4 mg Q6H PRN IVP Nausea & Vomiting 05/31/20 18:45 06/30/20 18:44 06/01/20 07:25 Polyethylene Glycol (Miralax) 17 gm HSPRN PRN ORAL Constipation 05/31/20 18:45 06/30/20 18:44 Zolpidem Tartrate (Ambien) 5 mg HSPRN PRN ORAL Insomnia 05/31/20 18:45 06/07/20 18:44 Assessment/Plan Problem List: (1) Intractable abdominal pain ICD Codes: R10.9 - Unspecified abdominal pain SNOMED: 63924481 (2) GI bleed ICD Codes: K92.2 - Gastrointestinal hemorrhage, unspecified SNOMED: 09001401 (3) Diarrhea ICD Codes: R19.7 - Diarrhea, unspecified SNOMED: 90882895 (4) COPD (chronic obstructive pulmonary disease) ICD Codes: J44.9 - COPD (chronic obstructive pulmonary disease) SNOMED: 96597371 (5) GERD (gastroesophageal reflux disease) ICD Codes: K21.9 - Gastro-esophageal reflux disease without esophagitis SNOMED: 275710456 (6) Severe protein-calorie malnutrition ICD Codes: E43 - Unspecified severe protein-calorie malnutrition SNOMED: 940360116 (7) CAD (coronary artery disease) ICD Codes: I25.10 - Atherosclerotic heart disease of [place] coronary artery without angina pectoris SNOMED: 53753836 (8) Chronic pancreatitis ICD Codes: K86.1 - Chronic pancreatitis SNOMED: 398126604 (9) History of bilateral hip replacements ICD Codes: Z96.643 - Presence of artificial hip joint, bilateral SNOMED: 335461340, 481491172 (10) HTN (hypertension) ICD Codes: I10 - Essential (primary) hypertension SNOMED: 80027335 Assessment/Plan: NPO IV fluids GI evaluation H2 nina watch h/h prbc prn respiratory treatment symptomatic treatment dvt prophylaxis. Lorraine Arndt MD Jun 01, 2020 12:32
[2020-06-01] MEDS ORDERED: Creon DR 36,000 units cap ORAL PRN (15:00)
[2020-06-01 16:00] VITALS: BP 137/79
--- NOTE | 2020-06-01 16:30 | Consultation ---
DATE OF CONSULTATION: 06/01/2020 CONSULTING PHYSICIAN: Ruben Salazar MD CHIEF COMPLAINT: Abdominal pain, diarrhea. HISTORY OF PRESENT ILLNESS: This is a very pleasant 69-year-old female, known to me from prior admissions, admitted to the hospital with complaint of generalized weakness, pain, and also having diarrhea. Usually patient has had constipation, now is having diarrhea. Denies any blood in the stool. Denies any hematemesis. Denies any melena or hematochezia. Patient also carries a diagnosis of chronic pancreatitis. PAST MEDICAL HISTORY: 1. History of cervical cancer. 2. Hypertension. 3. Hypercholesterolemia. 4. CHF. 5. Constipation. 6. History of bowel obstruction, requiring surgery. 7. History of pancreatitis. ALLERGIES: Patient has numerous allergies including hydrocodone, lorazepam, morphine, prochlorperazine, and vancomycin. MEDICATIONS: See medication reconciliation list. SOCIAL HISTORY: Patient denies any tobacco, alcohol, or drug abuse. FAMILY HISTORY: Noncontributory. PAST SURGICAL HISTORY: History of small bowel resection for small bowel obstruction. REVIEW OF SYSTEMS: A 10-point review of systems was performed and pertinent positives in HPI. PHYSICAL EXAMINATION: GENERAL: Well-developed female, in no acute distress. VITAL SIGNS: Temperature 97.7, pulse 86, respirations 19, blood pressure 127/67. HEENT: Normocephalic and atraumatic. Sclerae are anicteric. NECK: Supple. No evidence of obvious lymphadenopathy. CARDIOVASCULAR: Regular rate and rhythm. Plus S1-S2. LUNGS: Decreased breath sounds bilaterally based on the supine exam. ABDOMEN: Soft. Bowel sounds are present. There is a scar from prior abdominal surgeries. No rebound. No guarding. No peritoneal sign. EXTREMITIES: No cyanosis. No clubbing. No edema. LABORATORY DATA: White count is 4.3, hemoglobin 11.4, hematocrit 36, platelet count is 212. Chem-7, sodium 143, potassium , BUN 16, creatinine 0.9. ASSESSMENT AND PLAN: This is a 69-year-old female admitted to the hospital with complaint of generalized weakness, generalized pain, and also diarrhea. Plan to send the stool studies. Hold any laxatives at this time. Patient has already been ordered Imodium p.r.n. by another physician. We will follow. Order drug screen. Order stool studies. Order Creon 36,000 t.i.d. with meals. Repeat laboratories will be monitored. I want to thank Dr. Arndt for this kind referral. Ruben Salazar M.D. DR: SHRAVAN JOB#: [id number] CC: Lorraine Arndt M.D.; Fax#: [phone]
[2020-06-01] MEDS: Creon DR 36,000 units cap ORAL SCH (17:23)
[2020-06-01 20:00] VITALS: BP 137/79
[2020-06-02] VITALS: BP 115/65
[2020-06-02] MEDS: DiphenhydrAMINE 50mg/ml Inj IVP PRN ×4 (02:16→21:15)
[2020-06-02 04:00] VITALS: BP 122/66
[2020-06-02] MEDS: Creon DR 36,000 units cap ORAL SCH ×3 (06:03→17:58)
[2020-06-02 06:36] LABS: HEMATOCRIT 35.9 % (37.0-47.0); HEMOGLOBIN 11.4 G/DL (12.0-16.0); MEAN CORPUSCULAR VOLUME 111 FL (80-99); PLATELET COUNT 184 K/UL (150-450); RED BLOOD COUNT 3.24 M/UL (4.20-5.40); RED CELL DISTRIBUTION WIDTH 14.2 % (11.6-14.8); WHITE BLOOD COUNT 3.3 K/UL (4.8-10.8)
[2020-06-02 06:50] LABS: ALANINE AMINOTRANSFERASE 13 U/L (12-78); ALBUMIN 3.3 G/DL (3.4-5.0); ALBUMIN/GLOBULIN RATIO 1.2 (1.0-2.7); ALKALINE PHOSPHATASE 55 U/L (46-116); AMYLASE 56 U/L (25-115); ANION GAP 4 mmol/L (5-15); ASPARTATE AMINO TRANSFERASE 20 U/L (15-37); BILIRUBIN,TOTAL 0.4 MG/DL (0.2-1.0); BLOOD UREA NITROGEN 13 mg/dL (7-18); CALCIUM 8.6 MG/DL (8.5-10.1); CARBON DIOXIDE 29 MMOL/L (21-32); CHLORIDE 104 MMOL/L (98-107); CREATININE 0.7 MG/DL (0.55-1.30); POTASSIUM 4.3 MMOL/L (3.5-5.1); SODIUM 137 MMOL/L (136-145)
[2020-06-02 08:00] VITALS: BP 124/70
--- NOTE | 2020-06-02 09:07 | General Progress Note ---
Subjective ROS Limited/Unobtainable: Yes Allergies: Coded Allergies: HYDROCODONE (Verified Allergy, Severe, 06/23/13) LORAZEPAM (Verified Allergy, Severe, Hives, 02/13/14) RASH/HIVES MORPHINE (Unverified Allergy, Severe, 01/14/19) Not true allergy; tolerated Dilaudid in past. Extensive opiate hx PROCHLORPERAZINE (Verified Allergy, Severe, 06/23/13) VANCOMYCIN (Unverified Allergy, Mild, Itching, 03/06/14) Objective Last 24 Hour Vital Signs Date Time Temp Pulse Resp B/P (MAP) Pulse Ox O2 Delivery O2 Flow Rate FiO2 06/02/20 08:00 97.7 71 18 124/70 (88) 99 06/02/20 04:00 97.1 71 20 122/66 (84) 99 06/02/20 00:00 97.4 64 20 115/65 (82) 99 06/01/20 21:00 Room Air 06/01/20 20:00 98.6 90 22 137/79 (98) 99 06/01/20 16:53 98.9 06/01/20 16:00 98.9 77 19 137/79 (98) 99 06/01/20 13:58 97.7 06/01/20 12:00 97.7 86 19 127/67 (87) 99 06/01/20 10:54 97.7 Intake and Output 06/01/20 06/02/20 19:00 07:00 Intake Total 1460 ml 360 ml Balance 1460 ml 360 ml Intake Oral 1460 ml 360 ml # Voids 3 1 # Bowel Movements 1 1 Laboratory Tests 06/02/20 03:05: Urine Opiates Screen PositiveH, Urine Barbiturates Screen Negative, Phencyclidine (PCP) Screen Negative, Urine Amphetamines Screen Negative, Urine Benzodiazepines Screen Negative, Urine Cocaine Screen Negative, Urine Marijuana (THC) Screen Negative 06/02/20 05:35: White Blood Count 3.3L, Red Blood Count 3.24L, Hemoglobin 11.4L, Hematocrit 35.9L, Mean Corpuscular Volume 111H, Mean Corpuscular Hemoglobin 35.4H, Mean Corpuscular Hemoglobin Concent 31.9L, Red Cell Distribution Width 14.2, Platelet Count 184, Mean Platelet Volume 5.8L, Neutrophils (%) (Auto) , Lymphocytes (%) (Auto) , Monocytes (%) (Auto) , Eosinophils (%) (Auto) , Basophils (%) (Auto) , Neutrophils % (Manual) [Pending], Lymphocytes % (Manual) [Pending], Platelet Estimate [Pending], Platelet Morphology [Pending], Sodium Level 137, Potassium Level 4.3, Chloride Level 104, Carbon Dioxide Level 29, Anion Gap 4L, Blood Urea Nitrogen 13, Creatinine 0.7, Estimat Glomerular Filtration Rate > 60, Glucose Level 78, Calcium Level 8.6, Total Bilirubin 0.4, Aspartate Amino Transf ( AST/SGOT) 20, Alanine Aminotransferase (ALT/SGPT) 13, Alkaline Phosphatase 55, Total Protein 6.1L, Albumin 3.3L, Globulin 2.8, Albumin/Globulin Ratio 1.2, Amylase Level 56, Lipase 91 Height (Feet): 5 Height (Inches): 3.00 Weight (Pounds): 88 General Appearance: alert EENT: normal ENT inspection Neck: supple Cardiovascular: normal rate Respiratory/Chest: decreased breath sounds Abdomen: normal bowel sounds, non tender, soft Extremities: non-tender Assessment/Plan Assessment/Plan: 1. History of cervical cancer. 2. Hypertension. 3. Hypercholesterolemia. 4. CHF. 5. Constipation. 6. History of bowel obstruction, requiring surgery. 7. History of pancreatitis. Creon fu stool studies pain control monitor labs hold GI procedures for now Ruben Salazar MD Jun 02, 2020 09:07
[2020-06-02] MEDS: Heparin 5000 units/ml inj SUBQ SCH ×2 (09:11→21:16)
[2020-06-02 12:00] VITALS: BP 125/75
--- NOTE | 2020-06-02 13:01 | Pulmonology Progress Note ---
Subjective ROS Limited/Unobtainable: No Constitutional: Reports: no symptoms Allergies: Coded Allergies: HYDROCODONE (Verified Allergy, Severe, 06/23/13) LORAZEPAM (Verified Allergy, Severe, Hives, 02/13/14) RASH/HIVES MORPHINE (Unverified Allergy, Severe, 01/14/19) Not true allergy; tolerated Dilaudid in past. Extensive opiate hx PROCHLORPERAZINE (Verified Allergy, Severe, 06/23/13) VANCOMYCIN (Unverified Allergy, Mild, Itching, 03/06/14) Objective Last 24 Hour Vital Signs Date Time Temp Pulse Resp B/P (MAP) Pulse Ox O2 Delivery O2 Flow Rate FiO2 06/02/20 12:25 97.7 06/02/20 12:00 97.7 71 18 125/75 (92) 95 06/02/20 09:32 97.7 06/02/20 09:00 Room Air 06/02/20 08:00 97.7 71 18 124/70 (88) 99 06/02/20 04:00 97.1 71 20 122/66 (84) 99 06/02/20 00:00 97.4 64 20 115/65 (82) 99 06/01/20 21:00 Room Air 06/01/20 20:00 98.6 90 22 137/79 (98) 99 06/01/20 16:53 98.9 06/01/20 16:00 98.9 77 19 137/79 (98) 99 06/01/20 13:58 97.7 Intake and Output 06/01/20 06/02/20 19:00 07:00 Intake Total 1460 ml 360 ml Balance 1460 ml 360 ml Intake Oral 1460 ml 360 ml # Voids 3 1 # Bowel Movements 1 1 General Appearance: cachetic HEENT: normocephalic, atraumatic Respiratory: chest wall non-tender, lungs clear, normal breath sounds Breasts: no masses Cardiovascular: normal peripheral pulses, normal rate Abdomen: normal bowel sounds, soft, non tender, no organomegaly Genitourinary: normal external genitalia Extremities: no cyanosis Skin: no rash 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 Laboratory Tests 06/02/20 03:05: Urine Opiates Screen PositiveH, Urine Barbiturates Screen Negative, Phencyclidine (PCP) Screen Negative, Urine Amphetamines Screen Negative, Urine Benzodiazepines Screen Negative, Urine Cocaine Screen Negative, Urine Marijuana (THC) Screen Negative 06/02/20 05:35: White Blood Count 3.3L, Red Blood Count 3.24L, Hemoglobin 11.4L, Hematocrit 35.9L, Mean Corpuscular Volume 111H, Mean Corpuscular Hemoglobin 35.4H, Mean Corpuscular Hemoglobin Concent 31.9L, Red Cell Distribution Width 14.2, Platelet Count 184, Mean Platelet Volume 5.8L, Neutrophils (%) (Auto) , Lymphocytes (%) (Auto) , Monocytes (%) (Auto) , Eosinophils (%) (Auto) , Basophils (%) (Auto) , Differential Total Cells Counted 100, Neutrophils % (Manual) 51, Lymphocytes % (Manual) 42, Monocytes % (Manual) 7, Eosinophils % (Manual) 0, Basophils % (Manual) 0, Band Neutrophils 0, Platelet Estimate Adequate, Platelet Morphology Normal, Hypochromasia 1+, Anisocytosis 1+, Macrocytosis 1+, Sodium Level 137, Potassium Level 4.3, Chloride Level 104, Carbon Dioxide Level 29, Anion Gap 4L, Blood Urea Nitrogen 13, Creatinine 0.7, Estimat Glomerular Filtration Rate > 60, Glucose Level 78, Calcium Level 8.6, Total Bilirubin 0.4, Aspartate Amino Transf (AST/SGOT) 20, Alanine Aminotransferase (ALT/SGPT) 13, Alkaline Phosphatase 55, Total Protein 6.1L, Albumin 3.3L, Globulin 2.8, Albumin/Globulin Ratio 1.2, Amylase Level 56, Lipase 91 Current Medications Medications (Trade) Dose Ordered Sig/Haley Route PRN Reason Start Time Stop Time Status Last Admin Dose Admin Acetaminophen (Tylenol) 650 mg Q4H PRN ORAL fever 05/31/20 18:45 06/30/20 18:44 Albuterol/ Ipratropium (Albuterol/ Ipratropium) 3 ml Q4H PRN HHN Shortness of Breath 06/01/20 08:30 06/06/20 08:29 Amylase/Lipase/ Protease (Rosa SARGENT 36,000 units cap) 1 ea TIDPRN PRN ORAL give if pt eats snacks 06/01/20 15:00 08/30/20 14:59 Amylase/Lipase/ Protease (Rosa SARGENT 36,000 units cap) 1 ea TIWM ORAL 06/01/20 17:00 08/30/20 16:59 06/02/20 11:55 Dextrose (Dextrose 50%) 25 ml Q30M PRN IV Hypoglycemia 05/31/20 18:45 08/29/20 18:44 Dextrose (Dextrose 50%) 50 ml Q30M PRN IV Hypoglycemia 05/31/20 18:45 08/29/20 18:44 Diphenhydramine HCl (Benadryl) 50 mg Q6H PRN IVP Itching 05/31/20 18:45 06/30/20 18:44 06/02/20 09:02 Heparin Sodium (Porcine) (Heparin 5000 units/ml) 5,000 units EVERY 12 HOURS SUBQ 05/31/20 21:00 07/15/20 20:59 06/02/20 09:11 Hydromorphone HCl (Dilaudid) 2 mg Q3H PRN IVP pain >7 05/31/20 18:45 06/07/20 18:44 06/02/20 11:55 Loperamide HCl (Imodium) 2 mg Q4H PRN ORAL Diarrhea 06/01/20 11:00 07/01/20 10:59 06/01/20 20:44 Ondansetron HCl (Zofran) 4 mg Q6H PRN IVP Nausea & Vomiting 05/31/20 18:45 06/30/20 18:44 06/02/20 09:02 Zolpidem Tartrate (Ambien) 5 mg HSPRN PRN ORAL Insomnia 05/31/20 18:45 06/07/20 18:44 06/01/20 20:44 Assessment/Plan Problems: (1) Intractable abdominal pain (2) GI bleed (3) Diarrhea (4) COPD (chronic obstructive pulmonary disease) (5) GERD (gastroesophageal reflux disease) (6) Severe protein-calorie malnutrition (7) CAD (coronary artery disease) (8) Chronic pancreatitis (9) History of bilateral hip replacements (10) HTN (hypertension) Assessment/Plan f/u GI recommendations IV fluids H2 nina watch h/h prbc prn respiratory treatment symptomatic treatment dvt prophylaxis. Lorraine Arndt MD Jun 02, 2020 13:01
[2020-06-02 16:00] VITALS: BP 111/77
[2020-06-02 20:00] VITALS: BP 117/72
[2020-06-03] VITALS: BP 105/64
[2020-06-03] MEDS: DiphenhydrAMINE 50mg/ml Inj IVP PRN ×4 (03:05→21:35)
[2020-06-03 04:00] VITALS: BP 109/65
[2020-06-03 06:10] LABS: ALANINE AMINOTRANSFERASE 10 U/L (12-78); ALBUMIN 3.3 G/DL (3.4-5.0); ALBUMIN/GLOBULIN RATIO 1.3 (1.0-2.7); ALKALINE PHOSPHATASE 56 U/L (46-116); ANION GAP 3 mmol/L (5-15); ASPARTATE AMINO TRANSFERASE 18 U/L (15-37); BILIRUBIN,TOTAL 0.3 MG/DL (0.2-1.0); BLOOD UREA NITROGEN 13 mg/dL (7-18); CARBON DIOXIDE 32 MMOL/L (21-32); CHLORIDE 101 MMOL/L (98-107); CREATININE 0.8 MG/DL (0.55-1.30); SODIUM 136 MMOL/L (136-145)
[2020-06-03 06:11] LABS: PHOSPHORUS 4.7 MG/DL (2.5-4.9)
[2020-06-03] MEDS: Creon DR 36,000 units cap ORAL SCH ×3 (06:20→17:10)
[2020-06-03 06:29] LABS: BASOPHILS % (AUTO) 1.6 % (0.0-2.0); EOSINOPHILS % (AUTO) 1.4 % (0.0-3.0); HEMATOCRIT 35.4 % (37.0-47.0); HEMOGLOBIN 11.2 G/DL (12.0-16.0); LYMPHOCYTES % (AUTO) 34.8 % (20.0-45.0); MEAN CORPUSCULAR VOLUME 110 FL (80-99); MONOCYTES % (AUTO) 10.6 % (1.0-10.0); NEUTROPHILS % (AUTO) 51.5 % (45.0-75.0); PLATELET COUNT 201 K/UL (150-450); RED BLOOD COUNT 3.22 M/UL (4.20-5.40); RED CELL DISTRIBUTION WIDTH 14.3 % (11.6-14.8)
[2020-06-03 08:00] VITALS: BP 98/71
--- NOTE | 2020-06-03 08:23 | General Progress Note ---
Subjective ROS Limited/Unobtainable: Yes Allergies: Coded Allergies: HYDROCODONE (Verified Allergy, Severe, 06/23/13) LORAZEPAM (Verified Allergy, Severe, Hives, 02/13/14) RASH/HIVES MORPHINE (Unverified Allergy, Severe, 01/14/19) Not true allergy; tolerated Dilaudid in past. Extensive opiate hx PROCHLORPERAZINE (Verified Allergy, Severe, 06/23/13) VANCOMYCIN (Unverified Allergy, Mild, Itching, 03/06/14) Objective Last 24 Hour Vital Signs Date Time Temp Pulse Resp B/P (MAP) Pulse Ox O2 Delivery O2 Flow Rate FiO2 06/03/20 06:50 98.1 06/03/20 04:00 98.1 78 18 109/65 (80) 99 06/03/20 03:35 98.9 06/03/20 00:00 97.3 89 18 105/64 (78) 98 06/02/20 21:45 98.9 06/02/20 21:00 Room Air 06/02/20 20:48 84 18 100 Room Air 21 86 18 98 06/02/20 20:00 97.5 73 18 117/72 (87) 97 06/02/20 18:26 98.9 06/02/20 16:00 98.9 83 18 111/77 (88) 98 06/02/20 15:24 97.7 06/02/20 12:25 97.7 06/02/20 12:00 97.7 71 18 125/75 (92) 95 06/02/20 09:32 97.7 06/02/20 09:00 Room Air Intake and Output 06/02/20 06/03/20 19:00 07:00 Intake Total 500 ml Balance 500 ml Intake Oral 500 ml # Voids 3 4 Laboratory Tests 06/03/20 05:20: White Blood Count 4.0L, Red Blood Count 3.22L, Hemoglobin 11.2L, Hematocrit 35.4L, Mean Corpuscular Volume 110H, Mean Corpuscular Hemoglobin 34.8H, Mean Corpuscular Hemoglobin Concent 31.6L, Red Cell Distribution Width 14.3, Platelet Count 201, Mean Platelet Volume 5.9L, Neutrophils (%) (Auto) 51.5, Lymphocytes (%) (Auto) 34.8, Monocytes (%) (Auto) 10.6H, Eosinophils (%) (Auto) 1.4, Basophils (%) (Auto) 1.6, Erythrocyte Sedimentation Rate 42H, Sodium Level 136, Potassium Level 5.0, Chloride Level 101, Carbon Dioxide Level 32, Anion Gap 3L, Blood Urea Nitrogen 13, Creatinine 0.8, Estimat Glomerular Filtration Rate > 60, Glucose Level 98, Calcium Level 9.0, Phosphorus Level 4.7, Magnesium Level 2.1, Total Bilirubin 0.3, Aspartate Amino Transf (AST/SGOT) 18, Alanine Aminotransferase (ALT/SGPT) 10L, Alkaline Phosphatase 56, C-Reactive Protein, Quantitative 2.9H, Total Protein 5.9L, Albumin 3.3L, Globulin 2.6, Albumin/Globulin Ratio 1.3 Height (Feet): 5 Height (Inches): 3.00 Weight (Pounds): 88 General Appearance: alert EENT: normal ENT inspection Neck: supple Cardiovascular: normal rate Respiratory/Chest: decreased breath sounds Abdomen: soft, hypoactive bowel sounds, tender Extremities: non-tender Assessment/Plan Assessment/Plan: 1. History of cervical cancer. 2. Hypertension. 3. Hypercholesterolemia. 4. CHF. 5. Constipation. 6. History of bowel obstruction, requiring surgery. 7. History of pancreatitis. Creon fu stool studies pain control monitor labs hold GI procedures for now no diarrhea since admission consider adding back laxatives Ruben Salazar MD Jun 03, 2020 08:23
[2020-06-03] MEDS: Heparin 5000 units/ml inj SUBQ SCH ×2 (09:31→21:46)
--- NOTE | 2020-06-03 10:57 | Pulmonology Progress Note ---
Subjective ROS Limited/Unobtainable: Yes Constitutional: Reports: no symptoms Allergies: Coded Allergies: HYDROCODONE (Verified Allergy, Severe, 06/23/13) LORAZEPAM (Verified Allergy, Severe, Hives, 02/13/14) RASH/HIVES MORPHINE (Unverified Allergy, Severe, 01/14/19) Not true allergy; tolerated Dilaudid in past. Extensive opiate hx PROCHLORPERAZINE (Verified Allergy, Severe, 06/23/13) VANCOMYCIN (Unverified Allergy, Mild, Itching, 03/06/14) Objective Last 24 Hour Vital Signs Date Time Temp Pulse Resp B/P (MAP) Pulse Ox O2 Delivery O2 Flow Rate FiO2 06/03/20 09:00 Room Air 06/03/20 08:00 98.1 91 20 98/71 (80) 100 06/03/20 06:50 98.1 06/03/20 04:00 98.1 78 18 109/65 (80) 99 06/03/20 03:35 98.9 06/03/20 00:00 97.3 89 18 105/64 (78) 98 06/02/20 21:45 98.9 06/02/20 21:00 Room Air 06/02/20 20:48 84 18 100 Room Air 21 86 18 98 06/02/20 20:00 97.5 73 18 117/72 (87) 97 06/02/20 18:26 98.9 06/02/20 16:00 98.9 83 18 111/77 (88) 98 06/02/20 15:24 97.7 06/02/20 12:25 97.7 06/02/20 12:00 97.7 71 18 125/75 (92) 95 Intake and Output 06/02/20 06/03/20 19:00 07:00 Intake Total 500 ml Balance 500 ml Intake Oral 500 ml # Voids 3 4 General Appearance: cachetic HEENT: normocephalic, atraumatic Respiratory: chest wall non-tender, lungs clear, normal breath sounds Breasts: no masses Cardiovascular: normal peripheral pulses, normal rate Abdomen: normal bowel sounds, soft, non tender, no organomegaly Genitourinary: normal external genitalia Extremities: no cyanosis Skin: no rash 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 Microbiology Date/Time Source Procedure Growth Status 06/02/20 18:50 Nasopharynx SARS-CoV-2 RdRp Gene Assay - Final Complete Laboratory Tests 06/03/20 05:20: White Blood Count 4.0L, Red Blood Count 3.22L, Hemoglobin 11.2L, Hematocrit 35.4L, Mean Corpuscular Volume 110H, Mean Corpuscular Hemoglobin 34.8H, Mean Corpuscular Hemoglobin Concent 31.6L, Red Cell Distribution Width 14.3, Platelet Count 201, Mean Platelet Volume 5.9L, Neutrophils (%) (Auto) 51.5, Lymphocytes (%) (Auto) 34.8, Monocytes (%) (Auto) 10.6H, Eosinophils (%) (Auto) 1.4, Basophils (%) (Auto) 1.6, Erythrocyte Sedimentation Rate 42H, Sodium Level 136, Potassium Level 5.0, Chloride Level 101, Carbon Dioxide Level 32, Anion Gap 3L, Blood Urea Nitrogen 13, Creatinine 0.8, Estimat Glomerular Filtration Rate > 60, Glucose Level 98, Calcium Level 9.0, Phosphorus Level 4.7, Magnesium Level 2.1, Total Bilirubin 0.3, Aspartate Amino Transf (AST/SGOT) 18, Alanine Aminotransferase (ALT/SGPT) 10L, Alkaline Phosphatase 56, C-Reactive Protein, Quantitative 2.9H, Total Protein 5.9L, Albumin 3.3L, Globulin 2.6, Albumin/Globulin Ratio 1.3 Current Medications Medications (Trade) Dose Ordered Sig/Haley Route PRN Reason Start Time Stop Time Status Last Admin Dose Admin Acetaminophen (Tylenol) 650 mg Q4H PRN ORAL fever 05/31/20 18:45 06/30/20 18:44 Albuterol/ Ipratropium (Albuterol/ Ipratropium) 3 ml Q4H PRN HHN Shortness of Breath 06/01/20 08:30 06/06/20 08:29 06/02/20 20:48 Amylase/Lipase/ Protease (Rosa SARGENT 36,000 units cap) 1 ea TIDPRN PRN ORAL give if pt eats snacks 06/01/20 15:00 08/30/20 14:59 Amylase/Lipase/ Protease (Rosa SARGENT 36,000 units cap) 1 ea TIWM ORAL 06/01/20 17:00 08/30/20 16:59 06/03/20 06:20 Dextrose (Dextrose 50%) 25 ml Q30M PRN IV Hypoglycemia 05/31/20 18:45 08/29/20 18:44 Dextrose (Dextrose 50%) 50 ml Q30M PRN IV Hypoglycemia 05/31/20 18:45 08/29/20 18:44 Diphenhydramine HCl (Benadryl) 50 mg Q6H PRN IVP Itching 05/31/20 18:45 06/30/20 18:44 06/03/20 09:22 Heparin Sodium (Porcine) (Heparin 5000 units/ml) 5,000 units EVERY 12 HOURS SUBQ 05/31/20 21:00 07/15/20 20:59 06/03/20 09:31 Hydromorphone HCl (Dilaudid) 2 mg Q3H PRN IVP pain >7 05/31/20 18:45 06/07/20 18:44 06/03/20 09:22 Loperamide HCl (Imodium) 2 mg Q4H PRN ORAL Diarrhea 06/01/20 11:00 07/01/20 10:59 06/01/20 20:44 Ondansetron HCl (Zofran) 4 mg Q6H PRN IVP Nausea & Vomiting 05/31/20 18:45 06/30/20 18:44 06/03/20 09:22 Zolpidem Tartrate (Ambien) 5 mg HSPRN PRN ORAL Insomnia 05/31/20 18:45 06/07/20 18:44 06/01/20 20:44 Assessment/Plan Problems: (1) Intractable abdominal pain (2) GI bleed (3) Diarrhea (4) COPD (chronic obstructive pulmonary disease) (5) GERD (gastroesophageal reflux disease) (6) Severe protein-calorie malnutrition (7) CAD (coronary artery disease) (8) Chronic pancreatitis (9) History of bilateral hip replacements (10) HTN (hypertension) Assessment/Plan she wants some IV fluids f/u GI recommendations IV fluids H2 nina watch h/h prbc prn respiratory treatment symptomatic treatment dvt prophylaxis. Lorraine Arntd MD Jun 03, 2020 10:57
[2020-06-03 12:00] VITALS: BP 97/63
[2020-06-03] MEDS: D5 1/2NS w/KCL 10meq 1,000 ML IV SCH ×2 (12:30→15:48)
[2020-06-03 16:00] VITALS: BP 105/85
[2020-06-03 20:00] VITALS: BP 103/61
[2020-06-04] VITALS: BP 131/82
[2020-06-04] MEDS: DiphenhydrAMINE 50mg/ml Inj IVP PRN ×3 (03:49→17:37)
[2020-06-04 04:00] VITALS: BP 105/71
[2020-06-04 06:50] LABS: HEMATOCRIT 34.3 % (37.0-47.0); HEMOGLOBIN 10.8 G/DL (12.0-16.0); MEAN CORPUSCULAR VOLUME 111 FL (80-99); PLATELET COUNT 215 K/UL (150-450); RED BLOOD COUNT 3.08 M/UL (4.20-5.40); RED CELL DISTRIBUTION WIDTH 13.9 % (11.6-14.8); WHITE BLOOD COUNT 5.2 K/UL (4.8-10.8)
[2020-06-04] MEDS: Creon DR 36,000 units cap ORAL SCH ×3 (07:30→17:37)
[2020-06-04 07:36] LABS: ANION GAP 6 mmol/L (5-15); BLOOD UREA NITROGEN 21 mg/dL (7-18); CALCIUM 9.5 MG/DL (8.5-10.1); CARBON DIOXIDE 32 MMOL/L (21-32); CHLORIDE 99 MMOL/L (98-107); CREATININE 0.9 MG/DL (0.55-1.30); POTASSIUM 5.3 MMOL/L (3.5-5.1); SODIUM 137 MMOL/L (136-145)
--- NOTE | 2020-06-04 07:56 | General Progress Note ---
Subjective ROS Limited/Unobtainable: Yes Allergies: Coded Allergies: HYDROCODONE (Verified Allergy, Severe, 06/23/13) LORAZEPAM (Verified Allergy, Severe, Hives, 02/13/14) RASH/HIVES MORPHINE (Unverified Allergy, Severe, 01/14/19) Not true allergy; tolerated Dilaudid in past. Extensive opiate hx PROCHLORPERAZINE (Verified Allergy, Severe, 06/23/13) VANCOMYCIN (Unverified Allergy, Mild, Itching, 03/06/14) Objective Last 24 Hour Vital Signs Date Time Temp Pulse Resp B/P (MAP) Pulse Ox O2 Delivery O2 Flow Rate FiO2 06/04/20 04:00 98.6 79 18 105/71 (82) 95 06/04/20 00:00 98.9 94 18 131/82 (98) 95 06/03/20 21:00 Room Air 06/03/20 20:00 96 20 95 Room Air 21 06/03/20 20:00 99.5 85 18 103/61 (75) 95 06/03/20 16:00 98.6 95 17 105/85 (92) 98 06/03/20 12:00 97.9 70 19 97/63 (74) 99 06/03/20 09:00 Room Air 06/03/20 08:00 98.1 91 20 98/71 (80) 100 Intake and Output 06/03/20 06/04/20 19:00 07:00 Intake Total 840 ml 770 ml Output Total 600 ml Balance 840 ml 170 ml Intake Oral 840 ml 770 ml Output Urine Total 600 ml # Voids 4 6 # Bowel Movements 4 Laboratory Tests 06/04/20 06:15: White Blood Count 5.2, Red Blood Count 3.08L, Hemoglobin 10.8L, Hematocrit 34.3L , Mean Corpuscular Volume 111H, Mean Corpuscular Hemoglobin 35.1H, Mean Corpuscular Hemoglobin Concent 31.5L, Red Cell Distribution Width 13.9, Platelet Count 215, Mean Platelet Volume 5.6L, Neutrophils (%) (Auto) , Lymphocytes (%) (Auto) , Monocytes (%) (Auto) , Eosinophils (%) (Auto) , Basophils (%) (Auto) , Neutrophils % (Manual) [Pending], Lymphocytes % (Manual) [Pending], Platelet Estimate [Pending], Platelet Morphology [Pending], Sodium Level 137, Potassium Level 5.3H, Chloride Level 99, Carbon Dioxide Level 32, Anion Gap 6, Blood Urea Nitrogen 21H, Creatinine 0.9, Estimat Glomerular Filtration Rate > 60, Glucose Level 95, Calcium Level 9.5 Height (Feet): 5 Height (Inches): 3.00 Weight (Pounds): 88 General Appearance: alert EENT: normal ENT inspection Neck: supple Cardiovascular: normal rate Respiratory/Chest: decreased breath sounds Abdomen: hypoactive bowel sounds Extremities: non-tender Assessment/Plan Assessment/Plan: 1. History of cervical cancer. 2. Hypertension. 3. Hypercholesterolemia. 4. CHF. 5. Constipation. 6. History of bowel obstruction, requiring surgery. 7. History of pancreatitis. Creon fu stool studies pain control monitor labs hold GI procedures for now no diarrhea since admission add colace and miralax Ruben Salazar MD Jun 04, 2020 07:56
[2020-06-04 08:00] VITALS: BP 123/70
[2020-06-04] MEDS: Docusate 100mg cap ORAL SCH ×2 (08:34→17:37)
[2020-06-04] MEDS: Heparin 5000 units/ml inj SUBQ SCH ×2 (08:39→21:00)
--- NOTE | 2020-06-04 10:19 | Pulmonology Progress Note ---
Subjective ROS Limited/Unobtainable: Yes Constitutional: Reports: no symptoms Allergies: Coded Allergies: HYDROCODONE (Verified Allergy, Severe, 06/23/13) LORAZEPAM (Verified Allergy, Severe, Hives, 02/13/14) RASH/HIVES MORPHINE (Unverified Allergy, Severe, 01/14/19) Not true allergy; tolerated Dilaudid in past. Extensive opiate hx PROCHLORPERAZINE (Verified Allergy, Severe, 06/23/13) VANCOMYCIN (Unverified Allergy, Mild, Itching, 03/06/14) Objective Last 24 Hour Vital Signs Date Time Temp Pulse Resp B/P (MAP) Pulse Ox O2 Delivery O2 Flow Rate FiO2 06/04/20 08:00 99.0 79 18 123/70 (87) 98 06/04/20 07:30 86 20 96 Room Air 21 06/04/20 04:00 98.6 79 18 105/71 (82) 95 06/04/20 00:00 98.9 94 18 131/82 (98) 95 06/03/20 21:00 Room Air 06/03/20 20:00 96 20 95 Room Air 21 06/03/20 20:00 99.5 85 18 103/61 (75) 95 06/03/20 16:00 98.6 95 17 105/85 (92) 98 06/03/20 12:00 97.9 70 19 97/63 (74) 99 Intake and Output 06/03/20 06/04/20 19:00 07:00 Intake Total 840 ml 770 ml Output Total 600 ml Balance 840 ml 170 ml Intake Oral 840 ml 770 ml Output Urine Total 600 ml # Voids 4 6 # Bowel Movements 4 General Appearance: cachetic HEENT: normocephalic, atraumatic Respiratory: chest wall non-tender, lungs clear, normal breath sounds Breasts: no masses Cardiovascular: normal peripheral pulses, normal rate Abdomen: normal bowel sounds, soft, non tender, no organomegaly Genitourinary: normal external genitalia Extremities: no cyanosis Skin: no rash 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 Microbiology Date/Time Source Procedure Growth Status 06/02/20 18:50 Nasopharynx SARS-CoV-2 RdRp Gene Assay - Final Complete Laboratory Tests 06/04/20 06:15: White Blood Count 5.2, Red Blood Count 3.08L, Hemoglobin 10.8L, Hematocrit 34.3L , Mean Corpuscular Volume 111H, Mean Corpuscular Hemoglobin 35.1H, Mean Corpuscular Hemoglobin Concent 31.5L, Red Cell Distribution Width 13.9, Platelet Count 215, Mean Platelet Volume 5.6L, Neutrophils (%) (Auto) , Lymphocytes (%) (Auto) , Monocytes (%) (Auto) , Eosinophils (%) (Auto) , Basophils (%) (Auto) , Neutrophils % (Manual) [Pending], Lymphocytes % (Manual) [Pending], Platelet Estimate [Pending], Platelet Morphology [Pending], Sodium Level 137, Potassium Level 5.3H, Chloride Level 99, Carbon Dioxide Level 32, Anion Gap 6, Blood Urea Nitrogen 21H, Creatinine 0.9, Estimat Glomerular Filtration Rate > 60, Glucose Level 95, Calcium Level 9.5 Current Medications Medications (Trade) Dose Ordered Sig/Haley Route PRN Reason Start Time Stop Time Status Last Admin Dose Admin Acetaminophen (Tylenol) 650 mg Q4H PRN ORAL fever 05/31/20 18:45 06/30/20 18:44 Albuterol/ Ipratropium (Albuterol/ Ipratropium) 3 ml Q4H PRN HHN Shortness of Breath 06/01/20 08:30 06/06/20 08:29 06/02/20 20:48 Amylase/Lipase/ Protease (Rosa SARGENT 36,000 units cap) 1 ea TIDPRN PRN ORAL give if pt eats snacks 06/01/20 15:00 08/30/20 14:59 Amylase/Lipase/ Protease (Rosa SARGENT 36,000 units cap) 1 ea TIWM ORAL 06/01/20 17:00 08/30/20 16:59 06/04/20 07:30 Dextrose (Dextrose 50%) 25 ml Q30M PRN IV Hypoglycemia 05/31/20 18:45 08/29/20 18:44 Dextrose (Dextrose 50%) 50 ml Q30M PRN IV Hypoglycemia 05/31/20 18:45 08/29/20 18:44 Dextrose/Sodium Chloride 1,000 ml @ 75 mls/hr [id number] IV 06/04/20 10:30 07/04/20 10:29 UNV Diphenhydramine HCl (Benadryl) 50 mg Q6H PRN IVP Itching 05/31/20 18:45 06/30/20 18:44 06/04/20 10:04 Docusate Sodium (Colace) 100 mg TWICE A DAY ORAL 06/04/20 09:00 07/04/20 08:59 06/04/20 08:34 Heparin Sodium (Porcine) (Heparin 5000 units/ml) 5,000 units EVERY 12 HOURS SUBQ 05/31/20 21:00 07/15/20 20:59 06/04/20 08:39 Hydromorphone HCl (Dilaudid) 2 mg Q3H PRN IVP pain >7 05/31/20 18:45 06/07/20 18:44 06/04/20 10:04 Loperamide HCl (Imodium) 2 mg Q4H PRN ORAL Diarrhea 06/01/20 11:00 07/01/20 10:59 06/01/20 20:44 Ondansetron HCl (Zofran) 4 mg Q6H PRN IVP Nausea & Vomiting 05/31/20 18:45 06/30/20 18:44 06/04/20 10:04 Polyethylene Glycol (Miralax) 17 gm BEDTIME ORAL 06/04/20 21:00 07/04/20 20:59 Zolpidem Tartrate (Ambien) 5 mg HSPRN PRN ORAL Insomnia 05/31/20 18:45 06/07/20 18:44 06/01/20 20:44 Assessment/Plan Problems: (1) Intractable abdominal pain (2) GI bleed (3) Diarrhea (4) COPD (chronic obstructive pulmonary disease) (5) GERD (gastroesophageal reflux disease) (6) Severe protein-calorie malnutrition (7) CAD (coronary artery disease) (8) Chronic pancreatitis (9) History of bilateral hip replacements (10) HTN (hypertension) Assessment/Plan f/u GI recommendations, stool softeners were added IV fluids H2 nina watch h/h prbc prn respiratory treatment symptomatic treatment dvt prophylaxis. Lorraine Arndt MD Jun 04, 2020 10:19
--- NOTE | 2020-06-04 11:11 | Consultation ---
History of Present Illness General Date patient seen: Jun 04, 2020 Reason for Hospitalization: Chest Pain Present Illness HPI This is a very pleasant 61-year-old female multimedical comorbidities who presented to [facility] complaining of chest pain was admitted further care management or work-up since his states she has abdominal distention and pain feels very uncomfortable and is requiring more pain medication. Surgery called to evaluate and assist with care. Patient seen, patient evaluated, chart reviewed. Patient states that abdominal pain is cramping bloating in nature feeling she is passing flatus and having small bowel movements. She does want to eat much because of her abdominal pain and her chest pain which radiated down to her arm. She wants more pain medication states that she is not been receiving her Dilaudid. States she has not been to a different hospital institution recently and comes [facility] only. Furthermore states she may have seen some blood in her stool but it is not had any recently Allergies: Coded Allergies: HYDROCODONE (Verified Allergy, Severe, 06/23/13) LORAZEPAM (Verified Allergy, Severe, Hives, 02/13/14) RASH/HIVES MORPHINE (Unverified Allergy, Severe, 01/14/19) Not true allergy; tolerated Dilaudid in past. Extensive opiate hx PROCHLORPERAZINE (Verified Allergy, Severe, 06/23/13) VANCOMYCIN (Unverified Allergy, Mild, Itching, 03/06/14) COVID-19 Screening Contact w/high risk pt: No Experienced COVID-19 symptoms?: No Medication History Unable to Obtain Active Prescriptions or Reported Meds Patient History History Provided By: Patient, Medical Record, PMD Healthcare decision maker Resuscitation status Advanced Directive on File Past Medical/Surgical History Past Medical/Surgical History: (1) Colitis (2) Weakness (3) Diarrhea (4) Intractable abdominal pain (5) Sepsis due to Enterobacter species (6) Chronic pancreatitis (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 difficile colitis (11) CAD (coronary artery disease) (12) GERD (gastroesophageal reflux disease) (13) HTN (hypertension) (14) ACS (acute coronary syndrome) (15) Severe protein-calorie malnutrition (16) Gastroparesis (17) COPD (chronic obstructive pulmonary disease) (18) COPD exacerbation (19) Macrocytic anemia (20) Acute bronchitis (21) Community acquired pneumonia (22) Shingles Review of Systems Review of Symptoms General ROS: no weight loss or fever Psychological ROS: no depression or mood changes, no memory loss Ophthalmic ROS: no visual changes or eye irritation ENT ROS: no nasal congestion, hearing loss, dizziness Allergy and Immunology ROS: no allergic symptoms or urticaria Hematological and Lymphatic ROS: no swollen glands, unusual bleeding or bruising Endocrine ROS: no polyuria, polydipsia, weight changes, temperature intolerance Respiratory ROS: no cough, shortness of breath, or wheezing Cardiovascular ROS: + chest pain or dyspnea on exertion Gastrointestinal ROS: + abdominal pain, bright red blood in stool. Musculoskeletal ROS: no myalgias or arthralgias Neurological ROS: no TIA or stroke symptoms Dermatological ROS: no new or changing skin lesions, rashes or pruritis Physical Exam Physical Exam General appearance: alert, cooperative, no distress, appears stated age Head: Normocephalic, without obvious abnormality, atraumatic Eyes: conjunctivae/corneas clear. PERRL, EOM's intact. Fundi benign Throat: Lips, mucosa, and tongue normal. Teeth and gums normal Neck: supple, symmetrical, trachea midline, no adenopathy, thyroid: not enlarged, symmetric, no tenderness/mass/nodules, no carotid bruit and no JVD Lungs: clear to auscultation bilaterally Heart: regular rate and rhythm, S1, S2 normal, no murmur, click, rub or gallop Abdomen: soft, non-tender. Bowel sounds normal. No masses, no organomegaly Extremities: extremities normal, atraumatic, no cyanosis or edema Pulses: 2+ and symmetric Skin: Skin color, texture, turgor normal. No rashes or lesions Neurologic: Grossly normal Last 24 Hour Vital Signs Date Time Temp Pulse Resp B/P (MAP) Pulse Ox O2 Delivery O2 Flow Rate FiO2 06/04/20 08:00 99.0 79 18 123/70 (87) 98 06/04/20 07:30 86 20 96 Room Air 21 06/04/20 04:00 98.6 79 18 105/71 (82) 95 06/04/20 00:00 98.9 94 18 131/82 (98) 95 06/03/20 21:00 Room Air 06/03/20 20:00 96 20 95 Room Air 21 06/03/20 20:00 99.5 85 18 103/61 (75) 95 06/03/20 16:00 98.6 95 17 105/85 (92) 98 06/03/20 12:00 97.9 70 19 97/63 (74) 99 Intake and Output 06/03/20 06/04/20 19:00 07:00 Intake Total 840 ml 770 ml Output Total 600 ml Balance 840 ml 170 ml Intake Oral 840 ml 770 ml Output Urine Total 600 ml # Voids 4 6 # Bowel Movements 4 Laboratory Tests Test 06/04/20 06:15 White Blood Count 5.2 K/UL (4.8-10.8) Red Blood Count 3.08 M/UL (4.20-5.40) L Hemoglobin 10.8 G/DL (12.0-16.0) L Hematocrit 34.3 % (37.0-47.0) L Mean Corpuscular Volume 111 FL (80-99) H Mean Corpuscular Hemoglobin 35.1 PG (27.0-31.0) H Mean Corpuscular Hemoglobin Concent 31.5 G/DL (32.0-36.0) L Red Cell Distribution Width 13.9 % (11.6-14.8) Platelet Count 215 K/UL (150-450) Mean Platelet Volume 5.6 FL (6.5-10.1) L Neutrophils (%) (Auto) % (45.0-75.0) Lymphocytes (%) (Auto) % (20.0-45.0) Monocytes (%) (Auto) % (1.0-10.0) Eosinophils (%) (Auto) % (0.0-3.0) Basophils (%) (Auto) % (0.0-2.0) Differential Total Cells Counted 100 Neutrophils % (Manual) 64 % (45-75) Lymphocytes % (Manual) 23 % (20-45) Monocytes % (Manual) 12 % (1-10) H Eosinophils % (Manual) 1 % (0-3) Basophils % (Manual) 0 % (0-2) Band Neutrophils 0 % (0-8) Platelet Estimate Adequate Platelet Morphology Normal Hypochromasia 1+ Macrocytosis 2+ Stomatocytes Occasional Sodium Level 137 MMOL/L (136-145) Potassium Level 5.3 MMOL/L (3.5-5.1) H Chloride Level 99 MMOL/L (98-107) Carbon Dioxide Level 32 MMOL/L (21-32) Anion Gap 6 mmol/L (5-15) Blood Urea Nitrogen 21 mg/dL (7-18) H Creatinine 0.9 MG/DL (0.55-1.30) Estimat Glomerular Filtration Rate > 60 mL/min (>60) Glucose Level 95 MG/DL (74-106) Calcium Level 9.5 MG/DL (8.5-10.1) Height (Feet): 5 Height (Inches): 3.00 Weight (Pounds): 88 Medications Current Medications Medications (Trade) Dose Ordered Sig/Haley Route PRN Reason Start Time Stop Time Status Last Admin Dose Admin Acetaminophen (Tylenol) 650 mg Q4H PRN ORAL fever 05/31/20 18:45 06/30/20 18:44 Albuterol/ Ipratropium (Albuterol/ Ipratropium) 3 ml Q4H PRN HHN Shortness of Breath 06/01/20 08:30 06/06/20 08:29 06/02/20 20:48 Amylase/Lipase/ Protease (Rosa SARGENT 36,000 units cap) 1 ea TIDPRN PRN ORAL give if pt eats snacks 06/01/20 15:00 08/30/20 14:59 Amylase/Lipase/ Protease (Rosa SARGENT 36,000 units cap) 1 ea TIWM ORAL 06/01/20 17:00 08/30/20 16:59 06/04/20 07:30 Dextrose (Dextrose 50%) 25 ml Q30M PRN IV Hypoglycemia 05/31/20 18:45 08/29/20 18:44 Dextrose (Dextrose 50%) 50 ml Q30M PRN IV Hypoglycemia 05/31/20 18:45 08/29/20 18:44 Dextrose/Sodium Chloride 1,000 ml @ 75 mls/hr [id number] IV 06/04/20 10:30 07/04/20 10:29 Diphenhydramine HCl (Benadryl) 50 mg Q6H PRN IVP Itching 05/31/20 18:45 06/30/20 18:44 06/04/20 10:04 Docusate Sodium (Colace) 100 mg TWICE A DAY ORAL 06/04/20 09:00 07/04/20 08:59 06/04/20 08:34 Heparin Sodium (Porcine) (Heparin 5000 units/ml) 5,000 units EVERY 12 HOURS SUBQ 05/31/20 21:00 07/15/20 20:59 06/04/20 08:39 Hydromorphone HCl (Dilaudid) 2 mg Q3H PRN IVP pain >7 05/31/20 18:45 06/07/20 18:44 06/04/20 10:04 Loperamide HCl (Imodium) 2 mg Q4H PRN ORAL Diarrhea 06/01/20 11:00 07/01/20 10:59 06/01/20 20:44 Ondansetron HCl (Zofran) 4 mg Q6H PRN IVP Nausea & Vomiting 05/31/20 18:45 06/30/20 18:44 06/04/20 10:04 Polyethylene Glycol (Miralax) 17 gm BEDTIME ORAL 06/04/20 21:00 07/04/20 20:59 Zolpidem Tartrate (Ambien) 5 mg HSPRN PRN ORAL Insomnia 05/31/20 18:45 06/07/20 18:44 06/01/20 20:44 Assessment/Plan Problem List: (1) Colitis ICD Codes: K52.9 - Noninfective gastroenteritis and colitis, unspecified SNOMED: 98011884 (2) Diarrhea ICD Codes: R19.7 - Diarrhea, unspecified SNOMED: 29638740 (3) Intractable abdominal pain Assessment & Plan: 61-year-old female complaining of abdominal pain. Initially presented with chest pain now states abdominal cramping and bloating. Intermittent nausea no emesis passing flatus having bowel movement believes there may have been blood in it prior. Decreased appetite because of abdominal discomfort. Wanting more pain medication states she has been receiving her Dilaudid as scheduled. Imaging reviewed chart reviewed no CT scan done recently and states she has been to different facility where she has had one either. Last one seems to be 2015. Patient states she has a history of cervical cancer given above CT ordered to evaluate for potential intra-abdominal etiology of pain. Okay for diet as tolerated from surgical standpoint We will monitor with abdominal exam and follow with imaging. 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 difficile colitis ICD Codes: A04.7 - C. difficile colitis SNOMED: 816600655 (11) CAD (coronary artery disease) ICD Codes: I25.10 - Atherosclerotic heart disease of samish coronary artery without angina pectoris SNOMED: 53003728 (12) GERD (gastroesophageal reflux disease) ICD Codes: K21.9 - Gastro-esophageal reflux disease without esophagitis SNOMED: 752860355 (13) HTN (hypertension) ICD Codes: I10 - Essential (primary) hypertension SNOMED: 74924597 (14) ACS (acute coronary syndrome) ICD Codes: I24.9 - ACS (acute coronary syndrome) SNOMED: 155122772 (15) Severe protein-calorie malnutrition ICD Codes: E43 - Unspecified severe protein-calorie malnutrition SNOMED: 456136706 (16) Gastroparesis ICD Codes: K31.84 - Gastroparesis SNOMED: 152283939 (17) COPD (chronic obstructive pulmonary disease) ICD Codes: J44.9 - COPD (chronic obstructive pulmonary disease) SNOMED: 68115635 (18) COPD exacerbation ICD Codes: J44.1 - Chronic obstructive pulmonary disease with (acute) exacerbation SNOMED: 069263338 (19) Macrocytic anemia ICD Codes: D53.9 - Nutritional anemia, unspecified SNOMED: 25928112 (20) Acute bronchitis ICD Codes: J20.9 - Acute bronchitis, unspecified SNOMED: 00733785 (21) Community acquired pneumonia ICD Codes: J18.9 - Pneumonia, unspecified organism SNOMED: 440625348 (22) Shingles ICD Codes: B02.9 - Zoster without complications SNOMED: 8031894 Kristian Moreno Jun 04, 2020 11:11
[2020-06-04] MEDS: D5 1/2NS 1,000 ML IV SCH ×2 (11:18→23:50)
[2020-06-04 12:39] VITALS: BP 121/76
[2020-06-04 16:00] VITALS: BP 119/71
[2020-06-04] MEDS ORDERED: D5 1/2NS 1000ml IV ONE (16:52)
[2020-06-04 20:00] VITALS: BP 103/63
[2020-06-04] MEDS: Miralax 17gm pkt ORAL SCH ×2 (21:00→21:01)
[2020-06-05] VITALS: BP 123/75
[2020-06-05 04:00] VITALS: BP 106/65
[2020-06-05] MEDS: DiphenhydrAMINE 50mg/ml Inj IVP PRN ×4 (05:36→23:54)
[2020-06-05] MEDS: Creon DR 36,000 units cap ORAL SCH ×3 (06:15→17:54)
[2020-06-05 06:43] LABS: BASOPHILS % (AUTO) 1.9 % (0.0-2.0); HEMATOCRIT 32.7 % (37.0-47.0); HEMOGLOBIN 10.4 G/DL (12.0-16.0); LYMPHOCYTES % (AUTO) 26.5 % (20.0-45.0); MEAN CORPUSCULAR VOLUME 110 FL (80-99); MONOCYTES % (AUTO) 15.6 % (1.0-10.0); PLATELET COUNT 221 K/UL (150-450); RED BLOOD COUNT 2.96 M/UL (4.20-5.40); WHITE BLOOD COUNT 4.1 K/UL (4.8-10.8)
[2020-06-05 07:26] LABS: ALANINE AMINOTRANSFERASE 14 U/L (12-78); ALBUMIN 3.5 G/DL (3.4-5.0); ALBUMIN/GLOBULIN RATIO 0.9 (1.0-2.7); ALKALINE PHOSPHATASE 64 U/L (46-116); ANION GAP 6 mmol/L (5-15); ASPARTATE AMINO TRANSFERASE 20 U/L (15-37); BILIRUBIN,TOTAL 0.2 MG/DL (0.2-1.0); BLOOD UREA NITROGEN 25 mg/dL (7-18); CALCIUM 9.6 MG/DL (8.5-10.1); CARBON DIOXIDE 32 MMOL/L (21-32); CHLORIDE 99 MMOL/L (98-107); POTASSIUM 4.6 MMOL/L (3.5-5.1); SODIUM 137 MMOL/L (136-145)
[2020-06-05 08:00] VITALS: BP 101/70
[2020-06-05] MEDS: Docusate 100mg cap ORAL SCH ×2 (08:52→17:54)
[2020-06-05] MEDS: Heparin 5000 units/ml inj SUBQ SCH ×2 (08:53→20:53)
--- NOTE | 2020-06-05 10:18 | General Progress Note ---
Subjective ROS Limited/Unobtainable: Yes Allergies: Coded Allergies: HYDROCODONE (Verified Allergy, Severe, 06/23/13) LORAZEPAM (Verified Allergy, Severe, Hives, 02/13/14) RASH/HIVES MORPHINE (Unverified Allergy, Severe, 01/14/19) Not true allergy; tolerated Dilaudid in past. Extensive opiate hx PROCHLORPERAZINE (Verified Allergy, Severe, 06/23/13) VANCOMYCIN (Unverified Allergy, Mild, Itching, 03/06/14) Objective Last 24 Hour Vital Signs Date Time Temp Pulse Resp B/P (MAP) Pulse Ox O2 Delivery O2 Flow Rate FiO2 06/05/20 09:00 Room Air 06/05/20 08:00 97.9 72 18 101/70 (80) 100 06/05/20 06:08 97.3 06/05/20 04:00 98.4 79 20 106/65 (79) 98 06/05/20 03:05 97.2 06/05/20 00:05 97.6 06/05/20 00:00 97.6 80 20 123/75 (91) 97 06/04/20 21:33 78 20 97 Room Air 21 06/04/20 21:05 99.0 06/04/20 21:00 Room Air 06/04/20 20:00 99.0 86 18 103/63 (76) 99 06/04/20 16:00 97.9 83 18 119/71 (87) 98 06/04/20 12:39 98.9 81 18 121/76 (91) 98 06/04/20 10:34 99.0 Intake and Output 06/04/20 06/05/20 19:00 07:00 Intake Total 600 ml 1000 ml Output Total 350 ml Balance 600 ml 650 ml Other 600 ml 1000 ml Output Urine Total 350 ml # Voids 8 Laboratory Tests 06/05/20 05:40: White Blood Count 4.1L, Red Blood Count 2.96L, Hemoglobin 10.4L, Hematocrit 32.7L, Mean Corpuscular Volume 110H, Mean Corpuscular Hemoglobin 35.1H, Mean Corpuscular Hemoglobin Concent 31.8L, Red Cell Distribution Width 14.0, Platelet Count 221, Mean Platelet Volume 5.7L, Neutrophils (%) (Auto) 55.0, Lymphocytes ( %) (Auto) 26.5, Monocytes (%) (Auto) 15.6H, Eosinophils (%) (Auto) 1.0, Basophils (%) (Auto) 1.9, Erythrocyte Sedimentation Rate 56H, Sodium Level 137, Potassium Level 4.6, Chloride Level 99, Carbon Dioxide Level 32, Anion Gap 6, Blood Urea Nitrogen 25H, Creatinine 1.0, Estimat Glomerular Filtration Rate > 60, Glucose Level 98, Calcium Level 9.6, Phosphorus Level 5.0H, Magnesium Level 2.2, Total Bilirubin 0.2, Aspartate Amino Transf (AST/SGOT) 20, Alanine Aminotransferase (ALT/SGPT) 14, Alkaline Phosphatase 64, C-Reactive Protein, Quantitative 11.5H, Total Protein 7.5, Albumin 3.5, Globulin 4.0, Albumin/Globulin Ratio 0.9L Height (Feet): 5 Height (Inches): 3.00 Weight (Pounds): 88 General Appearance: no apparent distress EENT: normal ENT inspection Neck: supple Cardiovascular: normal rate Respiratory/Chest: decreased breath sounds Abdomen: normal bowel sounds, non tender, soft Extremities: non-tender Assessment/Plan Assessment/Plan: 1. History of cervical cancer. 2. Hypertension. 3. Hypercholesterolemia. 4. CHF. 5. Constipation. 6. History of bowel obstruction, requiring surgery. 7. History of pancreatitis. Creon fu stool studies pain control monitor labs hold GI procedures for now no diarrhea since admission add colace and miralax add Ruben Cruz MD Jun 05, 2020 10:17
--- NOTE | 2020-06-05 11:53 | Pulmonology Progress Note ---
Subjective ROS Limited/Unobtainable: Yes Constitutional: Reports: no symptoms Allergies: Coded Allergies: HYDROCODONE (Verified Allergy, Severe, 06/23/13) LORAZEPAM (Verified Allergy, Severe, Hives, 02/13/14) RASH/HIVES MORPHINE (Unverified Allergy, Severe, 01/14/19) Not true allergy; tolerated Dilaudid in past. Extensive opiate hx PROCHLORPERAZINE (Verified Allergy, Severe, 06/23/13) VANCOMYCIN (Unverified Allergy, Mild, Itching, 03/06/14) Objective Last 24 Hour Vital Signs Date Time Temp Pulse Resp B/P (MAP) Pulse Ox O2 Delivery O2 Flow Rate FiO2 06/05/20 09:00 Room Air 06/05/20 08:00 97.9 72 18 101/70 (80) 100 06/05/20 06:08 97.3 06/05/20 04:00 98.4 79 20 106/65 (79) 98 06/05/20 03:05 97.2 06/05/20 00:05 97.6 06/05/20 00:00 97.6 80 20 123/75 (91) 97 06/04/20 21:33 78 20 97 Room Air 21 06/04/20 21:05 99.0 06/04/20 21:00 Room Air 06/04/20 20:00 99.0 86 18 103/63 (76) 99 06/04/20 16:00 97.9 83 18 119/71 (87) 98 06/04/20 12:39 98.9 81 18 121/76 (91) 98 Intake and Output 06/04/20 06/05/20 19:00 07:00 Intake Total 600 ml 1000 ml Output Total 350 ml Balance 600 ml 650 ml Other 600 ml 1000 ml Output Urine Total 350 ml # Voids 8 General Appearance: cachetic HEENT: normocephalic, atraumatic Respiratory: chest wall non-tender, lungs clear, normal breath sounds Breasts: no masses Cardiovascular: normal peripheral pulses, normal rate Abdomen: normal bowel sounds, soft, non tender, no organomegaly Genitourinary: normal external genitalia Extremities: no cyanosis Skin: no rash 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 Microbiology Date/Time Source Procedure Growth Status 06/02/20 18:50 Nasopharynx SARS-CoV-2 RdRp Gene Assay - Final Complete Laboratory Tests 06/05/20 05:40: White Blood Count 4.1L, Red Blood Count 2.96L, Hemoglobin 10.4L, Hematocrit 32.7L, Mean Corpuscular Volume 110H, Mean Corpuscular Hemoglobin 35.1H, Mean Corpuscular Hemoglobin Concent 31.8L, Red Cell Distribution Width 14.0, Platelet Count 221, Mean Platelet Volume 5.7L, Neutrophils (%) (Auto) 55.0, Lymphocytes (%) (Auto) 26.5, Monocytes (%) (Auto) 15.6H, Eosinophils (%) (Auto) 1.0, Basophils (%) (Auto) 1.9, Erythrocyte Sedimentation Rate 56H, Sodium Level 137, Potassium Level 4.6, Chloride Level 99, Carbon Dioxide Level 32, Anion Gap 6, Blood Urea Nitrogen 25H, Creatinine 1.0, Estimat Glomerular Filtration Rate > 60, Glucose Level 98, Calcium Level 9.6, Phosphorus Level 5.0H, Magnesium Level 2.2, Total Bilirubin 0.2, Aspartate Amino Transf (AST/SGOT) 20, Alanine Aminotransferase (ALT/SGPT) 14, Alkaline Phosphatase 64, C-Reactive Protein, Quantitative 11.5H, Total Protein 7.5, Albumin 3.5, Globulin 4.0, Albumin/Globulin Ratio 0.9L Current Medications Medications (Trade) Dose Ordered Sig/Haley Route PRN Reason Start Time Stop Time Status Last Admin Dose Admin Acetaminophen (Tylenol) 650 mg Q4H PRN ORAL fever 05/31/20 18:45 06/30/20 18:44 Albuterol/ Ipratropium (Albuterol/ Ipratropium) 3 ml Q4H PRN HHN Shortness of Breath 06/01/20 08:30 06/06/20 08:29 06/02/20 20:48 Amylase/Lipase/ Protease (Rosa SARGENT 36,000 units cap) 1 ea TIDPRN PRN ORAL give if pt eats snacks 06/01/20 15:00 08/30/20 14:59 Amylase/Lipase/ Protease (Rosa SARGENT 36,000 units cap) 1 ea TIWM ORAL 06/01/20 17:00 08/30/20 16:59 06/04/20 17:37 Barium Sulfate (Readi-Cat 2) 450 ml NOW PRN ORAL Radiology Procedure 06/04/20 11:15 06/06/20 11:14 Dextrose (Dextrose 50%) 25 ml Q30M PRN IV Hypoglycemia 05/31/20 18:45 08/29/20 18:44 Dextrose (Dextrose 50%) 50 ml Q30M PRN IV Hypoglycemia 05/31/20 18:45 08/29/20 18:44 Dextrose/Sodium Chloride 1,000 ml @ 75 mls/hr [id number] IV 06/04/20 10:30 07/04/20 10:29 06/04/20 23:50 Diphenhydramine HCl (Benadryl) 50 mg Q6H PRN IVP Itching 05/31/20 18:45 06/30/20 18:44 06/05/20 11:44 Docusate Sodium (Colace) 100 mg TWICE A DAY ORAL 06/04/20 09:00 07/04/20 08:59 06/05/20 08:52 Heparin Sodium (Porcine) (Heparin 5000 units/ml) 5,000 units EVERY 12 HOURS SUBQ 05/31/20 21:00 07/15/20 20:59 06/05/20 08:53 Hydromorphone HCl (Dilaudid) 2 mg Q3H PRN IVP pain >7 05/31/20 18:45 06/07/20 18:44 06/05/20 11:45 Linaclotide (Linzess) 290 mcg BEFORE BREAKFAST ORAL 06/06/20 06:30 09/04/20 06:29 Loperamide HCl (Imodium) 2 mg Q4H PRN ORAL Diarrhea 06/01/20 11:00 07/01/20 10:59 06/01/20 20:44 Ondansetron HCl (Zofran) 4 mg Q6H PRN IVP Nausea & Vomiting 05/31/20 18:45 06/30/20 18:44 06/05/20 11:44 Polyethylene Glycol (Miralax) 17 gm BEDTIME ORAL 06/04/20 21:00 07/04/20 20:59 Zolpidem Tartrate (Ambien) 5 mg HSPRN PRN ORAL Insomnia 05/31/20 18:45 06/07/20 18:44 06/01/20 20:44 Assessment/Plan Problems: (1) Intractable abdominal pain (2) GI bleed (3) Diarrhea (4) COPD (chronic obstructive pulmonary disease) (5) GERD (gastroesophageal reflux disease) (6) Severe protein-calorie malnutrition (7) CAD (coronary artery disease) (8) Chronic pancreatitis (9) History of bilateral hip replacements (10) HTN (hypertension) Assessment/Plan f/u CT of abdomen and pelvis on IV fluids f/u GI recommendations, stool softeners were added IV fluids H2 nina watch h/h prbc prn respiratory treatment symptomatic treatment dvt prophylaxis. Lorraine Arndt MD Jun 05, 2020 11:52
[2020-06-05 12:00] VITALS: BP 97/63
[2020-06-05] MEDS ORDERED: Albuterol/Ipratropium 3ml neb HHN PRN (12:30)
[2020-06-05] MEDS: D5 1/2NS 1,000 ML IV SCH (13:10)
--- NOTE | 2020-06-05 14:40 | Surgery Progress Note ---
Surgery Progress Note Subjective Additional Comments ct completed pending results otherwise stable Objective Last 24 Hour Vital Signs Date Time Temp Pulse Resp B/P (MAP) Pulse Ox O2 Delivery O2 Flow Rate FiO2 06/05/20 12:00 97.9 71 18 97/63 (74) 95 06/05/20 09:00 Room Air 06/05/20 08:00 97.9 72 18 101/70 (80) 100 06/05/20 06:08 97.3 06/05/20 04:00 98.4 79 20 106/65 (79) 98 06/05/20 03:05 97.2 06/05/20 00:05 97.6 06/05/20 00:00 97.6 80 20 123/75 (91) 97 06/04/20 21:33 78 20 97 Room Air 21 06/04/20 21:05 99.0 06/04/20 21:00 Room Air 06/04/20 20:00 99.0 86 18 103/63 (76) 99 06/04/20 16:00 97.9 83 18 119/71 (87) 98 I&O Intake and Output 06/04/20 06/05/20 19:00 07:00 Intake Total 600 ml 1000 ml Output Total 350 ml Balance 600 ml 650 ml Other 600 ml 1000 ml Output Urine Total 350 ml # Voids 8 Cardiovascular: RSR Respiratory: clear Abdomen: soft, flat, non-tender, present bowel sounds Extremities: no edema, no tenderness, no cyanosis Laboratory Tests Test 06/05/20 05:40 White Blood Count 4.1 K/UL (4.8-10.8) L Red Blood Count 2.96 M/UL (4.20-5.40) L Hemoglobin 10.4 G/DL (12.0-16.0) L Hematocrit 32.7 % (37.0-47.0) L Mean Corpuscular Volume 110 FL (80-99) H Mean Corpuscular Hemoglobin 35.1 PG (27.0-31.0) H Mean Corpuscular Hemoglobin Concent 31.8 G/DL (32.0-36.0) L Red Cell Distribution Width 14.0 % (11.6-14.8) Platelet Count 221 K/UL (150-450) Mean Platelet Volume 5.7 FL (6.5-10.1) L Neutrophils (%) (Auto) 55.0 % (45.0-75.0) Lymphocytes (%) (Auto) 26.5 % (20.0-45.0) Monocytes (%) (Auto) 15.6 % (1.0-10.0) H Eosinophils (%) (Auto) 1.0 % (0.0-3.0) Basophils (%) (Auto) 1.9 % (0.0-2.0) Erythrocyte Sedimentation Rate 56 MM/HR (0-30) H Sodium Level 137 MMOL/L (136-145) Potassium Level 4.6 MMOL/L (3.5-5.1) Chloride Level 99 MMOL/L (98-107) Carbon Dioxide Level 32 MMOL/L (21-32) Anion Gap 6 mmol/L (5-15) Blood Urea Nitrogen 25 mg/dL (7-18) H Creatinine 1.0 MG/DL (0.55-1.30) Estimat Glomerular Filtration Rate > 60 mL/min (>60) Glucose Level 98 MG/DL (74-106) Calcium Level 9.6 MG/DL (8.5-10.1) Phosphorus Level 5.0 MG/DL (2.5-4.9) H Magnesium Level 2.2 MG/DL (1.8-2.4) Total Bilirubin 0.2 MG/DL (0.2-1.0) Aspartate Amino Transf (AST/SGOT) 20 U/L (15-37) Alanine Aminotransferase (ALT/SGPT) 14 U/L (12-78) Alkaline Phosphatase 64 U/L (46-116) C-Reactive Protein, Quantitative 11.5 mg/dL (0.00-0.90) H Total Protein 7.5 G/DL (6.4-8.2) Albumin 3.5 G/DL (3.4-5.0) Globulin 4.0 g/dL Albumin/Globulin Ratio 0.9 (1.0-2.7) L Plan Problems: (1) Colitis (2) Diarrhea (3) Intractable abdominal pain Assessment & Plan: 61-year-old female complaining of abdominal pain. Initially presented with chest pain now states abdominal cramping and bloating. Inte rmittent nausea no emesis passing flatus having bowel movement believes there may have been blood in it prior. Decreased appetite because of abdominal discomfort. Wanting more pain medication states she has been receiving her Dilaudid as scheduled. Imaging reviewed chart reviewed no CT scan done recently and states she has been to different facility where she has had one either. Last one seems to be 2015. Patient states she has a history of cervical cancer given above CT ordered to evaluate for potential intra-abdominal etiology of pain. Okay for diet as tolerated from surgical standpoint We will monitor with abdominal exam and follow with imaging. 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 difficile colitis (11) CAD (coronary artery disease) (12) GERD (gastroesophageal reflux disease) (13) HTN (hypertension) (14) ACS (acute coronary syndrome) (15) Severe protein-calorie malnutrition (16) Gastroparesis (17) COPD (chronic obstructive pulmonary disease) (18) COPD exacerbation (19) Macrocytic anemia (20) Acute bronchitis (21) Community acquired pneumonia (22) Kristian Arias Jun 05, 2020 14:40
--- NOTE | 2020-06-05 15:52 | Diagnostic Imaging Report ---
Indication: Abdominal pain Technique: Spiral acquisitions obtained through the abdomen and pelvis. Patient given oral contrast. No IV contrast utilized, per referring physician request.. Multiplanar reconstructions were generated. Total dose length product 137 mGycm. CTDIvol(s) 3 mGy. Dose reduction achieved using automated exposure control Comparison: 07/25/2016, also CT pelvis 02/19/2020 Findings: The appendix is normal. Mild to moderate retained fecal material seen within the colon. No evidence of diverticulosis or diverticulitis. Prominent borderline dilated proximal small bowel loops are demonstrated. Contrast has traversed only a portion of the proximal small bowel. No abrupt transition. No free or loculated intraperitoneal gas or fluid is evident. Distal esophagus, stomach, duodenum are unremarkable. The liver, gallbladder, bile ducts, pancreas, spleen, adrenals are unremarkable. A few tiny punctate calculi are seen within the right renal collecting system. No left renal or ureter calculi. Exophytic 1 cm lesion is again seen coming off of the lower pole of the right kidney, unchanged. No hydronephrosis or hydroureter. There are bilateral hip prostheses. These throws off some streak artifact which could obscure pathology. No pelvic mass or adenopathy. The included lung bases demonstrate centrilobular emphysematous changes and a small bulla on the right. Impression: Borderline dilated proximal small bowel loops slow forward transit of contrast. No definite transition point. Of doubtful significance but very mild small bowel obstruction possible. Recommend follow-up abdominal radiographs to ensure antegrade contrast passage Nonobstructive right renal calculi COPD changes Evidence of prior bilateral hip surgery 1 cm right lower pole renal lesion, stable, presumably a benign simple cyst Nonobstructive right intrarenal calyceal calculi The CT scanner at [facility] is accredited by the [employer] and the scans are performed using protocols designed to limit radiation exposure to as low as reasonably achievable to attain images of sufficient resolution adequate for diagnostic evaluation.
[2020-06-05 16:00] VITALS: BP 104/61
[2020-06-05 20:00] VITALS: BP 134/81
[2020-06-05] MEDS: Miralax 17gm pkt ORAL SCH (21:00)
[2020-06-06] MEDS: D5 1/2NS 1,000 ML IV SCH ×2 (03:18→14:55)
[2020-06-06 04:00] VITALS: BP 122/77
[2020-06-06] MEDS: Creon DR 36,000 units cap ORAL SCH ×3 (06:10→17:59)
[2020-06-06] MEDS: DiphenhydrAMINE 50mg/ml Inj IVP PRN ×3 (06:11→18:00)
--- NOTE | 2020-06-06 07:02 | General Progress Note ---
Subjective ROS Limited/Unobtainable: Yes Allergies: Coded Allergies: HYDROCODONE (Verified Allergy, Severe, 06/23/13) LORAZEPAM (Verified Allergy, Severe, Hives, 02/13/14) RASH/HIVES MORPHINE (Unverified Allergy, Severe, 01/14/19) Not true allergy; tolerated Dilaudid in past. Extensive opiate hx PROCHLORPERAZINE (Verified Allergy, Severe, 06/23/13) VANCOMYCIN (Unverified Allergy, Mild, Itching, 03/06/14) Objective Last 24 Hour Vital Signs Date Time Temp Pulse Resp B/P (MAP) Pulse Ox O2 Delivery O2 Flow Rate FiO2 06/06/20 04:00 97.3 87 19 122/77 (92) 96 06/05/20 21:00 Room Air 06/05/20 20:22 78 18 99 Room Air 21 75 18 96 06/05/20 20:21 75 18 96 Room Air 21 06/05/20 20:00 97.7 72 17 134/81 (98) 96 06/05/20 16:00 98.2 92 18 104/61 (75) 100 06/05/20 12:00 97.9 71 18 97/63 (74) 95 06/05/20 09:00 Room Air 06/05/20 08:00 97.9 72 18 101/70 (80) 100 Intake and Output 06/05/20 06/06/20 19:00 07:00 Intake Total 930 ml 600 ml Output Total 200 ml Balance 930 ml 400 ml Intake Oral 480 ml IV Total 450 ml 600 ml Output Urine Total 200 ml # Voids 4 Height (Feet): 5 Height (Inches): 3.00 Weight (Pounds): 88 General Appearance: alert EENT: normal ENT inspection Neck: supple Cardiovascular: normal rate Respiratory/Chest: decreased breath sounds Abdomen: hypoactive bowel sounds, distended Extremities: non-tender Assessment/Plan Assessment/Plan: 1. History of cervical cancer. 2. Hypertension. 3. Hypercholesterolemia. 4. CHF. 5. Constipation. 6. History of bowel obstruction, requiring surgery. 7. History of pancreatitis. Creon pain control monitor labs hold GI procedures for now no diarrhea since admission on bowel regimen CT reviewed abd series ordered repeat labs will fu Ruben Salazar MD Jun 06, 2020 07:02
[2020-06-06 08:00] VITALS: BP 102/65
[2020-06-06] MEDS: Docusate 100mg cap ORAL SCH ×2 (09:01→17:59)
[2020-06-06] MEDS: Heparin 5000 units/ml inj SUBQ SCH ×2 (09:03→21:00)
[2020-06-06 10:16] LABS: HEMATOCRIT 35.9 % (37.0-47.0); MEAN CORPUSCULAR VOLUME 114 FL (80-99); PLATELET COUNT 225 K/UL (150-450); RED BLOOD COUNT 3.16 M/UL (4.20-5.40); RED CELL DISTRIBUTION WIDTH 13.8 % (11.6-14.8); WHITE BLOOD COUNT 6.5 K/UL (4.8-10.8)
--- NOTE | 2020-06-06 10:34 | Surgery Progress Note ---
Surgery Progress Note Subjective Additional Comments CT reviewed c/o chest pain labs noted no n/v had BM Objective Last 24 Hour Vital Signs Date Time Temp Pulse Resp B/P (MAP) Pulse Ox O2 Delivery O2 Flow Rate FiO2 06/06/20 09:30 98.9 06/06/20 09:00 Room Air 06/06/20 08:00 98.9 94 18 102/65 (77) 98 06/06/20 04:00 97.3 87 19 122/77 (92) 96 06/05/20 21:00 Room Air 06/05/20 20:22 78 18 99 Room Air 21 75 18 96 06/05/20 20:21 75 18 96 Room Air 21 06/05/20 20:00 97.7 72 17 134/81 (98) 96 06/05/20 16:00 98.2 92 18 104/61 (75) 100 06/05/20 12:00 97.9 71 18 97/63 (74) 95 I&O Intake and Output 06/05/20 06/06/20 19:00 07:00 Intake Total 930 ml 600 ml Output Total 200 ml Balance 930 ml 400 ml Intake Oral 480 ml IV Total 450 ml 600 ml Output Urine Total 200 ml # Voids 4 Cardiovascular: RSR Respiratory: clear Abdomen: soft, non-tender, present bowel sounds, non-distended Extremities: no edema, no tenderness, no cyanosis Laboratory Tests Test 06/06/20 09:50 White Blood Count 6.5 K/UL (4.8-10.8) # Red Blood Count 3.16 M/UL (4.20-5.40) L Hemoglobin 11.0 G/DL (12.0-16.0) L Hematocrit 35.9 % (37.0-47.0) L Mean Corpuscular Volume 114 FL (80-99) H Mean Corpuscular Hemoglobin 34.7 PG (27.0-31.0) H Mean Corpuscular Hemoglobin Concent 30.5 G/DL (32.0-36.0) L Red Cell Distribution Width 13.8 % (11.6-14.8) Platelet Count 225 K/UL (150-450) Mean Platelet Volume 8.0 FL (6.5-10.1) Neutrophils (%) (Auto) % (45.0-75.0) Lymphocytes (%) (Auto) % (20.0-45.0) Monocytes (%) (Auto) % (1.0-10.0) Eosinophils (%) (Auto) % (0.0-3.0) Basophils (%) (Auto) % (0.0-2.0) Neutrophils % (Manual) Pending Lymphocytes % (Manual) Pending Platelet Estimate Pending Platelet Morphology Pending Sodium Level Pending Potassium Level Pending Chloride Level Pending Carbon Dioxide Level Pending Blood Urea Nitrogen Pending Creatinine Pending Estimat Glomerular Filtration Rate Pending Glucose Level Pending Calcium Level Pending Total Bilirubin Pending Aspartate Amino Transf (AST/SGOT) Pending Alanine Aminotransferase (ALT/SGPT) Pending Alkaline Phosphatase Pending Total Protein Pending Albumin Pending Globulin Pending Plan Problems: (1) Colitis (2) Diarrhea (3) Intractable abdominal pain Assessment & Plan: 61-year-old female complaining of abdominal pain. Initially presented with chest pain now states abdominal cramping and bloating. Intermittent nausea no emesis passing flatus having bowel movement believes there may have been blood in it prior. Decreased appetite because of abdominal discomfort. Wanting more pain medication states she has been receiving her Dilaudid as scheduled. Imaging reviewed chart reviewed no CT scan done recently and states she has been to different facility where she has had one either. Last one seems to be 2015. Patient states she has a history of cervical cancer given above CT ordered to evaluate for potential intra-abdominal etiology of pain. Okay for diet as tolerated from surgical standpoint We will monitor with abdominal exam and follow with imaging. Thank you for let me participate in patient's care will follow with recommendations Gallbladder is unremarkable, without stones, wall thickening, nor pericholecystic fluid. Sonographic Rubio's could not be performed., Patient nonverbal. Common bile duct measures 3 mm in diameter. No intrahepatic biliary ductal dilatation. Liver demonstrates normal echogenicity, no focal abnormality. Portal vein and hepatic veins are patent. Pancreas is unremarkable. Spleen is unremarkable. Left kidney measures 10 cm in length. Right kidney measures 10.5 cm length. Both kidneys demonstrate normal echogenicity. There is no hydronephrosis. Tiny cysts are seen in the right kidney. There is trace right perinephric fluid. Echogenic foci are seen in the renal sinuses bilaterally. . Abdominal aorta is partially obscured by bowel gas, visualized portions are non-aneurysmal . 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 difficile colitis (11) CAD (coronary artery disease) (12) GERD (gastroesophageal reflux disease) (13) HTN (hypertension) (14) ACS (acute coronary syndrome) (15) Severe protein-calorie malnutrition (16) Gastroparesis (17) COPD (chronic obstructive pulmonary disease) (18) COPD exacerbation (19) Macrocytic anemia (20) Acute bronchitis (21) Community acquired pneumonia (22) Kristian Arias Jun 06, 2020 10:34
[2020-06-06 10:42] LABS: ALANINE AMINOTRANSFERASE 27 U/L (12-78); ALBUMIN 3.7 G/DL (3.4-5.0); ALBUMIN/GLOBULIN RATIO 0.9 (1.0-2.7); ALKALINE PHOSPHATASE 66 U/L (46-116); ANION GAP 8 mmol/L (5-15); ASPARTATE AMINO TRANSFERASE 43 U/L (15-37); BILIRUBIN,TOTAL 0.3 MG/DL (0.2-1.0); BLOOD UREA NITROGEN 25 mg/dL (7-18); CARBON DIOXIDE 29 MMOL/L (21-32); CHLORIDE 97 MMOL/L (98-107); CREATININE 0.9 MG/DL (0.55-1.30); POTASSIUM 4.8 MMOL/L (3.5-5.1); SODIUM 134 MMOL/L (136-145)
[2020-06-06] MEDS ORDERED: Zolpidem 5mg tab ORAL PRN (11:22)
--- NOTE | 2020-06-06 11:49 | Pulmonology Progress Note ---
Subjective ROS Limited/Unobtainable: Yes Constitutional: Reports: no symptoms Allergies: Coded Allergies: HYDROCODONE (Verified Allergy, Severe, 06/23/13) LORAZEPAM (Verified Allergy, Severe, Hives, 02/13/14) RASH/HIVES MORPHINE (Unverified Allergy, Severe, 01/14/19) Not true allergy; tolerated Dilaudid in past. Extensive opiate hx PROCHLORPERAZINE (Verified Allergy, Severe, 06/23/13) VANCOMYCIN (Unverified Allergy, Mild, Itching, 03/06/14) Objective Last 24 Hour Vital Signs Date Time Temp Pulse Resp B/P (MAP) Pulse Ox O2 Delivery O2 Flow Rate FiO2 06/06/20 09:30 98.9 06/06/20 09:00 Room Air 06/06/20 08:00 98.9 94 18 102/65 (77) 98 06/06/20 04:00 97.3 87 19 122/77 (92) 96 06/05/20 21:00 Room Air 06/05/20 20:22 78 18 99 Room Air 21 75 18 96 06/05/20 20:21 75 18 96 Room Air 21 06/05/20 20:00 97.7 72 17 134/81 (98) 96 06/05/20 16:00 98.2 92 18 104/61 (75) 100 06/05/20 12:00 97.9 71 18 97/63 (74) 95 Intake and Output 06/05/20 06/06/20 19:00 07:00 Intake Total 930 ml 600 ml Output Total 200 ml Balance 930 ml 400 ml Intake Oral 480 ml IV Total 450 ml 600 ml Output Urine Total 200 ml # Voids 4 General Appearance: cachetic HEENT: normocephalic, atraumatic Respiratory: chest wall non-tender, lungs clear, normal breath sounds Breasts: no masses Cardiovascular: normal peripheral pulses, normal rate Abdomen: normal bowel sounds, soft, non tender, no organomegaly Genitourinary: normal external genitalia Extremities: no cyanosis Skin: no rash 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 II-XII grossly normal Laboratory Tests 06/06/20 09:50: White Blood Count 6.5#, Red Blood Count 3.16L, Hemoglobin 11.0L, Hematocrit 3 5.9L, Mean Corpuscular Volume 114H, Mean Corpuscular Hemoglobin 34.7H, Mean Corpuscular Hemoglobin Concent 30.5L, Red Cell Distribution Width 13.8, Platelet Count 225, Mean Platelet Volume 8.0, Neutrophils (%) (Auto) , Lymphocytes (%) (Auto) , Monocytes (%) (Auto) , Eosinophils (%) (Auto) , Basophils (%) (Auto) , Differential Total Cells Counted 100, Neutrophils % (Manual) 75, Lymphocytes % (Manual) 12L, Monocytes % (Manual) 12H, Eosinophils % (Manual) 1, Basophils % (Manual) 0, Band Neutrophils 0, Platelet Estimate Adequate, Platelet Morphology Normal, Hypochromasia 1+, Macrocytosis 2+, Sodium Level 134L, Potassium Level 4. 8, Chloride Level 97L, Carbon Dioxide Level 29, Anion Gap 8, Blood Urea Nitrogen 25H, Creatinine 0.9, Estimat Glomerular Filtration Rate > 60, Glucose Level 126H , Calcium Level 10.0, Total Bilirubin 0.3, Aspartate Amino Transf (AST/SGOT) 43H , Alanine Aminotransferase (ALT/SGPT) 27, Alkaline Phosphatase 66, Total Protein 8.0, Albumin 3.7, Globulin 4.3, Albumin/Globulin Ratio 0.9L Current Medications Medications (Trade) Dose Ordered Sig/Haley Route PRN Reason Start Time Stop Time Status Last Admin Dose Admin Acetaminophen (Tylenol) 650 mg Q4H PRN ORAL fever 05/31/20 18:45 06/30/20 18:44 Albuterol/ Ipratropium (Albuterol/ Ipratropium) 3 ml Q4H PRN HHN Shortness of Breath 06/05/20 12:30 06/10/20 12:29 06/05/20 20:21 Amylase/Lipase/ Protease (Rosa SARGENT 36,000 units cap) 1 ea TIDPRN PRN ORAL give if pt eats snacks 06/01/20 15:00 08/30/20 14:59 Amylase/Lipase/ Protease (Rosa SARGENT 36,000 units cap) 1 ea TIWM ORAL 06/01/20 17:00 08/30/20 16:59 06/06/20 06:10 Dextrose (Dextrose 50%) 25 ml Q30M PRN IV Hypoglycemia 05/31/20 18:45 08/29/20 18:44 Dextrose (Dextrose 50%) 50 ml Q30M PRN IV Hypoglycemia 05/31/20 18:45 08/29/20 18:44 Dextrose/ Electrolytes 1,000 ml @ 75 mls/hr [id number] IV 06/06/20 16:00 07/06/20 15:59 Dextrose/Sodium Chloride 1,000 ml @ 75 mls/hr [id number] IV 06/04/20 10:30 06/06/20 16:00 06/06/20 03:18 Diphenhydramine HCl (Benadryl) 50 mg Q6H PRN IVP Itching 05/31/20 18:45 06/30/20 18:44 06/06/20 06:11 Docusate Sodium (Colace) 100 mg TWICE A DAY ORAL 06/04/20 09:00 07/04/20 08:59 06/06/20 09:01 Heparin Sodium (Porcine) (Heparin 5000 units/ml) 5,000 units EVERY 12 HOURS SUBQ 05/31/20 21:00 07/15/20 20:59 06/06/20 09:03 Hydromorphone HCl (Dilaudid) 2 mg Q3H PRN IVP Severe Pain (Pain Scale 7-10) 06/06/20 11:22 06/13/20 11:21 Linaclotide (Linzess) 290 mcg BEFORE BREAKFAST ORAL 06/06/20 06:30 09/04/20 06:29 06/06/20 06:10 Loperamide HCl (Imodium) 2 mg Q4H PRN ORAL Diarrhea 06/01/20 11:00 07/01/20 10:59 06/01/20 20:44 Ondansetron HCl (Zofran) 4 mg Q6H PRN IVP Nausea & Vomiting 05/31/20 18:45 06/30/20 18:44 06/06/20 06:11 Polyethylene Glycol (Miralax) 17 gm BEDTIME ORAL 06/04/20 21:00 07/04/20 20:59 Polyethylene Glycol/ Electrolytes (Golytely) 4,000 ml ONCE ORAL 06/06/20 14:00 06/06/20 23:59 Zolpidem Tartrate (Ambien) 5 mg HSPRN PRN ORAL Insomnia 06/06/20 11:22 06/13/20 11:21 Assessment/Plan Problems: (1) Intractable abdominal pain (2) GI bleed (3) Diarrhea (4) COPD (chronic obstructive pulmonary disease) (5) GERD (gastroesophageal reflux disease) (6) Severe protein-calorie malnutrition (7) CAD (coronary artery disease) (8) Chronic pancreatitis (9) History of bilateral hip replacements (10) HTN (hypertension) Assessment/Plan CT abdomen: Borderline dilated proximal small bowel loops slow forward transit of contrast. No definite transition point. Of doubtful significance but very mild small bowel obstruction possible. Recommend follow-up abdominal radiographs to ensure antegrade contrast passage on IV fluids f/u GI recommendations, stool softeners were added, for colonoscopy soon IV fluids H2 nina watch h/h prbc prn respiratory treatment symptomatic treatment dvt prophylaxis. Lorraine Arndt MD Jun 06, 2020 11:49
[2020-06-06 12:00] VITALS: BP 114/83
--- NOTE | 2020-06-06 13:03 | Diagnostic Imaging Report ---
Indication: Abdominal pain Technique: Supine view of the abdomen Comparison: 08/25/2019; also abdomen pelvis CT dated 06/05/2020 Findings: Ingested contrast from recent CT scan is seen mostly if not entirely within the colon. Gas-filled nondilated small bowel loops are demonstrated. No masses or unusual calcifications. There are bilateral hip prostheses Impression: Interim transit of contrast previous ingested for CT scan into the colon and lack of gaseous distention, indicating probable absence of significant small bowel obstruction. Other findings as noted
[2020-06-06] MEDS ORDERED: Golytely 4L ORAL SCH (14:00)
[2020-06-06] MEDS: D5 1/2NS w/KCl 20mEq 1,000 ML IV SCH (15:04)
[2020-06-06 16:00] VITALS: BP 100/62
[2020-06-06 20:00] VITALS: BP 123/71
[2020-06-06] MEDS: Miralax 17gm pkt ORAL SCH (20:57)
[2020-06-07] VITALS (10 sets, daily range): BP systolic 90–120; BP diastolic 44–80
[2020-06-07] MEDS: DiphenhydrAMINE 50mg/ml Inj IVP PRN ×4 (00:05→18:29)
[2020-06-07] MEDS: D5 1/2NS w/KCl 20mEq 1,000 ML IV SCH ×2 (05:20→17:05)
[2020-06-07] MEDS: Creon DR 36,000 units cap ORAL SCH ×3 (06:37→17:04)
--- NOTE | 2020-06-07 07:37 | Anethesia Preoperative Eval ---
Anesthesia Pre-op PMH/ROS General Date of Evaluation: Jun 07, 2020 Time of Evaluation: 07:35 Anesthesiologist: jonatan ASA Score: ASA 3 Mallampati Score Class I : Soft palate, uvula, fauces, pillars visible Class II: Soft palate, uvula, fauces visible Class III: Soft palate, base of uvula visible Class IV: Only hard plate visible Mallampati Classification: Class II Surgeon: bob Diagnosis: gi bleed Surgical Procedure: egd/colonoscopy Anesthesia History: none Social History: alcohol use, drug use Family History: no anesthesia problems Allergies: Coded Allergies: HYDROCODONE (Verified Allergy, Severe, 06/23/13) LORAZEPAM (Verified Allergy, Severe, Hives, 02/13/14) RASH/HIVES MORPHINE (Unverified Allergy, Severe, 01/14/19) Not true allergy; tolerated Dilaudid in past. Extensive opiate hx PROCHLORPERAZINE (Verified Allergy, Severe, 06/23/13) VANCOMYCIN (Unverified Allergy, Mild, Itching, 03/06/14) Medications: see eMAR Patient NPO?: Yes Past Medical History Cardiovascular: Reports: HTN, CAD, arrhythmia, other - dvt, chf, hypercholesterolemia Pulmonary: Reports: asthma, COPD, other - pneumonia Gastrointestinal/Genitourinary: Reports: other - diarrhea, chronic pancreatitis, c. diff colitis, liver disease, protein/calorie malnutrition, uti, intractable abdominal pain, gi bleed Neurologic/Psychiatric: Reports: depression/anxiety, other - shingles Endocrine: Reports: other - hyperthyroidism HEENT: Reports: other - tinnitus Hematology/Immune: Reports: anemia, other - vre carrier Anesthesia Pre-op Phys. Exam Physician Exam Last Vital Signs Date Time Temp Pulse Resp B/P (MAP) Pulse Ox O2 Delivery O2 Flow Rate FiO2 06/07/20 04:00 97.5 88 18 111/71 (84) 95 06/06/20 20:09 Room Air 06/06/20 19:35 21 Constitutional: NAD Neurologic: CN 2-12 intact Cardiovascular: RRR Respiratory: CTA Gastrointestinal: S/NT/ND Airway Exam Mallampati Score: Class II MO: limited Neck: decreased rom to lateral rotation TMD: 2fb ROM: limited Anesthesia Pre-op A/P Labs Microbiology Date/Time Source Procedure Growth Status 10/30/20 18:50 Nasopharynx SARS-CoV-2 RdRp Gene Assay - Final Complete Hematology Test 06/06/20 09:50 White Blood Count 6.5 K/UL (4.8-10.8) # Red Blood Count 3.16 M/UL (4.20-5.40) L Hemoglobin 11.0 G/DL (12.0-16.0) L Hematocrit 35.9 % (37.0-47.0) L Mean Corpuscular Volume 114 FL (80-99) H Mean Corpuscular Hemoglobin 34.7 PG (27.0-31.0) H Mean Corpuscular Hemoglobin Concent 30.5 G/DL (32.0-36.0) L Red Cell Distribution Width 13.8 % (11.6-14.8) Platelet Count 225 K/UL (150-450) Mean Platelet Volume 8.0 FL (6.5-10.1) Neutrophils (%) (Auto) % (45.0-75.0) Lymphocytes (%) (Auto) % (20.0-45.0) Monocytes (%) (Auto) % (1.0-10.0) Eosinophils (%) (Auto) % (0.0-3.0) Basophils (%) (Auto) % (0.0-2.0) Differential Total Cells Counted 100 Neutrophils % (Manual) 75 % (45-75) Lymphocytes % (Manual) 12 % (20-45) L Monocytes % (Manual) 12 % (1-10) H Eosinophils % (Manual) 1 % (0-3) Basophils % (Manual) 0 % (0-2) Band Neutrophils 0 % (0-8) Platelet Estimate Adequate Platelet Morphology Normal Hypochromasia 1+ Macrocytosis 2+ Chemistry Test 06/06/20 09:50 Sodium Level 134 MMOL/L (136-145) L Potassium Level 4.8 MMOL/L (3.5-5.1) Chloride Level 97 MMOL/L (98-107) L Carbon Dioxide Level 29 MMOL/L (21-32) Anion Gap 8 mmol/L (5-15) Blood Urea Nitrogen 25 mg/dL (7-18) H Creatinine 0.9 MG/DL (0.55-1.30) Estimat Glomerular Filtration Rate > 60 mL/min (>60) Glucose Level 126 MG/DL (74-106) H Calcium Level 10.0 MG/DL (8.5-10.1) Total Bilirubin 0.3 MG/DL (0.2-1.0) Aspartate Amino Transf (AST/SGOT) 43 U/L (15-37) H Alanine Aminotransferase (ALT/SGPT) 27 U/L (12-78) Alkaline Phosphatase 66 U/L (46-116) Total Protein 8.0 G/DL (6.4-8.2) Albumin 3.7 G/DL (3.4-5.0) Globulin 4.3 g/dL Albumin/Globulin Ratio 0.9 (1.0-2.7) L Risk Assessment & Plan Assessment: asa3 Plan: mac Status Change Before Surgery: No Pre-Antibiotics Drug: Huyen Farris MD Jun 07, 2020 07:37
[2020-06-07] MEDS ORDERED: Labetalol 5mg/ml 20ml vial IV PRN (07:45)
[2020-06-07] MEDS ORDERED: DiphenhydrAMINE 50mg/ml Inj IVP PRN (07:45)
[2020-06-07] MEDS ORDERED: fentaNYL 100 mcg/2 mL IV PRN (07:45)
[2020-06-07] MEDS ORDERED: Atropine Inj 1mg/10ml Syr IVP PRN (07:45)
[2020-06-07] MEDS: Docusate 100mg cap ORAL SCH ×2 (08:21→17:05)
[2020-06-07] MEDS: Heparin 5000 units/ml inj SUBQ SCH ×2 (08:22→21:37)
[2020-06-07 08:43] LABS: HEMATOCRIT 33.1 % (37.0-47.0); HEMOGLOBIN 9.9 G/DL (12.0-16.0); MEAN CORPUSCULAR VOLUME 114 FL (80-99); PLATELET COUNT 256 K/UL (150-450); RED CELL DISTRIBUTION WIDTH 14.2 % (11.6-14.8); WHITE BLOOD COUNT 4.1 K/UL (4.8-10.8)
[2020-06-07 08:59] LABS: PHOSPHORUS 4.3 MG/DL (2.5-4.9)
--- NOTE | 2020-06-07 09:07 | Surgery Progress Note ---
Surgery Progress Note Subjective Additional Comments kub noted no n/v labs reviewed Objective Last 24 Hour Vital Signs Date Time Temp Pulse Resp B/P (MAP) Pulse Ox O2 Delivery O2 Flow Rate FiO2 06/07/20 08:07 88 17 96 Room Air 21 06/07/20 04:00 97.5 88 18 111/71 (84) 95 06/07/20 00:00 97.9 82 18 100/62 (75) 98 06/06/20 20:09 Room Air 06/06/20 20:00 98.1 89 18 123/71 (88) 97 06/06/20 19:35 80 18 96 Room Air 21 06/06/20 18:30 98.4 06/06/20 16:00 98.4 86 18 100/62 (75) 98 06/06/20 15:24 98.7 06/06/20 12:26 98.7 06/06/20 12:00 98.7 94 18 114/83 (93) 98 06/06/20 09:30 98.9 I&O Intake and Output 06/06/20 06/07/20 19:00 07:00 Intake Total 2000 ml 1000 ml Balance 2000 ml 1000 ml Intake Oral 2000 ml 1000 ml # Voids 5 5 # Bowel Movements 3 5 Dressing: other Wound: other Cardiovascular: RSR Respiratory: clear Abdomen: soft, non-tender, present bowel sounds Extremities: no edema, no tenderness, no cyanosis Laboratory Tests Test 06/06/20 09:50 06/07/20 08:10 White Blood Count 6.5 K/UL (4.8-10.8) # 4.1 K/UL (4.8-10.8) L Red Blood Count 3.16 M/UL (4.20-5.40) L 2.90 M/UL (4.20-5.40) L Hemoglobin 11.0 G/DL (12.0-16.0) L 9.9 G/DL (12.0-16.0) L Hematocrit 35.9 % (37.0-47.0) L 33.1 % (37.0-47.0) L Mean Corpuscular Volume 114 FL (80-99) H 114 FL (80-99) H Mean Corpuscular Hemoglobin 34.7 PG (27.0-31.0) H 34.2 PG (27.0-31.0) H Mean Corpuscular Hemoglobin Concent 30.5 G/DL (32.0-36.0) L 30.0 G/DL (32.0-36.0) L Red Cell Distribution Width 13.8 % (11.6-14.8) 14.2 % (11.6-14.8) Platelet Count 225 K/UL (150-450) 256 K/UL (150-450) Mean Platelet Volume 8.0 FL (6.5-10.1) 6.2 FL (6.5-10.1) L Neutrophils (%) (Auto) % (45.0-75.0) % (45.0-75.0) Lymphocytes (%) (Auto) % (20.0-45.0) % (20.0-45.0) Monocytes (%) (Auto) % (1.0-10.0) % (1.0-10.0) Eosinophils (%) (Auto) % (0.0-3.0) % (0.0-3.0) Basophils (%) (Auto) % (0.0-2.0) % (0.0-2.0) Differential Total Cells Counted 100 Neutrophils % (Manual) 75 % (45-75) Pending Lymphocytes % (Manual) 12 % (20-45) L Pending Monocytes % (Manual) 12 % (1-10) H Eosinophils % (Manual) 1 % (0-3) Basophils % (Manual) 0 % (0-2) Band Neutrophils 0 % (0-8) Platelet Estimate Adequate Pending Platelet Morphology Normal Pending Hypochromasia 1+ Macrocytosis 2+ Sodium Level 134 MMOL/L (136-145) L Pending Potassium Level 4.8 MMOL/L (3.5-5.1) Pending Chloride Level 97 MMOL/L (98-107) L Pending Carbon Dioxide Level 29 MMOL/L (21-32) Pending Anion Gap 8 mmol/L (5-15) Blood Urea Nitrogen 25 mg/dL (7-18) H Pending Creatinine 0.9 MG/DL (0.55-1.30) Pending Estimat Glomerular Filtration Rate > 60 mL/min (>60) Pending Glucose Level 126 MG/DL (74-106) H Pending Calcium Level 10.0 MG/DL (8.5-10.1) Pending Total Bilirubin 0.3 MG/DL (0.2-1.0) Pending Aspartate Amino Transf (AST/SGOT) 43 U/L (15-37) H Pending Alanine Aminotransferase (ALT/SGPT) 27 U/L (12-78) Pending Alkaline Phosphatase 66 U/L (46-116) Pending Total Protein 8.0 G/DL (6.4-8.2) Pending Albumin 3.7 G/DL (3.4-5.0) Pending Globulin 4.3 g/dL Pending Albumin/Globulin Ratio 0.9 (1.0-2.7) L Erythrocyte Sedimentation Rate Pending Phosphorus Level 4.3 MG/DL (2.5-4.9) Magnesium Level 2.4 MG/DL (1.8-2.4) C-Reactive Protein, Quantitative 11.5 mg/dL (0.00-0.90) H Plan Problems: (1) Colitis (2) Diarrhea (3) Intractable abdominal pain Assessment & Plan: 61-year-old female complaining of abdominal pain. Initially presented with chest pain now states abdominal cramping and bloating. Intermittent nausea no emesis passing flatus having bowel movement believes there may have been blood in it prior. Decreased appetite because of abdominal discomfort. Wanting more pain medication states she has been receiving her Dilaudid as scheduled. Imaging reviewed chart reviewed no CT scan done recently and states she has been to different facility where she has had one either. Last one seems to be 2015. Patient states she has a history of cervical cancer given above CT ordered to evaluate for potential intra-abdominal etiology of pain. Okay for diet as tolerated from surgical standpoint We will monitor with abdominal exam and follow with imaging. Thank you for let me participate in patient's care will follow with recommendations Gallbladder is unremarkable, without stones, wall thickening, nor pericholecystic fluid. Sonographic Rubio's could not be performed., Patient nonverbal. Common bile duct measures 3 mm in diameter. No intrahepatic biliary ductal dilatation. Liver demonstrates normal echogenicity, no focal abnormality. Portal vein and hepatic veins are patent. Pancreas is unremarkable. Spleen is unremarkable. Left kidney measures 10 cm in length. Right kidney measures 10.5 cm length. Both kidneys demonstrate normal echogenicity. There is no hydronephrosis. Tiny cysts are seen in the right kidney. There is trace right perinephric fluid. Echogenic foci are seen in the renal sinuses bilaterally. . Abdominal aorta is partially obscured by bowel gas, visualized portions are non-aneurysmal . 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 difficile colitis (11) CAD (coronary artery disease) (12) GERD (gastroesophageal reflux disease) (13) HTN (hypertension) (14) ACS (acute coronary syndrome) (15) Severe protein-calorie malnutrition (16) Gastroparesis (17) COPD (chronic obstructive pulmonary disease) (18) COPD exacerbation (19) Macrocytic anemia (20) Acute bronchitis (21) Community acquired pneumonia (22) Kristian Arias Jun 07, 2020 09:07
[2020-06-07 09:10] LABS: ALANINE AMINOTRANSFERASE 52 U/L (12-78); ALBUMIN 3.5 G/DL (3.4-5.0); ALBUMIN/GLOBULIN RATIO 1.1 (1.0-2.7); ALKALINE PHOSPHATASE 66 U/L (46-116); ANION GAP 5 mmol/L (5-15); ASPARTATE AMINO TRANSFERASE 65 U/L (15-37); BILIRUBIN,TOTAL 0.3 MG/DL (0.2-1.0); BLOOD UREA NITROGEN 17 mg/dL (7-18); CALCIUM 9.4 MG/DL (8.5-10.1); CARBON DIOXIDE 33 MMOL/L (21-32); CHLORIDE 101 MMOL/L (98-107); CREATININE 0.7 MG/DL (0.55-1.30); POTASSIUM 4.4 MMOL/L (3.5-5.1); SODIUM 139 MMOL/L (136-145)
[2020-06-07] MEDS ORDERED: NS 500ML ONE (09:50)
[2020-06-07] MEDS ORDERED: Lidocaine 1% MPF 10mg/ml 5ml ONE (09:50)
--- NOTE | 2020-06-07 10:04 | Pre-Procedure Note/Attestation ---
Pre-Procedure Note/Attestation Complete Prior to Procedure Planned Procedure: not applicable Procedure Narrative: esophagogastroduodenoscopy and colonoscopy Indications for Procedure Pre-Operative Diagnosis: Anemia Attestation I attest that I discussed the nature of the procedure; its benefits; risks and complications; and alternatives (and the risks and benefits of such alternatives), prior to the procedure, with the patient (or the patient's legal marketing representative). I attest that, if there was a reasonable possibility of needing a blood transfusion, the patient (or the patient's legal marketing representative) was given the [facility] standardized written summary, pursuant to the [place]ah Blood Safety Act ([place] Health and Safety Code # 1645, as amended). I attest that I re-evaluated the patient just prior to the surgery and that there has been no change in the patient's H&P, except as documented below: Ruben Salazar MD Jun 07, 2020 10:04
[2020-06-07] MEDS ORDERED: NS 500ML IVPB ONE (10:10)
--- NOTE | 2020-06-07 10:53 | Pulmonology Progress Note ---
Subjective ROS Limited/Unobtainable: Yes Interval Events: for colonoscopy today Constitutional: Reports: no symptoms Allergies: Coded Allergies: HYDROCODONE (Verified Allergy, Severe, 06/23/13) LORAZEPAM (Verified Allergy, Severe, Hives, 02/13/14) RASH/HIVES MORPHINE (Unverified Allergy, Severe, 01/14/19) Not true allergy; tolerated Dilaudid in past. Extensive opiate hx PROCHLORPERAZINE (Verified Allergy, Severe, 06/23/13) VANCOMYCIN (Unverified Allergy, Mild, Itching, 03/06/14) Objective Last 24 Hour Vital Signs Date Time Temp Pulse Resp B/P (MAP) Pulse Ox O2 Delivery O2 Flow Rate FiO2 06/07/20 08:07 88 17 96 Room Air 21 06/07/20 04:00 97.5 88 18 111/71 (84) 95 06/07/20 00:00 97.9 82 18 100/62 (75) 98 06/06/20 20:09 Room Air 06/06/20 20:00 98.1 89 18 123/71 (88) 97 06/06/20 19:35 80 18 96 Room Air 21 06/06/20 18:30 98.4 06/06/20 16:00 98.4 86 18 100/62 (75) 98 06/06/20 15:24 98.7 06/06/20 12:26 98.7 06/06/20 12:00 98.7 94 18 114/83 (93) 98 Intake and Output 06/06/20 06/07/20 19:00 07:00 Intake Total 2000 ml 1000 ml Balance 2000 ml 1000 ml Intake Oral 2000 ml 1000 ml # Voids 5 5 # Bowel Movements 3 5 General Appearance: cachetic HEENT: normocephalic, atraumatic Respiratory: chest wall non-tender, lungs clear, normal breath sounds Breasts: no masses Cardiovascular: normal peripheral pulses, normal rate Abdomen: normal bowel sounds, soft, non tender, no organomegaly Genitourinary: normal external genitalia Extremities: no cyanosis Skin: no rash 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 Laboratory Tests 06/07/20 08:10: White Blood Count 4.1L, Red Blood Count 2.90L, Hemoglobin 9.9L, Hematocrit 33.1L , Mean Corpuscular Volume 114H, Mean Corpuscular Hemoglobin 34.2H, Mean Corpuscular Hemoglobin Concent 30.0L, Red Cell Distribution Width 14.2, Platelet Count 256, Mean Platelet Volume 6.2L, Neutrophils (%) (Auto) , Lymphocytes (%) (Auto) , Monocytes (%) (Auto) , Eosinophils (%) (Auto) , Basophils (%) (Auto) , Differential Total Cells Counted 100, Neutrophils % (Manual) 65, Lymphocytes % (Manual) 17L, Monocytes % (Manual) 15H, Eosinophils % (Manual) 3, Basophils % (Manual) 0, Band Neutrophils 0, Platelet Estimate Adequate, Platelet Morphology Normal, Hypochromasia 1+, Macrocytosis 1+, Erythrocyte Sedimentation Rate 98H, Sodium Level 139, Potassium Level 4.4, Chloride Level 101, Carbon Dioxide Level 33H, Anion Gap 5, Blood Urea Nitrogen 17, Creatinine 0.7, Estimat Glomerular Filtration Rate > 60, Glucose Level 90, Calcium Level 9.4, Phosphorus Level 4.3, Magnesium Level 2.4, Total Bilirubin 0.3, Aspartate Amino Transf (AST/SGOT) 65H, Alanine Aminotransferase (ALT/SGPT) 52, Alkaline Phosphatase 66, C-Reactive Protein, Quantitative 11.5H, Total Protein 6.7, Albumin 3.5, Globulin 3.2, Albumin/Globulin Ratio 1.1 Current Medications Medications (Trade) Dose Ordered Sig/Haley Route PRN Reason Start Time Stop Time Status Last Admin Dose Admin Acetaminophen (Tylenol) 650 mg Q4H PRN ORAL fever 05/31/20 18:45 06/30/20 18:44 Acetaminophen (Tylenol) 650 mg Q4H PRN ORAL Mild Pain (Pain Scale 1-3) 06/07/20 07:45 06/07/20 14:00 Al Hydroxide/Mg Hydroxide (Mylanta) 15 ml Q1H PRN ORAL gi upset 06/07/20 07:45 06/07/20 14:00 Albuterol/ Ipratropium (Albuterol/ Ipratropium) 3 ml Q4H PRN HHN Shortness of Breath 06/05/20 12:30 06/10/20 12:29 06/05/20 20:21 Amylase/Lipase/ Protease (Rosa DR 36,000 units cap) 1 ea TIDPRN PRN ORAL give if pt eats snacks 06/01/20 15:00 1/27/21 14:59 Amylase/Lipase/ Protease (Rosa SARGENT 36,000 units cap) 1 ea TIWM ORAL 06/01/20 17:00 08/30/20 16:59 06/06/20 17:59 Atropine Sulfate (Atropine) 0.5 mg Q5M PRN IVP bpm less than 45 06/07/20 07:45 06/07/20 14:00 Dextrose (Dextrose 50%) 25 ml Q30M PRN IV Hypoglycemia 05/31/20 18:45 08/29/20 18:44 Dextrose (Dextrose 50%) 50 ml Q30M PRN IV Hypoglycemia 05/31/20 18:45 08/29/20 18:44 Dextrose/ Electrolytes 1,000 ml @ 75 mls/hr [id number] IV 06/06/20 16:00 07/06/20 15:59 06/06/20 15:04 Diphenhydramine HCl (Benadryl) 25 mg Q15M PRN IVP Itching 06/07/20 07:45 06/07/20 14:00 Diphenhydramine HCl (Benadryl) 50 mg Q6H PRN IVP Itching 05/31/20 18:45 06/30/20 18:44 06/07/20 06:03 Docusate Sodium (Colace) 100 mg TWICE A DAY ORAL 06/04/20 09:00 07/04/20 08:59 06/06/20 17:59 Fentanyl Citrate (Sublimaze 100 mcg/2 mL) 25 mcg Q10M PRN IV Moderate Pain (Pain Scale 4-6) 06/07/20 07:45 06/07/20 14:00 Heparin Sodium (Porcine) (Heparin 5000 units/ml) 5,000 units EVERY 12 HOURS SUBQ 05/31/20 21:00 07/15/20 20:59 06/06/20 09:03 Hydromorphone HCl (Dilaudid) 2 mg Q3H PRN IVP Severe Pain (Pain Scale 7-10) 06/06/20 11:22 06/13/20 11:21 06/07/20 09:02 Labetalol HCl (Normodyne) 5 mg Q10M PRN IV SBP>160 / DBP>90 06/07/20 07:45 06/07/20 14:00 Linaclotide (Linzess) 290 mcg BEFORE BREAKFAST ORAL 06/06/20 06:30 09/04/20 06:29 06/07/20 06:14 Loperamide HCl (Imodium) 2 mg Q4H PRN ORAL Diarrhea 06/01/20 11:00 07/01/20 10:59 06/01/20 20:44 Ondansetron HCl (Zofran) 4 mg Q1H PRN IVP Nausea & Vomiting 06/07/20 07:45 06/07/20 14:00 Ondansetron HCl (Zofran) 4 mg Q6H PRN IVP Nausea & Vomiting 05/31/20 18:45 06/30/20 18:44 06/07/20 06:04 Polyethylene Glycol (Miralax) 17 gm BEDTIME ORAL 06/04/20 21:00 07/04/20 20:59 Zolpidem Tartrate (Ambien) 5 mg HSPRN PRN ORAL Insomnia 06/06/20 11:22 06/13/20 11:21 06/07/20 00:15 Assessment/Plan Problems: (1) Intractable abdominal pain (2) GI bleed (3) Diarrhea (4) COPD (chronic obstructive pulmonary disease) (5) GERD (gastroesophageal reflux disease) (6) Severe protein-calorie malnutrition (7) CAD (coronary artery disease) (8) Chronic pancreatitis (9) History of bilateral hip replacements (10) HTN (hypertension) Assessment/Plan Colonoscopy today CT abdomen: Borderline dilated proximal small bowel loops slow forward transit of contrast. No definite transition point. Of doubtful significance but very mild small bowel obstruction possible. Recommend follow-up abdominal radiographs to ensure antegrade contrast passage IV fluids H2 nina watch h/h prbc prn respiratory treatment symptomatic treatment dvt prophylaxis. Lorraine Arndt MD Jun 07, 2020 10:53
--- NOTE | 2020-06-07 11:00 | Endoscopy Procedure Note ---
Endoscopy Procedure Note General Indication for Procedure: anemia Procedures Performed: EGD, colonoscopy Operative Findings/Diagnosis: gastritis, colon polyp Specimen: yes Pt Tolerated Procedure Well: Yes Estimated Blood Loss: none Anesthesia Anesthesiologist: jonatan Anesthesia: MAC Inserted Devices Implant(s) used?: No Quality Quality of Bowel Preparation: Good Did scope reach the cecum?: Yes Was there any complications?: No GI Core Measures 50 yrs or older w/o bx or poly: Not Applicable 10yrs. F/U recommended: Not Applicable Ruben Salazar MD Jun 07, 2020 11:00
--- NOTE | 2020-06-07 11:22 | Immediate Post-Op Evaluation ---
Immediate Post-Op Evalulation Immediate Post-Op Evalulation Procedure: egd/colonoscopy w/bx Date of Evaluation: Jun 07, 2020 Time of Evaluation: 11:00 IV Fluids: 450ml 0.9ns Blood Products: none Estimated Blood Loss: negligible Blood Pressure Systolic: 119 Blood Pressure Diastolic: 66 Pulse Rate: 93 Respiratory Rate: 18 O2 Sat by Pulse Oximetry: 99 Temperature (Fahrenheit): 98.9 Pain Score (1-10): 0 Nausea: No Vomiting: No Complications none Patient Status: awake, reacts, patent Hydration Status: adequate Drug: Huyen Farris MD Jun 07, 2020 11:22
--- NOTE | 2020-06-07 11:23 | 48 Hour Post Anesthesia Eval ---
Post Anesthesia Evaluation Procedure: egd/colonoscopy w/bx Date of Evaluation: Jun 07, 2020 Time of Evaluation: 11:02 Blood Pressure Systolic: 120 0: 75 Pulse Rate: 83 Respiratory Rate: 18 Temperature (Fahrenheit): 98.9 O2 Sat by Pulse Oximetry: 99 Airway: patent Nausea: No Vomiting: No Pain Intensity: 0 Hydration Status: adequate Cardiopulmonary Status: stable Mental Status/LOC: patient returned to baseline Post-Anesthesia Complications: none Follow-up care needed: N/A Huyen Villanueva MD Jun 07, 2020 11:23
--- NOTE | 2020-06-07 14:45 | Procedure Note ---
DATE OF PROCEDURE: 06/07/2020 SURGEON: Ruben Salazar MD. REFERRING PHYSICIAN: Lorraine Arndt MD. PROCEDURE: Upper endoscopy with biopsy and colonoscopy with snare polypectomy and biopsy. ANESTHESIA: Per Dr. Hurst. INSTRUMENT: Olympus adult flexible upper endoscope and colonoscope. INDICATION: Abdominal pain and anemia. REASON FOR PROCEDURE: The procedure, risks, benefits, and possible consequences, including hemorrhage, aspiration, perforation and infection, and alternative treatments, were explained to the patient/legal guardian by Dr. Ruben Salazar and the patient/legal guardian understood and accepted these risks. PROCEDURE IN DETAIL: After informed consent was obtained and the patient was adequately sedated, Olympus upper endoscope was advanced from mouth into the second portion of the duodenum and retroflexion was performed in the stomach. The patient had evidence of few small hyperplastic-looking duodenal polyps, which were biopsied. In the stomach, there was diffuse gastritis. Random biopsy from antrum was obtained to rule out H. pylori infection. There was also a diminutive polyp in the proximal body of the stomach, questionable submucosal lesion versus a small polyp, which was biopsied. The patient also large two inlet patches in the upper esophagus. At this time, the upper endoscope was retrieved and the patient was turned over for colonoscopy. First, rectal exam was performed, which was positive for internal hemorrhoids. Then, the scope was advanced from rectum into the cecum documented by appendiceal orifice, ileocecal valve, and right upper quadrant palpation. Quality of prep was very good. The patient had one sessile polyp in the proximal ascending colon measured roughly about 6 mm, removed with cold snare polypectomy technique. There was an area of ulceration in the proximal transverse colon suspicious for resolving ischemic colitis. This area was also biopsied. The rest of the examination grossly within normal limits. Retroflexion of rectum showed evidence of internal hemorrhoids. SUMMARY OF FINDINGS: 1. Two large inlet patches. 2. Gastritis, status post biopsy. 3. One gastric polyp, status post biopsy and two duodenal polyps status post biopsy. 4. Internal hemorrhoids. 5. An area of the ulceration in the colon, questionable for resolving ischemic colitis status post biopsy. 6. One colonic polyp removed. See above for details. RECOMMENDATIONS: 1. Resume diet. 2. Follow labs. 3. Follow pathology. I want to thank Dr. Arndt for this kind referral. Ruben Salazar M.D. DR: KATHLEEN JOB#: [id number] CC:
[2020-06-07] MEDS: Miralax 17gm pkt ORAL SCH (21:00)
[2020-06-08] VITALS: BP 108/64
[2020-06-08] MEDS: DiphenhydrAMINE 50mg/ml Inj IVP PRN ×3 (00:32→12:18)
[2020-06-08 04:00] VITALS: BP 111/65
[2020-06-08] MEDS: Creon DR 36,000 units cap ORAL SCH ×2 (06:28→12:18)
[2020-06-08] MEDS: D5 1/2NS w/KCl 20mEq 1,000 ML IV SCH (06:42)
[2020-06-08 08:00] VITALS: BP 98/58
[2020-06-08] MEDS: Docusate 100mg cap ORAL SCH (08:05)
[2020-06-08] MEDS: Heparin 5000 units/ml inj SUBQ SCH (08:08)
--- NOTE | 2020-06-08 10:03 | General Progress Note ---
Subjective ROS Limited/Unobtainable: Yes Allergies: Coded Allergies: HYDROCODONE (Verified Allergy, Severe, 06/23/13) LORAZEPAM (Verified Allergy, Severe, Hives, 02/13/14) RASH/HIVES MORPHINE (Unverified Allergy, Severe, 01/14/19) Not true allergy; tolerated Dilaudid in past. Extensive opiate hx PROCHLORPERAZINE (Verified Allergy, Severe, 06/23/13) VANCOMYCIN (Unverified Allergy, Mild, Itching, 03/06/14) Objective Last 24 Hour Vital Signs Date Time Temp Pulse Resp B/P (MAP) Pulse Ox O2 Delivery O2 Flow Rate FiO2 06/08/20 09:24 84 18 96 Room Air 21 06/08/20 09:00 Room Air 06/08/20 08:00 97.9 82 15 98/58 (71) 97 06/08/20 04:00 97.6 88 18 111/65 (80) 95 06/08/20 00:00 97.8 84 18 108/64 (79) 95 06/07/20 21:00 Room Air 06/07/20 20:16 78 18 95 Room Air 21 06/07/20 20:00 98.1 85 18 112/66 (81) 94 06/07/20 16:00 97.0 75 18 90/58 (69) 94 06/07/20 12:00 97.5 88 18 119/80 (93) 98 06/07/20 11:23 83 18 99 06/07/20 11:22 93 18 99 06/07/20 11:13 98.9 83 20 106/63 97 Room Air 06/07/20 11:09 98.9 83 20 120/75 97 Room Air 06/07/20 11:00 83 20 120/75 97 Room Air 06/07/20 10:48 98.9 83 20 119/66 97 Room Air 06/07/20 10:48 98.9 83 20 119/66 97 Nasal Cannula 2 Intake and Output 06/07/20 06/08/20 19:00 07:00 Intake Total 1300 ml 1260 ml Balance 1300 ml 1260 ml Intake Oral 400 ml 360 ml IV Total 900 ml 900 ml # Voids 2 4 Height (Feet): 5 Height (Inches): 5.00 Weight (Pounds): 92 General Appearance: alert EENT: normal ENT inspection Neck: supple Cardiovascular: normal rate Respiratory/Chest: decreased breath sounds Abdomen: normal bowel sounds, non tender, soft Extremities: non-tender Assessment/Plan Assessment/Plan: 1. History of cervical cancer. 2. Hypertension. 3. Hypercholesterolemia. 4. CHF. 5. Constipation. 6. History of bowel obstruction, requiring surgery. 7. History of pancreatitis. Creon pain control monitor labs s/p EGD and colonoscopy CT reviewed will Ruben Villeda MD Jun 08, 2020 10:03
[2020-06-08 12:00] VITALS: BP 120/62
--- NOTE | 2020-06-08 13:32 | Pulmonology Progress Note ---
Subjective ROS Limited/Unobtainable: Yes Interval Events: for colonoscopy today Constitutional: Reports: no symptoms Allergies: Coded Allergies: HYDROCODONE (Verified Allergy, Severe, 06/23/13) LORAZEPAM (Verified Allergy, Severe, Hives, 02/13/14) RASH/HIVES MORPHINE (Unverified Allergy, Severe, 01/14/19) Not true allergy; tolerated Dilaudid in past. Extensive opiate hx PROCHLORPERAZINE (Verified Allergy, Severe, 06/23/13) VANCOMYCIN (Unverified Allergy, Mild, Itching, 03/06/14) Objective Last 24 Hour Vital Signs Date Time Temp Pulse Resp B/P (MAP) Pulse Ox O2 Delivery O2 Flow Rate FiO2 06/08/20 12:00 98.2 85 16 120/62 (81) 93 06/08/20 09:24 84 18 96 Room Air 21 06/08/20 09:00 Room Air 06/08/20 08:00 97.9 82 15 98/58 (71) 97 06/08/20 04:00 97.6 88 18 111/65 (80) 95 06/08/20 00:00 97.8 84 18 108/64 (79) 95 06/07/20 21:00 Room Air 06/07/20 20:16 78 18 95 Room Air 21 06/07/20 20:00 98.1 85 18 112/66 (81) 94 06/07/20 16:00 97.0 75 18 90/58 (69) 94 Intake and Output 06/07/20 06/08/20 19:00 07:00 Intake Total 1300 ml 1260 ml Balance 1300 ml 1260 ml Intake Oral 400 ml 360 ml IV Total 900 ml 900 ml # Voids 2 4 General Appearance: cachetic HEENT: normocephalic, atraumatic Respiratory: chest wall non-tender, lungs clear, normal breath sounds Breasts: no masses Cardiovascular: normal peripheral pulses, normal rate Abdomen: normal bowel sounds, soft, non tender, no organomegaly Genitourinary: normal external genitalia Extremities: no cyanosis Skin: no rash 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 Current Medications Medications (Trade) Dose Ordered Sig/Haley Route PRN Reason Start Time Stop Time Status Last Admin Dose Admin Acetaminophen (Tylenol) 650 mg Q4H PRN ORAL fever 05/31/20 18:45 06/30/20 18:44 Albuterol/ Ipratropium (Albuterol/ Ipratropium) 3 ml Q4H PRN HHN Shortness of Breath 06/05/20 12:30 06/10/20 12:29 06/05/20 20:21 Amylase/Lipase/ Protease (Rosa SARGENT 36,000 units cap) 1 ea TIDPRN PRN ORAL give if pt eats snacks 06/01/20 15:00 08/30/20 14:59 Amylase/Lipase/ Protease (Rosa SARGENT 36,000 units cap) 1 ea TIWM ORAL 06/01/20 17:00 08/30/20 16:59 06/08/20 12:18 Dextrose (Dextrose 50%) 25 ml Q30M PRN IV Hypoglycemia 05/31/20 18:45 08/29/20 18:44 Dextrose (Dextrose 50%) 50 ml Q30M PRN IV Hypoglycemia 05/31/20 18:45 08/29/20 18:44 Dextrose/ Electrolytes 1,000 ml @ 75 mls/hr [id number] IV 06/06/20 16:00 07/06/20 15:59 06/08/20 06:42 Diphenhydramine HCl (Benadryl) 50 mg Q6H PRN IVP Itching 05/31/20 18:45 06/30/20 18:44 06/08/20 12:18 Docusate Sodium (Colace) 100 mg TWICE A DAY ORAL 06/04/20 09:00 07/04/20 08:59 06/08/20 08:05 Heparin Sodium (Porcine) (Heparin 5000 units/ml) 5,000 units EVERY 12 HOURS SUBQ 05/31/20 21:00 07/15/20 20:59 06/08/20 08:08 Hydromorphone HCl (Dilaudid) 2 mg Q3H PRN IVP Severe Pain (Pain Scale 7-10) 06/06/20 11:22 06/13/20 11:21 06/08/20 12:18 Linaclotide (Linzess) 290 mcg BEFORE BREAKFAST ORAL 06/06/20 06:30 09/04/20 06:29 06/08/20 06:28 Loperamide HCl (Imodium) 2 mg Q4H PRN ORAL Diarrhea 06/01/20 11:00 07/01/20 10:59 06/01/20 20:44 Ondansetron HCl (Zofran) 4 mg Q6H PRN IVP Nausea & Vomiting 05/31/20 18:45 06/30/20 18:44 06/08/20 12:18 Polyethylene Glycol (Miralax) 17 gm BEDTIME ORAL 06/04/20 21:00 07/04/20 20:59 Zolpidem Tartrate (Ambien) 5 mg HSPRN PRN ORAL Insomnia 06/06/20 11:22 06/13/20 11:21 06/07/20 00:15 Assessment/Plan Problems: (1) Intractable abdominal pain (2) GI bleed (3) Diarrhea (4) COPD (chronic obstructive pulmonary disease) (5) GERD (gastroesophageal reflux disease) (6) Severe protein-calorie malnutrition (7) CAD (coronary artery disease) (8) Chronic pancreatitis (9) History of bilateral hip replacements (10) HTN (hypertension) Assessment/Plan still c/o rectal pain and perigastric painColonoscopy done yesterday CT abdomen: Borderline dilated proximal small bowel loops slow forward transit of contrast. No definite transition point. Of doubtful significance but very mild s mall bowel obstruction possible. Recommend follow-up abdominal radiographs to ensure antegrade contrast passage IV fluids H2 nina watch h/h prbc prn respiratory treatment symptomatic treatment dvt prophylaxis. Lorraine Arndt MD Jun 08, 2020 13:31
[2020-06-08] MEDS ORDERED: ACETAMINOPHEN-1 EAC1 ORAL (13:33)
--- NOTE | 2020-06-08 14:48 | Surgery Progress Note ---
Surgery Progress Note Subjective Symptoms: passing flatus, BM Additional Comments wants her medication in IV format no n/v/f/c tolerating diet Objective Last 24 Hour Vital Signs Date Time Temp Pulse Resp B/P (MAP) Pulse Ox O2 Delivery O2 Flow Rate FiO2 06/08/20 12:00 98.2 85 16 120/62 (81) 93 06/08/20 09:24 84 18 96 Room Air 21 06/08/20 09:00 Room Air 06/08/20 08:00 97.9 82 15 98/58 (71) 97 06/08/20 04:00 97.6 88 18 111/65 (80) 95 06/08/20 00:00 97.8 84 18 108/64 (79) 95 06/07/20 21:00 Room Air 06/07/20 20:16 78 18 95 Room Air 21 06/07/20 20:00 98.1 85 18 112/66 (81) 94 06/07/20 16:00 97.0 75 18 90/58 (69) 94 I&O Intake and Output 06/07/20 06/08/20 19:00 07:00 Intake Total 1300 ml 1260 ml Balance 1300 ml 1260 ml Intake Oral 400 ml 360 ml IV Total 900 ml 900 ml # Voids 2 4 Cardiovascular: RSR Respiratory: decreased breath sounds Abdomen: non-tender, present bowel sounds Extremities: no edema, no tenderness, no cyanosis Plan Problems: (1) Colitis (2) Diarrhea (3) Intractable abdominal pain Assessment & Plan: 61-year-old female complaining of abdominal pain. Initially presented with chest pain now states abdominal cramping and bloating. Intermittent nausea no emesis passing flatus having bowel movement believes there may have been blood in it prior. Decreased appetite because of abdominal discomfort. Wanting more pain medication states she has been receiving her Dilaudid as scheduled. Imaging reviewed chart reviewed no CT scan done recently and states she has been to different facility where she has had one either. Last one seems to be 2015. Patient states she has a history of cervical cancer given above CT ordered to evaluate for potential intra-abdominal etiology of pain. Okay for diet as tolerated from surgical standpoint We will monitor with abdominal exam and follow with imaging. Thank you for let me participate in patient's care will follow with recommendations Gallbladder is unremarkable, without stones, wall thickening, nor pericholecystic fluid. Sonographic Rubio's could not be performed., Patient nonverbal. Common bile duct measures 3 mm in diameter. No intrahepatic biliary ductal dilatation. Liver demonstrates normal echogenicity, no focal abnormality. Portal vein and hepatic veins are patent. Pancreas is unremarkable. Spleen is unremarkable. Left kidney measures 10 cm in length. Right kidney measures 10.5 cm length. Both kidneys demonstrate normal echogenicity. There is no hydronephrosis. Tiny cysts are seen in the right kidney. There is trace right perinephric fluid. Echogenic foci are seen in the renal sinuses bilaterally. . Abdominal aorta is partially obscured by bowel gas, visualized portions are non-aneurysmal . 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 difficile colitis (11) CAD (coronary artery disease) (12) GERD (gastroesophageal reflux disease) (13) HTN (hypertension) (14) ACS (acute coronary syndrome) (15) Severe protein-calorie malnutrition (16) Gastroparesis (17) COPD (chronic obstructive pulmonary disease) (18) COPD exacerbation (19) Macrocytic anemia (20) Acute bronchitis (21) Community acquired pneumonia (22) Kristian Arias Jun 08, 2020 14:48
--- NOTE | 2020-06-12 08:28 | Discharge Summary ---
Discharge Summary Discharge Summary _ DATE OF ADMISSION: 05/31/2020 DATE OF DISCHARGE: 06/08/2020 DISCHARGED BY: Dr. Arndt REASON FOR ADMISSION: 69 years old female with multiply chronic medical problems, including, hypertension, COPD, gastroparesis, history of bowel obstruction, requiring surgery chronic pancreatitis, history of cervical cancer, presented to emergency room due to generalized weakness and pain. Patient reported having diarrhea for 1 week. She reported episodes of lower GI bleeding. No fever no chills No shortness of breath, no chest pain. Upon evaluation patient was mildly tachycardic in low 100th, pulse oximetry was 95% on room air, no fever. Laboratory work-up revealed no leukocytosis, stable hemoglobin, hematocrit and platelet count. Stable electrolytes and renal parameters. Stable LFT and lipase. Troponin negative. EKG revealed sinus rhythm no acute ischemic changes. Urinalysis revealed +2 protein +1 leukocyte esterase,, borderline pyuria no bacteria. Chest x-ray revealed no acute cardiopulmonary pathology. Urine toxicology screen was positive for opiates. In the emergency department patient received IV fluids, antiemetic, analgesics, and admitted for colitis and generalized weakness for further management. CONSULTANTS: GI specialist Dr. Salazar surgery Dr. Moreno [facility]: Patient admitted to medical surgical floor. Patient provided with IV hydration and initially was kept n.p.o. Patient started onH2 blockers. Pain management was addressed. CT scan of the abdomen and pelvis revealed borderline dilated proximal small bowel loops with slow forward transition; no definite transition point. Possible very mild small bowel obstruction. Nonobstructive right renal calculi. COPD changes. Patient subsequently undergone KUB , which revealed enteric transit of contrast into the colon and lack of gaseous distention , most likely indicating absence of significant small bowel obstruction. Patient subsequently undergone upper endoscopy with biopsy and colonoscopy with a snare polypectomy and biopsy. The procedure found large inlet patches gastritis, status post biopsy, one gastric polyp, status post biopsy, two duodenal polyps, status post biopsy, internal hemorrhoids, area of the ulcer of the colon,, questionable resolving ischemic colitis s, tatus post biopsy, status post removal of one colonic polyp. Patient started on diet as tolerated. Antiemetic were on board as needed. Bowel regimen adjusted . Creon continued. LFT, lipase, amylase remained stable Biopsy of transverse colon revealed focal active colitis with multiply deeper levels examined. Ascending colon polyp, gastric and duodenal polyp were benign hyperplastic polyps. Biopsy was negative for H. pylori; no evidence of metaplasia, dysplasia or malignancy. Surgeon followed. No evidence of dilated bile ducts. No evidence of bowel obstruction. No need for surgical intervention at this time. Hemoglobin and hematocrit were closely monitored with goal to keep hemoglobin above 7 ; prior to discharge hemoglobin 9.9 , hematocrit 33.1. Renal parameters and electrolytes closely monitored, electrolytes corrected as needed , and nephrotoxic's were avoided li. Lipase , amylase along with LFT remained stable. patient was continue on Creon. Imodium provided symptomatically DVT prophylaxis provided. Pulse oximetry remained stable on room air Nebulizing treatment was on board as needed. Blocked pressure was closely monitored and manage accordingly Diet was slowly advanced as tolerated. Patient was able to tolerate diet. Pain was controlled. Protein supplements provided as per registered dietitian recommendation. Patient clinically stabilized and was ready for discharge home. FINAL DIAGNOSES: Colitis GI bleeding Intractable abdominal pain Diarrhea Chronic pancreatitis Severe protein calorie malnutrition History of cervical cancer Hypertension COPD Coronary artery disease History of bowel obstruction, requiring surgery DISCHARGE MEDICATIONS: See Medication Reconciliation list. DISCHARGE INSTRUCTIONS: Patient was discharged home. Follow-up with a primary care provider in 1 week. I have been assigned to dictate discharge summary for this account. I was not involved in the patient's management. Nakia Alvarenga NP Jun 12, 2020 08:28
== END 2020-06-08 15:15 | disposition home or self-care (01) | DRG 391 ==
LOC: EMR 12:35 → EDBEDREQ 13:10 → 4E 13:29 → EDBEDREQ 14:14
PROC: 0DBK8ZZ Excision of Ascending Colon, Via Natural or Artificial Opening Endoscopic (ICD-10-PCS; principal; 2020-06-07 10:16)
PROC: 0DB68ZX Excision of Stomach, Via Natural or Artificial Opening Endoscopic, Diagnostic (ICD-10-PCS; principal; 2020-06-07 10:16)
PROC: 0DB98ZX Excision of Duodenum, Via Natural or Artificial Opening Endoscopic, Diagnostic (ICD-10-PCS; principal; 2020-06-07 10:16)
PROC: 0DBL8ZX Excision of Transverse Colon, Via Natural or Artificial Opening Endoscopic, Diagnostic (ICD-10-PCS; principal; 2020-06-07 10:16)
PROC: 0DB78ZX Excision of Stomach, Pylorus, Via Natural or Artificial Opening Endoscopic, Diagnostic (ICD-10-PCS; principal; 2020-06-07 10:16)
DX: K52.9 Noninfective gastroenteritis and colitis, unspecified (principal); A41.89 Other specified sepsis; E43 Unspecified severe protein-calorie malnutrition; Z68.1 Body mass index [BMI] 19.9 or less, adult; K86.1 Other chronic pancreatitis; N39.0 Urinary tract infection, site not specified; K92.2 Gastrointestinal hemorrhage, unspecified; R10.9 Unspecified abdominal pain; Z88.6 Allergy status to analgesic agent; Z88.1 Allergy status to other antibiotic agents; Z88.8 Allergy status to other drugs, medicaments and biological substances; I25.10 Atherosclerotic heart disease of native coronary artery without angina pectoris; K21.9 Gastro-esophageal reflux disease without esophagitis; I10 Essential (primary) hypertension; J44.9 Chronic obstructive pulmonary disease, unspecified; Z96.643 Presence of artificial hip joint, bilateral; Z85.41 Personal history of malignant neoplasm of cervix uteri; E78.00 Pure hypercholesterolemia, unspecified; D64.9 Anemia, unspecified; K64.8 Other hemorrhoids; K29.70 Gastritis, unspecified, without bleeding; K31.7 Polyp of stomach and duodenum; A04.72 Enterocolitis due to Clostridium difficile, not specified as recurrent; Z88.3 Allergy status to other anti-infective agents; K31.84 Gastroparesis
CPT/HCPCS: 36415; 71045; 74019; 74176; 80048; 80053; 80307; 81003; 82150; 83690; 83735; 84100; 84443; 84484; 85007; 85025; 85651; 86140; 93005; 94003; 94150; 94640; 94664; 96360; 96361; 99285; J2405; J7620; U0002

== ENCOUNTER 2020-06-14 18:16 | Inpatient (IN) | payer MEDICARE, OTHER ==
[~2020-06-14] VITALS: Ht 154.9 cm; Wt 44.5 kg
[~2020-06-14 18:16] MED LIST changes: +ACETAMINOPHEN-1 EAC1 ORAL
[2020-06-14] MEDS ORDERED: Omnipaque-300 100ml vial INJ PRN (18:45)
[2020-06-14] MEDS ORDERED: Aspirin Baby 81mg ORAL ONE (18:45)
--- NOTE | 2020-06-14 18:50 | NUR ---
ED Nurse Note: Pt came in to ED on a wc d/t chest pain on the L side that goes to L arm and complains of shortness of breath, pt is AOx4, calm and cooperative to care. per pt, pain has been going on since yesterday, pt's VSS, on RA, afebrile on triage. Placed on bed and gown; hooked to principal developer.
--- NOTE | 2020-06-14 18:53 | NUR ---
ED Nurse Note: X-ray at bedside
--- NOTE | 2020-06-14 19:10 | Emergency Room Report ---
History of Present Illness General Chief Complaint: Chest Pain Source: Patient (Asiya Henson M.D.) Present Illness HPI Patient is a 69-year-old female who presents to the ER with multiple complaints. Patient states that she was at [facility] and had a colonoscopy done today. She was told that the colonoscopy was abnormal and that they would have to repeat it again. Patient is a little bit repetitive and not the best historian. She states that she did not like the way that she was being treated there by the nursing staff and did not want to have another colonoscopy there so she drove straight here. From what I can understand patient went to [facility] initially for chest pain. Patient complains of intermittent chest pain and shortness of breath for the past couple days. She states been getting progressively worse. Patient states that she is on Coumadin for blood clots. She also complains of bilateral lower leg pain. She denies any fever but complains of chills. She denies any diarrhea or dysuria. Patient also complains of diffuse abdominal pain. 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 (Asiya Henson M.D.) Allergies: Coded Allergies: HYDROCODONE (Verified Allergy, Severe, 06/23/13) LORAZEPAM (Verified Allergy, Severe, Hives, 02/13/14) RASH/HIVES MORPHINE (Unverified Allergy, Severe, 01/14/19) Not true allergy; tolerated Dilaudid in past. Extensive opiate hx PROCHLORPERAZINE (Verified Allergy, Severe, 06/23/13) VANCOMYCIN (Unverified Allergy, Mild, Itching, 03/06/14) COVID-19 Screening Contact w/high risk pt: No Experienced COVID-19 symptoms?: No COVID-19 Testing performed RN DIALYSIS: No (Asiya Henson M.D.) Patient History Reviewed Nursing Documentation: PMH: Agreed; PSxH: Agreed (Asiya Henson M.D.) Nursing Documentation-PMH Hx Cardiac Problems: Yes Hx Pacemaker: No Hx Asthma: Yes Hx COPD: Yes Hx Diabetes: No Hx Cancer: Yes Hx Gastrointestinal Problems: No Hx Dialysis: No Hx Neurological Problems: No Hx Cerebrovascular Accident: No Hx Seizures: No Hx Dizziness: Yes Hx Headaches: Yes Hx Weakness: Yes Hx Fatigue: Yes (Asiya Henson M.D.) Review of Systems All Other Systems: negative except mentioned in HPI (Asiya Henson M.D.) Physical Exam Vital Signs Date Time Temp Pulse Resp B/P (MAP) Pulse Ox O2 Delivery O2 Flow Rate FiO2 06/14/20 18:43 97.9 96 22 122/67 (85) 95 Room Air Sp02 EP Interpretation: reviewed, normal General Appearance: alert, GCS 15, non-toxic, mild distress Head: normocephalic, atraumatic Eyes: bilateral eye normal inspection, bilateral eye PERRL ENT: hearing grossly normal, normal pharynx, no angioedema, normal voice Neck: full range of motion, supple/symm/no masses Respiratory: chest non-tender, lungs clear, normal breath sounds, speaking full sentences Cardiovascular #1: regular rate, rhythm, no edema Gastrointestinal: other - Diffuse abdominal tenderness with no guarding or rebound Rectal: deferred Musculoskeletal: normal range of motion, calf tenderness, no lower extremity edema Neurologic: car blocker III-XII nml as tested Psychiatric: anxious Skin: no rash Lymphatic: no adenopathy (Asiya Henson M.D.) Medical Decision Making Diagnostic Impression: Primary Impression: Chest pain Qualified Codes: R07.9 - Chest pain, unspecified Additional Impression: Intractable abdominal pain ER Course Patient pending labs and CT. Patient signed out to oncoming physician pending these studies, reevaluation and final disposition. (Asiya Henson M.D.) ER Course Signed out to me. She presents with chief complaint of chest pain and abdominal pain. This is a chronic issue with her. She was admitted here for the same thing recently. Then she went to [facility] where she was admitted for chest pain. She was scheduled to have a colonoscopy there but she refused and drove here. I will sign out a CT scan and afterward admission for further work-up. CT scan read by radiology was negative. (Milton Monsivais MD) EKG Diagnostic Results Troponin ordered: Yes When was troponin ordered?: Jun 14, 2020 EKG Time: 19:47 EP Interpretation: Asiya Henson MD Rate: normal - 90 Beats per minute Rhythm: NSR ST Segments: no acute changes ASA given to the pt in ED: Yes (Asiya Henson M.D.) Rhythm Strip Diag. Results Rhythm Strip Time: 19:09 EP Interpretation: yes - Asiya Henson MD Rate: 88 bpm Rhythm: NSR, no PVC's, no ectopy (Asiya Henson M.D.) CT/MRI/US Diagnostic Results CT/MRI/US Diagnostic Results : Imaging Test Ordered: CT abdomen pelvis Impression Read by radiologist. Negative. (Milton Monsivais MD) Last Vital Signs Date Time Temp Pulse Resp B/P (MAP) Pulse Ox O2 Delivery O2 Flow Rate FiO2 06/14/20 18:43 97.9 96 22 122/67 (85) 95 Room Air (Asiya Henson M.D.) Status: improved (Milton Monsivais MD) Disposition: ADMITTED INPATIENT Condition: Serious Additional Instructions: Please note that this report is being documented using [employer] technology. This can lead to erroneous entry secondary to incorrect interpretation by the dictating instrument. Asiya Henson M.D. Jun 14, 2020 19:09 Milton Monsivais MD Jun 14, 2020 21:50
[2020-06-14 19:19] VITALS: BP 122/67
--- NOTE | 2020-06-14 19:28 | NUR ---
ED Nurse Note: US at bedside
--- NOTE | 2020-06-14 19:29 | NUR ---
ED Nurse Note: Unable to start IV line x 3, charge nurse informed.
[2020-06-14 20:36] LABS: APPEARANCE,URINE CLEAR; BILIRUBIN, URINE NEGATIVE (NEGATIVE); COLOR,URINE PALE YELLOW; GLUCOSE, URINE (UA) NEGATIVE (NEGATIVE); KETONES,URINE NEGATIVE (NEGATIVE); LEUKOCYTE ESTERASE ,URINE NEGATIVE (NEGATIVE); NITRITE,URINE NEGATIVE (NEGATIVE); PH,URINE 5 (4.5-8.0); PROTEIN,URINE NEGATIVE (NEGATIVE); UROBILINOGEN,URINE NORMAL MG/DL (0.0-1.0)
--- NOTE | 2020-06-14 20:54 | NUR ---
ED Nurse Note: 24g IV on Right foot established, unable to draw blood, lab called to assist with blood draw.
[2020-06-14 21:24] LABS: BASOPHILS % (AUTO) 2.3 % (0.0-2.0); EOSINOPHILS % (AUTO) 3.2 % (0.0-3.0); HEMATOCRIT 32.6 % (37.0-47.0); HEMOGLOBIN 10.4 G/DL (12.0-16.0); LYMPHOCYTES % (AUTO) 30.9 % (20.0-45.0); MEAN CORPUSCULAR VOLUME 108 FL (80-99); NEUTROPHILS % (AUTO) 56.7 % (45.0-75.0); PLATELET COUNT 363 K/UL (150-450); RED BLOOD COUNT 3.01 M/UL (4.20-5.40); WHITE BLOOD COUNT 4.3 K/UL (4.8-10.8)
[2020-06-14 21:36] LABS: ANION GAP 9 mmol/L (5-15); BLOOD UREA NITROGEN 20 mg/dL (7-18); CALCIUM 8.4 MG/DL (8.5-10.1); CARBON DIOXIDE 22 MMOL/L (21-32); CHLORIDE 105 MMOL/L (98-107); CREATININE 0.9 MG/DL (0.55-1.30); POTASSIUM 4.5 MMOL/L (3.5-5.1); SODIUM 136 MMOL/L (136-145)
[2020-06-14 21:38] LABS: INR 1.1 (0.9-1.1)
[2020-06-14 21:41] LABS: ALANINE AMINOTRANSFERASE 21 U/L (12-78); ALBUMIN 3.4 G/DL (3.4-5.0); ALKALINE PHOSPHATASE 57 U/L (46-116); ASPARTATE AMINO TRANSFERASE 22 U/L (15-37); BILIRUBIN,TOTAL 0.3 MG/DL (0.2-1.0)
--- NOTE | 2020-06-14 21:41 | Diagnostic Imaging Report ---
EXAM: CT Abdomen and Pelvis Without Intravenous Contrast CLINICAL HISTORY: ABD PAIN TECHNIQUE: Axial computed tomography images of the abdomen and pelvis without intravenous contrast. CTDI is 3.9 mGy and DLP is 171.3 mGy-cm. One or more of the following dose reduction techniques were used: automated exposure control, adjustment of the mA and/or kV according to patient size, use of iterative reconstruction technique. COMPARISON: CT abdomen and pelvis 06/05/2020 FINDINGS: Lung bases: Unremarkable. ABDOMEN: Liver: Likely focal hepatic steatosis along the gallbladder fossa. This is unchanged. Gallbladder and bile ducts: Sludge within the gallbladder. No pericholecystic inflammatory changes. Mildly prominent common bile duct without an obstructing stone, unchanged. Pancreas: Unremarkable. Spleen: Unremarkable. Adrenals: Mild thickening of the left adrenal gland is unchanged. Unremarkable right adrenal gland. Kidneys and ureters: Unremarkable. No obstructing stones. No hydronephrosis. Stomach and bowel: No bowel obstruction or inflammatory process along the GI tract. PELVIS: Appendix: Normal appendix. Bladder: Unremarkable. No stones. Reproductive: Reproductive organs are obscured by artifact. ABDOMEN and PELVIS: Intraperitoneal space: Unremarkable. No free air. No significant fluid collection. Bones/joints: Significant artifact within the pelvis related to the patient's hip prosthetics. Soft tissues: Unremarkable. Vasculature: Unremarkable. Lymph nodes: Unremarkable. IMPRESSION: No acute findings in the abdomen or pelvis.
--- NOTE | 2020-06-14 21:58 | NUR ---
ED Nurse Note: Report given to TANYA Hinton
--- NOTE | 2020-06-14 22:00 | NUR ---
TRANSFER TO FLOOR: Patient transferred to telemetry as ordered, per ERMD. Report given to TANYA Hinton.
--- NOTE | 2020-06-14 23:30 | NUR ---
NURSE NOTES: Contacted Dr. Arndt for admission orders. Awaiting call back.
--- NOTE | 2020-06-14 23:30 | NUR ---
NURSE NOTES: Received patient awake alert from ER nurse. Admitted to tele unit under Dr. Arndt for chest pain. No SOB or distress. Patient has chest pain 5/10. monitoring and evaluation advisor reading SR. monitoring and evaluation advisor intact. Bed at lowest position locked with side rails up. Patient is fall risk with yellow socks and gown. Will contact Dr. Arndt for admit orders.
[2020-06-15] VITALS (7 sets, daily range): BP systolic 93–118; BP diastolic 52–77
--- NOTE | 2020-06-15 00:40 | NUR ---
NURSE NOTES: Contacted Dr. Arndt for second time but no call back.
--- NOTE | 2020-06-15 02:30 | NUR ---
NURSE NOTES: Dr. Arndt texted again. Made charge nurse aware of attempts to contact MD for admit orders. Charge nurse Beto stated that he will contact circus train supervisor. correctional case records supervisor made aware and will contact Dr. Arndt.
[2020-06-15] MEDS ORDERED: Miralax 17gm pkt ORAL PRN (03:30)
[2020-06-15] MEDS ORDERED: dilTIAZem HCl 25mg/5ml Inj IV PRN (03:30)
[2020-06-15] MEDS ORDERED: Albuterol/Ipratropium 3ml neb HHN PRN (03:30)
[2020-06-15] MEDS ORDERED: Nitroglycerin Subl 0.4mg tab SL PRN (03:30)
[2020-06-15] MEDS ORDERED: Enalaprilat 2.5mg/2ml Inj IV PRN (03:30)
[2020-06-15] MEDS ORDERED: Ketorolac 30mg Inj IM PRN (03:30)
--- NOTE | 2020-06-15 03:30 | NUR ---
NURSE NOTES: New orders noted by Dr. Arndt in EMR.
[2020-06-15] MEDS: HYDROmorphone 1mg/ml Carpuject IVP PRN ×2 (04:14→07:42)
--- NOTE | 2020-06-15 07:27 | NUR ---
NURSE NOTES: Pt received from Mary Jane Velasquez. Pt in bed awake and alert. Pt complaining of chest and rectal pain. "some" pain radiating to shoulders and also "some" pain in the epigastric area. However no pain in jaw. Pt is irritated but no guarding or grimacing. Asking to speak to doctor and for a higher dose of Dilaudid. Will inform Dr. Arndt of all of this. Bed low and locked. Call light within reach. Addendum: 06/15/20 at 0836 by Amalia Loomis RN Pt refuses nitro, only wants dilauded.
--- NOTE | 2020-06-15 07:30 | NUR ---
HAND-OFF: Report given to Amalia MARTÍNEZ. Endorsed plan of care. Patient refusing to wear yellow gown and socks. She brought her own pajamas because she stated that she is cold.
--- NOTE | 2020-06-15 08:36 | NUR ---
CASE MANAGEMENT:REVIEW 69 YR OLD FEMALE PRESENTED TO ER CC; SOB, CHEST AND ABDOMINAL PAIN SI:CHEST PAIN. INTRACTABLE ABDOMINAL PAIN 97.8 96 22 122/67 95% ON RA WBC-4.3 H/H-10.4/32.6 BUN+20 TROPONIN(-) URINE(+) OPIATES IS: 1L NS BOLUS ASA PO CTA CHEST VENOUS DUPLEX CT ABD/PELVIS COVID SWAB : TO TELEMETRY DCP: FROM HOME
--- NOTE | 2020-06-15 08:36 | NUR ---
NURSE NOTES: Dr. Arndt infomred that pt pain not going down from 10/10. Continues to refuse nitro. Complaining about dilauded dose being too low.
[2020-06-15] MEDS: Aspirin Baby 81mg ORAL SCH (08:38)
[2020-06-15] MEDS: Heparin 5000 units/ml inj SUBQ SCH ×2 (08:39→20:30)
[2020-06-15] MEDS ORDERED: Prep H Ointment 57gm RECTAL PRN (10:30)
--- NOTE | 2020-06-15 11:15 | NUR ---
RD ASSESSMENT & RECOMMENDATIONS SEE CARE ACTIVITY FOR COMPLETE ASSESSMENT DAILY ESTIMATED NEEDS: Needs based on underweight, 41.6kg 30-40 kcals/kg 9840-3066 total kcals 1-1.5 g protein/kg 42-62 g total protein 25-30 mL/kg 2494-7807 total fluid mLs NUTRITION DIAGNOSIS: Increased kcal/prot needs R/T underweight status as evidenced by pt @ 80% IBW w/ BMI of 16.3, suspected progressive wt loss of 13lbs/12.5% in 9 months. CURRENT DIET: Regular PO DIET RECOMMENDATIONS: Regular diet w/ continued fair po intake / texture as tolerated ADDITIONAL RECOMMENDATIONS: 1) Obtain a standing weight as able for accurate CBW -> monitor wt trend 2) Ensure Enlive TID w/ meals (strawberry flavor per pt request) Ensure Clear w/ CLD 3) Snacks BID in b/w meals 4) Monitor phos, K-> need for dietary restrictions 5) F/up w/ H&P
[2020-06-15] MEDS: DiphenhydrAMINE 50mg/ml Inj IVP PRN ×3 (11:17→23:21)
--- NOTE | 2020-06-15 11:25 | History and Physical ---
History of Present Illness General Date patient seen: Jun 15, 2020 Reason for Hospitalization: Chest Pain Present Illness HPI 69-year-old female with hx of cervical cancer, chronic back pain presented to ER with multiple complaints. She was at [facility] initially for chest pain. Patient complains of intermittent chest pain and shortness of breath for the past couple days. She also complains of bilateral lower leg pain. Patient also complains of diffuse abdominal pain. She is admitted to telemetry for further management. Allergies: Coded Allergies: HYDROCODONE (Verified Allergy, Severe, 06/23/13) LORAZEPAM (Verified Allergy, Severe, Hives, 02/13/14) RASH/HIVES MORPHINE (Unverified Allergy, Severe, 01/14/19) Not true allergy; tolerated Dilaudid in past. Extensive opiate hx PROCHLORPERAZINE (Verified Allergy, Severe, 06/23/13) VANCOMYCIN (Unverified Allergy, Mild, Itching, 03/06/14) COVID-19 Screening Contact w/high risk pt: No Experienced COVID-19 symptoms?: No Medication History Scheduled PRN Acetaminophen With Codeine (T#3) (Tylenol #3 Tab*), 1 TAB ORAL Q4H PRN Patient History Healthcare decision maker Resuscitation status Advanced Directive on File Past Medical/Surgical History Past Medical/Surgical History: (1) Chronic pancreatitis (2) CAD (coronary artery disease) (3) GERD (gastroesophageal reflux disease) (4) HTN (hypertension) (5) Severe protein-calorie malnutrition (6) COPD (chronic obstructive pulmonary disease) (7) History of bilateral hip replacements Review of Systems All Other Systems: negative except mentioned in HPI Physical Exam General Appearance: cachetic, thin Lines, tubes and drains: peripheral HEENT: normocephalic, atraumatic Neck: normal alignment, supple Respiratory/Chest: chest wall non-tender, lungs clear Breasts: no masses Cardiovascular/Chest: normal peripheral pulses Abdomen: normal bowel sounds, hyperactive bowel sounds Extremities: normal range of motion Skin Exam: normal pigmentation Last 24 Hour Vital Signs Date Time Temp Pulse Resp B/P (MAP) Pulse Ox O2 Delivery O2 Flow Rate FiO2 06/15/20 08:12 96.7 06/15/20 08:01 96.7 81 20 112/57 (75) 97 06/15/20 08:00 101 11/12/20 04:00 89 06/15/20 04:00 97.7 93 20 100/52 (68) 100 06/15/20 00:00 98.5 84 17 115/64 (81) 99 06/14/20 23:31 93 06/14/20 22:00 97.9 72 18 121/69 96 Room Air 06/14/20 19:19 97.9 22 122/67 95 Room Air 06/14/20 19:19 96 22 Room Air 06/14/20 18:43 97.9 96 22 122/67 (85) 95 Room Air Intake and Output 06/14/20 06/15/20 19:00 07:00 Intake Total 400 ml Balance 400 ml Intake Oral 400 ml # Voids 1 Laboratory Tests Test 06/14/20 19:39 06/14/20 21:05 Urine Color Pale yellow Urine Appearance Clear Urine pH 5 (4.5-8.0) Urine Specific [place] 1.015 (1.005-1.035) Urine Protein Negative (NEGATIVE) Urine Glucose (UA) Negative (NEGATIVE) Urine Ketones Negative (NEGATIVE) Urine Blood 1+ (NEGATIVE) H Urine Nitrite Negative (NEGATIVE) Urine Bilirubin Negative (NEGATIVE) Urine Urobilinogen Normal MG/DL (0.0-1.0) Urine Leukocyte Esterase Negative (NEGATIVE) Urine RBC 2-4 /HPF (0 - 2) H Urine WBC 0-2 /HPF (0 - 2) Urine Squamous Epithelial Cells Moderate /LPF (NONE/OCC) H Urine Bacteria Few /HPF (NONE) Urine Opiates Screen Positive (NEGATIVE) H Urine Barbiturates Screen Negative (NEGATIVE) Phencyclidine (PCP) Screen Negative (NEGATIVE) Urine Amphetamines Screen Negative (NEGATIVE) Urine Benzodiazepines Screen Negative (NEGATIVE) Urine Cocaine Screen Negative (NEGATIVE) Urine Marijuana (THC) Screen Negative (NEGATIVE) White Blood Count 4.3 K/UL (4.8-10.8) L Red Blood Count 3.01 M/UL (4.20-5.40) L Hemoglobin 10.4 G/DL (12.0-16.0) L Hematocrit 32.6 % (37.0-47.0) L Mean Corpuscular Volume 108 FL (80-99) H Mean Corpuscular Hemoglobin 34.7 PG (27.0-31.0) H Mean Corpuscular Hemoglobin Concent 32.1 G/DL (32.0-36.0) Red Cell Distribution Width 14.0 % (11.6-14.8) Platelet Count 363 K/UL (150-450) Mean Platelet Volume 5.8 FL (6.5-10.1) L Neutrophils (%) (Auto) 56.7 % (45.0-75.0) Lymphocytes (%) (Auto) 30.9 % (20.0-45.0) Monocytes (%) (Auto) 7.0 % (1.0-10.0) Eosinophils (%) (Auto) 3.2 % (0.0-3.0) H Basophils (%) (Auto) 2.3 % (0.0-2.0) H Prothrombin Time 12.5 SEC (9.30-11.50) H Prothromb Time International Ratio 1.1 (0.9-1.1) Activated Partial Thromboplast Time 21 SEC (23-33) L D-Dimer 1.90 mg/L FEU (0.00-0.49) H Sodium Level 136 MMOL/L (136-145) Potassium Level 4.5 MMOL/L (3.5-5.1) Chloride Level 105 MMOL/L (98-107) Carbon Dioxide Level 22 MMOL/L (21-32) Anion Gap 9 mmol/L (5-15) Blood Urea Nitrogen 20 mg/dL (7-18) H Creatinine 0.9 MG/DL (0.55-1.30) Estimat Glomerular Filtration Rate > 60 mL/min (>60) Glucose Level 96 MG/DL (74-106) Calcium Level 8.4 MG/DL (8.5-10.1) L Magnesium Level 2.2 MG/DL (1.8-2.4) Total Bilirubin 0.3 MG/DL (0.2-1.0) Aspartate Amino Transf (AST/SGOT) 22 U/L (15-37) Alanine Aminotransferase (ALT/SGPT) 21 U/L (12-78) Alkaline Phosphatase 57 U/L (46-116) Troponin I 0.000 ng/mL (0.000-0.056) Total Protein 6.8 G/DL (6.4-8.2) Albumin 3.4 G/DL (3.4-5.0) Globulin 3.4 g/dL Albumin/Globulin Ratio 1.0 (1.0-2.7) Lipase 73 U/L (73-393) Microbiology Date/Time Source Procedure Growth Status 06/14/20 19:35 Nasopharynx SARS-CoV-2 RdRp Gene Assay - Final Complete Height (Feet): 5 Height (Inches): 1.00 Weight (Pounds): 98 Medications Current Medications Medications (Trade) Dose Ordered Sig/Haley Route PRN Reason Start Time Stop Time Status Last Admin Dose Admin Acetaminophen (Tylenol) 650 mg Q4H PRN ORAL FEVER 06/15/20 03:30 07/15/20 03:29 Albuterol/ Ipratropium (Albuterol/ Ipratropium) 3 ml Q4H PRN HHN Shortness of Breath 06/15/20 03:30 06/20/20 03:29 Aspirin (ASA) 162 mg DAILY ORAL 06/15/20 09:00 07/30/20 08:59 06/15/20 08:38 Diltiazem HCl (Cardizem) 10 mg Q1H PRN IV heart rate more than 120, 06/15/20 03:30 07/15/20 03:29 Diphenhydramine HCl (Benadryl) 25 mg EVERY 3 HOURS PRN IVP Itching 06/15/20 11:15 07/15/20 11:14 UNV Enalaprilat (Vasotec) 2.5 mg Q6H PRN IV sbp more than 160 06/15/20 03:30 07/15/20 03:29 Heparin Sodium (Porcine) (Heparin 5000 units/ml) 5,000 units EVERY 12 HOURS SUBQ 06/15/20 09:00 07/30/20 08:59 06/15/20 08:39 Hydromorphone HCl (Dilaudid) 2 mg Q6H PRN IVP Severe Pain (Pain Scale 7-10) 06/15/20 11:00 06/22/20 10:59 Ketorolac Tromethamine (Toradol 30mg) 30 mg Q6H PRN IM Moderate Pain (Pain Scale 4-6) 06/15/20 03:30 06/20/20 03:29 Nitroglycerin (Ntg) 0.4 mg EVERY HOUR PRN SL Prn Chest Pain 06/15/20 03:30 07/15/20 03:29 Ondansetron HCl (Zofran) 4 mg Q6H PRN IVP Nausea & Vomiting 06/15/20 03:30 07/15/20 03:29 Phenyleph/Shark Oil/Glycerin/ Petrol (Preparation H) 1 applic BIDPRN PRN RECTAL For Pain 06/15/20 10:30 09/13/20 10:29 Polyethylene Glycol (Miralax) 17 gm DAILYPRN PRN ORAL Constipation 06/15/20 03:30 07/15/20 03:29 Temazepam (Restoril) 15 mg HSPRN PRN ORAL Insomnia 06/15/20 03:30 06/22/20 03:29 Assessment/Plan Problem List: (1) ACS (acute coronary syndrome) ICD Codes: I24.9 - ACS (acute coronary syndrome) SNOMED: 242071279 (2) Intractable abdominal pain ICD Codes: R10.9 - Unspecified abdominal pain SNOMED: 47389525 (3) COPD (chronic obstructive pulmonary disease) ICD Codes: J44.9 - COPD (chronic obstructive pulmonary disease) SNOMED: 85552905 (4) HTN (hypertension) ICD Codes: I10 - Essential (primary) hypertension SNOMED: 46678074 (5) CAD (coronary artery disease) ICD Codes: I25.10 - Atherosclerotic heart disease of [place] coronary artery wit hout angina pectoris SNOMED: 56464961 (6) History of bilateral hip replacements ICD Codes: Z96.643 - Presence of artificial hip joint, bilateral SNOMED: 073982625, 352519339 (7) Severe protein-calorie malnutrition ICD Codes: E43 - Unspecified severe protein-calorie malnutrition SNOMED: 346284495 (8) Gastroparesis ICD Codes: K31.84 - Gastroparesis SNOMED: 843843264 Assessment/Plan: telemetry monitoring echo cardiology evaluation repeat troponin pain management dvt prophylaxis Lorraine Arndt MD Jun 15, 2020 11:25
--- NOTE | 2020-06-15 15:53 | Diagnostic Imaging Report ---
Indication: Bilateral lower extremity pain Technique: Grayscale and duplex images of the bilateral lower extremity veins Comparison: None Findings: Bilaterally, grayscale and duplex images demonstrate no evidence of intraluminal thrombus. Normal phasic Doppler waveforms, demonstrating normal augmentation response and no evidence of valvular insufficiency. Greater saphenous vein(s) and tibial veins are patent. Normal compressibility. Impression: Negative for evidence of lower extremity deep venous thrombosis bilaterally
--- NOTE | 2020-06-15 15:54 | Diagnostic Imaging Report ---
Indication: Chest pain Technique: One view of the chest Comparison: 05/31/2020 Findings: Lungs are hyperinflated. The heart size is normal. The aorta is torturous ectatic and calcified. Findings are unchanged Impression: Hyperinflation, likely COPD. No acute process
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
--- NOTE | 2020-06-15 19:40 | NUR ---
NURSE HAND-OFF REPORT: Important Events on Shift:[Pain in chest and left should and epigastric. Also in rectum. Resolved with dilauded.] Patient Status: [in bed awake and alert, stable] Diet: [regular] Pending Orders: [] Pending Results/Labs:[] Pending MD notification:[] Latest Vital Signs: Temperature 96.8 , Pulse 89 , B/P 106 /55 , Respiratory Rate 20 , O2 SAT 100 , Room Air, O2 Flow Rate . Vital Sign Comment: [] EKG Rhythm: Sinus Rhythm Rhythm change?: N MD Notified?: N - MD Response: Latest Rinaldi Fall Score: 15 Fall Risk: Low Risk Safety Measures: Call light Within Reach, Bed Alarm Zone 1, Side Rails Side Rails x2, Bed position Low and Locked. Fall Precautions: Yellow Socks Patient Fall Education Report given to [Lisa MARTÍNEZ]. Addendum: 06/15/20 at 1941 by Amalia Loomis RN Firm abdomen and hypoactive, Hair made aware
--- NOTE | 2020-06-15 20:02 | NUR ---
NURSE NOTES: Received report from Amalia Rn, pt. in bed awake-appears to be A/O x's4- able to make needs known, no signs or symptoms of acute cardiac or respiratory distress noted, bed alarm on, side rails up x's3 and safety brakes engaged, pt. aware to ask for assist when ambulating to bathroom- call light within easy reach, pt. appears to be sating well on room air- no distress noted, pt. has right foot 24G IV intact and patent- HL, safety measures continued, HOB elevated- aspiration precautions observed, will continue with plan of care.
[2020-06-16] VITALS: BP 106/62
--- NOTE | 2020-06-16 01:00 | NUR ---
NURSE NOTES: all needs attended too, pt. appears to be sating well on room air at 99%- no distress noted, will continue to monitor pt. and with plan of care.
--- NOTE | 2020-06-16 03:00 | NUR ---
NURSE NOTES: pt. appears to be resting comfortably in bed- no distress noted, respirations even and unlabored, will continue to monitor pt. and with plan of care.
[2020-06-16 04:00] VITALS: BP 116/53
[2020-06-16] MEDS: DiphenhydrAMINE 50mg/ml Inj IVP PRN ×4 (05:28→23:22)
[2020-06-16 06:43] LABS: HEMATOCRIT 33.6 % (37.0-47.0); HEMOGLOBIN 10.4 G/DL (12.0-16.0); MEAN CORPUSCULAR VOLUME 111 FL (80-99); PLATELET COUNT 336 K/UL (150-450); RED BLOOD COUNT 3.04 M/UL (4.20-5.40); RED CELL DISTRIBUTION WIDTH 13.9 % (11.6-14.8); WHITE BLOOD COUNT 3.1 K/UL (4.8-10.8)
--- NOTE | 2020-06-16 07:18 | NUR ---
NURSE HAND-OFF REPORT: Important Events on Shift:none Patient Status: stable Diet: regular Pending Orders: Pending Results/Labs: Pending MD notification: Latest Vital Signs: Temperature 97.9 , Pulse 73 , B/P 116 /53 , Respiratory Rate 18 , O2 SAT 100 , Room Air, O2 Flow Rate . Vital Sign Comment: EKG Rhythm: Sinus Rhythm Rhythm change?: N MD Notified?: N - MD Response: Latest Rinaldi Fall Score: 15 Fall Risk: Low Risk Safety Measures: Call light Within Reach, Bed Alarm Zone 1, Side Rails Side Rails x2, Bed position Low and Locked. Fall Precautions: Yellow Socks Patient Fall Education Report given to Giovanni RN and Varinder RN- aware to f/u on any abnormal am labs.
[2020-06-16 07:47] LABS: CHOLESTEROL 192 MG/DL (< 200); HDL CHOLESTEROL 83 MG/DL (40-60); TRIGLYCERIDES 58 MG/DL (30-150)
--- NOTE | 2020-06-16 07:56 | NUR ---
NURSE NOTES: The patient was seen in bed and was talking on her phone. The patient was in no signs of distress, no difficulty breathing and no chest pain. The bed was set to the lowest position, the patient was in semifowlers position and side rails were placed x 2.
[2020-06-16 08:00] VITALS: BP 107/63
--- NOTE | 2020-06-16 08:44 | NUR ---
CASE MANAGEMENT:REVIEW 06/16/20 SI: ACS. COPD. INTRACTABLE ABD PAIN GASTROPARESIS 97.9 73 18 116/53 100% ON RA WBC-3.1 TROPONIN(-) X2 IS: IV BENADRYL Q3HRS PRN IV DILAUDID 2MG Q6HRS PRN HEPARIN SQ Q12 ASA PO QD IV ZOFRAN Q6HR PRN : TELEMETRY STATUS DCP: FROM HOME PLAN: PAIN MGMT EKG
--- NOTE | 2020-06-16 08:50 | NUR ---
DISCHARGE PLANNING PER DR CASTELLANO'S NOTES, IF TROPONIN AND EKG NEGATIVE THEN NO FURTHER CARDIAC TESTING WILL BE DONE AWAIT DISCHARGE HOME ORDER FROM DR TAY
[2020-06-16] MEDS: Aspirin Baby 81mg ORAL SCH (09:04)
[2020-06-16] MEDS: Heparin 5000 units/ml inj SUBQ SCH ×2 (09:05→21:03)
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
[2020-06-16 12:00] VITALS: BP 111/68
--- NOTE | 2020-06-16 13:42 | Pulmonology Progress Note ---
Subjective ROS Limited/Unobtainable: No Constitutional: Reports: no symptoms HEENT: Repors: no symptoms Allergies: Coded Allergies: HYDROCODONE (Verified Allergy, Severe, 06/23/13) LORAZEPAM (Verified Allergy, Severe, Hives, 02/13/14) RASH/HIVES MORPHINE (Unverified Allergy, Severe, 01/14/19) Not true allergy; tolerated Dilaudid in past. Extensive opiate hx PROCHLORPERAZINE (Verified Allergy, Severe, 06/23/13) VANCOMYCIN (Unverified Allergy, Mild, Itching, 03/06/14) Objective Last 24 Hour Vital Signs Date Time Temp Pulse Resp B/P (MAP) Pulse Ox O2 Delivery O2 Flow Rate FiO2 06/16/20 09:00 Room Air 06/16/20 08:00 76 06/16/20 08:00 97.5 91 17 107/63 (78) 99 06/16/20 05:58 97.9 06/16/20 04:00 97.9 73 18 116/53 (74) 100 06/16/20 03:44 64 06/16/20 00:00 98.0 91 20 106/62 (77) 100 06/15/20 23:52 98.0 06/15/20 23:32 97 06/15/20 23:10 92 20 112/66 (81) 99 06/15/20 21:00 Room Air 06/15/20 20:00 97.8 88 20 93/56 (68) 100 06/15/20 19:42 90 06/15/20 17:46 96.8 06/15/20 16:00 96.8 96 20 106/55 (72) 100 06/15/20 16:00 89 Intake and Output 06/15/20 06/16/20 19:00 07:00 Intake Total 140 ml Output Total 1200 ml Balance -1060 ml Intake Oral 140 ml Output Urine Total 1200 ml # Voids 3 2 General Appearance: WD/WN, no acute distress HEENT: normocephalic, atraumatic Respiratory: chest wall non-tender, lungs clear Cardiovascular: normal peripheral pulses, normal rate Abdomen: normal bowel sounds, soft, non tender Extremities: no cyanosis Skin: no ulcers Neurologic: card grinder II-XII grossly normal Microbiology Date/Time Source Procedure Growth Status 06/14/20 19:35 Nasopharynx SARS-CoV-2 RdRp Gene Assay - Final Complete Laboratory Tests 06/16/20 05:45: White Blood Count 3.1L, Red Blood Count 3.04L, Hemoglobin 10.4L, Hematocrit 33.6L, Mean Corpuscular Volume 111H, Mean Corpuscular Hemoglobin 34.3H, Mean Corpuscular Hemoglobin Concent 31.0L, Red Cell Distribution Width 13.9, Platelet Count 336, Mean Platelet Volume 5.8L, Neutrophils (%) (Auto) , Lymphocytes (%) (Auto) , Monocytes (%) (Auto) , Eosinophils (%) (Auto) , Basophils (%) (Auto) , Differential Total Cells Counted 100, Neutrophils % (Manual) 46, Lymphocytes % (Manual) 45, Monocytes % (Manual) 8, Eosinophils % (Manual) 1, Basophils % (Man ual) 0, Band Neutrophils 0, Platelet Estimate Adequate, Platelet Morphology Normal, Hypochromasia 1+, Macrocytosis 1+, Prothrombin Time 10.7, Prothromb Time International Ratio 1.0, Activated Partial Thromboplast Time 23, Troponin I 0.000, C-Reactive Protein, Quantitative < 0.4, Triglycerides Level 58, Cholesterol Level 192, LDL Cholesterol 92, HDL Cholesterol 83H, Cholesterol/HDL Ratio 2.3L, Thyroid Stimulating Hormone (TSH) 2.932 Current Medications Medications (Trade) Dose Ordered Sig/Haley Route PRN Reason Start Time Stop Time Status Last Admin Dose Admin Acetaminophen (Tylenol) 650 mg Q4H PRN ORAL FEVER 06/15/20 03:30 07/15/20 03:29 Albuterol/ Ipratropium (Albuterol/ Ipratropium) 3 ml Q4H PRN HHN Shortness of Breath 06/15/20 03:30 06/20/20 03:29 Aspirin (ASA) 162 mg DAILY ORAL 06/15/20 09:00 07/30/20 08:59 06/16/20 09:04 Diltiazem HCl (Cardizem) 10 mg Q1H PRN IV heart rate more than 120, 06/15/20 03:30 07/15/20 03:29 Diphenhydramine HCl (Benadryl) 25 mg Q3H PRN IVP Itching 06/15/20 11:15 07/15/20 11:14 06/16/20 11:37 Enalaprilat (Vasotec) 2.5 mg Q6H PRN IV sbp more than 160 06/15/20 03:30 07/15/20 03:29 Heparin Sodium (Porcine) (Heparin 5000 units/ml) 5,000 units EVERY 12 HOURS SUBQ 06/15/20 09:00 07/30/20 08:59 06/16/20 09:05 Hydromorphone HCl (Dilaudid) 2 mg Q6H PRN IVP Severe Pain (Pain Scale 7-10) 06/15/20 11:00 06/22/20 10:59 06/16/20 11:34 Ketorolac Tromethamine (Toradol 30mg) 30 mg Q6H PRN IM Moderate Pain (Pain Scale 4-6) 06/15/20 03:30 06/20/20 03:29 Nitroglycerin (Ntg) 0.4 mg EVERY HOUR PRN SL Prn Chest Pain 06/15/20 03:30 07/15/20 03:29 Ondansetron HCl (Zofran) 4 mg Q6H PRN IVP Nausea & Vomiting 06/15/20 03:30 07/15/20 03:29 06/16/20 11:33 Phenyleph/Shark Oil/Glycerin/ Petrol (Preparation H) 1 applic BIDPRN PRN RECTAL For Pain 06/15/20 10:30 09/13/20 10:29 Polyethylene Glycol (Miralax) 17 gm DAILYPRN PRN ORAL Constipation 06/15/20 03:30 07/15/20 03:29 Temazepam (Restoril) 15 mg HSPRN PRN ORAL Insomnia 06/15/20 03:30 06/22/20 03:29 Assessment/Plan Problems: (1) ACS (acute coronary syndrome) (2) Intractable abdominal pain (3) COPD (chronic obstructive pulmonary disease) (4) HTN (hypertension) (5) CAD (coronary artery disease) (6) History of bilateral hip replacements (7) Severe protein-calorie malnutrition (8) Gastroparesis Assessment/Plan cardio note appreciated GI consult called symptomatic treatment might go to med/surg dvt prophylaxis. Lorraine Arndt MD Jun 16, 2020 13:42
[2020-06-16 16:00] VITALS: BP 101/63
--- NOTE | 2020-06-16 18:08 | Cardiology Progress Note ---
Assessment/Plan Assessment/Plan 1. Atypical chronic recurrent chest pain with multiple prior hospitalizations. 2. History of mild coronary artery calcification. 3. History of right hip pain. 4. History of bipolar disorder. 5. COPD. 6. Anemia. 7. History of gastroesophageal reflux disease. 8. History of chronic pancreatitis. 9. History of narcotic dependence. 10. History of drug-seeking behavior per record. trop neg ekg eng hs of multiple hospitalization here and at [facility] for all trop on all admissions are neg pain since [facility] no of years ago no further cardiac testing will be ordred Subjective Cardiovascular: Reports: chest pain - some , lightheadedness - some Respiratory: Denies: shortness of breath Gastrointestinal/Abdominal: Denies: abdominal pain Genitourinary: Denies: burning Objective Last 24 Hour Vital Signs Date Time Temp Pulse Resp B/P (MAP) Pulse Ox O2 Delivery O2 Flow Rate FiO2 06/16/20 16:00 99.1 94 19 101/63 (76) 97 06/16/20 12:00 92 06/16/20 12:00 97.9 77 18 111/68 (82) 100 06/16/20 09:00 Room Air 06/16/20 08:00 76 06/16/20 08:00 97.5 91 17 107/63 (78) 99 06/16/20 05:58 97.9 06/16/20 04:00 97.9 73 18 116/53 (74) 100 06/16/20 03:44 64 06/16/20 00:00 98.0 91 20 106/62 (77) 100 06/15/20 23:52 98.0 06/15/20 23:32 97 06/15/20 23:10 92 20 112/66 (81) 99 06/15/20 21:00 Room Air 06/15/20 20:00 97.8 88 20 93/56 (68) 100 06/15/20 19:42 90 General Appearance: no apparent distress, alert Cardiovascular: normal rate Respiratory/Chest: lungs clear Abdomen: normal bowel sounds, non tender, soft Extremities: no swelling Intake and Output 06/15/20 06/16/20 19:00 07:00 Intake Total 140 ml Output Total 1200 ml Balance -1060 ml Intake Oral 140 ml Output Urine Total 1200 ml # Voids 3 2 Laboratory Tests Test 11/13/20 05:45 White Blood Count 3.1 K/UL (4.8-10.8) L Red Blood Count 3.04 M/UL (4.20-5.40) L Hemoglobin 10.4 G/DL (12.0-16.0) L Hematocrit 33.6 % (37.0-47.0) L Mean Corpuscular Volume 111 FL (80-99) H Mean Corpuscular Hemoglobin 34.3 PG (27.0-31.0) H Mean Corpuscular Hemoglobin Concent 31.0 G/DL (32.0-36.0) L Red Cell Distribution Width 13.9 % (11.6-14.8) Platelet Count 336 K/UL (150-450) Mean Platelet Volume 5.8 FL (6.5-10.1) L Neutrophils (%) (Auto) % (45.0-75.0) Lymphocytes (%) (Auto) % (20.0-45.0) Monocytes (%) (Auto) % (1.0-10.0) Eosinophils (%) (Auto) % (0.0-3.0) Basophils (%) (Auto) % (0.0-2.0) Differential Total Cells Counted 100 Neutrophils % (Manual) 46 % (45-75) Lymphocytes % (Manual) 45 % (20-45) Monocytes % (Manual) 8 % (1-10) Eosinophils % (Manual) 1 % (0-3) Basophils % (Manual) 0 % (0-2) Band Neutrophils 0 % (0-8) Platelet Estimate Adequate Platelet Morphology Normal Hypochromasia 1+ Macrocytosis 1+ Prothrombin Time 10.7 SEC (9.30-11.50) Prothromb Time International Ratio 1.0 (0.9-1.1) Activated Partial Thromboplast Time 23 SEC (23-33) Troponin I 0.000 ng/mL (0.000-0.056) C-Reactive Protein, Quantitative < 0.4 mg/dL (0.00-0.90) Triglycerides Level 58 MG/DL (30-150) Cholesterol Level 192 MG/DL (< 200) LDL Cholesterol 92 mg/dL (<100) HDL Cholesterol 83 MG/DL (40-60) H Cholesterol/HDL Ratio 2.3 (3.3-4.4) L Thyroid Stimulating Hormone (TSH) 2.932 uiU/mL (0.358-3.740) Microbiology Date/Time Source Procedure Growth Status 06/14/20 19:35 Nasopharynx SARS-CoV-2 RdRp Gene Assay - Final Complete Wale Collins MD Jun 16, 2020 18:08
--- NOTE | 2020-06-16 18:09 | NUR ---
NURSE NOTES: Patient transferred to med-surg floor room 414-1. Patient stable, on room air, denies pain. Heart monitor off. Belongings list verified. IV in the right foot, site intact. Report given to Cornelio MARTÍNEZ.
--- NOTE | 2020-06-16 18:11 | NUR ---
NURSE NOTES: received patient from telemetry floor alert and awake. no SOB noted. made comfortable in bed. no acute distress noted at this time. call light is within reach.
--- NOTE | 2020-06-16 19:34 | NUR ---
HAND-OFF: Report given to LIAN.
--- NOTE | 2020-06-16 19:46 | NUR ---
NURSE NOTES: Received patient in bed, awake, alert, oriented x4, able to make her needs known, IV site is clean dry and intact, call light is within reach, bed is lowered, locked, alarm is on, will continue to monitor for comfort and safety.
[2020-06-16 20:00] VITALS: BP 114/74
[2020-06-17] VITALS (7 sets, daily range): BP systolic 97–142; BP diastolic 56–86
[2020-06-17] MEDS: DiphenhydrAMINE 50mg/ml Inj IVP PRN ×4 (05:22→23:17)
--- NOTE | 2020-06-17 07:36 | NUR ---
NURSE HAND-OFF: Important Events on Shift:none to report Patient Status: full code Diet: regualr Pending Orders: Pending Results/Labs: Pending MD notification: Latest Vital Signs: Temperature 97.4 , Pulse 74 , B/P 129 /74 , Respiratory Rate 18 , O2 SAT 98 , Room Air, O2 Flow Rate . Vital Sign Comment: Latest Rinaldi Fall Score: 15 Fall Risk: Low Risk Safety Measures: Call light Within Reach, Bed Alarm Zone 1, Side Rails Side Rails x2, Bed position Low and Locked. Fall Precautions: Yellow Socks Patient Fall Education Report given to Stanley MARTÍNEZ
--- NOTE | 2020-06-17 07:45 | NUR ---
NURSE NOTES: received report from TNAYA Mack. patient in bed. a&Ox4, verbally responsive. no respiratory distress noted. no chest pain at this time. abd pain 5/10. IV on left foot 24 intact. flushed. right foot 24 intact. c/o discomfort when IV was flushed. ambulatory. bed in the lowest position and locked. call light within reach.
[2020-06-17] MEDS: Aspirin Baby 81mg ORAL SCH (08:51)
[2020-06-17] MEDS: Heparin 5000 units/ml inj SUBQ SCH ×2 (08:54→20:16)
[2020-06-17] MEDS ORDERED: Creon DR 36,000 units cap ORAL PRN (10:00)
--- NOTE | 2020-06-17 12:37 | Cardiology Progress Note ---
Assessment/Plan Assessment/Plan 1. Atypical chronic recurrent chest pain with multiple prior hospitalizations. 2. History of mild coronary artery calcification. 3. History of right hip pain. 4. History of bipolar disorder. 5. COPD. 6. Anemia. 7. History of gastroesophageal reflux disease. 8. History of chronic pancreatitis. 9. History of narcotic dependence. 10. History of drug-seeking behavior per record. trop neg ekg eng hs of multiple hospitalization here and at [facility] for cp doing well cv stabel Subjective Cardiovascular: Reports: chest pain - some ; Denies: lightheadedness Respiratory: Denies: shortness of breath Gastrointestinal/Abdominal: Denies: abdominal pain Genitourinary: Denies: burning Subjective hip pain Objective Last 24 Hour Vital Signs Date Time Temp Pulse Resp B/P (MAP) Pulse Ox O2 Delivery O2 Flow Rate FiO2 06/17/20 12:00 98.6 92 19 123/71 (88) 99 06/17/20 09:00 Room Air 06/17/20 08:00 98.9 87 18 97/56 (70) 100 06/17/20 05:53 97.4 06/17/20 04:13 97.4 74 18 129/74 (92) 98 06/17/20 00:00 98.7 74 18 129/74 (92) 98 06/16/20 23:57 97.8 06/16/20 21:39 Room Air 06/16/20 20:00 97.8 78 18 114/74 (87) 98 06/16/20 16:00 99.1 94 19 101/63 (76) 97 General Appearance: no apparent distress Neck: supple Cardiovascular: normal rate Respiratory/Chest: lungs clear Abdomen: normal bowel sounds, non tender, soft Extremities: no swelling Intake and Output 06/16/20 06/17/20 19:00 07:00 # Voids 1 Microbiology Date/Time Source Procedure Growth Status 06/14/20 19:35 Nasopharynx SARS-CoV-2 RdRp Gene Assay - Final Complete Wale Collins MD Jun 17, 2020 12:37
[2020-06-17] MEDS: Creon DR 36,000 units cap ORAL SCH ×2 (12:50→17:05)
--- NOTE | 2020-06-17 15:00 | Consultation ---
DATE OF CONSULTATION: 06/17/2020 CHIEF COMPLAINT: Abdominal pain. HISTORY OF PRESENT ILLNESS: This is a very pleasant 69-year-old female known to me from multiple admissions to [facility] with complaint of abdominal pain. In last admission which was in May, she had endoscopy and colonoscopy. Endoscopy showed evidence of gastritis, H. pylori negative. Colonoscopy had one polyp which was hyperplastic. The patient also had one area of ulceration which came back acute inflammation, nonspecific. The patient was readmitted again with complaint of abdominal pain. The patient also carries diagnosis of chronic pancreatitis. PAST MEDICAL HISTORY: 1. Cervical cancer. 2. Hypertension. 3. Hypercholesteremia. 4. CHF. 5. Chronic constipation. 6. History of bowel obstruction requiring surgery. 7. History of chronic pancreatitis. 8. Gastritis, H. pylori negative. 9. Colonic polyp. 10. Internal hemorrhoids. PAST SURGICAL HISTORY: Bowel resection for small bowel obstruction. ALLERGIES: To numerous medications please see the list, but mainly hydrocodone, lorazepam, morphine, prochlorperazine, and vancomycin. MEDICATIONS: Please see medication reconciliation list. SOCIAL HISTORY: The patient denies any tobacco, alcohol, or drug abuse. FAMILY HISTORY: Noncontributory. PHYSICAL EXAMINATION: VITAL SIGNS: Temperature is 98.9, pulse 87, respirations 18, blood pressure 97/56. HEENT: Normocephalic and atraumatic. Sclerae anicteric. NECK: Supple. No evidence of obvious lymphadenopathy. CARDIOVASCULAR: Regular rate and rhythm. Plus S1, S2. LUNGS: Clear to auscultation bilaterally. ABDOMEN: Soft. Mildly distended. Mildly tympanic to percussion. No rebound. No guarding. No peritoneal sign. EXTREMITIES: No cyanosis, no clubbing, no edema. LABORATORY AND DIAGNOSTIC DATA: White count 3.1, hemoglobin 10, hematocrit 33, platelet count is 336. ASSESSMENT AND PLAN: This is a 69-year-old female with recurrent abdominal pain of unknown etiology. We are going to hold off repeating endoscopy and colonoscopy given she had it done just recently. Plan to give her PPI for gastritis, Creon for chronic pancreatitis, Linzess for chronic constipation. We will do a daily examination and make further recommendation as we go along. I want to thank, Dr. Arndt for this kind referral. Ruben Chavez Salazar DR: Sreekanth JOB#: [id number] CC: Lorraine Arndt M.D.; Fax#: [phone]
--- NOTE | 2020-06-17 17:47 | Pulmonology Progress Note ---
Subjective ROS Limited/Unobtainable: No Constitutional: Reports: no symptoms HEENT: Repors: no symptoms Allergies: Coded Allergies: HYDROCODONE (Verified Allergy, Severe, 06/23/13) LORAZEPAM (Verified Allergy, Severe, Hives, 02/13/14) RASH/HIVES MORPHINE (Unverified Allergy, Severe, 01/14/19) Not true allergy; tolerated Dilaudid in past. Extensive opiate hx PROCHLORPERAZINE (Verified Allergy, Severe, 06/23/13) VANCOMYCIN (Unverified Allergy, Mild, Itching, 03/06/14) Objective Last 24 Hour Vital Signs Date Time Temp Pulse Resp B/P (MAP) Pulse Ox O2 Delivery O2 Flow Rate FiO2 06/17/20 16:00 98.2 96 19 105/70 (82) 100 06/17/20 12:00 98.6 92 19 123/71 (88) 99 06/17/20 09:00 Room Air 06/17/20 08:00 98.9 87 18 97/56 (70) 100 06/17/20 05:53 97.4 06/17/20 04:13 97.4 74 18 129/74 (92) 98 06/17/20 00:00 98.7 74 18 129/74 (92) 98 06/16/20 23:57 97.8 06/16/20 21:39 Room Air 06/16/20 20:00 97.8 78 18 114/74 (87) 98 Intake and Output 06/16/20 06/17/20 19:00 07:00 # Voids 1 General Appearance: WD/WN, no acute distress HEENT: normocephalic, atraumatic Respiratory: chest wall non-tender, lungs clear Cardiovascular: normal peripheral pulses, normal rate Abdomen: normal bowel sounds, soft, non tender Extremities: no cyanosis Skin: no ulcers Neurologic: bundle person II-XII grossly normal Microbiology Date/Time Source Procedure Growth Status 06/14/20 19:35 Nasopharynx SARS-CoV-2 RdRp Gene Assay - Final Complete Current Medications Medications (Trade) Dose Ordered Sig/Haley Route PRN Reason Start Time Stop Time Status Last Admin Dose Admin Acetaminophen (Tylenol) 650 mg Q4H PRN ORAL FEVER 06/15/20 03:30 07/15/20 03:29 Albuterol/ Ipratropium (Albuterol/ Ipratropium) 3 ml Q4H PRN HHN Shortness of Breath 06/15/20 03:30 06/20/20 03:29 Amylase/Lipase/ Protease (Rosa SARGENT 36,000 units cap) 1 ea TIWM ORAL 06/17/20 12:00 09/15/20 11:59 06/17/20 17:05 Amylase/Lipase/ Protease (Rosa SARGENT 36,000 units cap) 1 ea WITH SNACKS PRN ORAL WITH SNACKS 06/17/20 10:00 09/15/20 09:59 Aspirin (ASA) 162 mg DAILY ORAL 06/15/20 09:00 07/30/20 08:59 06/17/20 08:51 Diphenhydramine HCl (Benadryl) 25 mg Q3H PRN IVP Itching 06/15/20 11:15 07/15/20 11:14 06/17/20 17:23 Enalaprilat (Vasotec) 2.5 mg Q6H PRN IV sbp more than 160 06/15/20 03:30 07/15/20 03:29 Heparin Sodium (Porcine) (Heparin 5000 units/ml) 5,000 units EVERY 12 HOURS SUBQ 06/15/20 09:00 07/30/20 08:59 06/17/20 08:54 Hydromorphone HCl (Dilaudid) 2 mg Q6H PRN IVP Severe Pain (Pain Scale 7-10) 06/15/20 11:00 06/22/20 10:59 06/17/20 17:22 Ketorolac Tromethamine (Toradol 30mg) 30 mg Q6H PRN IM Moderate Pain (Pain Scale 4-6) 06/15/20 03:30 06/20/20 03:29 Linaclotide (Linzess) 290 mcg BEFORE BREAKFAST ORAL 06/18/20 06:30 09/16/20 06:29 Nitroglycerin (Ntg) 0.4 mg EVERY HOUR PRN SL Prn Chest Pain 06/15/20 03:30 07/15/20 03:29 Ondansetron HCl (Zofran) 4 mg Q6H PRN IVP Nausea & Vomiting 06/15/20 03:30 07/15/20 03:29 06/17/20 17:21 Pantoprazole (Protonix) 40 mg DAILY ORAL 06/17/20 11:00 07/17/20 10:59 06/17/20 11:24 Phenyleph/Shark Oil/Glycerin/ Petrol (Preparation H) 1 applic BIDPRN PRN RECTAL For Pain 06/15/20 10:30 09/13/20 10:29 Polyethylene Glycol (Miralax) 17 gm DAILYPRN PRN ORAL Constipation 06/15/20 03:30 07/15/20 03:29 Temazepam (Restoril) 15 mg HSPRN PRN ORAL Insomnia 06/15/20 03:30 06/22/20 03:29 Assessment/Plan Problems: (1) ACS (acute coronary syndrome) (2) Intractable abdominal pain (3) COPD (chronic obstructive pulmonary disease) (4) HTN (hypertension) (5) CAD (coronary artery disease) (6) History of bilateral hip replacements (7) Severe protein-calorie malnutrition (8) Gastroparesis Assessment/Plan no new complains GI consult to f/u symptomatic treatment might go to med/surg dvt prophylaxis. Lorraine Arndt MD Jun 17, 2020 17:47
--- NOTE | 2020-06-17 19:08 | NUR ---
NURSE HAND-OFF: Important Events on Shift: NA Patient Status: stable Diet: Regular Pending Orders: na Pending Results/Labs:na Pending MD notification:[] Latest Vital Signs: Temperature 98.2 , Pulse 96 , B/P 105 /70 , Respiratory Rate 19 , O2 SAT 100 , Room Air, O2 Flow Rate . Vital Sign Comment: stable Latest Rinaldi Fall Score: 15 Fall Risk: Low Risk Safety Measures: Call light Within Reach, Bed Alarm Zone 1, Side Rails Side Rails x2, Bed position Low and Locked. Fall Precautions: Yellow Socks: Yes Patient Fall Education Report given to [TANYA Alvarado].
--- NOTE | 2020-06-17 22:20 | NUR ---
NURSE NOTES: Patient received in bed, aaox4, ambulatory. IV intact on left forearm. Foot IV discontinued. Call light in reach.Will continue with plan of care.
[2020-06-18 04:00] VITALS: BP 122/65
[2020-06-18] MEDS: DiphenhydrAMINE 50mg/ml Inj IVP PRN ×4 (05:20→23:07)
[2020-06-18] MEDS: Creon DR 36,000 units cap ORAL SCH ×3 (06:39→17:20)
--- NOTE | 2020-06-18 07:06 | NUR ---
NURSE HAND-OFF: Important Events on Shift:[medicated for pain] Patient Status: [stable] Diet: [Regular] Pending Orders: [] Pending Results/Labs:[] Pending MD notification:[] Latest Vital Signs: Temperature 98.0 , Pulse 82 , B/P 122 /65 , Respiratory Rate 18 , O2 SAT 98 , Room Air, O2 Flow Rate . Vital Sign Comment: [] Latest Rinaldi Fall Score: 50 Fall Risk: High Risk Safety Measures: Call light Within Reach, Bed Alarm Zone 1, Side Rails Side Rails x2, Bed position Low and Locked. Fall Precautions: Yellow Socks Patient Fall Education Report given to [Stanley RN].
--- NOTE | 2020-06-18 07:12 | General Progress Note ---
Subjective Allergies: Coded Allergies: HYDROCODONE (Verified Allergy, Severe, 06/23/13) LORAZEPAM (Verified Allergy, Severe, Hives, 02/13/14) RASH/HIVES MORPHINE (Unverified Allergy, Severe, 01/14/19) Not true allergy; tolerated Dilaudid in past. Extensive opiate hx PROCHLORPERAZINE (Verified Allergy, Severe, 06/23/13) VANCOMYCIN (Unverified Allergy, Mild, Itching, 03/06/14) Objective Last 24 Hour Vital Signs Date Time Temp Pulse Resp B/P (MAP) Pulse Ox O2 Delivery O2 Flow Rate FiO2 06/18/20 04:00 98.5 82 18 122/65 (84) 98 06/17/20 23:49 98.0 98 18 142/86 (104) 100 06/17/20 20:24 Room Air 06/17/20 20:00 97.9 87 18 126/69 (88) 100 06/17/20 16:00 98.2 96 19 105/70 (82) 100 06/17/20 12:00 98.6 92 19 123/71 (88) 99 06/17/20 09:00 Room Air 06/17/20 08:00 98.9 87 18 97/56 (70) 100 Intake and Output 06/17/20 06/18/20 19:00 07:00 Intake Total 1560 ml Balance 1560 ml Intake Oral 1560 ml # Voids 4 1 # Bowel Movements 1 Height (Feet): 5 Height (Inches): 1.00 Weight (Pounds): 98 General Appearance: no apparent distress EENT: normal ENT inspection Neck: supple Cardiovascular: normal rate Respiratory/Chest: decreased breath sounds Abdomen: hypoactive bowel sounds Extremities: non-tender Assessment/Plan Assessment/Plan: 1. Cervical cancer. 2. Hypertension. 3. Hypercholesteremia. 4. CHF. 5. Chronic constipation. 6. History of bowel obstruction requiring surgery. 7. History of chronic pancreatitis. 8. Gastritis, H. pylori negative. 9. Colonic polyp. 10. Internal hemorrhoids. recent EGD and colonoscopy ppi Bart [facility] CT reviewed pain control will Ruben Villeda MD Jun 18, 2020 07:12
--- NOTE | 2020-06-18 07:47 | NUR ---
NURSE NOTES: received report from TANYA Alvarado. patient in bed, a&ox4, verbally responsive. no respiratory distress noted. discomfort on abd area. IV on left fore arm. intact. flushed. lung sound clear. active BM. skin intact. dry and warm to touch. bed in the lowest position and locked. call light within reach. will continue to provide plan of care.
[2020-06-18 08:00] VITALS: BP 95/53
[2020-06-18] MEDS: Aspirin Baby 81mg ORAL SCH (09:01)
[2020-06-18] MEDS: Heparin 5000 units/ml inj SUBQ SCH ×2 (09:02→21:08)
[2020-06-18 12:00] VITALS: BP 108/70
--- NOTE | 2020-06-18 15:45 | Pulmonology Progress Note ---
Subjective ROS Limited/Unobtainable: No Constitutional: Reports: no symptoms HEENT: Repors: no symptoms Allergies: Coded Allergies: HYDROCODONE (Verified Allergy, Severe, 06/23/13) LORAZEPAM (Verified Allergy, Severe, Hives, 02/13/14) RASH/HIVES MORPHINE (Unverified Allergy, Severe, 01/14/19) Not true allergy; tolerated Dilaudid in past. Extensive opiate hx PROCHLORPERAZINE (Verified Allergy, Severe, 06/23/13) VANCOMYCIN (Unverified Allergy, Mild, Itching, 03/06/14) Objective Last 24 Hour Vital Signs Date Time Temp Pulse Resp B/P (MAP) Pulse Ox O2 Delivery O2 Flow Rate FiO2 06/18/20 12:00 98.1 98 19 108/70 (83) 100 06/18/20 09:00 Room Air 06/18/20 08:00 97.7 87 18 95/53 (67) 100 06/18/20 04:00 98.5 82 18 122/65 (84) 98 06/17/20 23:49 98.0 98 18 142/86 (104) 100 06/17/20 20:24 Room Air 06/17/20 20:00 97.9 87 18 126/69 (88) 100 06/17/20 16:00 98.2 96 19 105/70 (82) 100 Intake and Output 06/17/20 06/18/20 19:00 07:00 Intake Total 1560 ml Balance 1560 ml Intake Oral 1560 ml # Voids 4 1 # Bowel Movements 1 General Appearance: WD/WN, no acute distress HEENT: normocephalic, atraumatic Respiratory: chest wall non-tender, lungs clear Cardiovascular: normal peripheral pulses, normal rate Abdomen: normal bowel sounds, soft, non tender Extremities: no cyanosis Skin: no ulcers 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 Current Medications Medications (Trade) Dose Ordered Sig/Haley Route PRN Reason Start Time Stop Time Status Last Admin Dose Admin Acetaminophen (Tylenol) 650 mg Q4H PRN ORAL FEVER 06/15/20 03:30 07/15/20 03:29 Albuterol/ Ipratropium (Albuterol/ Ipratropium) 3 ml Q4H PRN HHN Shortness of Breath 06/15/20 03:30 06/20/20 03:29 Amylase/Lipase/ Protease (Rosa SARGENT 36,000 units cap) 1 ea TIWM ORAL 06/17/20 12:00 09/15/20 11:59 06/18/20 12:23 Amylase/Lipase/ Protease (Rosa SARGENT 36,000 units cap) 1 ea WITH SNACKS PRN ORAL WITH SNACKS 06/17/20 10:00 09/15/20 09:59 Aspirin (ASA) 162 mg DAILY ORAL 06/15/20 09:00 07/30/20 08:59 06/18/20 09:01 Diphenhydramine HCl (Benadryl) 25 mg Q3H PRN IVP Itching 06/15/20 11:15 07/15/20 11:14 06/18/20 11:19 Enalaprilat (Vasotec) 2.5 mg Q6H PRN IV sbp more than 160 06/15/20 03:30 07/15/20 03:29 Heparin Sodium (Porcine) (Heparin 5000 units/ml) 5,000 units EVERY 12 HOURS SUBQ 06/15/20 09:00 07/30/20 08:59 06/18/20 09:02 Hydromorphone HCl (Dilaudid) 2 mg Q6H PRN IVP Severe Pain (Pain Scale 7-10) 06/15/20 11:00 06/22/20 10:59 06/18/20 11:20 Ketorolac Tromethamine (Toradol 30mg) 30 mg Q6H PRN IM Moderate Pain (Pain Scale 4-6) 06/15/20 03:30 06/20/20 03:29 Linaclotide (Linzess) 290 mcg BEFORE BREAKFAST ORAL 06/18/20 06:30 09/16/20 06:29 06/18/20 05:33 Nitroglycerin (Ntg) 0.4 mg EVERY HOUR PRN SL Prn Chest Pain 06/15/20 03:30 07/15/20 03:29 Ondansetron HCl (Zofran) 4 mg Q6H PRN IVP Nausea & Vomiting 06/15/20 03:30 07/15/20 03:29 06/18/20 11:19 Pantoprazole (Protonix) 40 mg DAILY ORAL 06/17/20 11:00 07/17/20 10:59 06/18/20 09:01 Phenyleph/Shark Oil/Glycerin/ Petrol (Preparation H) 1 applic BIDPRN PRN RECTAL For Pain 06/15/20 10:30 09/13/20 10:29 Polyethylene Glycol (Miralax) 17 gm DAILYPRN PRN ORAL Constipation 06/15/20 03:30 07/15/20 03:29 Temazepam (Restoril) 15 mg HSPRN PRN ORAL Insomnia 06/15/20 03:30 06/22/20 03:29 Assessment/Plan Problems: (1) ACS (acute coronary syndrome) (2) Intractable abdominal pain (3) COPD (chronic obstructive pulmonary disease) (4) HTN (hypertension) (5) CAD (coronary artery disease) (6) History of bilateral hip replacements (7) Severe protein-calorie malnutrition (8) Gastroparesis Assessment/Plan still c/o abdominal pain GI consult to f/u symptomatic treatment might go to med/surg dvt prophylaxis. Lorraine Arndt MD Jun 18, 2020 15:45
[2020-06-18 16:00] VITALS: BP 102/63
--- NOTE | 2020-06-18 19:52 | NUR ---
NURSE HAND-OFF: Important Events on Shift:pain management Patient Status: stable Diet: regular Pending Orders: n/a Pending Results/Labs:n/a Pending MD notification:n/a Latest Vital Signs: Temperature 98.2 , Pulse 88 , B/P 102 /63 , Respiratory Rate 18 , O2 SAT 96 , Room Air, O2 Flow Rate . Vital Sign Comment: stable Latest Rinaldi Fall Score: 50 Fall Risk: High Risk Safety Measures: Call light Within Reach, Bed Alarm Zone 1, Side Rails Side Rails x2, Bed position Low and Locked. Fall Precautions: Yellow Socks Patient Fall Education Report given to TANYA Franz.
[2020-06-18 20:00] VITALS: BP 109/61
--- NOTE | 2020-06-18 20:03 | NUR ---
NURSE NOTES: Received patient awake in bed, no s/s of acute distress, talkative, needs attended to at this time. Reminded patient of PRN medication administration schedule, patient verbalized understanding.
[2020-06-19 04:00] VITALS: BP 105/60
[2020-06-19] MEDS: DiphenhydrAMINE 50mg/ml Inj IVP PRN ×3 (05:30→18:45)
[2020-06-19] MEDS: Creon DR 36,000 units cap ORAL SCH ×3 (06:17→17:00)
--- NOTE | 2020-06-19 07:08 | NUR ---
HAND-OFF: Report given to TANYA Mott.
--- NOTE | 2020-06-19 07:42 | NUR ---
NURSE NOTES: Received report from TANYA Barroso. Patient seen in bed, AAOX4, able to make needs known, and on room air. Breathing is even and unlabored. IV sites noted, patent and intact. Patient has scheduled PRN medication, will give today. RN instructed patient to use call light for assistance. bed is locked and placed in lowest position with bed alarm on.
[2020-06-19 08:00] VITALS: BP 101/71
[2020-06-19] MEDS: Heparin 5000 units/ml inj SUBQ SCH ×2 (08:07→21:02)
[2020-06-19] MEDS: Aspirin Baby 81mg ORAL SCH (08:09)
--- NOTE | 2020-06-19 11:45 | General Progress Note ---
Subjective ROS Limited/Unobtainable: Yes Allergies: Coded Allergies: HYDROCODONE (Verified Allergy, Severe, 06/23/13) LORAZEPAM (Verified Allergy, Severe, Hives, 02/13/14) RASH/HIVES MORPHINE (Unverified Allergy, Severe, 01/14/19) Not true allergy; tolerated Dilaudid in past. Extensive opiate hx PROCHLORPERAZINE (Verified Allergy, Severe, 06/23/13) VANCOMYCIN (Unverified Allergy, Mild, Itching, 03/06/14) Objective Last 24 Hour Vital Signs Date Time Temp Pulse Resp B/P (MAP) Pulse Ox O2 Delivery O2 Flow Rate FiO2 06/19/20 09:00 Room Air 06/19/20 08:00 98.2 94 19 101/71 (81) 98 06/19/20 06:01 98.3 06/19/20 04:00 98.3 82 17 105/60 (75) 99 06/18/20 23:37 98.8 06/18/20 21:04 Room Air 06/18/20 20:00 98.8 86 18 109/61 (77) 99 06/18/20 19:35 88 18 96 Room Air 21 06/18/20 16:00 98.2 94 19 102/63 (76) 99 06/18/20 12:00 98.1 98 19 108/70 (83) 100 Intake and Output 06/18/20 06/19/20 19:00 07:00 Intake Total 720 ml 200 ml Balance 720 ml 200 ml Intake Oral 720 ml 200 ml # Voids 3 2 Height (Feet): 5 Height (Inches): 1.00 Weight (Pounds): 98 General Appearance: alert EENT: normal ENT inspection Neck: supple Cardiovascular: normal rate Respiratory/Chest: decreased breath sounds Abdomen: normal bowel sounds, non tender, soft Extremities: non-tender Assessment/Plan Assessment/Plan: 1. Cervical cancer. 2. Hypertension. 3. Hypercholesteremia. 4. CHF. 5. Chronic constipation. 6. History of bowel obstruction requiring surgery. 7. History of chronic pancreatitis. 8. Gastritis, H. pylori negative. 9. Colonic polyp. 10. Internal hemorrhoids. recent EGD and colonoscopy ppi Bart Lee CT reviewed pain control will Ruben Villeda MD Jun 19, 2020 11:45
[2020-06-19 11:51] VITALS: BP 110/76
--- NOTE | 2020-06-19 13:22 | NUR ---
RD ASSESSMENT & RECOMMENDATIONS SEE CARE ACTIVITY FOR COMPLETE ASSESSMENT DAILY ESTIMATED NEEDS: Needs based on underweight, 41.6kg 30-40 kcals/kg 0216-8188 total kcals 1-1.5 g protein/kg 42-62 g total protein 25-30 mL/kg 4934-9748 total fluid mLs NUTRITION DIAGNOSIS: Increased kcal/prot needs R/T underweight status as evidenced by pt @ 80% IBW w/ BMI of 16.3, suspected progressive wt loss of 13lbs/12.5% in 9 months. CURRENT DIET: Regular PO DIET RECOMMENDATIONS: Liberalized regular diet/ texture as tolerated ADDITIONAL RECOMMENDATIONS: 1) Obtain a standing weight as able for accurate CBW -> monitor wt trend 2) Ensure Enlive TID w/ meals (strawberry flavor per pt request) 3) Monitor for continued good PO intake 4) Snacks BID as tolerated . .
[2020-06-19 16:00] VITALS: BP 95/62
--- NOTE | 2020-06-19 17:02 | NUR ---
CASE MANAGEMENT:REVIEW SI;ACS. COPD. GASTROPARESIS. 98.8 98 19 95/62 98% ON RA NO LABS AVAILABLE IS;LINZESS PO QD PROTONIX PO QD DILAUDID IV Q6 PRN BENADRYL IV Q3 PRN ASA PO QD ZOFRAN IV Q6 PRN MED SURG STATUS DCP;FORM HOME
--- NOTE | 2020-06-19 19:13 | Pulmonology Progress Note ---
Subjective ROS Limited/Unobtainable: Yes Constitutional: Reports: no symptoms HEENT: Repors: no symptoms Allergies: Coded Allergies: HYDROCODONE (Verified Allergy, Severe, 06/23/13) LORAZEPAM (Verified Allergy, Severe, Hives, 02/13/14) RASH/HIVES MORPHINE (Unverified Allergy, Severe, 01/14/19) Not true allergy; tolerated Dilaudid in past. Extensive opiate hx PROCHLORPERAZINE (Verified Allergy, Severe, 06/23/13) VANCOMYCIN (Unverified Allergy, Mild, Itching, 03/06/14) Objective Last 24 Hour Vital Signs Date Time Temp Pulse Resp B/P (MAP) Pulse Ox O2 Delivery O2 Flow Rate FiO2 06/19/20 16:00 98.3 98 19 95/62 (73) 98 06/19/20 11:51 96.7 94 19 110/76 (87) 100 06/19/20 09:00 Room Air 06/19/20 08:00 98.2 94 19 101/71 (81) 98 06/19/20 06:01 98.3 06/19/20 04:00 98.3 82 17 105/60 (75) 99 06/18/20 23:37 98.8 06/18/20 21:04 Room Air 06/18/20 20:00 98.8 86 18 109/61 (77) 99 06/18/20 19:35 88 18 96 Room Air 21 Intake and Output 06/18/20 06/19/20 19:00 07:00 Intake Total 720 ml 200 ml Balance 720 ml 200 ml Intake Oral 720 ml 200 ml # Voids 3 2 General Appearance: WD/WN, no acute distress HEENT: normocephalic, atraumatic Respiratory: chest wall non-tender, lungs clear Cardiovascular: normal peripheral pulses, normal rate Abdomen: normal bowel sounds, soft, non tender Extremities: no cyanosis Skin: no ulcers 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 Current Medications Medications (Trade) Dose Ordered Sig/Haley Route PRN Reason Start Time Stop Time Status Last Admin Dose Admin Acetaminophen (Tylenol) 650 mg Q4H PRN ORAL FEVER 06/15/20 03:30 07/15/20 03:29 Albuterol/ Ipratropium (Albuterol/ Ipratropium) 3 ml Q4H PRN HHN Shortness of Breath 06/15/20 03:30 06/20/20 03:29 Amylase/Lipase/ Protease (Rosa SARGENT 36,000 units cap) 1 ea TIWM ORAL 06/17/20 12:00 09/15/20 11:59 06/19/20 17:00 Amylase/Lipase/ Protease (Rosa SARGENT 36,000 units cap) 1 ea WITH SNACKS PRN ORAL WITH SNACKS 06/17/20 10:00 09/15/20 09:59 Aspirin (ASA) 162 mg DAILY ORAL 06/15/20 09:00 07/30/20 08:59 06/19/20 08:09 Diphenhydramine HCl (Benadryl) 25 mg Q3H PRN IVP Itching 06/15/20 11:15 07/15/20 11:14 06/19/20 18:45 Enalaprilat (Vasotec) 2.5 mg Q6H PRN IV sbp more than 160 06/15/20 03:30 07/15/20 03:29 Heparin Sodium (Porcine) (Heparin 5000 units/ml) 5,000 units EVERY 12 HOURS SUBQ 06/15/20 09:00 07/30/20 08:59 06/19/20 08:07 Hydromorphone HCl (Dilaudid) 2 mg Q6H PRN IVP Severe Pain (Pain Scale 7-10) 06/15/20 11:00 06/22/20 10:59 06/19/20 18:45 Ketorolac Tromethamine (Toradol 30mg) 30 mg Q6H PRN IM Moderate Pain (Pain Scale 4-6) 06/15/20 03:30 06/20/20 03:29 Linaclotide (Linzess) 290 mcg BEFORE BREAKFAST ORAL 06/18/20 06:30 09/16/20 06:29 06/19/20 06:17 Nitroglycerin (Ntg) 0.4 mg EVERY HOUR PRN SL Prn Chest Pain 06/15/20 03:30 07/15/20 03:29 Ondansetron HCl (Zofran) 4 mg Q6H PRN IVP Nausea & Vomiting 06/15/20 03:30 07/15/20 03:29 06/19/20 18:45 Pantoprazole (Protonix) 40 mg DAILY ORAL 06/17/20 11:00 07/17/20 10:59 06/19/20 08:09 Phenyleph/Shark Oil/Glycerin/ Petrol (Preparation H) 1 applic BIDPRN PRN RECTAL For Pain 06/15/20 10:30 09/13/20 10:29 Polyethylene Glycol (Miralax) 17 gm DAILYPRN PRN ORAL Constipation 06/15/20 03:30 07/15/20 03:29 Temazepam (Restoril) 15 mg HSPRN PRN ORAL Insomnia 06/15/20 03:30 06/22/20 03:29 Assessment/Plan Problems: (1) ACS (acute coronary syndrome) (2) Intractable abdominal pain (3) COPD (chronic obstructive pulmonary disease) (4) HTN (hypertension) (5) CAD (coronary artery disease) (6) History of bilateral hip replacements (7) Severe protein-calorie malnutrition (8) Gastroparesis Assessment/Plan all reviewed GI consult to f/u symptomatic treatment might go to med/surg dvt prophylaxis. Lorraine Arndt MD Jun 19, 2020 19:13
--- NOTE | 2020-06-19 19:28 | NUR ---
HAND-OFF: Report given to TANYA Orellana.
--- NOTE | 2020-06-19 19:43 | NUR ---
NURSE NOTES: Received patient awake, alert, verbal, resting in bed, no SOB noted.
[2020-06-19 19:47] VITALS: BP 117/69
[2020-06-20] MEDS: DiphenhydrAMINE 50mg/ml Inj IVP PRN ×3 (00:39→12:24)
[2020-06-20 04:11] VITALS: BP 112/70
[2020-06-20] MEDS: Creon DR 36,000 units cap ORAL SCH ×2 (06:30→12:23)
--- NOTE | 2020-06-20 07:21 | NUR ---
HAND-OFF: Report given to Mane Oliveira RN.
--- NOTE | 2020-06-20 07:45 | NUR ---
NURSE NOTES: Pt sitting in bed w/bed in lowest position and call light within reach. Pt A&Ox4, VSS, and in no apparent distress. IV site intact/asymptomatic & H/L'd and skin intact. Will continue to monitor.
[2020-06-20 08:00] VITALS: BP 111/69
[2020-06-20] MEDS: Aspirin Baby 81mg ORAL SCH (09:43)
[2020-06-20] MEDS: Heparin 5000 units/ml inj SUBQ SCH (09:45)
[2020-06-20 12:00] VITALS: BP 127/69
--- NOTE | 2020-06-20 13:04 | Pulmonology Progress Note ---
Subjective ROS Limited/Unobtainable: Yes Constitutional: Reports: no symptoms HEENT: Repors: no symptoms Allergies: Coded Allergies: HYDROCODONE (Verified Allergy, Severe, 06/23/13) LORAZEPAM (Verified Allergy, Severe, Hives, 02/13/14) RASH/HIVES MORPHINE (Unverified Allergy, Severe, 01/14/19) Not true allergy; tolerated Dilaudid in past. Extensive opiate hx PROCHLORPERAZINE (Verified Allergy, Severe, 06/23/13) VANCOMYCIN (Unverified Allergy, Mild, Itching, 03/06/14) Objective Last 24 Hour Vital Signs Date Time Temp Pulse Resp B/P (MAP) Pulse Ox O2 Delivery O2 Flow Rate FiO2 06/20/20 08:00 97.9 92 16 111/69 (83) 99 06/20/20 07:00 98.0 06/20/20 04:11 98.0 84 16 112/70 (84) 98 06/20/20 01:10 97.6 06/19/20 20:34 Room Air 06/19/20 19:47 97.6 89 18 117/69 (85) 96 06/19/20 16:00 98.3 98 19 95/62 (73) 98 Intake and Output 06/19/20 06/20/20 19:00 07:00 Intake Total 1440 ml 600 ml Balance 1440 ml 600 ml Intake Oral 1440 ml 600 ml # Voids 4 3 General Appearance: WD/WN, no acute distress HEENT: normocephalic, atraumatic Respiratory: chest wall non-tender, lungs clear Cardiovascular: normal peripheral pulses, normal rate Abdomen: normal bowel sounds, soft, non tender Extremities: no cyanosis Skin: no ulcers 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 Lymphatic: no neck adenopathy Current Medications Medications (Trade) Dose Ordered Sig/Haley Route PRN Reason Start Time Stop Time Status Last Admin Dose Admin Acetaminophen (Tylenol) 650 mg Q4H PRN ORAL FEVER 06/15/20 03:30 07/15/20 03:29 Amylase/Lipase/ Protease (Rosa SARGENT 36,000 units cap) 1 ea TIWM ORAL 06/17/20 12:00 09/15/20 11:59 06/20/20 12:23 Amylase/Lipase/ Protease (Rosa SARGENT 36,000 units cap) 1 ea WITH SNACKS PRN ORAL WITH SNACKS 06/17/20 10:00 09/15/20 09:59 Aspirin (ASA) 162 mg DAILY ORAL 06/15/20 09:00 07/30/20 08:59 06/20/20 09:43 Diphenhydramine HCl (Benadryl) 25 mg Q3H PRN IVP Itching 06/15/20 11:15 07/15/20 11:14 06/20/20 12:24 Enalaprilat (Vasotec) 2.5 mg Q6H PRN IV sbp more than 160 06/15/20 03:30 07/15/20 03:29 Heparin Sodium (Porcine) (Heparin 5000 units/ml) 5,000 units EVERY 12 HOURS SUBQ 06/15/20 09:00 07/30/20 08:59 06/20/20 09:45 Hydromorphone HCl (Dilaudid) 2 mg Q6H PRN IVP Severe Pain (Pain Scale 7-10) 06/15/20 11:00 06/22/20 10:59 06/20/20 12:24 Linaclotide (Linzess) 290 mcg BEFORE BREAKFAST ORAL 06/18/20 06:30 09/16/20 06:29 06/20/20 06:30 Nitroglycerin (Ntg) 0.4 mg EVERY HOUR PRN SL Prn Chest Pain 06/15/20 03:30 07/15/20 03:29 Ondansetron HCl (Zofran) 4 mg Q6H PRN IVP Nausea & Vomiting 06/15/20 03:30 07/15/20 03:29 06/20/20 12:24 Pantoprazole (Protonix) 40 mg DAILY ORAL 06/17/20 11:00 07/17/20 10:59 06/20/20 09:44 Phenyleph/Shark Oil/Glycerin/ Petrol (Preparation H) 1 applic BIDPRN PRN RECTAL For Pain 06/15/20 10:30 09/13/20 10:29 Polyethylene Glycol (Miralax) 17 gm DAILYPRN PRN ORAL Constipation 06/15/20 03:30 07/15/20 03:29 Temazepam (Restoril) 15 mg HSPRN PRN ORAL Insomnia 06/15/20 03:30 06/22/20 03:29 Assessment/Plan Problems: (1) ACS (acute coronary syndrome) (2) Intractable abdominal pain (3) COPD (chronic obstructive pulmonary disease) (4) HTN (hypertension) (5) CAD (coronary artery disease) (6) History of bilateral hip replacements (7) Severe protein-calorie malnutrition (8) Gastroparesis Assessment/Plan all reviewed GI consult to f/u symptomatic treatment might go to med/surg dvt prophylaxis. Lorraine Arndt MD Jun 20, 2020 13:04
[2020-06-20] MEDS ORDERED: PANTOPRAZOLE SO40 MG ORAL (13:12)
[2020-06-20] MEDS ORDERED: LINZESS290 MCG ORAL (13:12)
[2020-06-20] MEDS ORDERED: CREON DR 36,001 EACH ORAL ×2 (13:12)
--- NOTE | 2020-06-20 13:19 | General Progress Note ---
Subjective ROS Limited/Unobtainable: No Allergies: Coded Allergies: HYDROCODONE (Verified Allergy, Severe, 06/23/13) LORAZEPAM (Verified Allergy, Severe, Hives, 02/13/14) RASH/HIVES MORPHINE (Unverified Allergy, Severe, 01/14/19) Not true allergy; tolerated Dilaudid in past. Extensive opiate hx PROCHLORPERAZINE (Verified Allergy, Severe, 06/23/13) VANCOMYCIN (Unverified Allergy, Mild, Itching, 03/06/14) Objective Last 24 Hour Vital Signs Date Time Temp Pulse Resp B/P (MAP) Pulse Ox O2 Delivery O2 Flow Rate FiO2 06/20/20 08:00 97.9 92 16 111/69 (83) 99 06/20/20 07:00 98.0 06/20/20 04:11 98.0 84 16 112/70 (84) 98 06/20/20 01:10 97.6 06/19/20 20:34 Room Air 06/19/20 19:47 97.6 89 18 117/69 (85) 96 06/19/20 16:00 98.3 98 19 95/62 (73) 98 Intake and Output 06/19/20 06/20/20 19:00 07:00 Intake Total 1440 ml 600 ml Balance 1440 ml 600 ml Intake Oral 1440 ml 600 ml # Voids 4 3 Height (Feet): 5 Height (Inches): 1.00 Weight (Pounds): 98 General Appearance: no apparent distress EENT: PERRL/EOMI Neck: supple Cardiovascular: normal rate Respiratory/Chest: decreased breath sounds Abdomen: normal bowel sounds, non tender, soft Extremities: non-tender Assessment/Plan Assessment/Plan: 1. Cervical cancer. 2. Hypertension. 3. Hypercholesteremia. 4. CHF. 5. Chronic constipation. 6. History of bowel obstruction requiring surgery. 7. History of chronic pancreatitis. 8. Gastritis, H. pylori negative. 9. Colonic polyp. 10. Internal hemorrhoids. recent EGD and colonoscopy ppi Bart Lee CT reviewed pain control will Ruben Villeda MD Jun 20, 2020 13:19
--- NOTE | 2020-06-20 15:20 | NUR ---
NURSE NOTES: Pt D/C'd home in stable condition and w/all belongings accounted for; removed ID wristband and IV access; pt escorted downstairs to taxi by an RN
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
--- NOTE | 2020-06-23 15:25 | Cardiology Report ---
APPROVED REPORT EXAM: Two-dimensional and M-mode echocardiogram with Doppler and color Doppler. INDICATION LVF M-Mode DIMENSIONS IVSd0.8 (0.7-1.1cm)Left Atrium (MM)3.4 (1.6-4.0cm) LVDd4.7 (3.5-5.6cm)Aortic Root3.1 (2.0-3.7cm) PWd0.9 (0.7-1.1cm)Aortic Cusp Exc.1.7 (1.5-2.0cm) IVSs1.6 cmEPSS0.6 (>1.0cm) LVDs2.9 (2.5-4.0cm) PWs1.5 cm <Conclusion> Normal left ventricular chamber size, hyperdynamic systolic function and wall motion. Left ventricular ejection fraction estimated to be 70-75 %. No left ventricular hypertrophy. No evidence of pericardial effusion. All other cardiac chamber sizes are within normal limits. Focal aortic valve sclerosis with adequate cusp excursion. Thickened mitral valve leaflets with normal excursion. Mitral annulus and aortic root calcification. Pulmonic valve not well visualized. Normal tricuspid valve structure. IVC at normal size and collapsing with respiration. A color flow and spectral Doppler study was performed and revealed: Trace aortic regurgitation. Peak LVOT / Pre-aortic valve gradient of 10 mmHg and a Mean of 6 mmHg. Trace to mild mitral regurgitation. Mitral diastolic velocities suggest reduced left ventricular relaxation c/w mild diastolic dysfunction (Grade I). Trace tricuspid regurgitation. Tricuspid systolic velocities suggests peak right ventricular systolic pressure of 11 mmHg. No pulmonic regurgitation present.
--- NOTE | 2020-06-23 17:01 | Cardiology Report ---
APPROVED REPORT EKG Measurement Heart [id number] <Conclusion> Normal sinus rhythm Biatrial enlargement Septal infarct, age undetermined T wave abnormality, consider anterior ischemia Abnormal ECG
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
== END 2020-06-20 15:30 | disposition home or self-care (01) | DRG 313 ==
LOC: EMR 18:45 → 2E 19:25 → EDBEDREQ 21:19 → 4E 06-16 17:59
DX: R07.89 Other chest pain (principal); E43 Unspecified severe protein-calorie malnutrition; Z68.1 Body mass index [BMI] 19.9 or less, adult; K86.1 Other chronic pancreatitis; F11.20 Opioid dependence, uncomplicated; K31.84 Gastroparesis; Z88.6 Allergy status to analgesic agent; Z88.1 Allergy status to other antibiotic agents; Z88.8 Allergy status to other drugs, medicaments and biological substances; Z85.41 Personal history of malignant neoplasm of cervix uteri; I25.10 Atherosclerotic heart disease of native coronary artery without angina pectoris; K21.9 Gastro-esophageal reflux disease without esophagitis; J44.9 Chronic obstructive pulmonary disease, unspecified; Z96.643 Presence of artificial hip joint, bilateral; I10 Essential (primary) hypertension; G89.29 Other chronic pain; M54.9 Dorsalgia, unspecified; K59.09 Other constipation; K29.70 Gastritis, unspecified, without bleeding; Z86.010 Personal history of colon polyps; K64.8 Other hemorrhoids; D63.8 Anemia in other chronic diseases classified elsewhere; E78.00 Pure hypercholesterolemia, unspecified; Z76.5 Malingerer [conscious simulation]
CPT/HCPCS: 36415; 71045; 74176; 80053; 80061; 80307; 81003; 83690; 83735; 84443; 84484; 85007; 85025; 85379; 85610; 85730; 86140; 93005; 93306; 93970; 94664; 96360; 99285; J2405; J7030; U0002

== ENCOUNTER 2020-08-09 06:39 | Inpatient (IN) | payer MEDICARE, OTHER ==
[2020-08-09] VITALS (8 sets, daily range): BP systolic 119–151; BP diastolic 62–87
[~2020-08-09] VITALS: Ht 157.5 cm; Wt 54.4 kg
[~2020-08-09 06:39] MED LIST changes: +CREON DR 36,001 EACH ORAL; +LINZESS290 MCG ORAL; +PANTOPRAZOLE SO40 MG ORAL
--- NOTE | 2020-08-09 06:49 | Emergency Room Report ---
History of Present Illness General Chief Complaint: To Be Triaged Source: Patient Present Illness HPI 69-year-old female with past medical history of hypertension, CAD, cervical cancer, anemia, GERD, chronic pancreatitis, narcotic dependency, history of bilateral hip replacement, history of drug-seeking behavior, chronic constipation, history of small bowel obstruction, colonic polyp, and gastritis presents to the ER with multiple complaints. First complaint is right upper quadrant abd pain x 5 days. Also associated with nausea. No vomiting, diarrhea, constipation, flank pain, melena, hematochezia, hematuria, or dysuria. Second complaint is left chest wall pain. She took baby aspirin this morning with mild relief. Denies cough, hemoptysis, fever, chills, or other symptoms The patient's symptoms were gradual onset, severity was moderate, duration since 5 days. Quality: aching RUQ "feels like a knot" Past medical history: See HPI Past surgical history: Exlap for SBO, hysterectomy Smoking: Denies Alcohol use: Denies Drug use: Denies Review of systems: CONST: No fevers or chills, No night sweats PULMONARY: No productive cough, No shortness of breath CARDIAC: ++ chest pain, No palpitations GI: No vomiting, No diarrhea , No melena_or_BRBPR : No dysuria, No hematuria, No discharge NEURO: No new_focal_weakness_or_numbness, No confusion, No vision changes 14 point Review of Systems is otherwise negative except per HPI Physical Exam: GENERAL: Awake_alert_ nontoxic, no acute distress Spo2 98% on RA -normal EYES: Extraocular muscles are intact. Conjunctivae clear. Lids without swelling ENT: External nose and ear normal_in_appearance. Oropharynx clear. He ad_atraumatic, Moist_oral_mucosa NECK: No JVD. No meningismus. No thyromegaly. Supple. Trachea midline RESP: Normal respiratory effort. Symmetric rise. No stridor. Clear_to_auscultation_No_rales_No_wheezes CARDIAC: Regular rate and regular rhytm. No_significant pedal edema. ABDOMEN: Soft. Nondistended. TTP RUQ with voluntary guarding. Non peritoneal. No masses. Non peritoneal. Negative rosving, negative CVA TTP MSK: Normal muscle tone, without rigidity. Extremities without asymmetric deformity or swelling. SKIN: Warm and dry. No visible cyanosis or pallor NEUROLOGIC: Alert, oriented x3. Motor_and_sensation_grossly_intact. No truncal ataxia. Gait_normal Psych: Normal mood and affect, normal judgment and insight - COORDINATION OF CARE Case was discussed with: Patient , Patient's Physician Any labs and imaging that were ordered were interpreted as part of the medical decision making: Medical Decision Making/Plan: Differential diagnosis includes cholecystitis, choledocholithiasis, hepatitis, small bowel obstruction, volvulus, AAA, pancreatitis, atypical appendicitis, gastroparesis, gastritis, peptic ulcer disease, among others. Patient is well appearing with stable vital signs. Abdominal exam is non peritoneal with no guarding or rebound. Labs show chronic pancytopenia. Troponin negative x1. BNP is 144. EKG shows no acute ischemia. CXR is unremarkable for acute abnormality. CT scan of the abdomen and pelvis shows no acute surgical emergency. Gastritis is unchanged. Gallbladder is distended, however without pericholecystic fluid or CBD dilation or gallbladder wall thickening Dilaudid was given for pain control on several occasions. It was difficult for RN and phlebotomy to obtain PIV so ultrasound guided peripheral IV was placed. Aspirin given. However, given that chest pain is currently resolved, risks likely outweigh benefits of IV heparin at this time, so deferred. The pain is not classic for pericarditis or myocarditis, and the patient has no significant risk factors for a pericardial effusion and has stable vitals signs, unlikely to have tamponade. Pain is not likely to be pulmonary embolism, patient has no significant PE risk factors. The presentation is not consistent with dissection, pain is not severe, radiating to back, or tearing in nature. Has normal bilateral radial and pedal pulses. The patient denies any bloody stool and has no pain out of proportion to exam, and no significant risk factors for mesenteric ischemia such as atrial fibrillation or severe PAD/PVD (peripheral arterial / vascular disease), thus definitive workup to rule out mesenteric ischemia was not pursued. Patient is afebrile, without any significant tenderness in the RUQ, and a negative [place] sign. The patients presentation does not appear to be consistent with acute cholecystitis and thus definitive imaging to rule it out was not pursued. The patients symptoms are not consistent with ACS (acute coronary syndrome), symptoms are not exertional, EKG without obvious ischemic change. I spoke with Dr. Cheney, and reviewed the patients presentation, workup, results, and treatment. They will admit the patient for further care and evaluation, and assume care of the patient at this time. Allergies: Coded Allergies: HYDROCODONE (Verified Allergy, Severe, 06/23/13) LORAZEPAM (Verified Allergy, Severe, Hives, 02/13/14) RASH/HIVES MORPHINE (Unverified Allergy, Severe, 01/14/19) Not true allergy; tolerated Dilaudid in past. Extensive opiate hx PROCHLORPERAZINE (Verified Allergy, Severe, 06/23/13) VANCOMYCIN (Unverified Allergy, Mild, Itching, 03/06/14) COVID-19 Screening Contact w/high risk pt: No Experienced COVID-19 symptoms?: No Nursing Documentation-PMH Hx Cardiac Problems: Yes Hx Hypertension: Yes Hx Pacemaker: No Hx Asthma: Yes Hx COPD: Yes Hx Diabetes: No Hx Cancer: Yes Hx Gastrointestinal Problems: No Hx Dialysis: No Hx Neurological Problems: No Hx Cerebrovascular Accident: No Hx Seizures: No Hx Dizziness: Yes Hx Headaches: Yes Hx Weakness: Yes Hx Fatigue: Yes Physical Exam [id number] EP Interpretation: reviewed, normal Medical Decision Making Diagnostic Impression: Primary Impression: Chest pain Additional Impressions: Abdominal pain Pancreatitis GERD (gastroesophageal reflux disease) Gastritis Gastroparesis EKG Diagnostic Results RAFAEL Scribe Regina 12-lead EKG (interpreted by me) Time: 57 Indication: Rhythm analysis Tracing visualized and Interpreted by me. Rhythm: Normal sinus rhythm Rate: 70 bpm QTc: 373 Morphology: No_significant_ST_elevations_or_depressions, No STEMI Impression: Normal_sinus_rhythm_without_significant_abnormality Rhythm Strip Diag. Results Rhythm Strip Time: 12:48 EP Interpretation: yes Rate: 79 Rhythm: NSR, no PVC's, no ectopy Chest X-Ray Diagnostic Results Chest X-Ray Diagnostic Results : PA Scribe Text Chest X-Ray: Views: 1 view(s) Indication: Chest pain Findings: Normal heart size. Mediastinum normal. No infiltrate. Impression: COPD The X-ray(s) were independently viewed and interpreted contemporaneously Electronically signed by , Dary Riojas, DO CT/MRI/US Diagnostic Results CT/MRI/US Diagnostic Results : Impression CT Abdomen and Pelvis Without Intravenous Contrast CLINICAL HISTORY: PAIN, atypical, chronic, recurrent chest pain, intractable abdominal pain, history of cervical cancer, anemia, GERD, chronic pancreatitis, hypertension, narcotic dependency, chronic constipation, history of bowel obstruction, gastritis, colonic polyps and internal hemorrhoids TECHNIQUE: Axial computed tomography images of the abdomen and pelvis without intravenous contrast. CTDI is 2.90 mGy and DLP is 140.30 mGy-cm. One or more of the following dose reduction techniques were used: automated exposure control, adjustment of the mA and/or kV according to patient size, use of iterative reconstruction technique. COMPARISON: 06/14/2020 FINDINGS: Lung bases: There is stable mild linear fibrosis at the lung bases. ABDOMEN: Liver: Unremarkable. Gallbladder and bile ducts: The gallbladder is very distended but is otherwise unremarkable. No calcified stones. No ductal dilation. Pancreas: Unremarkable. No ductal dilation. Spleen: Unremarkable. No splenomegaly. Adrenals: There is stable mild diffuse thickening of the left adrenal gland. The right adrenal gland is unremarkable. Kidneys and ureters: There is no hydronephrosis. Both ureters are normal as seen. There is a punctate nonobstructing right renal stone, without change.. Stomach and bowel: There is mild circumferential wall thickening of the gastric body, similar appearance compared to the previous study. This could represent mild gastritis. No obstruction. PELVIS: Appendix: No findings to suggest acute appendicitis. Bladder: Unremarkable. No stones. Reproductive: Unremarkable as visualized. ABDOMEN and PELVIS: Intraperitoneal space: Unremarkable. No free air. No significant fluid collection. Bones/joints: Post surgical changes from bilateral hip arthroplasty with associated streak artifact, limiting assessment of the pelvis. No acute fracture. No dislocation. Soft tissues: Unremarkable. Vasculature: Unremarkable. No abdominal aortic aneurysm. Lymph nodes: Unremarkable. No enlarged lymph nodes. IMPRESSION: 1. Possible gastritis, without significant change in appearance compared to the previous study. 2. No bowel obstruction or abnormal bowel dilatation. No inflammatory changes in the visualized mesentery. Reevaluation Time: 12:48 Status: improved Disposition: ADMITTED INPATIENT Admit Decision Time: 12:48 Condition: Stable Scripts Unable to Obtain Active Prescriptions or Reported Meds Dary Riojas D.O. Aug 09, 2020 06:48
--- NOTE | 2020-08-09 07:10 | NUR ---
ED Nurse Note: Pt walked in from home. Axox4, she is ambulatory and walked with a steady gait, Vitqals stable on RA as documented. states that she feels chest pain and abdominal pain. She is resting comfortably, breathing is even and unlabored, ER MD at bedside for assement. EKG done.
[2020-08-09] MEDS ORDERED: Nitroglycerin 2% oint pkt TOPIC ONE (07:15)
--- NOTE | 2020-08-09 07:23 | NUR ---
ED Nurse Note: report received from TANYA Keller. Pt in radiology.
--- NOTE | 2020-08-09 07:41 | NUR ---
ED Nurse Note: pt back from radiology with no signs of acute distress noted. Attempting IV inserted.
--- NOTE | 2020-08-09 07:54 | Diagnostic Imaging Report ---
EXAM: CT Abdomen and Pelvis Without Intravenous Contrast CLINICAL HISTORY: PAIN, atypical, chronic, recurrent chest pain, intractable abdominal pain, history of cervical cancer, anemia, GERD, chronic pancreatitis, hypertension, narcotic dependency, chronic constipation, history of bowel obstruction, gastritis, colonic polyps and internal hemorrhoids TECHNIQUE: Axial computed tomography images of the abdomen and pelvis without intravenous contrast. CTDI is 2.90 mGy and DLP is 140.30 mGy-cm. One or more of the following dose reduction techniques were used: automated exposure control, adjustment of the mA and/or kV according to patient size, use of iterative reconstruction technique. COMPARISON: 06/14/2020 FINDINGS: Lung bases: There is stable mild linear fibrosis at the lung bases. ABDOMEN: Liver: Unremarkable. Gallbladder and bile ducts: The gallbladder is very distended but is otherwise unremarkable. No calcified stones. No ductal dilation. Pancreas: Unremarkable. No ductal dilation. Spleen: Unremarkable. No splenomegaly. Adrenals: There is stable mild diffuse thickening of the left adrenal gland. The right adrenal gland is unremarkable. Kidneys and ureters: There is no hydronephrosis. Both ureters are normal as seen. There is a punctate nonobstructing right renal stone, without change.. Stomach and bowel: There is mild circumferential wall thickening of the gastric body, similar appearance compared to the previous study. This could represent mild gastritis. No obstruction. PELVIS: Appendix: No findings to suggest acute appendicitis. Bladder: Unremarkable. No stones. Reproductive: Unremarkable as visualized. ABDOMEN and PELVIS: Intraperitoneal space: Unremarkable. No free air. No significant fluid collection. Bones/joints: Post surgical changes from bilateral hip arthroplasty with associated streak artifact, limiting assessment of the pelvis. No acute fracture. No dislocation. Soft tissues: Unremarkable. Vasculature: Unremarkable. No abdominal aortic aneurysm. Lymph nodes: Unremarkable. No enlarged lymph nodes. IMPRESSION: 1. Possible gastritis, without significant change in appearance compared to the previous study. 2. No bowel obstruction or abnormal bowel dilatation. No inflammatory changes in the visualized mesentery.
--- NOTE | 2020-08-09 07:55 | NUR ---
ED Nurse Note: 2 staff attempted IV insertion and could not insert. Pt upset and saying "I'm not a pin cushion." Pt would not let 3rd staff member attempt insertion. Lab called and asked to do lab draw. ED MD made aware.
--- NOTE | 2020-08-09 07:55 | NUR ---
ED Nurse Note: xray @ bedside
--- NOTE | 2020-08-09 08:05 | NUR ---
ED Nurse Note: pt c/o abd pain. ED MD aware. Pt wants IV access for IV medication.
--- NOTE | 2020-08-09 09:20 | NUR ---
ED Nurse Note: Pt told functional tester typewriters to get out of her room and used profanity including the N word regarding silvia's race because she is .
--- NOTE | 2020-08-09 09:25 | NUR ---
ED Nurse Note: unable to insert IV, but peripheral blood draw done and sent to lab. ED MD aware.
--- NOTE | 2020-08-09 09:38 | NUR ---
ED Nurse Note: pt declining urine sample at this time
[2020-08-09 09:59] LABS: HEMATOCRIT 34.6 % (37.0-47.0); HEMOGLOBIN 11.2 G/DL (12.0-16.0); MEAN CORPUSCULAR VOLUME 106 FL (80-99); PLATELET COUNT 225 K/UL (150-450); RED BLOOD COUNT 3.27 M/UL (4.20-5.40); RED CELL DISTRIBUTION WIDTH 16.5 % (11.6-14.8); WHITE BLOOD COUNT 3.3 K/UL (4.8-10.8)
[2020-08-09 10:05] LABS: ANION GAP 8 mmol/L (5-15); BLOOD UREA NITROGEN 12 mg/dL (7-18); CALCIUM 9.8 MG/DL (8.5-10.1); CARBON DIOXIDE 24 MMOL/L (21-32); CHLORIDE 106 MMOL/L (98-107); CREATININE 0.5 MG/DL (0.55-1.30); POTASSIUM 3.8 MMOL/L (3.5-5.1); SODIUM 138 MMOL/L (136-145)
[2020-08-09 10:17] LABS: ALANINE AMINOTRANSFERASE 12 U/L (12-78); ALBUMIN 3.4 G/DL (3.4-5.0); ALKALINE PHOSPHATASE 66 U/L (46-116); ASPARTATE AMINO TRANSFERASE 17 U/L (15-37); BILIRUBIN,TOTAL 0.4 MG/DL (0.2-1.0)
[2020-08-09] MEDS ORDERED: HYDROmorphone 1mg/ml Carpuject IM ONE (11:15)
--- NOTE | 2020-08-09 11:15 | NUR ---
ED Nurse Note: pt very upset, stating "this is why ladies shouldn't be doctors. She should be at home in the kitchenn." Pt reporting being in 10/10 pain in abdomen. ED MD made aware.
--- NOTE | 2020-08-09 11:20 | NUR ---
ED Nurse Note: Accompanied patient to bathroom to void.
[2020-08-09 11:33] LABS: APPEARANCE,URINE SLIGHTLY CLOUDY; BILIRUBIN, URINE NEGATIVE (NEGATIVE); COLOR,URINE PALE YELLOW; GLUCOSE, URINE (UA) NEGATIVE (NEGATIVE); KETONES,URINE 1+ (NEGATIVE); LEUKOCYTE ESTERASE ,URINE NEGATIVE (NEGATIVE); NITRITE,URINE NEGATIVE (NEGATIVE); PH,URINE 5 (4.5-8.0); PROTEIN,URINE NEGATIVE (NEGATIVE); UROBILINOGEN,URINE NORMAL MG/DL (0.0-1.0)
--- NOTE | 2020-08-09 12:33 | NUR ---
ED Nurse Note: Pt rambling in her room, verbally harrassing staff, saying "these nurses don't even know how to take off their own sanitary napkin, let alone take care of a patient." Pt continues to harrass staff saying "you nurses are just out of nursing school, don't know anything." Pt does not want to leave the hospital, wants to be admitted. ED MD aware.
--- NOTE | 2020-08-09 12:47 | NUR ---
ED Nurse Note: Pt heard another patient in the ER complain of pain. Pt yelled to that other patient, "don't worry, they'll be right in with your medicine, honey, 'cause you're white!" Pt spoken to and asked not to yell at other patients in the ER. Pt apologized.
--- NOTE | 2020-08-09 13:18 | NUR ---
ED Nurse Note: Pt requested meds for nausea/pain/itchiness, needs addressed, awaiting for ERMD.
[2020-08-09] MEDS ORDERED: DiphenhydrAMINE 50mg/ml Inj IVP ONE (13:30)
[2020-08-09] MEDS ORDERED: Hydromorphone 0.5mg/0.5ml inj IVP ONE (13:30)
--- NOTE | 2020-08-09 13:37 | Diagnostic Imaging Report ---
Indication: Reason For Exam: PAIN Technique: One view of the chest Comparison: Chest pain Findings: Lungs and pleural spaces are clear. Heart size is normal. Lungs are hyperinflated Impression: No acute process Hyperinflation, likely COPD
--- NOTE | 2020-08-09 15:14 | General Progress Note ---
Subjective ROS Limited/Unobtainable: Yes Allergies: Coded Allergies: HYDROCODONE (Verified Allergy, Severe, 06/23/13) LORAZEPAM (Verified Allergy, Severe, Hives, 02/13/14) RASH/HIVES MORPHINE (Unverified Allergy, Severe, 01/14/19) Not true allergy; tolerated Dilaudid in past. Extensive opiate hx PROCHLORPERAZINE (Verified Allergy, Severe, 06/23/13) VANCOMYCIN (Unverified Allergy, Mild, Itching, 03/06/14) Objective Last 24 Hour Vital Signs Date Time Temp Pulse Resp B/P (MAP) Pulse Ox O2 Delivery O2 Flow Rate FiO2 08/09/20 13:00 98.3 88 20 138/81 98 Room Air 08/09/20 11:00 97.8 79 20 141/86 97 Room Air 08/09/20 09:00 98.3 81 20 151/82 98 Room Air 08/09/20 07:19 147/87 08/09/20 07:08 98.0 88 20 147/87 99 Room Air 08/09/20 06:43 97.7 90 20 148/88 (108) 99 Room Air Laboratory Tests 08/09/20 09:20: White Blood Count 3.3L, Red Blood Count 3.27L, Hemoglobin 11.2L, Hematocrit 34.6L, Mean Corpuscular Volume 106H, Mean Corpuscular Hemoglobin 34.4H, Mean Corpuscular Hemoglobin Concent 32.5, Red Cell Distribution Width 16.5H, Platelet Count 225, Mean Platelet Volume 5.9L, Neutrophils (%) (Auto) , Lymphocytes (%) (Auto) , Monocytes (%) (Auto) , Eosinophils (%) (Auto) , Basophils (%) (Auto) , Differential Total Cells Counted 100, Neutrophils % (Manual) 64, Lymphocytes % (Manual) 27, Monocytes % (Manual) 9, Eosinophils % (Manual) 0, Basophils % (Manual) 0, Band Neutrophils 0, Platelet Estimate Adequate, Platelet Morphology Normal, Hypochromasia 1+, Anisocytosis 1+, Macrocytosis 1+, Sodium Level 138, Potassium Level 3.8, Chloride Level 106, Carbon Dioxide Level 24, Anion Gap 8, Blood Urea Nitrogen 12, Creatinine 0.5L, Estimat Glomerular Filtration Rate > 60, Glucose Level 106, Calcium Level 9.8, Total Bilirubin 0.4, Aspartate Amino Transf (AST/SGOT) 17, Alanine Aminotransferase (ALT/SGPT) 12, Alkaline Phosphatase 66, Troponin I 0.003, Pro-B-Type Natriuretic Peptide 144H, Total Protein 6.9, Albumin 3.4, Globulin 3.5, Albumin/Globulin Ratio 1.0, Lipase 111 08/09/20 11:21: Urine Color Pale yellow, Urine Appearance Slightly cloudy, Urine pH 5, Urine Specific [employer] 1.010, Urine Protein Negative, Urine Glucose (UA) Negative, Urine Ketones 1+H, Urine Blood 1+H, Urine Nitrite Negative, Urine Bilirubin Negative, Urine Urobilinogen Normal, Urine Leukocyte Esterase Negative, Urine RBC 0-2, Urine WBC 0-2, Urine Squamous Epithelial Cells ModerateH, Urine Bacteria Occasional, Urine Opiates Screen PositiveH, Urine Barbiturates Screen Negative, Phencyclidine (PCP) Screen Negative, Urine Amphetamines Screen Negative, Urine Benzodiazepines Screen Negative, Urine Cocaine Screen Negative, Urine Marijuana (THC) Screen Negative Height (Feet): 5 Height (Inches): 2.00 Weight (Pounds): 120 General Appearance: mild distress EENT: normal ENT inspection Neck: supple Cardiovascular: normal rate Respiratory/Chest: lungs clear Abdomen: soft, hypoactive bowel sounds, tender Extremities: non-tender Assessment/Plan Assessment/Plan: Assessment/Plan Assessment/Plan: 1. Cervical cancer. 2. Hypertension. 3. Hypercholesteremia. 4. CHF. 5. Chronic constipation. 6. History of bowel obstruction requiring surgery. 7. History of chronic pancreatitis. 8. Gastritis, H. pylori negative. 9. Colonic polyp. 10. Internal hemorrhoids. recent EGD and colonoscopy ppi Bart [facility] CT reviewed pain control will Ruben Villeda MD Aug 09, 2020 15:14
[2020-08-09] MEDS ORDERED: Creon DR 36,000 units cap ORAL PRN (15:15)
--- NOTE | 2020-08-09 15:56 | Cardiology Report ---
APPROVED REPORT EKG Measurement Heart [id number] <Conclusion> Normal sinus rhythm Normal ECG
--- NOTE | 2020-08-09 16:30 | Consultation ---
DATE OF CONSULTATION: 08/09/2020 PULMONARY CONSULTATION CONSULTING PHYSICIAN: Lion Clark MD HISTORY OF PRESENT ILLNESS: This is a 69-year-old female with a history of hypertension, CAD, GERD, narcotic dependence, and history of drug-seeking behavior who came to the hospital with chest pain. Patient reports a history of also cervical carcinoma, anemia, GERD. Patient was seen and evaluated. Pain was predominantly in the right upper quadrant. She reported nausea, but no diarrhea or vomiting. She also reported left upper chest wall pain. She took an aspirin with some relief of symptoms. At this time, she is admitted to the hospital for subsequent management and care. PAST MEDICAL HISTORY: Notable for CAD, cervical CA, anemia, GERD, chronic pancreatitis, narcotic dependency, bilateral hip replacements, drug-seeking behavior, chronic constipation, previous SBO, and colonic polyps. PREVIOUS SURGERIES: Laparotomy for SBO and hysterectomy. HOME MEDICATIONS: Reviewed and reconciled in chart. ALLERGIES: Listed to hydrocodone, Ativan, morphine, , and vancomycin. REVIEW OF SYSTEMS: Denies any headaches, hematemesis, melena, night sweats, or weight loss. PHYSICAL EXAMINATION: GENERAL: Reveals a 69-year-old female. HEENT: Unremarkable. CHEST: Clear breath sounds bilaterally. ABDOMEN: Soft. EXTREMITIES: There is no edema. VITAL SIGNS: Blood pressure is 130/80, heart rate is 84, respirations 20, O2 saturation 98% on room air. She is afebrile. LABORATORY DATA: Lab testing shows white count 3.3, hemoglobin 11.2, otherwise normal CBC and BMP. Coags are negative. Urine toxicology positive for opiates. Urinalysis negative. IMAGING STUDIES: X-ray chest was obtained, which showed hyperinflated lungs. She underwent abdomen and pelvis CT, which was unremarkable. IMPRESSION: 1. Chest pain, rule out ACS. 2. COPD, stable. 3. History of cervical CA. 4. CAD. 5. Hypertension. 6. Drug-seeking behavior and chronic narcotic dependence. DISCUSSION: Admit to the hospital. Predominant care per Cardiology. At this time, her respiratory status is stable and she is saturating well on room air. No intervention required from pulmonary standpoint. I recommend cardiac evaluation for chest pain. We will follow. Lion Clark M.D. DR: MARIA ESTHER JOB#: [id number] CC:
--- NOTE | 2020-08-09 16:43 | NUR ---
ED Nurse Note: pt yelling at staff stating "you guys arent gonna even have jobs in two months! you're not gonna be making any money." when pt is asked why she is verbally harrassing staff, she states that "other people that got here after me are getting rooms before me! It's because I am black! the lord is going to take care of you guys for that!" Pt is made aware how beds are handed out to patients and that race has nothing to do with that. Pt still upset and yelling at staff.
--- NOTE | 2020-08-09 17:40 | History & Physical ---
History of Present Illness General Reason for Hospitalization: Pain Present Illness HPI 69-year-old female with past medical history of hypertension, CAD, cervical cancer, anemia, GERD, chronic pancreatitis, narcotic dependency, history of bilateral hip replacement, history of drug-seeking behavior, chronic constipation, history of small bowel obstruction, colonic polyp, and gastritis presents to the ER with multiple complaints. First complaint is right upper quadrant abd pain x 5 days. Also associated with nausea. No vomiting, diarrhea, constipation, flank pain, melena, hematochezia, hematuria, or dysuria. Second complaint is left chest wall pain. She took baby aspirin this morning with mild relief. Denies cough, hemoptysis, fever, chills, or other symptoms The patient's symptoms were gradual onset, severity was moderate, duration since 5 days. Quality: aching RUQ "feels like a knot" Past medical history: See HPI Past surgical history: Exlap for SBO, hysterectomy Allergies: Coded Allergies: HYDROCODONE (Verified Allergy, Severe, 06/23/13) LORAZEPAM (Verified Allergy, Severe, Hives, 02/13/14) RASH/HIVES MORPHINE (Unverified Allergy, Severe, 01/14/19) Not true allergy; tolerated Dilaudid in past. Extensive opiate hx PROCHLORPERAZINE (Verified Allergy, Severe, 06/23/13) VANCOMYCIN (Unverified Allergy, Mild, Itching, 03/06/14) COVID-19 Screening Contact w/high risk pt: No Experienced COVID-19 symptoms?: No Medication History Scheduled Albuterol Sulfate* (Albuterol Sulfate Hfa*), 2 PUFF INH Q4H, (Reported) Tiotropium [place]* (Spiriva*), 1 PUFF INH DAILY, (Reported) Scheduled PRN Acetaminophen With Codeine (T#4) (Tylenol #4 Tab*), 1 TAB ORAL Q6H PRN for For Pain, (Reported) Discontinued Medications Acetaminophen With Codeine (T#3) (Tylenol #3 Tab*), 1 TAB ORAL Q4H PRN Discontinued Reason: Pt stopped taking med Linaclotide (Linzess), 290 MCG ORAL BEFORE BREAKFAST Discontinued Reason: Pt stopped taking med Lipase/Protease/Amylase (Creon Dr 36,000 Units Capsule), 1 EA ORAL .WITH SNACKS PRN Discontinued Reason: Pt stopped taking med Lipase/Protease/Amylase (Creon Dr 36,000 Units Capsule), 1 EA ORAL TIWM Discontinued Reason: Pt stopped taking med Pantoprazole* (Pantoprazole*), 40 MG ORAL DAILY Discontinued Reason: Pt stopped taking med Patient History Healthcare decision maker Resuscitation status Advanced Directive on File Review of Systems Review of Symptoms General ROS: no weight loss or fever Psychological ROS: no depression or mood changes, no memory loss Ophthalmic ROS: no visual changes or eye irritation ENT ROS: no nasal congestion, hearing loss, dizziness Allergy and Immunology ROS: no allergic symptoms or urticaria Hematological and Lymphatic ROS: no swollen glands, unusual bleeding or bruising Endocrine ROS: no polyuria, polydipsia, weight changes, temperature intolerance Respiratory ROS: no cough, shortness of breath, or wheezing Cardiovascular ROS: + chest pain Gastrointestinal ROS: abd pain, diarrhea Musculoskeletal ROS: no myalgias or arthralgias Neurological ROS: no TIA or stroke symptoms Dermatological ROS: no new or changing skin lesions, rashes or pruritis Physical Exam Physical Exam General appearance: alert, cooperative, no distress, appears stated age Head: Normocephalic, without obvious abnormality, atraumatic Eyes: conjunctivae/corneas clear. PERRL, EOM's intact. Fundi benign Throat: Lips, mucosa, and tongue normal. Teeth and gums normal Neck: supple, symmetrical, trachea midline, no adenopathy, thyroid: not enlarged, symmetric, no tenderness/mass/nodules, no carotid bruit and no JVD Lungs: clear to auscultation bilaterally Heart: regular rate and rhythm, S1, S2 normal, no murmur, click, rub or gallop Abdomen: soft, non-tender. Bowel sounds normal. No masses, no organomegaly Extremities: extremities normal, atraumatic, no cyanosis or edema Pulses: 2+ and symmetric Skin: Skin color, texture, turgor normal. No rashes or lesions Neurologic: Grossly normal Last 24 Hour Vital Signs Date Time Temp Pulse Resp B/P (MAP) Pulse Ox O2 Delivery O2 Flow Rate FiO2 08/09/20 13:00 98.3 88 20 138/81 98 Room Air 08/09/20 11:00 97.8 79 20 141/86 97 Room Air 08/09/20 09:00 98.3 81 20 151/82 98 Room Air 08/09/20 07:19 147/87 08/09/20 07:08 98.0 88 20 147/87 99 Room Air 08/09/20 06:43 97.7 90 20 148/88 (108) 99 Room Air Laboratory Tests Test 08/09/20 09:20 08/09/20 11:21 White Blood Count 3.3 K/UL (4.8-10.8) L Red Blood Count 3.27 M/UL (4.20-5.40) L Hemoglobin 11.2 G/DL (12.0-16.0) L Hematocrit 34.6 % (37.0-47.0) L Mean Corpuscular Volume 106 FL (80-99) H Mean Corpuscular Hemoglobin 34.4 PG (27.0-31.0) H Mean Corpuscular Hemoglobin Concent 32.5 G/DL (32.0-36.0) Red Cell Distribution Width 16.5 % (11.6-14.8) H Platelet Count 225 K/UL (150-450) Mean Platelet Volume 5.9 FL (6.5-10.1) L Neutrophils (%) (Auto) % (45.0-75.0) Lymphocytes (%) (Auto) % (20.0-45.0) Monocytes (%) (Auto) % (1.0-10.0) Eosinophils (%) (Auto) % (0.0-3.0) Basophils (%) (Auto) % (0.0-2.0) Differential Total Cells Counted 100 Neutrophils % (Manual) 64 % (45-75) Lymphocytes % (Manual) 27 % (20-45) Monocytes % (Manual) 9 % (1-10) Eosinophils % (Manual) 0 % (0-3) Basophils % (Manual) 0 % (0-2) Band Neutrophils 0 % (0-8) Platelet Estimate Adequate Platelet Morphology Normal Hypochromasia 1+ Anisocytosis 1+ Macrocytosis 1+ Sodium Level 138 MMOL/L (136-145) Potassium Level 3.8 MMOL/L (3.5-5.1) Chloride Level 106 MMOL/L (98-107) Carbon Dioxide Level 24 MMOL/L (21-32) Anion Gap 8 mmol/L (5-15) Blood Urea Nitrogen 12 mg/dL (7-18) Creatinine 0.5 MG/DL (0.55-1.30) L Estimat Glomerular Filtration Rate > 60 mL/min (>60) Glucose Level 106 MG/DL (74-106) Calcium Level 9.8 MG/DL (8.5-10.1) Total Bilirubin 0.4 MG/DL (0.2-1.0) Aspartate Amino Transf (AST/SGOT) 17 U/L (15-37) Alanine Aminotransferase (ALT/SGPT) 12 U/L (12-78) Alkaline Phosphatase 66 U/L (46-116) Troponin I 0.003 ng/mL (0.000-0.056) Pro-B-Type Natriuretic Peptide 144 pg/mL (0-125) H Total Protein 6.9 G/DL (6.4-8.2) Albumin 3.4 G/DL (3.4-5.0) Globulin 3.5 g/dL Albumin/Globulin Ratio 1.0 (1.0-2.7) Lipase 111 U/L (73-393) Urine Color Pale yellow Urine Appearance Slightly cloudy Urine pH 5 (4.5-8.0) Urine Specific [place] 1.010 (1.005-1.035) Urine Protein Negative (NEGATIVE) Urine Glucose (UA) Negative (NEGATIVE) Urine Ketones 1+ (NEGATIVE) H Urine Blood 1+ (NEGATIVE) H Urine Nitrite Negative (NEGATIVE) Urine Bilirubin Negative (NEGATIVE) Urine Urobilinogen Normal MG/DL (0.0-1.0) Urine Leukocyte Esterase Negative (NEGATIVE) Urine RBC 0-2 /HPF (0 - 2) Urine WBC 0-2 /HPF (0 - 2) Urine Squamous Epithelial Cells Moderate /LPF (NONE/OCC) H Urine Bacteria Occasional /HPF (NONE) Urine Opiates Screen Positive (NEGATIVE) H Urine Barbiturates Screen Negative (NEGATIVE) Phencyclidine (PCP) Screen Negative (NEGATIVE) Urine Amphetamines Screen Negative (NEGATIVE) Urine Benzodiazepines Screen Negative (NEGATIVE) Urine Cocaine Screen Negative (NEGATIVE) Urine Marijuana (THC) Screen Negative (NEGATIVE) Height (Feet): 5 Height (Inches): 2.00 Weight (Pounds): 120 Medications Current Medications Medications (Trade) Dose Ordered Sig/Haley Route PRN Reason Start Time Stop Time Status Last Admin Dose Admin Amylase/Lipase/ Protease (Rosa DR 36,000 units cap) 1 ea TIWM ORAL 08/09/20 17:00 11/07/20 16:59 UNV Amylase/Lipase/ Protease (Rosa SARGENT 36,000 units cap) 1 ea WITH SNACKS ORAL 08/09/20 15:15 11/07/20 15:14 UNV Linaclotide (Linzess) 290 mcg BEFORE BREAKFAST ORAL 08/10/20 06:30 11/08/20 06:29 UNV Assessment/Plan Diagnosis [place]: #Abd pain- intractable #Chest pain # history of hypertension # CAD, #cervical cancer #anemia #GERD 3chronic pancreatitis, #Narcotic dependency, #history of bilateral hip replacement #history of drug-seeking behavior # chronic constipation, # history of small bowel obstruction, colonic polyp, - admit inpatient - Gi eval - cardiology eval - pain control - resume home meds - serial troponin [facility] Hospital declaration INPATIENT level of care is warranted for this patient because patient is a 89 year old with who presents with suspicion of . I have a high level of concern because . Patient is at high risk for . Plan of care/treatment include . Patient care is expected to be greater than 2 midnights. OBSERVATION level of care is warranted for this patient. Patient is a 89 year old with who presents with . Patient will be admitted for 1 midnight, but if additional night(s) is/are necessary, patient will be converted to inpatient status for the entire hospitalization Disposition: Once the patient is stable to leave the hospital, I anticipate the patient will likely be discharged to the following environment: Estimated discharge date: I spent 70 minutes on this patient's case, and minutes was dedicated to counseling and/or care coordination. MIPS (Merit-based Incentive Payment System) Applicable CPT: 99158, 48088 CHECK ALL THAT ARE MET: Measure #5 (CHF): All ages. Prescribe CARLOS/ARB upon discharge for patients with left ventricular systolic dysfunction. If not, the reason is clearly documented in the medical chart. Measure #8 (CHF): All ages. Prescribe a beta nina upon discharge for patients with left ventricular systolic dysfunction. If not, the reason is clearly documented in the medical chart. Measure #47 Advance care plan or surrogate decision maker documented in the medical record. Measure #130 The provider has documented, updated, or reviewed the patients current medication list and has documented it in the patients note. Measure #374 (All): Send report to referring provider. Measure #407(Sepsis due to MSSA bacteremia): Age 18+ Patient treated with a beta-lactam antibiotic (Nafcillin, Oxacillin or Cefazolin) as definitive therapy. MEDICAL COMPLEXITY High complexity medical decision making (need 2/3 categories) Problem - need 4 points Acute/new problem with new plan for workup (4 points, 1 max) Acute/new problem without additional workup (3 points, 1 max) Unstable chronic problem actively being managed (2 point each, 2 max) Stable chronic problem actively being managed (1 point each, 2 max) Self-limited/transient process (constipation, muscle ache, etc) (1 point each, 2 max) Data - need 4 points Reviewed labs/imaging studies (1 points, 2 max) Independent review of imaging (EKG, xrays, etc) (2 points, 2 max) Discussed case with consult/other MD/RN (2 points, 2 max) High Risk - qualify if have one of the following: Severe exacerbation of acute problem, acute mental status change, IV narcotics, monitoring drug levels (vancomycin, INR, tacrolimus etc) Dennis Cheney M.D. Aug 09, 2020 17:40
--- NOTE | 2020-08-09 18:40 | NUR ---
ED Nurse Note: pt c/o pain. Spoke with Dr. Cheney. He said to order dilaudid 0.5 mg q4hr PRN pain
[2020-08-09] MEDS ORDERED: Hydromorphone 0.5mg/0.5ml inj ONE (18:43)
[2020-08-09] MEDS: Hydromorphone 0.5mg/0.5ml inj IM PRN (18:44)
--- NOTE | 2020-08-09 19:09 | NUR ---
ED Nurse Note: Report given to TANYA Rangel. Pt in stable condition. plan of care endorsed.
--- NOTE | 2020-08-09 20:21 | NUR ---
TRANSFER TO FLOOR: Patient transferred to [facility] as ordered, per reina. Report given to TANYA Nieves. Belongings sent with the pt. Rn transferred the pt in stable condition.
--- NOTE | 2020-08-09 20:30 | NUR ---
NURSES NOTE: Received pt from DEEDEE Rangel RN. Pt transferred in stable condition. No outward s/s of distress noted. Breathing pattern is even and unlabored on RA. Pt states she is experiencing pain 7/10 in the abdominal area. Will retrieve orders and medicate according pt according to eMAR. Head toe assessment completed. VS within normal limits. Skin is clear and intact. Pt oriented to room. Bed at lowest level. Call light within reach. Pt will continue to be monitored.
[2020-08-09] MEDS: DiphenhydrAMINE 50mg/ml Inj IVP PRN (22:40)
[2020-08-09] MEDS: Hydromorphone 0.5mg/0.5ml inj IVP PRN (22:40)
[2020-08-10] MEDS: Hydromorphone 0.5mg/0.5ml inj IVP PRN ×3 (01:56→08:21)
--- NOTE | 2020-08-10 02:02 | NUR ---
NURSE NOTES: Complained of pain, given PRn pain medication as ordered.
[2020-08-10] MEDS: DiphenhydrAMINE 50mg/ml Inj IVP PRN ×4 (05:12→23:07)
[2020-08-10 06:12] LABS: HEMOGLOBIN 11.2 G/DL (12.0-16.0); MEAN CORPUSCULAR VOLUME 109 FL (80-99); PLATELET COUNT 223 K/UL (150-450); RED BLOOD COUNT 3.23 M/UL (4.20-5.40); RED CELL DISTRIBUTION WIDTH 15.1 % (11.6-14.8); WHITE BLOOD COUNT 2.9 K/UL (4.8-10.8)
[2020-08-10] MEDS: Creon DR 36,000 units cap ORAL SCH ×3 (06:26→16:56)
[2020-08-10 06:47] LABS: ANION GAP 6 mmol/L (5-15); BLOOD UREA NITROGEN 16 mg/dL (7-18); CALCIUM 9.1 MG/DL (8.5-10.1); CARBON DIOXIDE 26 MMOL/L (21-32); CHLORIDE 108 MMOL/L (98-107); CREATININE 0.6 MG/DL (0.55-1.30); PHOSPHORUS 3.5 MG/DL (2.5-4.9); POTASSIUM 4.1 MMOL/L (3.5-5.1); SODIUM 140 MMOL/L (136-145)
--- NOTE | 2020-08-10 07:05 | NUR ---
NURSE HAND-OFF: Important Events on Shift:[] Patient Status: [] Diet: [] Pending Orders: [] Pending Results/Labs:[] Pending MD notification:[] Latest Vital Signs: Temperature 98.9 , Pulse 93 , B/P 136 /81 , Respiratory Rate 18 , O2 SAT 98 , Room Air, O2 Flow Rate . Vital Sign Comment: [] Latest Rinaldi Fall Score: 35 Fall Risk: Medium Risk Safety Measures: Call light Within Reach, Bed Alarm , Side Rails Side Rails x2, Bed position Low and Locked. Fall Precautions: Yellow Socks Patient Fall Education Report given to [].
--- NOTE | 2020-08-10 07:06 | NUR ---
NURSE HAND-OFF: Important Events on Shift:[Pt states Dilaudid 0.5 mg not efficient handling pain] Patient Status: [stable] Diet: [regular] Pending Orders: [n/a] Pending Results/Labs:[cbc bmp mag phos] Pending MD notification:[n/a] Latest Vital Signs: Temperature 98.9 , Pulse 93 , B/P 136 /81 , Respiratory Rate 18 , O2 SAT 98 , Room Air, O2 Flow Rate . Vital Sign Comment: [wnl] Latest Rinaldi Fall Score: 35 Fall Risk: Medium Risk Safety Measures: Call light Within Reach, Bed Alarm , Side Rails Side Rails x2, Bed position Low and Locked. Fall Precautions: Yellow Socks Patient Fall Education Report given to [rhonda rollins]. Addendum: 08/10/20 at 0748 by Lizbeth Aguilar RN Dilaudid 0.5mg IV push is not efficient handling pain
--- NOTE | 2020-08-10 07:34 | NUR ---
NURSE NOTES: Report received from TANYA Burger. Pt received, awake, alert and oriented x 4, no SOB, bed in lowest position with breaks engaged, denies any discomfort at this time, on room air, IV site present, will continue to monitor, call light within reach.
[2020-08-10] MEDS ORDERED: ALBUTEROL SULF8.5 G1 INH (09:33)
[2020-08-10] MEDS ORDERED: SPIRIVA18 MCG INH (09:33)
[2020-08-10] MEDS ORDERED: ACETAMINOPHEN-1 EAC2 ORAL (09:33)
[2020-08-10] MEDS: HYDROmorphone 1mg/ml Carpuject IVP PRN ×5 (10:58→23:07)
--- NOTE | 2020-08-10 11:15 | Pulmonology Progress Note ---
Subjective ROS Limited/Unobtainable: Yes Interval Events: none major reported per nursing Constitutional: Reports: no symptoms; Denies: fever HEENT: Repors: no symptoms Respiratory: Reports: no symptoms Cardiovascular: Reports: no symptoms Gastrointestinal/Abdominal: Reports: diarrhea Allergies: Coded Allergies: HYDROCODONE (Verified Allergy, Severe, 06/23/13) LORAZEPAM (Verified Allergy, Severe, Hives, 02/13/14) RASH/HIVES MORPHINE (Unverified Allergy, Severe, 01/14/19) Not true allergy; tolerated Dilaudid in past. Extensive opiate hx PROCHLORPERAZINE (Verified Allergy, Severe, 06/23/13) VANCOMYCIN (Unverified Allergy, Mild, Itching, 03/06/14) Objective Last 24 Hour Vital Signs Date Time Temp Pulse Resp B/P (MAP) Pulse Ox O2 Delivery O2 Flow Rate FiO2 08/10/20 09:00 Nasal Cannula 3.0 08/10/20 08:51 98.9 08/09/20 23:35 98.9 93 18 136/81 (99) 98 93 08/09/20 23:34 Room Air 08/09/20 21:00 98.1 76 17 119/68 (85) 95 76 08/09/20 20:21 98.0 69 18 132/69 97 Room Air 08/09/20 19:14 97.9 08/09/20 17:00 97.9 71 20 149/62 99 Room Air 08/09/20 15:00 98.1 84 20 147/85 99 Room Air 08/09/20 13:00 98.3 88 20 138/81 98 Room Air Objective 08/10 saturating well on RA; however, hx of COPD and use of home oxygen prn. General Appearance: no acute distress HEENT: atraumatic Respiratory: lungs clear Cardiovascular: normal rate, regular rhythm Laboratory Tests 08/09/20 11:21: Urine Color Pale yellow, Urine Appearance Slightly cloudy, Urine pH 5, Urine Specific [place] 1.010, Urine Protein Negative, Urine Glucose (UA) Negative, Urine Ketones 1+H, Urine Blood 1+H, Urine Nitrite Negative, Urine Bilirubin Negative, Urine Urobilinogen Normal, Urine Leukocyte Esterase Negative, Urine RBC 0-2, Urine WBC 0-2, Urine Squamous Epithelial Cells ModerateH, Urine Bacter ia Occasional, Urine Opiates Screen PositiveH, Urine Barbiturates Screen Negative, Phencyclidine (PCP) Screen Negative, Urine Amphetamines Screen Negative, Urine Benzodiazepines Screen Negative, Urine Cocaine Screen Negative, Urine Marijuana (THC) Screen Negative 08/10/20 05:46: White Blood Count 2.9L, Red Blood Count 3.23L, Hemoglobin 11.2L, Hematocrit 35.0L, Mean Corpuscular Volume 109H, Mean Corpuscular Hemoglobin 34.6H, Mean Corpuscular Hemoglobin Concent 31.9L, Red Cell Distribution Width 15.1H, Platelet Count 223, Mean Platelet Volume 5.8L, Neutrophils (%) (Auto) , Lymphocytes (%) (Auto) , Monocytes (%) (Auto) , Eosinophils (%) (Auto) , Basophils (%) (Auto) , Neutrophils % (Manual) [Pending], Lymphocytes % (Manual) [Pending], Platelet Estimate [Pending], Platelet Morphology [Pending], Prothrombin Time 10.7, Prothromb Time International Ratio 1.0, Activated Partial Thromboplast Time 21L, Sodium Level 140, Potassium Level 4.1, Chloride Level 108H, Carbon Dioxide Level 26, Anion Gap 6, Blood Urea Nitrogen 16, Creatinine 0.6, Estimat Glomerular Filtration Rate > 60, Glucose Level 110H, Calcium Level 9.1, Phosphorus Level 3.5, Magnesium Level 2.0 Current Medications Medications (Trade) Dose Ordered Sig/Haley Route PRN Reason Start Time Stop Time Status Last Admin Dose Admin Acetaminophen (Tylenol) 650 mg Q6H PRN ORAL fever > 100.5 08/09/20 22:30 09/08/20 22:29 Acetaminophen (Tylenol) 650 mg Q6H PRN ORAL mild to moderate pain (1-6) 08/09/20 22:30 09/08/20 22:29 Amylase/Lipase/ Protease (Rosa SARGENT 36,000 units cap) 1 ea TIWM ORAL 08/10/20 07:00 11/08/20 06:59 08/10/20 11:01 Amylase/Lipase/ Protease (Rosa SARGENT 36,000 units cap) 1 ea WITH SNACKS PRN ORAL WITH SNACKS 08/09/20 15:15 11/07/20 15:14 Diphenhydramine HCl (Benadryl) 25 mg Q6H PRN IVP Itching 08/09/20 22:30 2/5/21 22:29 08/10/20 10:58 Hydromorphone HCl (Dilaudid) 0.5 mg Q4H PRN IM For Pain 08/09/20 18:45 08/16/20 18:44 08/09/20 18:44 Hydromorphone HCl (Dilaudid) 1 mg Q3H PRN IVP Severe Pain (Pain Scale 7-10) 08/10/20 09:15 08/17/20 09:14 08/10/20 10:58 Linaclotide (Linzess) 290 mcg BEFORE BREAKFAST ORAL 08/10/20 06:30 11/08/20 06:29 08/10/20 06:26 Loperamide HCl (Imodium) 2 mg QIDPRN PRN ORAL Diarrhea 08/10/20 09:15 09/09/20 09:14 Ondansetron HCl (Zofran) 4 mg Q4H PRN IVP Nausea & Vomiting 08/09/20 22:30 09/08/20 22:29 08/10/20 10:57 Assessment/Plan Assessment/Plan 1. Chest pain, rule out ACS. - Predominant care per Cardiology. 2. COPD, stable. - supplemental oxygen prn - saturating well on RA 3. History of cervical CA. 4. CAD. 5. Hypertension. 6. Drug-seeking behavior and chronic narcotic dependence. No intervention required from pulmonary standpoint. The care for this patient was discussed with my supervising physicians Time spent for this case was approximately 31 minutes Vinicio Miller Aug 10, 2020 11:14 Lion Clark MD Aug 10, 2020 14:39
--- NOTE | 2020-08-10 14:05 | General Progress Note ---
Subjective ROS Limited/Unobtainable: Yes Allergies: Coded Allergies: HYDROCODONE (Verified Allergy, Severe, 06/23/13) LORAZEPAM (Verified Allergy, Severe, Hives, 02/13/14) RASH/HIVES MORPHINE (Unverified Allergy, Severe, 01/14/19) Not true allergy; tolerated Dilaudid in past. Extensive opiate hx PROCHLORPERAZINE (Verified Allergy, Severe, 06/23/13) VANCOMYCIN (Unverified Allergy, Mild, Itching, 03/06/14) Objective Last 24 Hour Vital Signs Date Time Temp Pulse Resp B/P (MAP) Pulse Ox O2 Delivery O2 Flow Rate FiO2 08/10/20 11:28 98.9 08/10/20 09:00 Nasal Cannula 3.0 08/10/20 08:51 98.9 08/09/20 23:35 98.9 93 18 136/81 (99) 98 93 08/09/20 23:34 Room Air 08/09/20 21:00 98.1 76 17 119/68 (85) 95 76 08/09/20 20:21 98.0 69 18 132/69 97 Room Air 08/09/20 19:14 97.9 08/09/20 17:00 97.9 71 20 149/62 99 Room Air 08/09/20 15:00 98.1 84 20 147/85 99 Room Air Laboratory Tests 08/10/20 05:46: White Blood Count 2.9L, Red Blood Count 3.23L, Hemoglobin 11.2L, Hematocrit 35.0L, Mean Corpuscular Volume 109H, Mean Corpuscular Hemoglobin 34.6H, Mean Corpuscular Hemoglobin Concent 31.9L, Red Cell Distribution Width 15.1H, Platelet Count 223, Mean Platelet Volume 5.8L, Neutrophils (%) (Auto) , Lymphocytes (%) (Auto) , Monocytes (%) (Auto) , Eosinophils (%) (Auto) , Basophils (%) (Auto) , Differential Total Cells Counted 100, Neutrophils % (Manual) 57, Lymphocytes % (Manual) 39, Monocytes % (Manual) 3, Eosinophils % (Manual) 1, Basophils % (Manual) 0, Band Neutrophils 0, Platelet Estimate Adequate, Platelet Morphology Normal, Anisocytosis 1+, Macrocytosis 1+, Prothrombin Time 10.7, Prothromb Time International Ratio 1.0, Activated Partial Thromboplast Time 21L, Sodium Level 140, Potassium Level 4.1, Chloride Level 108H, Carbon Dioxide Level 26, Anion Gap 6, Blood Urea Nitrogen 16, Creatinine 0.6, Estimat Glomerular Filtration Rate > 60, Glucose Level 110H, Calcium Level 9.1, Phosphorus Level 3.5, Magnesium Level 2.0 Height (Feet): 5 Height (Inches): 2.00 Weight (Pounds): 120 General Appearance: no apparent distress EENT: normal ENT inspection Neck: supple Cardiovascular: normal rate Respiratory/Chest: decreased breath sounds Abdomen: normal bowel sounds, non tender, soft Extremities: normal inspection Assessment/Plan Assessment/Plan: Assessment/Plan Assessment/Plan: 1. Cervical cancer. 2. Hypertension. 3. Hypercholesteremia. 4. CHF. 5. Chronic constipation. 6. History of bowel obstruction requiring surgery. 7. History of chronic pancreatitis. 8. Gastritis, H. pylori negative. 9. Colonic polyp. 10. Internal hemorrhoids. recent EGD and colonoscopy ppi Bart Lee CT reviewed pain control will Ruben Villeda MD Aug 10, 2020 14:05
--- NOTE | 2020-08-10 16:40 | NUR ---
CASE MANAGEMENT:INITIAL REVIEW CASE MANAGEMENT:INITIAL REVIEW 69 YR OLD FEMALE PRESENTED TO ED FROM HOME CC;PAIN SI;INTRACTABLE ABD PAIN 98.3 90 20 151/82 97% ON RA APTT 21 UA+ KETONES, BLOOD, SQUAMOUS EPITH CELLS URINE TOX(+) OPIATES CXR ~ NO ACUTE PROCESS ABD/PELVIS CT ~ 1. Possible gastritis, without significant change in appearance compared to the previous study. 2. No bowel obstruction or abnormal bowel dilatation. No inflammatory changes in the visualized mesentery. IS;ASA PO NITRO-BID TOP ONCE ZOFRAN PO DILAUDID IM ONCE DILAUDID IV ONCE BENADRYL IV ADMITTED TO MED SURG MED SURG STATUS DCP;PENDING HOSPITAL STAY
--- NOTE | 2020-08-10 16:52 | Cardiac Electrophysiology PN ---
Subjective Subjective [id number] Objective Last 24 Hour Vital Signs Date Time Temp Pulse Resp B/P (MAP) Pulse Ox O2 Delivery O2 Flow Rate FiO2 08/10/20 14:27 98.9 08/10/20 11:28 98.9 08/10/20 09:00 Nasal Cannula 3.0 08/10/20 08:51 98.9 08/09/20 23:35 98.9 93 18 136/81 (99) 98 93 08/09/20 23:34 Room Air 08/09/20 21:00 98.1 76 17 119/68 (85) 95 76 08/09/20 20:21 98.0 69 18 132/69 97 Room Air 08/09/20 19:14 97.9 08/09/20 17:00 97.9 71 20 149/62 99 Room Air Laboratory Tests Test 08/10/20 05:46 White Blood Count 2.9 K/UL (4.8-10.8) L Red Blood Count 3.23 M/UL (4.20-5.40) L Hemoglobin 11.2 G/DL (12.0-16.0) L Hematocrit 35.0 % (37.0-47.0) L Mean Corpuscular Volume 109 FL (80-99) H Mean Corpuscular Hemoglobin 34.6 PG (27.0-31.0) H Mean Corpuscular Hemoglobin Concent 31.9 G/DL (32.0-36.0) L Red Cell Distribution Width 15.1 % (11.6-14.8) H Platelet Count 223 K/UL (150-450) Mean Platelet Volume 5.8 FL (6.5-10.1) L Neutrophils (%) (Auto) % (45.0-75.0) Lymphocytes (%) (Auto) % (20.0-45.0) Monocytes (%) (Auto) % (1.0-10.0) Eosinophils (%) (Auto) % (0.0-3.0) Basophils (%) (Auto) % (0.0-2.0) Differential Total Cells Counted 100 Neutrophils % (Manual) 57 % (45-75) Lymphocytes % (Manual) 39 % (20-45) Monocytes % (Manual) 3 % (1-10) Eosinophils % (Manual) 1 % (0-3) Basophils % (Manual) 0 % (0-2) Band Neutrophils 0 % (0-8) Platelet Estimate Adequate Platelet Morphology Normal Anisocytosis 1+ Macrocytosis 1+ Prothrombin Time 10.7 SEC (9.30-11.50) Prothromb Time International Ratio 1.0 (0.9-1.1) Activated Partial Thromboplast Time 21 SEC (23-33) L Sodium Level 140 MMOL/L (136-145) Potassium Level 4.1 MMOL/L (3.5-5.1) Chloride Level 108 MMOL/L (98-107) H Carbon Dioxide Level 26 MMOL/L (21-32) Anion Gap 6 mmol/L (5-15) Blood Urea Nitrogen 16 mg/dL (7-18) Creatinine 0.6 MG/DL (0.55-1.30) Estimat Glomerular Filtration Rate > 60 mL/min (>60) Glucose Level 110 MG/DL (74-106) H Calcium Level 9.1 MG/DL (8.5-10.1) Phosphorus Level 3.5 MG/DL (2.5-4.9) Magnesium Level 2.0 MG/DL (1.8-2.4) Nahum Ware MD Aug 10, 2020 16:52
--- NOTE | 2020-08-10 18:14 | Internal Med Progress Note ---
Subjective Physician Name Dennis Cheney Attending Physician Dennis Cheney M.D. Current Medications Medications (Trade) Dose Ordered Sig/Haley Route PRN Reason Start Time Stop Time Status Last Admin Dose Admin Acetaminophen (Tylenol) 650 mg Q6H PRN ORAL fever > 100.5 08/09/20 22:30 09/08/20 22:29 Acetaminophen (Tylenol) 650 mg Q6H PRN ORAL mild to moderate pain (1-6) 08/09/20 22:30 09/08/20 22:29 Amylase/Lipase/ Protease (Rosa SARGENT 36,000 units cap) 1 ea TIWM ORAL 08/10/20 07:00 11/08/20 06:59 08/10/20 16:56 Amylase/Lipase/ Protease (Rosa SARGENT 36,000 units cap) 1 ea WITH SNACKS PRN ORAL WITH SNACKS 08/09/20 15:15 11/07/20 15:14 Clonidine HCl (Catapres Tab) 0.1 mg Q4H PRN ORAL SBP>170 08/10/20 17:00 11/08/20 16:59 Diphenhydramine HCl (Benadryl) 25 mg Q6H PRN IVP Itching 08/09/20 22:30 09/08/20 22:29 08/10/20 16:56 Hydromorphone HCl (Dilaudid) 0.5 mg Q4H PRN IM For Pain 08/09/20 18:45 08/16/20 18:44 08/09/20 18:44 Hydromorphone HCl (Dilaudid) 1 mg Q3H PRN IVP Severe Pain (Pain Scale 7-10) 08/10/20 09:15 08/17/20 09:14 08/10/20 16:57 Linaclotide (Linzess) 290 mcg BEFORE BREAKFAST ORAL 08/10/20 06:30 11/08/20 06:29 08/10/20 06:26 Loperamide HCl (Imodium) 2 mg QIDPRN PRN ORAL Diarrhea 08/10/20 09:15 09/09/20 09:14 Ondansetron HCl (Zofran) 4 mg Q4H PRN IVP Nausea & Vomiting 08/09/20 22:30 09/08/20 22:29 08/10/20 16:56 Allergies: Coded Allergies: HYDROCODONE (Verified Allergy, Severe, 06/23/13) LORAZEPAM (Verified Allergy, Severe, Hives, 02/13/14) RASH/HIVES MORPHINE (Unverified Allergy, Severe, 01/14/19) Not true allergy; tolerated Dilaudid in past. Extensive opiate hx PROCHLORPERAZINE (Verified Allergy, Severe, 06/23/13) VANCOMYCIN (Unverified Allergy, Mild, Itching, 03/06/14) ROS Limited/Unobtainable: Yes Constitutional: Reports: weakness All Systems: reviewed and negative except above Subjective pain better controlled Objective Last Vital Signs Date Time Temp Pulse Resp B/P (MAP) Pulse Ox O2 Delivery O2 Flow Rate FiO2 08/10/20 17:27 98.9 08/10/20 09:00 Nasal Cannula 3.0 08/09/20 23:35 93 18 136/81 (99) 98 93 General Appearance: WD/WN, no apparent distress EENT: PERRL/EOMI, normal ENT inspection Neck: non-tender, normal alignment Cardiovascular: normal peripheral pulses, normal rate Respiratory/Chest: chest wall non-tender, lungs clear, normal breath sounds Abdomen: normal bowel sounds, non tender Edema: trace edema Laboratory Tests Test 08/10/20 05:46 White Blood Count 2.9 K/UL (4.8-10.8) L Red Blood Count 3.23 M/UL (4.20-5.40) L Hemoglobin 11.2 G/DL (12.0-16.0) L Hematocrit 35.0 % (37.0-47.0) L Mean Corpuscular Volume 109 FL (80-99) H Mean Corpuscular Hemoglobin 34.6 PG (27.0-31.0) H Mean Corpuscular Hemoglobin Concent 31.9 G/DL (32.0-36.0) L Red Cell Distribution Width 15.1 % (11.6-14.8) H Platelet Count 223 K/UL (150-450) Mean Platelet Volume 5.8 FL (6.5-10.1) L Neutrophils (%) (Auto) % (45.0-75.0) Lymphocytes (%) (Auto) % (20.0-45.0) Monocytes (%) (Auto) % (1.0-10.0) Eosinophils (%) (Auto) % (0.0-3.0) Basophils (%) (Auto) % (0.0-2.0) Differential Total Cells Counted 100 Neutrophils % (Manual) 57 % (45-75) Lymphocytes % (Manual) 39 % (20-45) Monocytes % (Manual) 3 % (1-10) Eosinophils % (Manual) 1 % (0-3) Basophils % (Manual) 0 % (0-2) Band Neutrophils 0 % (0-8) Platelet Estimate Adequate Platelet Morphology Normal Anisocytosis 1+ Macrocytosis 1+ Prothrombin Time 10.7 SEC (9.30-11.50) Prothromb Time International Ratio 1.0 (0.9-1.1) Activated Partial Thromboplast Time 21 SEC (23-33) L Sodium Level 140 MMOL/L (136-145) Potassium Level 4.1 MMOL/L (3.5-5.1) Chloride Level 108 MMOL/L (98-107) H Carbon Dioxide Level 26 MMOL/L (21-32) Anion Gap 6 mmol/L (5-15) Blood Urea Nitrogen 16 mg/dL (7-18) Creatinine 0.6 MG/DL (0.55-1.30) Estimat Glomerular Filtration Rate > 60 mL/min (>60) Glucose Level 110 MG/DL (74-106) H Calcium Level 9.1 MG/DL (8.5-10.1) Phosphorus Level 3.5 MG/DL (2.5-4.9) Magnesium Level 2.0 MG/DL (1.8-2.4) Intake and Output 08/09/20 08/10/20 19:00 07:00 # Voids 2 1 Assessment/Plan Assessment/Plan #Abd pain- intractable #Chest pain # history of hypertension # CAD, #cervical cancer #anemia #GERD 3chronic pancreatitis, #Narcotic dependency, #history of bilateral hip replacement #history of drug-seeking behavior # chronic constipation, # history of small bowel obstruction, colonic polyp, - admit inpatient - Gi eval - cardiology eval - pain control - resume home meds - serial troponin Dennis Cheney M.D. Aug 10, 2020 18:14
--- NOTE | 2020-08-10 18:15 | Consultation ---
DATE OF CONSULTATION: 08/10/2020 CARDIOLOGY CONSULTATION REFERRING PHYSICIAN: Dennis Cheney M.D. REASON FOR CONSULTATION: Chest pain and abdominal pain. HISTORY OF PRESENT ILLNESS: The patient is a 69-year-old lady with history of hypertension, gastroesophageal reflux disease, narcotic dependence, as well as history of drug-seeking behavior, who came to the emergency room complaining of chest pain and abdominal pain. The patient also has a history of anemia, cervical cancer, as well as gastroesophageal reflux disease. The pain was mostly in the right upper quadrant. The patient was admitted and cardiology consultation was obtained for further evaluation. It is of note the patient had multiple prior hospitalization at [facility] as well as [facility] and has been ruled out for myocardial infarction. REVIEW OF SYSTEMS: Negative other than what is mentioned in history of present illness. PAST MEDICAL HISTORY: As mentioned above. FAMILY HISTORY: Noncontributory. PAST SURGICAL HISTORY: Laparotomy for small-bowel obstruction and hysterectomy. MEDICATIONS: Per reconciliation. ALLERGIES: She is allergic to Ativan, morphine, hydrocodone, and vancomycin. PHYSICAL EXAMINATION: VITAL SIGNS: Blood pressure 130/80, pulse is 80, respirations 18, she is afebrile. HEAD AND NECK: No JVD. LUNGS: Clear. CARDIOVASCULAR: Regular S1 and S2 with no gallop or murmur. ABDOMEN: Soft. EXTREMITIES: No pitting edema. LABORATORY AND DIAGNOSTIC DATA: Her labs show white count of 2.9, hemoglobin is 11.2, hematocrit 35, and platelet count is 223. Sodium is 140, potassium is 4.1, BUN of 16, creatinine 0.6, and glucose of 110. First troponin is negative. Urine toxicology is positive for opiate. ASSESSMENT AND PLAN: 1. Chest pain. The pain is atypical. The troponin is negative. This is one of the patient's numerous previous hospitalizations to [facility] as well as [facility]. We will completely rule out [place] protocol. We will repeat EKG and echocardiogram. It is of note that the patient's most recent echocardiogram was on June 14, 2020, which showed EF of 70-75%. 2. History of hypertension, partially related to her pain. I will add p.r.n. clonidine to her medical regimen. However, the blood pressure currently is stable. 3. Abdominal pain. 4. Narcotic dependence. 5. History of cervical cancer. 6. History of bowel obstruction, requiring surgery. 7. Chronic pancreatitis. It is of note the patient received EGD and colonoscopy per Dr. Salazar. Thank you very much for allowing me to participate in the care of this patient. Please do not hesitate to contact me for any questions regarding my evaluation. Nahum Ware M.D. DR: ANA JOB#: [id number] CC:
--- NOTE | 2020-08-10 18:48 | Consultation ---
History of Present Illness General Date patient seen: Aug 10, 2020 Reason for Hospitalization: Pain Present Illness HPI 69-year-old female with past medical history of hypertension, CAD, cervical cancer, anemia, GERD, chronic pancreatitis, narcotic dependency, history of bilateral hip replacement, history of drug-seeking behavior, chronic constipation, history of small bowel obstruction, colonic polyp, and gastritis presents to the ER with multiple complaints but states notes a mass on her side like a knot in her abdomen. First complaint is right upper quadrant abd pain x 5 days. Also associated with nausea. No vomiting, diarrhea, constipation, flank pain, melena, hematochezia, hematuria, or dysuria. Second complaint is left chest wall pain. She took baby aspirin this morning with mild relief. Denies cough, hemoptysis, fever, chills, or other symptoms The patient's symptoms were gradual onset, severity was moderate, duration since 5 days. surgery called to evaluate for abd pain / mass Allergies: Coded Allergies: HYDROCODONE (Verified Allergy, Severe, 06/23/13) LORAZEPAM (Verified Allergy, Severe, Hives, 02/13/14) RASH/HIVES MORPHINE (Unverified Allergy, Severe, 01/14/19) Not true allergy; tolerated Dilaudid in past. Extensive opiate hx PROCHLORPERAZINE (Verified Allergy, Severe, 06/23/13) VANCOMYCIN (Unverified Allergy, Mild, Itching, 03/06/14) COVID-19 Screening Contact w/high risk pt: No Experienced COVID-19 symptoms?: No Medication History Scheduled Albuterol Sulfate* (Albuterol Sulfate Hfa*), 2 PUFF INH Q4H, (Reported) Tiotropium [place]* (Spiriva*), 1 PUFF INH DAILY, (Reported) Scheduled PRN Acetaminophen With Codeine (T#4) (Tylenol #4 Tab*), 1 TAB ORAL Q6H PRN for For Pain, (Reported) Discontinued Medications Acetaminophen With Codeine (T#3) (Tylenol #3 Tab*), 1 TAB ORAL Q4H PRN Discontinued Reason: Pt stopped taking med Linaclotide (Linzess), 290 MCG ORAL BEFORE BREAKFAST Discontinued Reason: Pt stopped taking med Lipase/Protease/Amylase (Creon Dr 36,000 Units Capsule), 1 EA ORAL .WITH SNACKS PRN Discontinued Reason: Pt stopped taking med Lipase/Protease/Amylase (Creon Dr 36,000 Units Capsule), 1 EA ORAL TIWM Discontinued Reason: Pt stopped taking med Pantoprazole* (Pantoprazole*), 40 MG ORAL DAILY Discontinued Reason: Pt stopped taking med Patient History History Provided By: Patient Healthcare decision maker Resuscitation status Advanced Directive on File Past Medical/Surgical History Past Medical/Surgical History: (1) Gastritis (2) Pancreatitis (3) Abdominal pain (4) Chest pain (5) Sepsis due to Enterobacter species (6) Chronic pancreatitis (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 difficile colitis (11) CAD (coronary artery disease) (12) GERD (gastroesophageal reflux disease) (13) HTN (hypertension) (14) ACS (acute coronary syndrome) (15) Severe protein-calorie malnutrition (16) Gastroparesis (17) COPD (chronic obstructive pulmonary disease) (18) COPD exacerbation (19) Macrocytic anemia (20) Acute bronchitis (21) Community acquired pneumonia (22) Shingles (23) Colitis (24) Intractable abdominal pain Review of Systems Review of Symptoms General ROS: no weight loss or fever Psychological ROS: no depression or mood changes, no memory loss Ophthalmic ROS: no visual changes or eye irritation ENT ROS: no nasal congestion, hearing loss, dizziness Allergy and Immunology ROS: no allergic symptoms or urticaria Hematological and Lymphatic ROS: no swollen glands, unusual bleeding or bruising Endocrine ROS: no polyuria, polydipsia, weight changes, temperature intolerance Respiratory ROS: no cough, shortness of breath, or wheezing Cardiovascular ROS: no chest pain or dyspnea on exertion Gastrointestinal ROS: + abdominal pain, bright red blood in stool. Musculoskeletal ROS: no myalgias or arthralgias Neurological ROS: no TIA or stroke symptoms Dermatological ROS: no new or changing skin lesions, rashes or pruritis Physical Exam Physical Exam General appearance: alert, cooperative, no distress, appears stated age Head: Normocephalic, without obvious abnormality, atraumatic Eyes: conjunctivae/corneas clear. PERRL, EOM's intact. Fundi benign Throat: Lips, mucosa, and tongue normal. Teeth and gums normal Neck: supple, symmetrical, trachea midline, no adenopathy, thyroid: not enlarged, symmetric, no tenderness/mass/nodules, no carotid bruit and no JVD Lungs: clear to auscultation bilaterally Heart: regular rate and rhythm, S1, S2 normal, no murmur, click, rub or gallop Abdomen: soft, non-tender. Bowel sounds normal. No masses, no organomegaly Extremities: extremities normal, atraumatic, no cyanosis or edema Pulses: 2+ and symmetric Skin: Skin color, texture, turgor normal. No rashes or lesions Neurologic: Grossly normal Last 24 Hour Vital Signs Date Time Temp Pulse Resp B/P (MAP) Pulse Ox O2 Delivery O2 Flow Rate FiO2 08/10/20 17:27 98.9 08/10/20 14:27 98.9 08/10/20 11:28 98.9 08/10/20 09:00 Nasal Cannula 3.0 08/10/20 08:51 98.9 08/09/20 23:35 98.9 93 18 136/81 (99) 98 93 08/09/20 23:34 Room Air 08/09/20 21:00 98.1 76 17 119/68 (85) 95 76 08/09/20 20:21 98.0 69 18 132/69 97 Room Air 08/09/20 19:14 97.9 Intake and Output 08/09/20 08/10/20 19:00 07:00 # Voids 2 1 Laboratory Tests Test 08/10/20 05:46 White Blood Count 2.9 K/UL (4.8-10.8) L Red Blood Count 3.23 M/UL (4.20-5.40) L Hemoglobin 11.2 G/DL (12.0-16.0) L Hematocrit 35.0 % (37.0-47.0) L Mean Corpuscular Volume 109 FL (80-99) H Mean Corpuscular Hemoglobin 34.6 PG (27.0-31.0) H Mean Corpuscular Hemoglobin Concent 31.9 G/DL (32.0-36.0) L Red Cell Distribution Width 15.1 % (11.6-14.8) H Platelet Count 223 K/UL (150-450) Mean Platelet Volume 5.8 FL (6.5-10.1) L Neutrophils (%) (Auto) % (45.0-75.0) Lymphocytes (%) (Auto) % (20.0-45.0) Monocytes (%) (Auto) % (1.0-10.0) Eosinophils (%) (Auto) % (0.0-3.0) Basophils (%) (Auto) % (0.0-2.0) Differential Total Cells Counted 100 Neutrophils % (Manual) 57 % (45-75) Lymphocytes % (Manual) 39 % (20-45) Monocytes % (Manual) 3 % (1-10) Eosinophils % (Manual) 1 % (0-3) Basophils % (Manual) 0 % (0-2) Band Neutrophils 0 % (0-8) Platelet Estimate Adequate Platelet Morphology Normal Anisocytosis 1+ Macrocytosis 1+ Prothrombin Time 10.7 SEC (9.30-11.50) Prothromb Time International Ratio 1.0 (0.9-1.1) Activated Partial Thromboplast Time 21 SEC (23-33) L Sodium Level 140 MMOL/L (136-145) Potassium Level 4.1 MMOL/L (3.5-5.1) Chloride Level 108 MMOL/L (98-107) H Carbon Dioxide Level 26 MMOL/L (21-32) Anion Gap 6 mmol/L (5-15) Blood Urea Nitrogen 16 mg/dL (7-18) Creatinine 0.6 MG/DL (0.55-1.30) Estimat Glomerular Filtration Rate > 60 mL/min (>60) Glucose Level 110 MG/DL (74-106) H Calcium Level 9.1 MG/DL (8.5-10.1) Phosphorus Level 3.5 MG/DL (2.5-4.9) Magnesium Level 2.0 MG/DL (1.8-2.4) Height (Feet): 5 Height (Inches): 2.00 Weight (Pounds): 120 Medications Current Medications Medications (Trade) Dose Ordered Sig/Haley Route PRN Reason Start Time Stop Time Status Last Admin Dose Admin Acetaminophen (Tylenol) 650 mg Q6H PRN ORAL fever > 100.5 08/09/20 22:30 09/08/20 22:29 Acetaminophen (Tylenol) 650 mg Q6H PRN ORAL mild to moderate pain (1-6) 08/09/20 22:30 09/08/20 22:29 Amylase/Lipase/ Protease (Rosa DR 36,000 units cap) 1 ea TIWM ORAL 08/10/20 07:00 11/08/20 06:59 08/10/20 16:56 Amylase/Lipase/ Protease (Rosa SARGENT 36,000 units cap) 1 ea WITH SNACKS PRN ORAL WITH SNACKS 08/09/20 15:15 11/07/20 15:14 Clonidine HCl (Catapres Tab) 0.1 mg Q4H PRN ORAL SBP>170 08/10/20 17:00 11/08/20 16:59 Diphenhydramine HCl (Benadryl) 25 mg Q6H PRN IVP Itching 08/09/20 22:30 09/08/20 22:29 08/10/20 16:56 Hydromorphone HCl (Dilaudid) 0.5 mg Q4H PRN IM For Pain 08/09/20 18:45 08/16/20 18:44 08/09/20 18:44 Hydromorphone HCl (Dilaudid) 1 mg Q3H PRN IVP Severe Pain (Pain Scale 7-10) 08/10/20 09:15 08/17/20 09:14 08/10/20 16:57 Linaclotide (Linzess) 290 mcg BEFORE BREAKFAST ORAL 08/10/20 06:30 11/08/20 06:29 08/10/20 06:26 Loperamide HCl (Imodium) 2 mg QIDPRN PRN ORAL Diarrhea 08/10/20 09:15 09/09/20 09:14 Ondansetron HCl (Zofran) 4 mg Q4H PRN IVP Nausea & Vomiting 08/09/20 22:30 09/08/20 22:29 08/10/20 16:56 Assessment/Plan Problem List: (1) Gastritis ICD Codes: K29.70 - Gastritis, unspecified, without bleeding SNOMED: 4516749 (2) Pancreatitis ICD Codes: K85.90 - Acute pancreatitis without necrosis or infection, unspecified SNOMED: 46764012 (3) Abdominal pain Assessment & Plan: c/o abd pain states there is a mass there like a knot on exam benign abd noted prior midline well healed scar noted patient mistaking scar tissue for new mass has been there prior exam as well ct reviewed okay for diet labs noted will monitor for bm and constipation pain management thank you Liver: Unremarkable. Gallbladder and bile ducts: The gallbladder is very distended but is otherwise unremarkable. No calcified stones. No ductal dilation. Pancreas: Unremarkable. No ductal dilation. Spleen: Unremarkable. No splenomegaly. Adrenals: There is stable mild diffuse thickening of the left adrenal gland. The right adrenal gland is unremarkable. Kidneys and ureters: There is no hydronephrosis. Both ureters are normal as seen. There is a punctate nonobstructing right renal stone, without change.. Stomach and bowel: There is mild circumferential wall thickening of the gastric body, similar appearance compared to the previous study. This could represent mild gastritis. No obstruction. PELVIS: Appendix: No findings to suggest acute appendicitis. Bladder: Unremarkable. No stones. Reproductive: Unremarkable as visualized. ABDOMEN and PELVIS: Intraperitoneal space: Unremarkable. No free air. No significant fluid collection. Bones/joints: Post surgical changes from bilateral hip arthroplasty with associated streak artifact, limiting assessment of the pelvis. No acute fracture. No dislocation. Soft tissues: Unremarkable. Vasculature: Unremarkable. No abdominal aortic aneurysm. Lymph nodes: Unremarkable. No enlarged lymph nodes. IMPRESSION: 1. Possible gastritis, without significant change in appearance compared to the previous study. 2. No bowel obstruction or abnormal bowel dilatation. No inflammatory changes in the visualized mesentery. 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 difficile colitis ICD Codes: A04.7 - C. difficile colitis SNOMED: 164449107 (11) CAD (coronary artery disease) ICD Codes: I25.10 - Atherosclerotic heart disease of [place] coronary artery without angina pectoris SNOMED: 79091620 (12) GERD (gastroesophageal reflux disease) ICD Codes: K21.9 - Gastro-esophageal reflux disease without esophagitis SNOMED: 882040740 (13) HTN (hypertension) ICD Codes: I10 - Essential (primary) hypertension SNOMED: 24338221 (14) ACS (acute coronary syndrome) ICD Codes: I24.9 - ACS (acute coronary syndrome) SNOMED: 690404002 (15) Severe protein-calorie malnutrition ICD Codes: E43 - Unspecified severe protein-calorie malnutrition SNOMED: 589304658 (16) Gastroparesis ICD Codes: K31.84 - Gastroparesis SNOMED: 604621482 (17) COPD (chronic obstructive pulmonary disease) ICD Codes: J44.9 - COPD (chronic obstructive pulmonary disease) SNOMED: 06905517 (18) COPD exacerbation ICD Codes: J44.1 - Chronic obstructive pulmonary disease with (acute) exacerbation SNOMED: 663215998 (19) Macrocytic anemia ICD Codes: D53.9 - Nutritional anemia, unspecified SNOMED: 74209610 (20) Acute bronchitis ICD Codes: J20.9 - Acute bronchitis, unspecified SNOMED: 45269469 (21) Community acquired pneumonia ICD Codes: J18.9 - Pneumonia, unspecified organism SNOMED: 960179731 (22) Shingles ICD Codes: B02.9 - Zoster without complications SNOMED: 2621893 (23) Colitis ICD Codes: K52.9 - Noninfective gastroenteritis and colitis, unspecified SNOMED: 49088536 (24) Intractable abdominal pain ICD Codes: R10.9 - Unspecified abdominal pain SNOMED: 98049380 Kristian Moreno Aug 10, 2020 18:48
--- NOTE | 2020-08-10 19:30 | NUR ---
NURSE HAND-OFF: Important Events on Shift:[pain management, safety and comfort, monitoring labs and VS] Patient Status: [stable] Diet: [regular] Pending Orders: [] Pending Results/Labs:[] Pending MD notification:[] Latest Vital Signs: Temperature 98.9 , Pulse 93 , B/P 136 /81 , Respiratory Rate 18 , O2 SAT 98 , Room Air, O2 Flow Rate 3.0 . Vital Sign Comment: [] Latest Rinaldi Fall Score: 35 Fall Risk: Medium Risk Safety Measures: Call light Within Reach, Bed Alarm , Side Rails Side Rails x2, Bed position Low and Locked. Fall Precautions: Yellow Socks Patient Fall Education Report given to [TANYA Salamanca].
--- NOTE | 2020-08-10 19:35 | NUR ---
NURSE NOTES: Received patient on bed. awake. alert and oriented. verbally responsive. on room air. no sob. ambulates. with iv access on the left upper arm, saline lock. with complaints of pain, patient is aware of the next dose. reiterated to call and ask for assistance to prevent fall or injury. bed locked and in lowest position. call light and light button within easy reach. will continue plan of care.
[2020-08-10 20:00] VITALS: BP 106/71
[2020-08-11] VITALS: BP 97/66
[2020-08-11] MEDS: HYDROmorphone 1mg/ml Carpuject IVP PRN ×4 (02:09→13:52)
[2020-08-11] MEDS: DiphenhydrAMINE 50mg/ml Inj IVP PRN ×4 (05:15→23:18)
[2020-08-11] MEDS: Creon DR 36,000 units cap ORAL SCH ×3 (06:35→17:07)
--- NOTE | 2020-08-11 06:37 | NUR ---
NURSE NOTES: snacks provided with creon medication.
[2020-08-11 07:17] LABS: HEMATOCRIT 41.3 % (37.0-47.0); HEMOGLOBIN 12.4 G/DL (12.0-16.0); MEAN CORPUSCULAR VOLUME 114 FL (80-99); PLATELET COUNT 245 K/UL (150-450); RED BLOOD COUNT 3.63 M/UL (4.20-5.40); RED CELL DISTRIBUTION WIDTH 15.8 % (11.6-14.8); WHITE BLOOD COUNT 3.7 K/UL (4.8-10.8)
[2020-08-11 07:38] LABS: ANION GAP 10 mmol/L (5-15); BLOOD UREA NITROGEN 19 mg/dL (7-18); CALCIUM 9.8 MG/DL (8.5-10.1); CARBON DIOXIDE 26 MMOL/L (21-32); CHLORIDE 100 MMOL/L (98-107); CREATININE 0.8 MG/DL (0.55-1.30); PHOSPHORUS 3.9 MG/DL (2.5-4.9); SODIUM 136 MMOL/L (136-145)
--- NOTE | 2020-08-11 07:40 | NUR ---
NURSE HAND-OFF: Important Events on Shift:pain mngt Patient Status: stable Diet: regular Pending Orders: ekg, 2d echo Pending Results/Labs: Pending MD notification: Latest Vital Signs: Temperature 98.8 , Pulse 75 , B/P 97 /66 , Respiratory Rate 18 , O2 SAT 95 , Room Air, O2 Flow Rate 3.0 . Vital Sign Comment: Latest Rinaldi Fall Score: 35 Fall Risk: Medium Risk Safety Measures: Call light Within Reach, Bed Alarm , Side Rails Side Rails x2, Bed position Low and Locked. Fall Precautions: Yellow Socks Patient Fall Education Report given to rhonda jha.
--- NOTE | 2020-08-11 07:45 | NUR ---
NURSE NOTES: Received hand-off report from TANYA Salamanca. Patient in stable condition, bed alarm on, bed in lowest and locked position. Alert and oriented x4, breathing even and unlabored, vitals WNL.
[2020-08-11 08:00] VITALS: BP 110/68
--- NOTE | 2020-08-11 08:00 | NUR ---
NURSE NOTES: Patient requesting for [ain medication, Dr. Moreno notified regarding abdominal distention toward the right side, Dr. Moreno ordered a KUB.
--- NOTE | 2020-08-11 08:25 | NUR ---
NURSE NOTES: EKG, notified Dr. Ware of EKG picture and of "sinus tachycardia, lateral infarct" bpm 104, patient was seen talking and stimulated, interacting with technicians during procedure.
--- NOTE | 2020-08-11 10:23 | Pulmonology Progress Note ---
Subjective ROS Limited/Unobtainable: Yes Interval Events: none major reported per nursing Constitutional: Reports: no symptoms; Denies: fever HEENT: Repors: no symptoms Respiratory: Reports: no symptoms Cardiovascular: Reports: no symptoms Gastrointestinal/Abdominal: Reports: diarrhea Allergies: Coded Allergies: HYDROCODONE (Verified Allergy, Severe, 06/23/13) LORAZEPAM (Verified Allergy, Severe, Hives, 02/13/14) RASH/HIVES MORPHINE (Unverified Allergy, Severe, 01/14/19) Not true allergy; tolerated Dilaudid in past. Extensive opiate hx PROCHLORPERAZINE (Verified Allergy, Severe, 06/23/13) VANCOMYCIN (Unverified Allergy, Mild, Itching, 03/06/14) Objective Last 24 Hour Vital Signs Date Time Temp Pulse Resp B/P (MAP) Pulse Ox O2 Delivery O2 Flow Rate FiO2 08/11/20 08:32 98.8 08/11/20 05:44 98.8 08/11/20 02:39 98.8 08/11/20 00:00 98.8 75 18 97/66 (76) 95 08/10/20 23:37 98.9 08/10/20 21:00 Nasal Cannula 3.0 08/10/20 20:31 98.9 08/10/20 20:00 98.1 88 18 106/71 (83) 95 88 08/10/20 17:27 98.9 08/10/20 14:27 98.9 08/10/20 11:28 98.9 Intake and Output 08/10/20 08/11/20 19:00 07:00 Intake Total 400 ml 450 ml Balance 400 ml 450 ml Intake Oral 400 ml 450 ml # Voids 3 Objective 08/11 saturating well on RA 08/10 saturating well on RA; however, hx of COPD and use of home oxygen prn. General Appearance: no acute distress HEENT: atraumatic Respiratory: lungs clear Cardiovascular: normal rate, regular rhythm Abdomen: distended - more prominent on the right Laboratory Tests 08/11/20 06:45: White Blood Count 3.7L, Red Blood Count 3.63L, Hemoglobin 12.4, Hematocrit 41.3, Mean Corpuscular Volume 114H, Mean Corpuscular Hemoglobin 34.2H, Mean Corpuscular Hemoglobin Concent 30.0L, Red Cell Distribution Width 15.8H, Platelet Count 245, Mean Platelet Volume 5.7L, Neutrophils (%) (Auto) , Lymphocytes (%) (Auto) , Monocytes (%) (Auto) , Eosinophils (%) (Auto) , Ba sophils (%) (Auto) , Neutrophils % (Manual) [Pending], Lymphocytes % (Manual) [Pending], Platelet Estimate [Pending], Platelet Morphology [Pending], Sodium Level 136, Potassium Level 4.0, Chloride Level 100, Carbon Dioxide Level 26, Anion Gap 10, Blood Urea Nitrogen 19H, Creatinine 0.8, Estimat Glomerular Filtration Rate > 60, Glucose Level 71L, Calcium Level 9.8, Phosphorus Level 3.9, Magnesium Level 2.1, Troponin I 0.000, Pro-B-Type Natriuretic Peptide 143H Current Medications Medications (Trade) Dose Ordered Sig/Haley Route PRN Reason Start Time Stop Time Status Last Admin Dose Admin Acetaminophen (Tylenol) 650 mg Q6H PRN ORAL fever > 100.5 08/09/20 22:30 09/08/20 22:29 Acetaminophen (Tylenol) 650 mg Q6H PRN ORAL mild to moderate pain (1-6) 08/09/20 22:30 09/08/20 22:29 Amylase/Lipase/ Protease (Rosa SARGENT 36,000 units cap) 1 ea TIWM ORAL 08/10/20 07:00 11/08/20 06:59 08/11/20 06:35 Amylase/Lipase/ Protease (Rosa SARGENT 36,000 units cap) 1 ea WITH SNACKS PRN ORAL WITH SNACKS 08/09/20 15:15 11/07/20 15:14 Clonidine HCl (Catapres Tab) 0.1 mg Q4H PRN ORAL SBP>170 08/10/20 17:00 11/08/20 16:59 Diphenhydramine HCl (Benadryl) 25 mg Q6H PRN IVP Itching 08/09/20 22:30 09/08/20 22:29 08/11/20 05:15 Hydromorphone HCl (Dilaudid) 0.5 mg Q4H PRN IM For Pain 08/09/20 18:45 08/16/20 18:44 08/09/20 18:44 Hydromorphone HCl (Dilaudid) 1 mg Q3H PRN IVP Severe Pain (Pain Scale 7-10) 08/10/20 09:15 08/17/20 09:14 08/11/20 08:02 Linaclotide (Linzess) 290 mcg BEFORE BREAKFAST ORAL 08/10/20 06:30 11/08/20 06:29 08/11/20 06:35 Loperamide HCl (Imodium) 2 mg QIDPRN PRN ORAL Diarrhea 08/10/20 09:15 09/09/20 09:14 Ondansetron HCl (Zofran) 4 mg Q4H PRN IVP Nausea & Vomiting 08/09/20 22:30 09/08/20 22:29 08/11/20 05:14 Assessment/Plan Assessment/Plan 1. Chest pain, rule out ACS. - Predominant care per Cardiology. 2. COPD, stable. - supplemental oxygen prn - saturating well on RA 3. History of cervical CA. 4. CAD. 5. Hypertension. 6. Drug-seeking behavior and chronic narcotic dependence. 7. Abdominal distention - KUB ordered per surgery No intervention required from pulmonary standpoint. The care for this patient was discussed with my supervising physicians Time spent for this case was approximately 31 minutes Vinicio Miller Aug 11, 2020 10:23
[2020-08-11] MEDS: Hydromorphone 0.5mg/0.5ml inj IM PRN ×2 (11:11→14:49)
--- NOTE | 2020-08-11 11:48 | Surgery Progress Note ---
Surgery Progress Note Subjective Additional Comments Patient seen and examined bedside. No acute events. Resting comfortably. Labs reviewed micro reviewed imaging reviewed. Afebrile hemodynamically stable at this time Objective Last 24 Hour Vital Signs Date Time Temp Pulse Resp B/P (MAP) Pulse Ox O2 Delivery O2 Flow Rate FiO2 08/11/20 11:41 98.8 08/11/20 08:32 98.8 08/11/20 05:44 98.8 08/11/20 02:39 98.8 08/11/20 00:00 98.8 75 18 97/66 (76) 95 08/10/20 23:37 98.9 08/10/20 21:00 Nasal Cannula 3.0 08/10/20 20:31 98.9 08/10/20 20:00 98.1 88 18 106/71 (83) 95 88 08/10/20 17:27 98.9 08/10/20 14:27 98.9 I&O Intake and Output 08/10/20 08/11/20 19:00 07:00 Intake Total 400 ml 450 ml Balance 400 ml 450 ml Intake Oral 400 ml 450 ml # Voids 3 Cardiovascular: RSR Respiratory: clear Abdomen: soft, flat, non-tender, present bowel sounds, non-distended Extremities: no edema, no tenderness, no cyanosis Laboratory Tests Test 08/11/20 06:45 White Blood Count 3.7 K/UL (4.8-10.8) L Red Blood Count 3.63 M/UL (4.20-5.40) L Hemoglobin 12.4 G/DL (12.0-16.0) Hematocrit 41.3 % (37.0-47.0) Mean Corpuscular Volume 114 FL (80-99) H Mean Corpuscular Hemoglobin 34.2 PG (27.0-31.0) H Mean Corpuscular Hemoglobin Concent 30.0 G/DL (32.0-36.0) L Red Cell Distribution Width 15.8 % (11.6-14.8) H Platelet Count 245 K/UL (150-450) Mean Platelet Volume 5.7 FL (6.5-10.1) L Neutrophils (%) (Auto) % (45.0-75.0) Lymphocytes (%) (Auto) % (20.0-45.0) Monocytes (%) (Auto) % (1.0-10.0) Eosinophils (%) (Auto) % (0.0-3.0) Basophils (%) (Auto) % (0.0-2.0) Differential Total Cells Counted 100 Neutrophils % (Manual) 60 % (45-75) Lymphocytes % (Manual) 35 % (20-45) Monocytes % (Manual) 3 % (1-10) Eosinophils % (Manual) 2 % (0-3) Basophils % (Manual) 0 % (0-2) Band Neutrophils 0 % (0-8) Platelet Estimate Adequate Platelet Morphology Normal Hypochromasia 1+ Anisocytosis 1+ Macrocytosis 1+ Sodium Level 136 MMOL/L (136-145) Potassium Level 4.0 MMOL/L (3.5-5.1) Chloride Level 100 MMOL/L (98-107) Carbon Dioxide Level 26 MMOL/L (21-32) Anion Gap 10 mmol/L (5-15) Blood Urea Nitrogen 19 mg/dL (7-18) H Creatinine 0.8 MG/DL (0.55-1.30) Estimat Glomerular Filtration Rate > 60 mL/min (>60) Glucose Level 71 MG/DL (74-106) L Calcium Level 9.8 MG/DL (8.5-10.1) Phosphorus Level 3.9 MG/DL (2.5-4.9) Magnesium Level 2.1 MG/DL (1.8-2.4) Troponin I 0.000 ng/mL (0.000-0.056) Pro-B-Type Natriuretic Peptide 143 pg/mL (0-125) H Plan Problems: (1) Gastritis (2) Pancreatitis (3) Abdominal pain Assessment & Plan: c/o abd pain states there is a mass there like a knot on exam benign abd noted prior midline well healed scar noted patient mistaking scar tissue for new mass has been there prior exam as well ct reviewed okay for diet labs noted will monitor for bm and constipation pain management thank you Liver: Unremarkable. Gallbladder and bile ducts: The gallbladder is very distended but is otherwise unremarkable. No calcified stones. No ductal dilation. Pancreas: Unremarkable. No ductal dilation. Spleen: Unremarkable. No splenomegaly. Adrenals: There is stable mild diffuse thickening of the left adrenal gland. The right adrenal gland is unremarkable. Kidneys and ureters: There is no hydronephrosis. Both ureters are normal as seen. There is a punctate nonobstructing right renal stone, without change.. Stomach and bowel: There is mild circumferential wall thickening of the gastric body, similar appearance compared to the previous study. This could represent mild gastritis. No obstruction. PELVIS: Appendix: No findings to suggest acute appendicitis. Bladder: Unremarkable. No stones. Reproductive: Unremarkable as visualized. ABDOMEN and PELVIS: Intraperitoneal space: Unremarkable. No free air. No significant fluid collection. Bones/joints: Post surgical changes from bilateral hip arthroplasty with associated streak artifact, limiting assessment of the pelvis. No acute fracture. No dislocation. Soft tissues: Unremarkable. Vasculature: Unremarkable. No abdominal aortic aneurysm. Lymph nodes: Unremarkable. No enlarged lymph nodes. IMPRESSION: 1. Possible gastritis, without significant change in appearance compared to the previous study. 2. No bowel obstruction or abnormal bowel dilatation. No inflammatory changes in the visualized mesentery. 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 difficile colitis (11) CAD (coronary artery disease) (12) GERD (gastroesophageal reflux disease) (13) HTN (hypertension) (14) ACS (acute coronary syndrome) (15) Severe protein-calorie malnutrition (16) Gastroparesis (17) COPD (chronic obstructive pulmonary disease) (18) COPD exacerbation (19) Macrocytic anemia (20) Acute bronchitis (21) Community acquired pneumonia (22) Shingles (23) Colitis (24) Intractable abdominal pain Kristian Moreno Aug 11, 2020 11:48
[2020-08-11 12:00] VITALS: BP 119/69
--- NOTE | 2020-08-11 12:42 | General Progress Note ---
Subjective ROS Limited/Unobtainable: Yes Allergies: Coded Allergies: HYDROCODONE (Verified Allergy, Severe, 06/23/13) LORAZEPAM (Verified Allergy, Severe, Hives, 02/13/14) RASH/HIVES MORPHINE (Unverified Allergy, Severe, 01/14/19) Not true allergy; tolerated Dilaudid in past. Extensive opiate hx PROCHLORPERAZINE (Verified Allergy, Severe, 06/23/13) VANCOMYCIN (Unverified Allergy, Mild, Itching, 03/06/14) Objective Last 24 Hour Vital Signs Date Time Temp Pulse Resp B/P (MAP) Pulse Ox O2 Delivery O2 Flow Rate FiO2 08/11/20 11:41 98.8 08/11/20 08:32 98.8 08/11/20 05:44 98.8 08/11/20 02:39 98.8 08/11/20 00:00 98.8 75 18 97/66 (76) 95 08/10/20 23:37 98.9 08/10/20 21:00 Nasal Cannula 3.0 08/10/20 20:31 98.9 08/10/20 20:00 98.1 88 18 106/71 (83) 95 88 08/10/20 17:27 98.9 08/10/20 14:27 98.9 Intake and Output 08/10/20 08/11/20 19:00 07:00 Intake Total 400 ml 450 ml Balance 400 ml 450 ml Intake Oral 400 ml 450 ml # Voids 3 Laboratory Tests 08/11/20 06:45: White Blood Count 3.7L, Red Blood Count 3.63L, Hemoglobin 12.4, Hematocrit 41.3, Mean Corpuscular Volume 114H, Mean Corpuscular Hemoglobin 34.2H, Mean Corpuscular Hemoglobin Concent 30.0L, Red Cell Distribution Width 15.8H, Platelet Count 245, Mean Platelet Volume 5.7L, Neutrophils (%) (Auto) , Lymphocytes (%) (Auto) , Monocytes (%) (Auto) , Eosinophils (%) (Auto) , Basophils (%) (Auto) , Differential Total Cells Counted 100, Neutrophils % (Manual) 60, Lymphocytes % (Manual) 35, Monocytes % (Manual) 3, Eosinophils % (Manual) 2, Basophils % (Manual) 0, Band Neutrophils 0, Platelet Estimate Adequate, Platelet Morphology Normal, Hypochromasia 1+, Anisocytosis 1+, Macroc ytosis 1+, Sodium Level 136, Potassium Level 4.0, Chloride Level 100, Carbon Dioxide Level 26, Anion Gap 10, Blood Urea Nitrogen 19H, Creatinine 0.8, Estimat Glomerular Filtration Rate > 60, Glucose Level 71L, Calcium Level 9.8, Phosphorus Level 3.9, Magnesium Level 2.1, Troponin I 0.000, Pro-B-Type Natriuretic Peptide 143H Height (Feet): 5 Height (Inches): 2.00 Weight (Pounds): 120 General Appearance: no apparent distress EENT: normal ENT inspection Neck: supple Cardiovascular: normal rate Respiratory/Chest: decreased breath sounds Abdomen: normal bowel sounds, non tender, soft Extremities: non-tender Assessment/Plan Assessment/Plan: Assessment/Plan Assessment/Plan: 1. Cervical cancer. 2. Hypertension. 3. Hypercholesteremia. 4. CHF. 5. Chronic constipation. 6. History of bowel obstruction requiring surgery. 7. History of chronic pancreatitis. 8. Gastritis, H. pylori negative. 9. Colonic polyp. 10. Internal hemorrhoids. recent EGD and colonoscopy ppi [facility] CT reviewed pain control will Ruben Villeda MD Aug 11, 2020 12:42
--- NOTE | 2020-08-11 12:52 | Cardiology Report ---
APPROVED REPORT EKG Measurement Heart [id number] CT [id number] <Conclusion> Sinus tachycardia Voltage criteria for left ventricular hypertrophy Lateral infarct, age undetermined Abnormal ECG
--- NOTE | 2020-08-11 15:00 | NUR ---
NURSE NOTES: Dr. Ware in person viewed EKG and no new orders were given.
--- NOTE | 2020-08-11 15:23 | NUR ---
NURSE NOTES: Called and left a voicemail for Dr. Cheney regarding request for pain medication due to the abdominal distention patient and the pain associated with it. Awaiting callback.
--- NOTE | 2020-08-11 15:45 | Cardiac Electrophysiology PN ---
Assessment/Plan Assessment/Plan 1. Chest pain. The pain is atypical. The troponins are negative. This is one of the patient's numerous previous hospitalizations to [facility] as well as [facility]. Echocardiogram on June 14, 2020 showed EF of 70-75%. 2. History of hypertension, partially related to her pain. I will add p.r.n. clonidine to her medical regimen. However, the blood pressure currently is stable. 3. Abdominal pain. 4. Narcotic dependence. 5. History of cervical cancer. 6. History of bowel obstruction, requiring surgery. 7. Chronic pancreatitis. It is of note the patient received EGD and colonoscopy per Dr. Salazar. Subjective Subjective In RA off isolation and complains of abdominal pain while sitting in bed in NAD Objective Last 24 Hour Vital Signs Date Time Temp Pulse Resp B/P (MAP) Pulse Ox O2 Delivery O2 Flow Rate FiO2 08/11/20 14:22 97.4 08/11/20 12:00 97.4 81 18 119/69 (86) 97 08/11/20 11:41 97.4 08/11/20 11:41 98.8 08/11/20 09:00 Room Air 08/11/20 08:32 98.8 08/11/20 08:00 98.0 86 19 110/68 (82) 96 08/11/20 05:44 98.8 08/11/20 02:39 98.8 08/11/20 00:00 98.8 75 18 97/66 (76) 95 08/10/20 23:37 98.9 08/10/20 21:00 Nasal Cannula 3.0 08/10/20 20:31 98.9 08/10/20 20:00 98.1 88 18 106/71 (83) 95 88 08/10/20 17:27 98.9 Intake and Output 08/10/20 08/11/20 19:00 07:00 Intake Total 400 ml 450 ml Balance 400 ml 450 ml Intake Oral 400 ml 450 ml # Voids 3 Laboratory Tests Test 08/11/20 06:45 White Blood Count 3.7 K/UL (4.8-10.8) L Red Blood Count 3.63 M/UL (4.20-5.40) L Hemoglobin 12.4 G/DL (12.0-16.0) Hematocrit 41.3 % (37.0-47.0) Mean Corpuscular Volume 114 FL (80-99) H Mean Corpuscular Hemoglobin 34.2 PG (27.0-31.0) H Mean Corpuscular Hemoglobin Concent 30.0 G/DL (32.0-36.0) L Red Cell Distribution Width 15.8 % (11.6-14.8) H Platelet Count 245 K/UL (150-450) Mean Platelet Volume 5.7 FL (6.5-10.1) L Neutrophils (%) (Auto) % (45.0-75.0) Lymphocytes (%) (Auto) % (20.0-45.0) Monocytes (%) (Auto) % (1.0-10.0) Eosinophils (%) (Auto) % (0.0-3.0) Basophils (%) (Auto) % (0.0-2.0) Differential Total Cells Counted 100 Neutrophils % (Manual) 60 % (45-75) Lymphocytes % (Manual) 35 % (20-45) Monocytes % (Manual) 3 % (1-10) Eosinophils % (Manual) 2 % (0-3) Basophils % (Manual) 0 % (0-2) Band Neutrophils 0 % (0-8) Platelet Estimate Adequate Platelet Morphology Normal Hypochromasia 1+ Anisocytosis 1+ Macrocytosis 1+ Sodium Level 136 MMOL/L (136-145) Potassium Level 4.0 MMOL/L (3.5-5.1) Chloride Level 100 MMOL/L (98-107) Carbon Dioxide Level 26 MMOL/L (21-32) Anion Gap 10 mmol/L (5-15) Blood Urea Nitrogen 19 mg/dL (7-18) H Creatinine 0.8 MG/DL (0.55-1.30) Estimat Glomerular Filtration Rate > 60 mL/min (>60) Glucose Level 71 MG/DL (74-106) L Calcium Level 9.8 MG/DL (8.5-10.1) Phosphorus Level 3.9 MG/DL (2.5-4.9) Magnesium Level 2.1 MG/DL (1.8-2.4) Troponin I 0.000 ng/mL (0.000-0.056) Pro-B-Type Natriuretic Peptide 143 pg/mL (0-125) H Objective HEAD AND NECK: No JVD. LUNGS: Clear. CARDIOVASCULAR: Regular S1 and S2 with no gallop or murmur. ABDOMEN: Soft. EXTREMITIES: No pitting edema. Nahum Ware MD Aug 11, 2020 15:45
--- NOTE | 2020-08-11 15:49 | Internal Med Progress Note ---
Subjective Physician Name Dennis Cheney Attending Physician Dennis Cheney M.D. Current Medications Medications (Trade) Dose Ordered Sig/Haley Route PRN Reason Start Time Stop Time Status Last Admin Dose Admin Acetaminophen (Tylenol) 650 mg Q6H PRN ORAL fever > 100.5 08/09/20 22:30 09/08/20 22:29 Acetaminophen (Tylenol) 650 mg Q6H PRN ORAL mild to moderate pain (1-6) 08/09/20 22:30 09/08/20 22:29 Amylase/Lipase/ Protease (Rosa SARGENT 36,000 units cap) 1 ea TIWM ORAL 08/10/20 07:00 11/08/20 06:59 08/11/20 11:04 Amylase/Lipase/ Protease (Rosa SARGENT 36,000 units cap) 1 ea WITH SNACKS PRN ORAL WITH SNACKS 08/09/20 15:15 11/07/20 15:14 Clonidine HCl (Catapres Tab) 0.1 mg Q4H PRN ORAL SBP>170 08/10/20 17:00 11/08/20 16:59 Diphenhydramine HCl (Benadryl) 25 mg Q6H PRN IVP Itching 08/09/20 22:30 09/08/20 22:29 08/11/20 10:56 Hydromorphone HCl (Dilaudid) 0.5 mg Q4H PRN IM For Pain 08/09/20 18:45 08/16/20 18:44 08/11/20 11:11 Hydromorphone HCl (Dilaudid) 1 mg Q3H PRN IVP Severe Pain (Pain Scale 7-10) 08/10/20 09:15 08/17/20 09:14 08/11/20 13:52 Linaclotide (Linzess) 290 mcg BEFORE BREAKFAST ORAL 08/10/20 06:30 11/08/20 06:29 08/11/20 06:35 Loperamide HCl (Imodium) 2 mg QIDPRN PRN ORAL Diarrhea 08/10/20 09:15 09/09/20 09:14 Ondansetron HCl (Zofran) 4 mg Q4H PRN IVP Nausea & Vomiting 08/09/20 22:30 09/08/20 22:29 08/11/20 10:57 Allergies: Coded Allergies: HYDROCODONE (Verified Allergy, Severe, 06/23/13) LORAZEPAM (Verified Allergy, Severe, Hives, 02/13/14) RASH/HIVES MORPHINE (Unverified Allergy, Severe, 01/14/19) Not true allergy; tolerated Dilaudid in past. Extensive opiate hx PROCHLORPERAZINE (Verified Allergy, Severe, 06/23/13) VANCOMYCIN (Unverified Allergy, Mild, Itching, 03/06/14) ROS Limited/Unobtainable: No All Systems: reviewed and negative except above Subjective continues to complain of abd pain GI and gen surg appreciated Objective Last Vital Signs Date Time Temp Pulse Resp B/P (MAP) Pulse Ox O2 Delivery O2 Flow Rate FiO2 08/11/20 14:22 97.4 08/11/20 12:00 81 18 119/69 (86) 97 08/11/20 09:00 Room Air 08/10/20 21:00 3.0 Laboratory Tests Test 08/11/20 06:45 White Blood Count 3.7 K/UL (4.8-10.8) L Red Blood Count 3.63 M/UL (4.20-5.40) L Hemoglobin 12.4 G/DL (12.0-16.0) Hematocrit 41.3 % (37.0-47.0) Mean Corpuscular Volume 114 FL (80-99) H Mean Corpuscular Hemoglobin 34.2 PG (27.0-31.0) H Mean Corpuscular Hemoglobin Concent 30.0 G/DL (32.0-36.0) L Red Cell Distribution Width 15.8 % (11.6-14.8) H Platelet Count 245 K/UL (150-450) Mean Platelet Volume 5.7 FL (6.5-10.1) L Neutrophils (%) (Auto) % (45.0-75.0) Lymphocytes (%) (Auto) % (20.0-45.0) Monocytes (%) (Auto) % (1.0-10.0) Eosinophils (%) (Auto) % (0.0-3.0) Basophils (%) (Auto) % (0.0-2.0) Differential Total Cells Counted 100 Neutrophils % (Manual) 60 % (45-75) Lymphocytes % (Manual) 35 % (20-45) Monocytes % (Manual) 3 % (1-10) Eosinophils % (Manual) 2 % (0-3) Basophils % (Manual) 0 % (0-2) Band Neutrophils 0 % (0-8) Platelet Estimate Adequate Platelet Morphology Normal Hypochromasia 1+ Anisocytosis 1+ Macrocytosis 1+ Sodium Level 136 MMOL/L (136-145) Potassium Level 4.0 MMOL/L (3.5-5.1) Chloride Level 100 MMOL/L (98-107) Carbon Dioxide Level 26 MMOL/L (21-32) Anion Gap 10 mmol/L (5-15) Blood Urea Nitrogen 19 mg/dL (7-18) H Creatinine 0.8 MG/DL (0.55-1.30) Estimat Glomerular Filtration Rate > 60 mL/min (>60) Glucose Level 71 MG/DL (74-106) L Calcium Level 9.8 MG/DL (8.5-10.1) Phosphorus Level 3.9 MG/DL (2.5-4.9) Magnesium Level 2.1 MG/DL (1.8-2.4) Troponin I 0.000 ng/mL (0.000-0.056) Pro-B-Type Natriuretic Peptide 143 pg/mL (0-125) H Intake and Output 08/10/20 08/11/20 19:00 07:00 Intake Total 400 ml 450 ml Balance 400 ml 450 ml Intake Oral 400 ml 450 ml # Voids 3 Objective General Appearance: WD/WN, no apparent distress EENT: PERRL/EOMI, normal ENT inspection Neck: non-tender, normal alignment Cardiovascular: normal peripheral pulses, normal rate Respiratory/Chest: chest wall non-tender, lungs clear, normal breath sounds Abdomen: normal bowel sounds, non tender Edema: trace edema Assessment/Plan Assessment/Plan #Abd pain- intractable #Chest pain # history of hypertension # CAD, #cervical cancer #anemia #GERD 3chronic pancreatitis, #Narcotic dependency, #history of bilateral hip replacement #history of drug-seeking behavior # chronic constipation, # history of small bowel obstruction, colonic polyp, - admit inpatient - Gi eval - gen surg eval - cardiology eval - pain control - resume home meds - monitor Dennis Underwood M.D. Aug 11, 2020 15:49
[2020-08-11 16:00] VITALS: BP 117/70
--- NOTE | 2020-08-11 16:19 | Diagnostic Imaging Report ---
Indication: Abdominal pain Technique: Supine view of the abdomen Comparison: 06/06/2020 Findings: Previously demonstrated colonic contrast is no longer evident. Bowel gas pattern is unremarkable. Considerable ingested material is seen within the stomach. There are bilateral hip prostheses. Impression: No acute process
--- NOTE | 2020-08-11 19:16 | NUR ---
NURSE HAND-OFF REPORT: Important Events on Shift: pain medication dilaudid changed to 2mg every 3hours per Dr. Cheney; MD aware of abdominal distention Patient Status: stable condition, full code Diet: [] Pending Orders: [] Pending Results/Labs:[] Pending MD notification:[] Latest Vital Signs: Temperature 97.4 , Pulse 78 , B/P 117 /70 , Respiratory Rate 19 , O2 SAT 98 , Room Air, O2 Flow Rate 3.0 . Vital Sign Comment: [] EKG Rhythm: Rhythm change?: MD Notified?: - MD Response: Latest Rinaldi Fall Score: 35 Fall Risk: Medium Risk Safety Measures: Call light Within Reach, Bed Alarm , Side Rails Side Rails x2, Bed position Low and Locked. Fall Precautions: Yellow Socks Yellow Gown Patient Fall Education Report given to TANYA Salamanca.
--- NOTE | 2020-08-11 19:40 | NUR ---
NURSE NOTES: Received patient on bed. awake. alert and oriented. verbally responsive. on room air. no sob. ambulates. with iv access on the left upper arm, saline lock. NO c/o pain at the moment. reiterated to call and ask for assistance to prevent fall or injury. bed locked and in lowest position. call light and light button within easy reach. will continue plan of care.
[2020-08-11 20:00] VITALS: BP 120/72
--- NOTE | 2020-08-11 20:00 | NUR ---
NURSE NOTES: patient is insisting to get zofran, dilaudid and benadryl at 2000. educated patient that zofran and benadryl is not due yet but i can give dilaudid. patient refused to listen and went out of the room and screamed on the nurses station begging to get zofran, benadryl and dilaudid. charge nurse re-educated patient. patient refused to listen and still agreed to only get dilaudid.
[2020-08-11 23:35] VITALS: BP 120/76
[2020-08-12] MEDS: DiphenhydrAMINE 50mg/ml Inj IVP PRN ×3 (05:26→18:34)
[2020-08-12] MEDS: Creon DR 36,000 units cap ORAL SCH ×3 (06:13→17:00)
--- NOTE | 2020-08-12 06:14 | NUR ---
NURSE NOTES: creon medication is given with snacks provided.
--- NOTE | 2020-08-12 06:39 | NUR ---
NURSE HAND-OFF: Important Events on Shift: pain mngt Patient Status: stable Diet: regular Pending Orders: Pending Results/Labs: Pending MD notification: Latest Vital Signs: Temperature 97.6 , Pulse 76 , B/P 120 /76 , Respiratory Rate 19 , O2 SAT 97 , Room Air, O2 Flow Rate 3.0 . Vital Sign Comment: Latest Rinaldi Fall Score: 35 Fall Risk: Medium Risk Safety Measures: Call light Within Reach, Bed Alarm , Side Rails Side Rails x2, Bed position Low and Locked. Fall Precautions: Yellow Socks Yellow Gown Patient Fall Education Addendum: 08/12/20 at 0713 by Maribell Ivan RN HAND-OFF: Report given to rhonda padilla.
--- NOTE | 2020-08-12 07:20 | NUR ---
NURSE NOTES: RN received report from TANYA Salamanca. RN received patient in bed. AAOX4, anxious, disruptive behavior, no s/s of respiratory distress or pain noted. IV patent, dry, intact, asymptomatic. Call light within reach, bed in lowest position and locked. Will continue to monitor.
--- NOTE | 2020-08-12 07:21 | General Progress Note ---
Subjective ROS Limited/Unobtainable: Yes Allergies: Coded Allergies: HYDROCODONE (Verified Allergy, Severe, 06/23/13) LORAZEPAM (Verified Allergy, Severe, Hives, 02/13/14) RASH/HIVES MORPHINE (Unverified Allergy, Severe, 01/14/19) Not true allergy; tolerated Dilaudid in past. Extensive opiate hx PROCHLORPERAZINE (Verified Allergy, Severe, 06/23/13) VANCOMYCIN (Unverified Allergy, Mild, Itching, 03/06/14) Objective Last 24 Hour Vital Signs Date Time Temp Pulse Resp B/P (MAP) Pulse Ox O2 Delivery O2 Flow Rate FiO2 08/12/20 05:56 97.6 08/12/20 02:42 97.6 08/11/20 23:53 97.6 08/11/20 23:35 97.6 76 19 120/76 (91) 97 08/11/20 21:00 Nasal Cannula 3.0 08/11/20 20:53 97.4 08/11/20 20:00 97.6 75 19 120/72 (88) 99 08/11/20 17:33 97.4 08/11/20 16:00 97.0 78 19 117/70 (86) 98 08/11/20 14:22 97.4 08/11/20 12:00 97.4 81 18 119/69 (86) 97 08/11/20 11:41 97.4 08/11/20 11:41 98.8 08/11/20 09:00 Room Air 08/11/20 08:32 98.8 08/11/20 08:00 98.0 86 19 110/68 (82) 96 Intake and Output 08/11/20 08/12/20 19:00 07:00 Intake Total 1200 ml 450 ml Balance 1200 ml 450 ml Intake Oral 450 ml Other 1200 ml # Voids 4 # Bowel Movements 2 Height (Feet): 5 Height (Inches): 2.00 Weight (Pounds): 120 General Appearance: no apparent distress EENT: normal ENT inspection Neck: supple Cardiovascular: normal rate Respiratory/Chest: decreased breath sounds Abdomen: soft, hypoactive bowel sounds Extremities: non-tender Assessment/Plan Assessment/Plan: Assessment/Plan Assessment/Plan: 1. Cervical cancer. 2. Hypertension. 3. Hypercholesteremia. 4. CHF. 5. Chronic constipation. 6. History of bowel obstruction requiring surgery. 7. History of chronic pancreatitis. 8. Gastritis, H. pylori negative. 9. Colonic polyp. 10. Internal hemorrhoids. recent EGD and colonoscopy ppi Linzess had [address] reviewed pain control will Ruben Villeda MD Aug 12, 2020 07:21
[2020-08-12 08:48] LABS: ANION GAP 9 mmol/L (5-15); BLOOD UREA NITROGEN 22 mg/dL (7-18); CALCIUM 9.9 MG/DL (8.5-10.1); CARBON DIOXIDE 28 MMOL/L (21-32); CHLORIDE 101 MMOL/L (98-107); CREATININE 0.7 MG/DL (0.55-1.30); PHOSPHORUS 4.3 MG/DL (2.5-4.9); POTASSIUM 3.8 MMOL/L (3.5-5.1); SODIUM 138 MMOL/L (136-145)
--- NOTE | 2020-08-12 11:33 | Surgery Progress Note ---
Surgery Progress Note Subjective Additional Comments no acute events comfortable asking for pain meds no n/v Objective Last 24 Hour Vital Signs Date Time Temp Pulse Resp B/P (MAP) Pulse Ox O2 Delivery O2 Flow Rate FiO2 08/12/20 09:05 97.6 08/12/20 05:56 97.6 08/12/20 02:42 97.6 08/11/20 23:53 97.6 08/11/20 23:35 97.6 76 19 120/76 (91) 97 08/11/20 21:00 Nasal Cannula 3.0 08/11/20 20:53 97.4 08/11/20 20:00 97.6 75 19 120/72 (88) 99 08/11/20 17:33 97.4 08/11/20 16:00 97.0 78 19 117/70 (86) 98 08/11/20 14:22 97.4 08/11/20 12:00 97.4 81 18 119/69 (86) 97 08/11/20 11:41 97.4 08/11/20 11:41 98.8 I&O Intake and Output 08/11/20 08/12/20 19:00 07:00 Intake Total 1200 ml 450 ml Balance 1200 ml 450 ml Intake Oral 450 ml Other 1200 ml # Voids 4 # Bowel Movements 2 Dressing: saturated Cardiovascular: RSR Respiratory: decreased breath sounds Abdomen: soft, non-tender, present bowel sounds Extremities: no tenderness, no cyanosis Laboratory Tests Test 08/12/20 07:30 Sodium Level 138 MMOL/L (136-145) Potassium Level 3.8 MMOL/L (3.5-5.1) Chloride Level 101 MMOL/L (98-107) Carbon Dioxide Level 28 MMOL/L (21-32) Anion Gap 9 mmol/L (5-15) Blood Urea Nitrogen 22 mg/dL (7-18) H Creatinine 0.7 MG/DL (0.55-1.30) Estimat Glomerular Filtration Rate > 60 mL/min (>60) Glucose Level 84 MG/DL (74-106) Calcium Level 9.9 MG/DL (8.5-10.1) Phosphorus Level 4.3 MG/DL (2.5-4.9) Magnesium Level 2.2 MG/DL (1.8-2.4) Plan Problems: (1) Gastritis (2) Pancreatitis (3) Abdominal pain Assessment & Plan: c/o abd pain states there is a mass there like a knot on exam benign abd noted prior midline well healed scar noted patient mistaking scar tissue for new mass has been there prior exam as well ct reviewed okay for diet labs noted will monitor for bm and constipation pain management thank you Liver: Unremarkable. Gallbladder and bile ducts: The gallbladder is very distended but is otherwise unremarkable. No calcified stones. No ductal dilation. Pancreas: Unremarkable. No ductal dilation. Spleen: Unremarkable. No splenomegaly. Adrenals: There is stable mild diffuse thickening of the left adrenal gland. The right adrenal gland is unremarkable. Kidneys and ureters: There is no hydronephrosis. Both ureters are normal as seen. There is a punctate nonobstructing right renal stone, without change.. Stomach and bowel: There is mild circumferential wall thickening of the gastric body, similar appearance compared to the previous study. This could represent mild gastritis. No obstruction. PELVIS: Appendix: No findings to suggest acute appendicitis. Bladder: Unremarkable. No stones. Reproductive: Unremarkable as visualized. ABDOMEN and PELVIS: Intraperitoneal space: Unremarkable. No free air. No significant fluid collection. Bones/joints: Post surgical changes from bilateral hip arthroplasty with associated streak artifact, limiting assessment of the pelvis. No acute fracture. No dislocation. Soft tissues: Unremarkable. Vasculature: Unremarkable. No abdominal aortic aneurysm. Lymph nodes: Unremarkable. No enlarged lymph nodes. IMPRESSION: 1. Possible gastritis, without significant change in appearance compared to the previous study. 2. No bowel obstruction or abnormal bowel dilatation. No inflammatory changes in the visualized mesentery. 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 difficile colitis (11) CAD (coronary artery disease) (12) GERD (gastroesophageal reflux disease) (13) HTN (hypertension) (14) ACS (acute coronary syndrome) (15) Severe protein-calorie malnutrition (16) Gastroparesis (17) COPD (chronic obstructive pulmonary disease) (18) COPD exacerbation (19) Macrocytic anemia (20) Acute bronchitis (21) Community acquired pneumonia (22) Shingles (23) Colitis (24) Intractable abdominal pain Kristian Moreno Aug 12, 2020 11:33
--- NOTE | 2020-08-12 13:17 | Internal Med Progress Note ---
Subjective Physician Name Dennis Cheney Attending Physician Dennis Cheney M.D. Current Medications Medications (Trade) Dose Ordered Sig/Haley Route PRN Reason Start Time Stop Time Status Last Admin Dose Admin Acetaminophen (Tylenol) 650 mg Q6H PRN ORAL fever > 100.5 08/09/20 22:30 09/08/20 22:29 Acetaminophen (Tylenol) 650 mg Q6H PRN ORAL mild to moderate pain (1-6) 08/09/20 22:30 09/08/20 22:29 Amylase/Lipase/ Protease (Rosa SARGENT 36,000 units cap) 1 ea TIWM ORAL 08/10/20 07:00 11/08/20 06:59 08/12/20 12:02 Amylase/Lipase/ Protease (Rosa SARGENT 36,000 units cap) 1 ea WITH SNACKS PRN ORAL WITH SNACKS 08/09/20 15:15 11/07/20 15:14 Clonidine HCl (Catapres Tab) 0.1 mg Q4H PRN ORAL SBP>170 08/10/20 17:00 11/08/20 16:59 Diphenhydramine HCl (Benadryl) 25 mg Q6H PRN IVP Itching 08/09/20 22:30 09/08/20 22:29 08/12/20 12:03 Hydromorphone HCl (Dilaudid) 0.5 mg Q4H PRN IM For Pain 08/09/20 18:45 08/16/20 18:44 08/11/20 11:11 Hydromorphone HCl (Dilaudid) 2 mg Q3H PRN IVP Severe Pain (Pain Scale 7-10) 08/11/20 19:45 08/18/20 19:44 08/12/20 12:02 Linaclotide (Linzess) 290 mcg BEFORE BREAKFAST ORAL 08/10/20 06:30 11/08/20 06:29 08/12/20 06:13 Loperamide HCl (Imodium) 2 mg QIDPRN PRN ORAL Diarrhea 08/10/20 09:15 09/09/20 09:14 Ondansetron HCl (Zofran) 4 mg Q4H PRN IVP Nausea & Vomiting 08/09/20 22:30 09/08/20 22:29 08/12/20 12:02 Allergies: Coded Allergies: HYDROCODONE (Verified Allergy, Severe, 06/23/13) LORAZEPAM (Verified Allergy, Severe, Hives, 02/13/14) RASH/HIVES MORPHINE (Unverified Allergy, Severe, 01/14/19) Not true allergy; tolerated Dilaudid in past. Extensive opiate hx PROCHLORPERAZINE (Verified Allergy, Severe, 06/23/13) VANCOMYCIN (Unverified Allergy, Mild, Itching, 03/06/14) ROS Limited/Unobtainable: No All Systems: reviewed and negative except above Subjective continues to complain of abd pain GI and gen surg appreciated Objective Last Vital Signs Date Time Temp Pulse Resp B/P (MAP) Pulse Ox O2 Delivery O2 Flow Rate FiO2 08/12/20 12:32 97.6 08/11/20 23:35 76 19 120/76 (91) 97 08/11/20 21:00 Nasal Cannula 3.0 Laboratory Tests Test 08/12/20 07:30 Sodium Level 138 MMOL/L (136-145) Potassium Level 3.8 MMOL/L (3.5-5.1) Chloride Level 101 MMOL/L (98-107) Carbon Dioxide Level 28 MMOL/L (21-32) Anion Gap 9 mmol/L (5-15) Blood Urea Nitrogen 22 mg/dL (7-18) H Creatinine 0.7 MG/DL (0.55-1.30) Estimat Glomerular Filtration Rate > 60 mL/min (>60) Glucose Level 84 MG/DL (74-106) Calcium Level 9.9 MG/DL (8.5-10.1) Phosphorus Level 4.3 MG/DL (2.5-4.9) Magnesium Level 2.2 MG/DL (1.8-2.4) Intake and Output 08/11/20 08/12/20 19:00 07:00 Intake Total 1200 ml 450 ml Balance 1200 ml 450 ml Intake Oral 450 ml Other 1200 ml # Voids 4 # Bowel Movements 2 Objective General Appearance: WD/WN, no apparent distress EENT: PERRL/EOMI, normal ENT inspection Neck: non-tender, normal alignment Cardiovascular: normal peripheral pulses, normal rate Respiratory/Chest: chest wall non-tender, lungs clear, normal breath sounds Abdomen: normal bowel sounds, non tender Edema: trace edema Assessment/Plan Assessment/Plan #Abd pain- intractable #Chest pain # history of hypertension # CAD, #cervical cancer #anemia #GERD 3chronic pancreatitis, #Narcotic dependency, #history of bilateral hip replacement #history of drug-seeking behavior # chronic constipation, # history of small bowel obstruction, colonic polyp, - admit inpatient - Gi eval - gen surg eval - cardiology eval - pain control - resume home meds - monitor Dennis Underwood M.D. Aug 12, 2020 13:17
--- NOTE | 2020-08-12 13:18 | Pulmonology Progress Note ---
Subjective ROS Limited/Unobtainable: Yes Interval Events: none major reported per nursing Constitutional: Reports: no symptoms; Denies: fever HEENT: Repors: no symptoms Respiratory: Reports: no symptoms Cardiovascular: Reports: no symptoms Gastrointestinal/Abdominal: Reports: diarrhea Allergies: Coded Allergies: HYDROCODONE (Verified Allergy, Severe, 06/23/13) LORAZEPAM (Verified Allergy, Severe, Hives, 02/13/14) RASH/HIVES MORPHINE (Unverified Allergy, Severe, 01/14/19) Not true allergy; tolerated Dilaudid in past. Extensive opiate hx PROCHLORPERAZINE (Verified Allergy, Severe, 06/23/13) VANCOMYCIN (Unverified Allergy, Mild, Itching, 03/06/14) All Systems: reviewed and negative except above Objective Last 24 Hour Vital Signs Date Time Temp Pulse Resp B/P (MAP) Pulse Ox O2 Delivery O2 Flow Rate FiO2 08/12/20 12:32 97.6 08/12/20 09:05 97.6 08/12/20 05:56 97.6 08/12/20 02:42 97.6 08/11/20 23:53 97.6 08/11/20 23:35 97.6 76 19 120/76 (91) 97 08/11/20 21:00 Nasal Cannula 3.0 08/11/20 20:53 97.4 08/11/20 20:00 97.6 75 19 120/72 (88) 99 08/11/20 17:33 97.4 08/11/20 16:00 97.0 78 19 117/70 (86) 98 08/11/20 14:22 97.4 Intake and Output 08/11/20 08/12/20 19:00 07:00 Intake Total 1200 ml 450 ml Balance 1200 ml 450 ml Intake Oral 450 ml Other 1200 ml # Voids 4 # Bowel Movements 2 General Appearance: no acute distress HEENT: atraumatic Respiratory: lungs clear Cardiovascular: normal rate, regular rhythm Abdomen: distended - more prominent on the right Laboratory Tests 08/12/20 07:30: Sodium Level 138, Potassium Level 3.8, Chloride Level 101, Carbon Dioxide Level 28, Anion Gap 9, Blood Urea Nitrogen 22H, Creatinine 0.7, Estimat Glomerular Filtration Rate > 60, Glucose Level 84, Calcium Level 9.9, Phosphorus Level 4.3, Magnesium Level 2.2 Current Medications Medications (Trade) Dose Ordered Sig/Haley Route PRN Reason Start Time Stop Time Status Last Admin Dose Admin Acetaminophen (Tylenol) 650 mg Q6H PRN ORAL fever > 100.5 08/09/20 22:30 09/08/20 22:29 Acetaminophen (Tylenol) 650 mg Q6H PRN ORAL mild to moderate pain (1-6) 08/09/20 22:30 09/08/20 22:29 Amylase/Lipase/ Protease (Rosa SARGENT 36,000 units cap) 1 ea TIWM ORAL 08/10/20 07:00 11/08/20 06:59 08/12/20 12:02 Amylase/Lipase/ Protease (Rosa SARGENT 36,000 units cap) 1 ea WITH SNACKS PRN ORAL WITH SNACKS 08/09/20 15:15 11/07/20 15:14 Clonidine HCl (Catapres Tab) 0.1 mg Q4H PRN ORAL SBP>170 08/10/20 17:00 11/08/20 16:59 Diphenhydramine HCl (Benadryl) 25 mg Q6H PRN IVP Itching 08/09/20 22:30 09/08/20 22:29 08/12/20 12:03 Hydromorphone HCl (Dilaudid) 0.5 mg Q4H PRN IM For Pain 08/09/20 18:45 08/16/20 18:44 08/11/20 11:11 Hydromorphone HCl (Dilaudid) 2 mg Q3H PRN IVP Severe Pain (Pain Scale 7-10) 08/11/20 19:45 08/18/20 19:44 08/12/20 12:02 Linaclotide (Linzess) 290 mcg BEFORE BREAKFAST ORAL 08/10/20 06:30 11/08/20 06:29 08/12/20 06:13 Loperamide HCl (Imodium) 2 mg QIDPRN PRN ORAL Diarrhea 08/10/20 09:15 09/09/20 09:14 Ondansetron HCl (Zofran) 4 mg Q4H PRN IVP Nausea & Vomiting 08/09/20 22:30 09/08/20 22:29 08/12/20 12:02 Assessment/Plan Assessment/Plan Assessment 1. Chest pain 2. COPD, stable. 3. History of cervical CA. 4. CAD. 5. Hypertension. 6. Drug-seeking behavior and chronic narcotic dependence. 7. Abdominal distention PLAN: Predominant care per Cardiology. Supplement Oxygen as needed sat 97 R/A The care for this patient was discussed with my supervising physicians Abd Xray: Negative Stewart Hummel NP Aug 12, 2020 13:18
--- NOTE | 2020-08-12 19:55 | NUR ---
NURSE HAND-OFF: Important Events on Shift:pain medication, daily lab orders Patient Status: stable Diet: regular Pending Orders: n/a Pending Results/Labs:n/a Pending MD notification:n/a Latest Vital Signs: Temperature 97.6 , Pulse 76 , B/P 120 /76 , Respiratory Rate 19 , O2 SAT 97 , Room Air, O2 Flow Rate 3.0 . Vital Sign Comment: stable Latest Rinaldi Fall Score: 35 Fall Risk: Medium Risk Safety Measures: Call light Within Reach, Bed Alarm , Side Rails Side Rails x2, Bed position Low and Locked. Fall Precautions: Yellow Socks Yellow Gown Patient Fall Education Report given to TANYA Marin.
[2020-08-12 20:00] VITALS: BP 121/61
--- NOTE | 2020-08-12 20:00 | NUR ---
NURSE NOTES: RN received patient in bed. AAOX4, anxious, disruptive behavior, no s/s of respiratory distress or pain noted. IV patent, dry, intact, asymptomatic JOSELUIS. Call light within reach, bed in lowest position and locked. Will continue to monitor.
--- NOTE | 2020-08-12 21:55 | Cardiac Electrophysiology PN ---
Assessment/Plan Assessment/Plan 1. Chest pain. The pain is atypical. The troponins are negative. This is one of the patient's numerous previous hospitalizations to [facility] as well as [facility]. Echo on June 14, 2020 showed EF of 70- 75%. 2. History of hypertension, partially related to her pain. On p.r.n. clonidine 3. Abdominal pain. 4. Narcotic dependence. 5. History of cervical cancer. 6. History of bowel obstruction, requiring surgery. 7. Chronic pancreatitis. S/P EGD and colonoscopy per Dr. Salazar. Subjective Subjective In RA off isolation awaiting placement in NAD Objective Last 24 Hour Vital Signs Date Time Temp Pulse Resp B/P (MAP) Pulse Ox O2 Delivery O2 Flow Rate FiO2 08/12/20 19:06 97.6 08/12/20 15:53 97.6 08/12/20 12:32 97.6 08/12/20 09:05 97.6 08/12/20 09:00 Nasal Cannula 3.0 08/12/20 05:56 97.6 08/12/20 02:42 97.6 08/11/20 23:53 97.6 08/11/20 23:35 97.6 76 19 120/76 (91) 97 Intake and Output 08/11/20 08/12/20 19:00 07:00 Intake Total 1200 ml 450 ml Balance 1200 ml 450 ml Intake Oral 450 ml Other 1200 ml # Voids 4 # Bowel Movements 2 Laboratory Tests Test 08/12/20 07:30 Sodium Level 138 MMOL/L (136-145) Potassium Level 3.8 MMOL/L (3.5-5.1) Chloride Level 101 MMOL/L (98-107) Carbon Dioxide Level 28 MMOL/L (21-32) Anion Gap 9 mmol/L (5-15) Blood Urea Nitrogen 22 mg/dL (7-18) H Creatinine 0.7 MG/DL (0.55-1.30) Estimat Glomerular Filtration Rate > 60 mL/min (>60) Glucose Level 84 MG/DL (74-106) Calcium Level 9.9 MG/DL (8.5-10.1) Phosphorus Level 4.3 MG/DL (2.5-4.9) Magnesium Level 2.2 MG/DL (1.8-2.4) Objective HEAD AND NECK: No JVD. LUNGS: Clear. CARDIOVASCULAR: Regular S1 and S2 with no gallop or murmur. ABDOMEN: Soft. EXTREMITIES: No pitting edema. Nahum Ware MD Aug 12, 2020 21:55
[2020-08-13] VITALS (7 sets, daily range): BP systolic 101–149; BP diastolic 67–84
[2020-08-13] MEDS: DiphenhydrAMINE 50mg/ml Inj IVP PRN ×3 (00:29→16:36)
[2020-08-13] MEDS: Creon DR 36,000 units cap ORAL SCH ×3 (06:25→16:35)
--- NOTE | 2020-08-13 06:55 | General Progress Note ---
Subjective ROS Limited/Unobtainable: Yes Allergies: Coded Allergies: HYDROCODONE (Verified Allergy, Severe, 06/23/13) LORAZEPAM (Verified Allergy, Severe, Hives, 02/13/14) RASH/HIVES MORPHINE (Unverified Allergy, Severe, 01/14/19) Not true allergy; tolerated Dilaudid in past. Extensive opiate hx PROCHLORPERAZINE (Verified Allergy, Severe, 06/23/13) VANCOMYCIN (Unverified Allergy, Mild, Itching, 03/06/14) Objective Last 24 Hour Vital Signs Date Time Temp Pulse Resp B/P (MAP) Pulse Ox O2 Delivery O2 Flow Rate FiO2 08/13/20 04:02 97.6 08/13/20 04:00 96.8 99 20 149/84 (105) 98 08/13/20 00:59 97.6 08/13/20 00:04 97.6 76 19 120/76 (91) 97 08/13/20 00:00 97.7 94 18 131/74 (93) 96 08/12/20 22:09 97.6 08/12/20 21:00 Nasal Cannula 3.0 08/12/20 20:00 96.5 90 18 121/61 (81) 93 08/12/20 19:06 97.6 08/12/20 15:53 97.6 08/12/20 12:32 97.6 08/12/20 09:05 97.6 08/12/20 09:00 Nasal Cannula 3.0 Intake and Output 08/12/20 08/13/20 19:00 07:00 Intake Total 600 ml 400 ml Balance 600 ml 400 ml Intake Oral 600 ml Other 400 ml # Voids 3 Laboratory Tests 08/12/20 07:30: Sodium Level 138, Potassium Level 3.8, Chloride Level 101, Carbon Dioxide Level 28, Anion Gap 9, Blood Urea Nitrogen 22H, Creatinine 0.7, Estimat Glomerular Filtration Rate > 60, Glucose Level 84, Calcium Level 9.9, Phosphorus Level 4.3, Magnesium Level 2.2 Height (Feet): 5 Height (Inches): 2.00 Weight (Pounds): 120 General Appearance: alert EENT: normal ENT inspection Neck: supple Cardiovascular: normal rate Respiratory/Chest: decreased breath sounds Abdomen: hypoactive bowel sounds, tender Extremities: non-tender Assessment/Plan Assessment/Plan: Assessment/Plan Assessment/Plan: 1. Cervical cancer. 2. Hypertension. 3. Hypercholesteremia. 4. CHF. 5. Chronic constipation. 6. History of bowel obstruction requiring surgery. 7. History of chronic pancreatitis. 8. Gastritis, H. pylori negative. 9. Colonic polyp. 10. Internal hemorrhoids. recent EGD and colonoscopy ppi Linzess had [address] reviewed pain control will Ruben Villeda MD Aug 13, 2020 06:55
--- NOTE | 2020-08-13 07:18 | NUR ---
NURSE HAND-OFF: Important Events on Shift:pain medication dilaudid q3 hours, daily lab orders Patient Status: stable Diet: regular Pending Orders: CBC BMP ordered by Marie this am Pending Results/Labs:CBC BMP Pending MD notification: abd is very distended especially on the right side, firm and tender Vital Sign Comment: stable O2 98% on nasal cannula 2 L, walks around, wheezing when exerting herself Latest Rinaldi Fall Score: 35 Fall Risk: Medium Risk Safety Measures: Call light Within Reach, Bed Alarm , Side Rails Side Rails x2, Bed position Low and Locked. Fall Precautions: Yellow Socks Yellow Gown Patient Fall Education Report given to Ashleigh MARTÍNEZ
--- NOTE | 2020-08-13 08:00 | NUR ---
NURSE NOTES: RN received patient in bed. AAOX4, anxious, in NAD, no s/s of respiratory distress or pain noted. JOSELUIS PIV access, saline locked. IV is patent. Call light within reach, bed in lowest position possible and locked. Side rails up x2. Will continue to monitor patient and follow up with the plan of care.
--- NOTE | 2020-08-13 12:23 | Pulmonology Progress Note ---
Subjective ROS Limited/Unobtainable: Yes Interval Events: none major reported per nursing Constitutional: Reports: no symptoms; Denies: fever HEENT: Repors: no symptoms Respiratory: Reports: no symptoms Cardiovascular: Reports: no symptoms Gastrointestinal/Abdominal: Reports: diarrhea Allergies: Coded Allergies: HYDROCODONE (Verified Allergy, Severe, 06/23/13) LORAZEPAM (Verified Allergy, Severe, Hives, 02/13/14) RASH/HIVES MORPHINE (Unverified Allergy, Severe, 01/14/19) Not true allergy; tolerated Dilaudid in past. Extensive opiate hx PROCHLORPERAZINE (Verified Allergy, Severe, 06/23/13) VANCOMYCIN (Unverified Allergy, Mild, Itching, 03/06/14) All Systems: reviewed and negative except above Objective Last 24 Hour Vital Signs Date Time Temp Pulse Resp B/P (MAP) Pulse Ox O2 Delivery O2 Flow Rate FiO2 08/13/20 08:00 97.7 95 18 101/67 (78) 94 08/13/20 06:56 97.6 08/13/20 04:02 97.6 08/13/20 04:00 96.8 99 20 149/84 (105) 98 08/13/20 00:59 97.6 08/13/20 00:04 97.6 76 19 120/76 (91) 97 08/13/20 00:00 97.7 94 18 131/74 (93) 96 08/12/20 22:09 97.6 08/12/20 21:00 Nasal Cannula 3.0 08/12/20 20:00 96.5 90 18 121/61 (81) 93 08/12/20 19:06 97.6 08/12/20 15:53 97.6 08/12/20 12:32 97.6 Intake and Output 08/12/20 08/13/20 19:00 07:00 Intake Total 600 ml 400 ml Balance 600 ml 400 ml Intake Oral 600 ml Other 400 ml # Voids 3 General Appearance: no acute distress HEENT: atraumatic Respiratory: lungs clear Cardiovascular: normal rate, regular rhythm Abdomen: distended - more prominent on the right Current Medications Medications (Trade) Dose Ordered Sig/Haley Route PRN Reason Start Time Stop Time Status Last Admin Dose Admin Acetaminophen (Tylenol) 650 mg Q6H PRN ORAL fever > 100.5 08/09/20 22:30 09/08/20 22:29 Acetaminophen (Tylenol) 650 mg Q6H PRN ORAL mild to moderate pain (1-6) 08/09/20 22:30 09/08/20 22:29 Amylase/Lipase/ Protease (Rosa SARGENT 36,000 units cap) 1 ea TIWM ORAL 08/10/20 07:00 11/08/20 06:59 08/13/20 06:25 Amylase/Lipase/ Protease (Rosa SARGENT 36,000 units cap) 1 ea WITH SNACKS PRN ORAL WITH SNACKS 08/09/20 15:15 11/07/20 15:14 Clonidine HCl (Catapres Tab) 0.1 mg Q4H PRN ORAL SBP>170 08/10/20 17:00 11/08/20 16:59 Diphenhydramine HCl (Benadryl) 25 mg Q6H PRN IVP Itching 08/09/20 22:30 09/08/20 22:29 08/13/20 06:25 Hydromorphone HCl (Dilaudid) 0.5 mg Q4H PRN IM For Pain 08/09/20 18:45 08/16/20 18:44 08/11/20 11:11 Hydromorphone HCl (Dilaudid) 2 mg Q3H PRN IVP Severe Pain (Pain Scale 7-10) 08/11/20 19:45 08/18/20 19:44 08/13/20 06:26 Linaclotide (Linzess) 290 mcg BEFORE BREAKFAST ORAL 08/10/20 06:30 11/08/20 06:29 08/13/20 06:25 Loperamide HCl (Imodium) 2 mg QIDPRN PRN ORAL Diarrhea 08/10/20 09:15 09/09/20 09:14 Ondansetron HCl (Zofran) 4 mg Q4H PRN IVP Nausea & Vomiting 08/09/20 22:30 09/08/20 22:29 08/13/20 06:26 Assessment/Plan Assessment/Plan Assessment 1. h/o Chest pain 2. COPD, stable. 3. History of cervical CA. 4. CAD. 5. Hypertension. 6. Drug-seeking behavior and chronic narcotic dependence. 7. Abdominal distention PLAN: Predominant care per Cardiology. Supplement Oxygen as needed sat 96% R/A The care for this patient was discussed with my supervising physicians Abd Xray: Negative Stewart Hummel NP Aug 13, 2020 12:23
--- NOTE | 2020-08-13 12:29 | Internal Med Progress Note ---
Subjective Physician Name Dennis Cheney Attending Physician Dennis Cheney M.D. Current Medications Medications (Trade) Dose Ordered Sig/Haley Route PRN Reason Start Time Stop Time Status Last Admin Dose Admin Acetaminophen (Tylenol) 650 mg Q6H PRN ORAL fever > 100.5 08/09/20 22:30 09/08/20 22:29 Acetaminophen (Tylenol) 650 mg Q6H PRN ORAL mild to moderate pain (1-6) 08/09/20 22:30 09/08/20 22:29 Amylase/Lipase/ Protease (Rosa SARGENT 36,000 units cap) 1 ea TIWM ORAL 08/10/20 07:00 11/08/20 06:59 08/13/20 06:25 Amylase/Lipase/ Protease (Rosa SARGENT 36,000 units cap) 1 ea WITH SNACKS PRN ORAL WITH SNACKS 08/09/20 15:15 11/07/20 15:14 Clonidine HCl (Catapres Tab) 0.1 mg Q4H PRN ORAL SBP>170 08/10/20 17:00 11/08/20 16:59 Diphenhydramine HCl (Benadryl) 25 mg Q6H PRN IVP Itching 08/09/20 22:30 09/08/20 22:29 08/13/20 06:25 Hydromorphone HCl (Dilaudid) 0.5 mg Q4H PRN IM For Pain 08/09/20 18:45 08/16/20 18:44 08/11/20 11:11 Hydromorphone HCl (Dilaudid) 2 mg Q3H PRN IVP Severe Pain (Pain Scale 7-10) 08/11/20 19:45 08/18/20 19:44 08/13/20 06:26 Linaclotide (Linzess) 290 mcg BEFORE BREAKFAST ORAL 08/10/20 06:30 11/08/20 06:29 08/13/20 06:25 Loperamide HCl (Imodium) 2 mg QIDPRN PRN ORAL Diarrhea 08/10/20 09:15 09/09/20 09:14 Ondansetron HCl (Zofran) 4 mg Q4H PRN IVP Nausea & Vomiting 08/09/20 22:30 09/08/20 22:29 1/10/21 06:26 Allergies: Coded Allergies: HYDROCODONE (Verified Allergy, Severe, 06/23/13) LORAZEPAM (Verified Allergy, Severe, Hives, 02/13/14) RASH/HIVES MORPHINE (Unverified Allergy, Severe, 01/14/19) Not true allergy; tolerated Dilaudid in past. Extensive opiate hx PROCHLORPERAZINE (Verified Allergy, Severe, 06/23/13) VANCOMYCIN (Unverified Allergy, Mild, Itching, 03/06/14) ROS Limited/Unobtainable: No Constitutional: Reports: weakness HEENT: Denies: no symptoms, eye pain, blurred vision, tearing, double vision, ear pain, ear discharge, nose pain, nose congestion, throat pain, throat swelling, mouth pain, mouth swelling, other Cardiovascular: Denies: no symptoms, chest pain, edema, irregular heart rate, lightheadedness, palpitations, syncope, other Respiratory: Denies: no symptoms, cough, orthopnea, shortness of breath, SOB with excertion, SOB at rest, sputum, stridor, wheezing, other Gastrointestinal/Abdominal: Denies: no symptoms, abdomen distended, abdominal pain, black stools, tarry stools, blood in stool, constipated, diarrhea, difficulty swallowing, nausea, poor appetite, poor fluid intake, rectal bleeding, vomiting, other Genitourinary: Denies: no symptoms, burning, discharge, frequency, flank pain, hematuria, incontinence, pain, urgency, other Neurologic/Psychiatric: Denies: no symptoms, anxiety, depressed, emotional problems, headache, numbness, paresthesia, pre-existing deficit, seizure, tingling, tremors, weakness, other Subjective continues to complain of abd pain GI and gen surg appreciated Objective Last Vital Signs Date Time Temp Pulse Resp B/P (MAP) Pulse Ox O2 Delivery O2 Flow Rate FiO2 08/13/20 12:00 96.7 63 19 123/78 (93) 96 08/13/20 09:00 Nasal Cannula 3.0 Intake and Output 08/12/20 08/13/20 19:00 07:00 Intake Total 600 ml 400 ml Balance 600 ml 400 ml Intake Oral 600 ml Other 400 ml # Voids 3 Objective General Appearance: WD/WN, no apparent distress EENT: PERRL/EOMI, normal ENT inspection Neck: non-tender, normal alignment Cardiovascular: normal peripheral pulses, normal rate Respiratory/Chest: chest wall non-tender, lungs clear, normal breath sounds Abdomen: normal bowel sounds, non tender Edema: trace edema Assessment/Plan Assessment/Plan #Abd pain- intractable #Chest pain # history of hypertension # CAD, #cervical cancer #anemia #GERD 3chronic pancreatitis, #Narcotic dependency, #history of bilateral hip replacement #history of drug-seeking behavior # chronic constipation, # history of small bowel obstruction, colonic polyp, - admit inpatient - Gi eval - gen surg eval - cardiology eval - pain control - resume home meds - monitor Dennis Underwood M.D. Aug 13, 2020 12:29
--- NOTE | 2020-08-13 14:02 | Surgery Progress Note ---
Surgery Progress Note Subjective Additional Comments no acute events Objective Last 24 Hour Vital Signs Date Time Temp Pulse Resp B/P (MAP) Pulse Ox O2 Delivery O2 Flow Rate FiO2 08/13/20 12:00 96.7 63 19 123/78 (93) 96 08/13/20 09:00 Nasal Cannula 3.0 08/13/20 08:00 97.7 95 18 101/67 (78) 94 08/13/20 06:56 97.6 08/13/20 04:02 97.6 08/13/20 04:00 96.8 99 20 149/84 (105) 98 08/13/20 00:59 97.6 08/13/20 00:04 97.6 76 19 120/76 (91) 97 08/13/20 00:00 97.7 94 18 131/74 (93) 96 08/12/20 22:09 97.6 08/12/20 21:00 Nasal Cannula 3.0 08/12/20 20:00 96.5 90 18 121/61 (81) 93 08/12/20 19:06 97.6 08/12/20 15:53 97.6 I&O Intake and Output 08/12/20 08/13/20 19:00 07:00 Intake Total 600 ml 400 ml Balance 600 ml 400 ml Intake Oral 600 ml Other 400 ml # Voids 3 Cardiovascular: RSR Respiratory: clear Abdomen: soft, flat, non-tender, present bowel sounds, non-distended Extremities: no edema, no tenderness, no cyanosis Plan Problems: (1) Gastritis (2) Pancreatitis (3) Abdominal pain Assessment & Plan: c/o abd pain states there is a mass there like a knot on exam benign abd noted prior midline well healed scar noted patient mistaking scar tissue for new mass has been there prior exam as well ct reviewed okay for diet labs noted will monitor for bm and constipation pain management thank you Liver: Unremarkable. Gallbladder and bile ducts: The gallbladder is very distended but is otherwise unremarkable. No calcified stones. No ductal dilation. Pancreas: Unremarkable. No ductal dilation. Spleen: Unremarkable. No splenomegaly. Adrenals: There is stable mild diffuse thickening of the left adrenal gland. The right adrenal gland is unremarkable. Kidneys and ureters: There is no hydronephrosis. Both ureters are normal as seen. There is a punctate nonobstructing right renal stone, without change.. Stomach and bowel: There is mild circumferential wall thickening of the gastric body, similar appearance compared to the previous study. This could represent mild gastritis. No obstruction. PELVIS: Appendix: No findings to suggest acute appendicitis. Bladder: Unremarkable. No stones. Reproductive: Unremarkable as visualized. ABDOMEN and PELVIS: Intraperitoneal space: Unremarkable. No free air. No significant fluid collection. Bones/joints: Post surgical changes from bilateral hip arthroplasty with associated streak artifact, limiting assessment of the pelvis. No acute fracture. No dislocation. Soft tissues: Unremarkable. Vasculature: Unremarkable. No abdominal aortic aneurysm. Lymph nodes: Unremarkable. No enlarged lymph nodes. IMPRESSION: 1. Possible gastritis, without significant change in appearance compared to the previous study. 2. No bowel obstruction or abnormal bowel dilatation. No inflammatory changes in the visualized mesentery. 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 difficile colitis (11) CAD (coronary artery disease) (12) GERD (gastroesophageal reflux disease) (13) HTN (hypertension) (14) ACS (acute coronary syndrome) (15) Severe protein-calorie malnutrition (16) Gastroparesis (17) COPD (chronic obstructive pulmonary disease) (18) COPD exacerbation (19) Macrocytic anemia (20) Acute bronchitis (21) Community acquired pneumonia (22) Shingles (23) Colitis (24) Intractable abdominal pain Kristian Moreno Aug 13, 2020 14:02
--- NOTE | 2020-08-13 19:20 | NUR ---
NURSE NOTES: Received report from TANYA Sheth. Pt is sitting up in bed and has some abdominal pain. A&Ox4, bed locked and in lowest position, side rails up x3. Will continue to monitor.
[2020-08-14] VITALS: BP 120/80
[2020-08-14] MEDS: DiphenhydrAMINE 50mg/ml Inj IVP PRN ×3 (00:39→13:22)
[2020-08-14 04:00] VITALS: BP 122/86
[2020-08-14] MEDS: Creon DR 36,000 units cap ORAL SCH ×2 (06:46→12:37)
--- NOTE | 2020-08-14 07:25 | NUR ---
NURSE HAND-OFF: Important Events on Shift: Pt received pain management medication Patient Status: calm and eating Diet: regular Pending Orders: Pending Results/Labs: Pending MD notification: Latest Vital Signs: Temperature 98.0 , Pulse 70 , B/P 122 /86 , Respiratory Rate 18 , O2 SAT 98 , Room Air, O2 Flow Rate 3.0 . Vital Sign Comment: VSS Latest Rinaldi Fall Score: 35 Fall Risk: Medium Risk Safety Measures: Call light Within Reach, Bed Alarm , Side Rails Side Rails x2, Bed position Low and Locked. Fall Precautions: Yellow Socks Yellow Gown Patient Fall Education Report given to TANYA Santacruz.
--- NOTE | 2020-08-14 07:30 | NUR ---
NURSE NOTES: Received report from TANYA Dias. Rounding done. Pt is a/o x 4. No SOB noted. c/o abdominal pain as 5/10. Pain medicine was given by table games shift manager nurse. Discussed POC. Bed in lowest position, call light within reach. Will continue to monitor.
[2020-08-14 08:00] VITALS: BP 108/74
[2020-08-14 09:57] LABS: BASOPHILS % (AUTO) 3.5 % (0.0-2.0); EOSINOPHILS % (AUTO) 1.7 % (0.0-3.0); HEMATOCRIT 33.8 % (37.0-47.0); HEMOGLOBIN 10.5 G/DL (12.0-16.0); LYMPHOCYTES % (AUTO) 24.3 % (20.0-45.0); MEAN CORPUSCULAR VOLUME 110 FL (80-99); MONOCYTES % (AUTO) 9.2 % (1.0-10.0); NEUTROPHILS % (AUTO) 61.3 % (45.0-75.0); PLATELET COUNT 240 K/UL (150-450); RED BLOOD COUNT 3.06 M/UL (4.20-5.40); RED CELL DISTRIBUTION WIDTH 15.8 % (11.6-14.8)
[2020-08-14 10:08] LABS: ANION GAP 4 mmol/L (5-15); BLOOD UREA NITROGEN 18 mg/dL (7-18); CALCIUM 9.7 MG/DL (8.5-10.1); CARBON DIOXIDE 31 MMOL/L (21-32); CHLORIDE 104 MMOL/L (98-107); CREATININE 0.7 MG/DL (0.55-1.30); POTASSIUM 4.5 MMOL/L (3.5-5.1); SODIUM 138 MMOL/L (136-145)
--- NOTE | 2020-08-14 10:39 | Cardiac Electrophysiology PN ---
Assessment/Plan Assessment/Plan 1. Chest pain. The pain is atypical. The troponins are negative. This is one of the patient's numerous previous hospitalizations to [facility] as well as [facility]. Echo on June 14, 2020 showed EF of 70- 75%. 2. History of hypertension, partially related to her pain. On p.r.n. clonidine 3. Abdominal pain and distension. WBC today 4.0 S/P EGD and colonoscopy per Dr. Salazar. 4. Narcotic dependence. 5. History of cervical cancer. 6. History of bowel obstruction, requiring surgery. 7. Chronic pancreatitis. Subjective Subjective In RA off isolation in NAD Still complains of abdominal pain and distension Objective Last 24 Hour Vital Signs Date Time Temp Pulse Resp B/P (MAP) Pulse Ox O2 Delivery O2 Flow Rate FiO2 08/14/20 04:00 98.0 70 18 122/86 (98) 98 08/14/20 01:09 97.8 08/14/20 00:00 97.8 89 20 120/80 (93) 97 08/13/20 21:00 Room Air 08/13/20 20:00 97.9 100 18 124/80 (95) 96 08/13/20 17:05 97.3 08/13/20 16:00 97.3 94 19 107/72 (84) 96 08/13/20 13:57 96.7 08/13/20 12:00 96.7 63 19 123/78 (93) 96 Intake and Output 08/13/20 08/14/20 19:00 07:00 Intake Total 1440 ml 720 ml Balance 1440 ml 720 ml Intake Oral 1440 ml 720 ml # Voids 6 2 Laboratory Tests Test 08/14/20 09:15 White Blood Count 4.0 K/UL (4.8-10.8) L Red Blood Count 3.06 M/UL (4.20-5.40) L Hemoglobin 10.5 G/DL (12.0-16.0) L Hematocrit 33.8 % (37.0-47.0) L Mean Corpuscular Volume 110 FL (80-99) H Mean Corpuscular Hemoglobin 34.1 PG (27.0-31.0) H Mean Corpuscular Hemoglobin Concent 30.9 G/DL (32.0-36.0) L Red Cell Distribution Width 15.8 % (11.6-14.8) H Platelet Count 240 K/UL (150-450) Mean Platelet Volume 5.4 FL (6.5-10.1) L Neutrophils (%) (Auto) 61.3 % (45.0-75.0) Lymphocytes (%) (Auto) 24.3 % (20.0-45.0) Monocytes (%) (Auto) 9.2 % (1.0-10.0) Eosinophils (%) (Auto) 1.7 % (0.0-3.0) Basophils (%) (Auto) 3.5 % (0.0-2.0) H Sodium Level 138 MMOL/L (136-145) Potassium Level 4.5 MMOL/L (3.5-5.1) Chloride Level 104 MMOL/L (98-107) Carbon Dioxide Level 31 MMOL/L (21-32) Anion Gap 4 mmol/L (5-15) L Blood Urea Nitrogen 18 mg/dL (7-18) Creatinine 0.7 MG/DL (0.55-1.30) Estimat Glomerular Filtration Rate > 60 mL/min (>60) Glucose Level 87 MG/DL (74-106) Calcium Level 9.7 MG/DL (8.5-10.1) Objective HEAD AND NECK: No JVD. LUNGS: Clear. CARDIOVASCULAR: Regular S1 and S2 with no gallop or murmur. ABDOMEN: Soft. EXTREMITIES: No pitting edema. Nahum Ware MD Aug 14, 2020 10:39
--- NOTE | 2020-08-14 11:18 | NUR ---
*-*DISCHARGE PLANNING*-* PATIENT HAS BEEN REFERRED TO: [facility] P: [phone] S/W DUANE, WILL CALL BACK AFTER REVIEW.
[2020-08-14 12:00] VITALS: BP 116/66
--- NOTE | 2020-08-14 12:08 | NUR ---
*-*DISCHARGE PLANNING*-* PATIENT HAS BEEN REFERRED TO: [facility] P: [phone] S/W YUDITH WILL SERVICE PATIENT UPON DISCHARGE.
[2020-08-14] MEDS ORDERED: Simethicone 80mg tab ORAL SCH (13:00)
--- NOTE | 2020-08-14 13:01 | General Progress Note ---
Subjective ROS Limited/Unobtainable: Yes Allergies: Coded Allergies: HYDROCODONE (Verified Allergy, Severe, 06/23/13) LORAZEPAM (Verified Allergy, Severe, Hives, 02/13/14) RASH/HIVES MORPHINE (Unverified Allergy, Severe, 01/14/19) Not true allergy; tolerated Dilaudid in past. Extensive opiate hx PROCHLORPERAZINE (Verified Allergy, Severe, 06/23/13) VANCOMYCIN (Unverified Allergy, Mild, Itching, 03/06/14) Objective Last 24 Hour Vital Signs Date Time Temp Pulse Resp B/P (MAP) Pulse Ox O2 Delivery O2 Flow Rate FiO2 08/14/20 12:00 98.4 83 18 116/66 (83) 99 08/14/20 09:00 Room Air 08/14/20 08:00 97.8 84 18 108/74 (85) 98 08/14/20 04:00 98.0 70 18 122/86 (98) 98 08/14/20 01:09 97.8 08/14/20 00:00 97.8 89 20 120/80 (93) 97 08/13/20 21:00 Room Air 08/13/20 20:00 97.9 100 18 124/80 (95) 96 08/13/20 17:05 97.3 08/13/20 16:00 97.3 94 19 107/72 (84) 96 08/13/20 13:57 96.7 Intake and Output 08/13/20 08/14/20 19:00 07:00 Intake Total 1440 ml 720 ml Balance 1440 ml 720 ml Intake Oral 1440 ml 720 ml # Voids 6 2 Laboratory Tests 08/14/20 09:15: White Blood Count 4.0L, Red Blood Count 3.06L, Hemoglobin 10.5L, Hematocrit 33.8L, Mean Corpuscular Volume 110H, Mean Corpuscular Hemoglobin 34.1H, Mean Corpuscular Hemoglobin Concent 30.9L, Red Cell Distribution Width 15.8H, Platelet Count 240, Mean Platelet Volume 5.4L, Neutrophils (%) (Auto) 61.3, Lym phocytes (%) (Auto) 24.3, Monocytes (%) (Auto) 9.2, Eosinophils (%) (Auto) 1.7, Basophils (%) (Auto) 3.5H, Sodium Level 138, Potassium Level 4.5, Chloride Level 104, Carbon Dioxide Level 31, Anion Gap 4L, Blood Urea Nitrogen 18, Creatinine 0.7, Estimat Glomerular Filtration Rate > 60, Glucose Level 87, Calcium Level 9.7 Height (Feet): 5 Height (Inches): 2.00 Weight (Pounds): 120 General Appearance: no apparent distress EENT: normal ENT inspection Neck: supple Cardiovascular: normal rate Respiratory/Chest: decreased breath sounds Abdomen: soft, hypoactive bowel sounds, tender Extremities: non-tender Assessment/Plan Assessment/Plan: Assessment/Plan Assessment/Plan: 1. Cervical cancer. 2. Hypertension. 3. Hypercholesteremia. 4. CHF. 5. Chronic constipation. 6. History of bowel obstruction requiring surgery. 7. History of chronic pancreatitis. 8. Gastritis, H. pylori negative. 9. Colonic polyp. 10. Internal hemorrhoids. recent EGD and colonoscopy ppi Bart [facility] CT reviewed x ray reviewed add simethicone pain control will Ruben Villeda MD Aug 14, 2020 13:01
--- NOTE | 2020-08-14 14:06 | Pulmonology Progress Note ---
Subjective ROS Limited/Unobtainable: Yes Interval Events: none major reported per nursing Constitutional: Reports: no symptoms; Denies: fever HEENT: Repors: no symptoms Respiratory: Reports: no symptoms Cardiovascular: Reports: no symptoms Gastrointestinal/Abdominal: Reports: diarrhea Allergies: Coded Allergies: HYDROCODONE (Verified Allergy, Severe, 06/23/13) LORAZEPAM (Verified Allergy, Severe, Hives, 02/13/14) RASH/HIVES MORPHINE (Unverified Allergy, Severe, 01/14/19) Not true allergy; tolerated Dilaudid in past. Extensive opiate hx PROCHLORPERAZINE (Verified Allergy, Severe, 06/23/13) VANCOMYCIN (Unverified Allergy, Mild, Itching, 03/06/14) All Systems: reviewed and negative except above Objective Last 24 Hour Vital Signs Date Time Temp Pulse Resp B/P (MAP) Pulse Ox O2 Delivery O2 Flow Rate FiO2 08/14/20 12:00 98.4 83 18 116/66 (83) 99 08/14/20 09:00 Room Air 08/14/20 08:00 97.8 84 18 108/74 (85) 98 08/14/20 04:00 98.0 70 18 122/86 (98) 98 08/14/20 01:09 97.8 08/14/20 00:00 97.8 89 20 120/80 (93) 97 08/13/20 21:00 Room Air 08/13/20 20:00 97.9 100 18 124/80 (95) 96 08/13/20 17:05 97.3 08/13/20 16:00 97.3 94 19 107/72 (84) 96 Intake and Output 08/13/20 08/14/20 19:00 07:00 Intake Total 1440 ml 720 ml Balance 1440 ml 720 ml Intake Oral 1440 ml 720 ml # Voids 6 2 General Appearance: no acute distress HEENT: atraumatic Respiratory: lungs clear Cardiovascular: normal rate, regular rhythm Abdomen: distended - more prominent on the right Laboratory Tests 08/14/20 09:15: White Blood Count 4.0L, Red Blood Count 3.06L, Hemoglobin 10.5L, Hematocrit 33.8 L, Mean Corpuscular Volume 110H, Mean Corpuscular Hemoglobin 34.1H, Mean Corpuscular Hemoglobin Concent 30.9L, Red Cell Distribution Width 15.8H, Platelet Count 240, Mean Platelet Volume 5.4L, Neutrophils (%) (Auto) 61.3, Lymphocytes (%) (Auto) 24.3, Monocytes (%) (Auto) 9.2, Eosinophils (%) (Auto) 1.7, Basophils (%) (Auto) 3.5H, Sodium Level 138, Potassium Level 4.5, Chloride Level 104, Carbon Dioxide Level 31, Anion Gap 4L, Blood Urea Nitrogen 18, Creatinine 0.7, Estimat Glomerular Filtration Rate > 60, Glucose Level 87, Calcium Level 9.7 Current Medications Medications (Trade) Dose Ordered Sig/Haley Route PRN Reason Start Time Stop Time Status Last Admin Dose Admin Acetaminophen (Tylenol) 650 mg Q6H PRN ORAL fever > 100.5 08/09/20 22:30 09/08/20 22:29 Acetaminophen (Tylenol) 650 mg Q6H PRN ORAL mild to moderate pain (1-6) 08/09/20 22:30 09/08/20 22:29 Amylase/Lipase/ Protease (Rosa SARGENT 36,000 units cap) 1 ea TIWM ORAL 08/10/20 07:00 11/08/20 06:59 08/14/20 12:37 Amylase/Lipase/ Protease (Rosa SARGENT 36,000 units cap) 1 ea WITH SNACKS PRN ORAL WITH SNACKS 08/09/20 15:15 11/07/20 15:14 Clonidine HCl (Catapres Tab) 0.1 mg Q4H PRN ORAL SBP>170 08/10/20 17:00 11/08/20 16:59 Diphenhydramine HCl (Benadryl) 25 mg Q6H PRN IVP Itching 08/09/20 22:30 09/08/20 22:29 08/14/20 13:22 Hydromorphone HCl (Dilaudid) 0.5 mg Q4H PRN IM For Pain 08/09/20 18:45 08/16/20 18:44 08/11/20 11:11 Hydromorphone HCl (Dilaudid) 2 mg Q3H PRN IVP Severe Pain (Pain Scale 7-10) 08/11/20 19:45 08/18/20 19:44 08/14/20 13:22 Linaclotide (Linzess) 290 mcg BEFORE BREAKFAST ORAL 08/10/20 06:30 11/08/20 06:29 08/14/20 06:46 Loperamide HCl (Imodium) 2 mg QIDPRN PRN ORAL Diarrhea 08/10/20 09:15 09/09/20 09:14 08/13/20 13:27 Ondansetron HCl (Zofran) 4 mg Q4H PRN IVP Nausea & Vomiting 08/09/20 22:30 09/08/20 22:29 08/14/20 13:22 Simethicone (Mylicon) 80 mg QID ORAL 08/14/20 13:00 11/12/20 12:59 08/14/20 13:22 Assessment/Plan Assessment/Plan 1. Chest pain 2. COPD, stable. 3. History of cervical CA. 4. CAD. 5. Hypertension. 6. Drug-seeking behavior and chronic narcotic dependence. 7. Abdominal distention PLAN: Predominant care per Cardiology. Supplement Oxygen as needed sat 96% R/A Lion Clark MD Aug 14, 2020 14:06
[2020-08-14 16:00] VITALS: BP 123/70
--- NOTE | 2020-08-14 16:55 | NUR ---
NURSE NOTES: Discharge instruction was given to pt. Verified belongings list. Pt signed. ID/IV removed. Pt discharged in stable condition.
--- NOTE | 2020-08-14 19:12 | Surgery Progress Note ---
Surgery Progress Note Subjective Symptoms: improved, tolerating diet, voiding well, passing flatus, BM, pain decreased Objective Last 24 Hour Vital Signs Date Time Temp Pulse Resp B/P (MAP) Pulse Ox O2 Delivery O2 Flow Rate FiO2 08/14/20 16:00 98.0 80 18 123/70 (87) 98 08/14/20 12:00 98.4 83 18 116/66 (83) 99 08/14/20 09:00 Room Air 08/14/20 08:00 97.8 84 18 108/74 (85) 98 08/14/20 04:00 98.0 70 18 122/86 (98) 98 08/14/20 01:09 97.8 08/14/20 00:00 97.8 89 20 120/80 (93) 97 08/13/20 21:00 Room Air 08/13/20 20:00 97.9 100 18 124/80 (95) 96 I&O Intake and Output 08/13/20 08/14/20 19:00 07:00 Intake Total 1440 ml 720 ml Balance 1440 ml 720 ml Intake Oral 1440 ml 720 ml # Voids 6 2 Cardiovascular: RSR Respiratory: clear Abdomen: soft, flat, non-tender, present bowel sounds, non-distended Extremities: no tenderness, no cyanosis Laboratory Tests Test 08/14/20 09:15 White Blood Count 4.0 K/UL (4.8-10.8) L Red Blood Count 3.06 M/UL (4.20-5.40) L Hemoglobin 10.5 G/DL (12.0-16.0) L Hematocrit 33.8 % (37.0-47.0) L Mean Corpuscular Volume 110 FL (80-99) H Mean Corpuscular Hemoglobin 34.1 PG (27.0-31.0) H Mean Corpuscular Hemoglobin Concent 30.9 G/DL (32.0-36.0) L Red Cell Distribution Width 15.8 % (11.6-14.8) H Platelet Count 240 K/UL (150-450) Mean Platelet Volume 5.4 FL (6.5-10.1) L Neutrophils (%) (Auto) 61.3 % (45.0-75.0) Lymphocytes (%) (Auto) 24.3 % (20.0-45.0) Monocytes (%) (Auto) 9.2 % (1.0-10.0) Eosinophils (%) (Auto) 1.7 % (0.0-3.0) Basophils (%) (Auto) 3.5 % (0.0-2.0) H Sodium Level 138 MMOL/L (136-145) Potassium Level 4.5 MMOL/L (3.5-5.1) Chloride Level 104 MMOL/L (98-107) Carbon Dioxide Level 31 MMOL/L (21-32) Anion Gap 4 mmol/L (5-15) L Blood Urea Nitrogen 18 mg/dL (7-18) Creatinine 0.7 MG/DL (0.55-1.30) Estimat Glomerular Filtration Rate > 60 mL/min (>60) Glucose Level 87 MG/DL (74-106) Calcium Level 9.7 MG/DL (8.5-10.1) Plan Problems: (1) Gastritis (2) Pancreatitis (3) Abdominal pain Assessment & Plan: c/o abd pain states there is a mass there like a knot on exam benign abd noted prior midline well healed scar noted patient mistaking scar tissue for new mass has been there prior exam as well ct reviewed okay for diet labs noted will monitor for bm and constipation pain management thank you late entry improving ready for d/c Liver: Unremarkable. Gallbladder and bile ducts: The gallbladder is very distended but is otherwise unremarkable. No calcified stones. No ductal dilation. Pancreas: Unremarkable. No ductal dilation. Spleen: Unremarkable. No splenomegaly. Adrenals: There is stable mild diffuse thickening of the left adrenal gland. The right adrenal gland is unremarkable. Kidneys and ureters: There is no hydronephrosis. Both ureters are normal as seen. There is a punctate nonobstructing right renal stone, without change.. Stomach and bowel: There is mild circumferential wall thickening of the gastric body, similar appearance compared to the previous study. This could represent mild gastritis. No obstruction. PELVIS: Appendix: No findings to suggest acute appendicitis. Bladder: Unremarkable. No stones. Reproductive: Unremarkable as visualized. ABDOMEN and PELVIS: Intraperitoneal space: Unremarkable. No free air. No significant fluid collection. Bones/joints: Post surgical changes from bilateral hip arthroplasty with associated streak artifact, limiting assessment of the pelvis. No acute fracture. No dislocation. Soft tissues: Unremarkable. Vasculature: Unremarkable. No abdominal aortic aneurysm. Lymph nodes: Unremarkable. No enlarged lymph nodes. IMPRESSION: 1. Possible gastritis, without significant change in appearance compared to the previous study. 2. No bowel obstruction or abnormal bowel dilatation. No inflammatory changes in the visualized mesentery. 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 difficile colitis (11) CAD (coronary artery disease) (12) GERD (gastroesophageal reflux disease) (13) HTN (hypertension) (14) ACS (acute coronary syndrome) (15) Severe protein-calorie malnutrition (16) Gastroparesis (17) COPD (chronic obstructive pulmonary disease) (18) COPD exacerbation (19) Macrocytic anemia (20) Acute bronchitis (21) Community acquired pneumonia (22) Shingles (23) Colitis (24) Intractable abdominal pain Kristian Moreno Aug 14, 2020 19:12
--- NOTE | 2020-08-15 11:51 | Discharge Summary ---
Discharge Summary Discharge Summary _ DATE OF ADMISSION: 08/09/2020 DATE OF DISCHARGE: 08/14/2020 DISCHARGED BY: Dr. Cheney REASON FOR ADMISSION: 69 years old female with past medical history of hypertension, coronary artery disease, chronic pancreatitis, GERD, anemia, cervical cancer, narcotic dependency, chronic constipation, history of small bowel obstruction, requiring surgery, presented to emergency department with multiply complaints. Patient reported right upper quadrant abdominal pain for 5 days with associated nausea. She denied vomiting, diarrhea, constipation. No flank pain or dysuria. No melena, hematochezia. Patient was also complaining of left sided chest wall pain. She took baby aspirin earlier in the morning with mild relief. She denied cough, shortness of breath, hemoptysis. No fever or chills. Troponin was negative. EKG revealed sinus rhythm, no acute ischemic changes. Chest x-ray demonstrated no acute process. Hyperinflation, likely COPD. CT scan of the abdomen and pelvis revealed possible gastritis. No bowel obstruction or abnormal bowel dilatation. No inflammatory changes in the visualized mesentery. Laboratory work-up revealed leukopenia WBC 3.3, hemoglobin 11.2, hematocrit 34.6. Stable electrolytes and renal parameters. Glucose 106. Stable LFT and lipase. Urine toxicology screen was positive for opiates. Urinalysis revealed no pyuria , occasional bacteria. Patient admitted with abdominal and chest pain for further management. CONSULTANTS: wool buyer Dr. Cotton pulmonary Dr. Clark GI specialist Dr. Salazar surgery Dr. Moreno [facility] COURSE: [employer] followed. Echocardiogram revealed preserved ejection fraction 65%. No evidence of left ventricular hypertrophy. No evidence of wall motion abnorma lity. Serial troponin negative. EKG revealed no acute ischemic changes. Patient was ruled out for acute myocardial infarction. Chest pain was most likely atypical , as per wool buyer. Patient had prior numerous hospitalization to [facility] and [facility] . Blood pressure was closely monitored and remained stable. Clonidine was on board as needed for blood pressure spikes. Prior to discharge BP 123/70. Pulse oximetry remained stable on room air. No evidence of COPD exacerbation. Patient saturated 95 to 97% on room air. GI specialist and surgery closely followed. KUB revealed no acute process. Abdominal exams were benign . Patient recently had EGD and colonoscopy. Bowel regimen intensified : patient started on Linzess . GI prophylaxis with PPI provided. Patient was continued on Creon. Simethicone was added. Pain management was addressed and pain was eventually controlled. Diet was slowly advanced as tolerated. Patient was able to tolerate diet. Patient voided without difficulty and started to have bowel movements. Patient clinically stabilized and was ready for discharge home. FINAL DIAGNOSIS Atypical chest pain Intractable abdominal pain Chronic constipation Chronic pancreatitis Gastritis (H. pylori negative) History of bowel obstruction requiring surgery Colonic polyp History of cervical CA COPD -stable Coronary artery disease History of hypertension Chronic narcotic dependency DISCHARGE MEDICATIONS: See Medication Reconciliation list. DISCHARGE INSTRUCTIONS: Patient was discharged home. Follow-up with a primary care provider in 1 week. I have been assigned to dictate discharge summary for this account. \ I was not involved in the patient's management. Nakia Alvarenga NP Aug 15, 2020 11:51
--- NOTE | 2020-08-22 07:04 | Coder Physician Query ---
Clarification is required for compliance, coding accuracy, and to reflect severity of illness for this patient Dear Dr. AREVALO Date: 08/22/2020 Mold Preparer/CDS' Name: KOTA SINGH Patient was also complaining of left sided chest wall pain. She took baby aspirin earlier in the morning with mild relief. She denied cough, shortness of breath, hemoptysis. No fever or chills. Troponin was negative. EKG revealed sinus rhythm, no acute ischemic changes. Chest x-ray demonstrated no acute process. Hyperinflation, likely COPD. Echocardiogram revealed preserved ejection fraction 65%. No evidence of left ventricular hypertrophy. No evidence of wall motion abnormality. Serial troponin negative. EKG revealed no acute ischemic changes. Patient was ruled out for acute myocardial infarction. Chest pain was most likely atypical , as per rn cardiac rehab. FINAL DIAGNOSIS Atypical chest pain Intractable abdominal pain Chronic constipation Chronic pancreatitis, Gastritis (H. pylori negative) Please document the suspected etiology of Chest Pain: [] Acute Coronary Syndrome [] Pericarditis [] Anxiety [] Cancer [] Pneumonia [] Costochondritis [] Pneumothorax [] GERD/Esophagitis [] Pulmonary embolism [] Other: [] Unable to determine Physician signature Date Please also document in your Progress Notes and/or Discharge Summary and indicate if the condition was present on admission. MARCELLA
== END 2020-08-14 16:55 | disposition home or self-care (01) | DRG 313 ==
LOC: EMR 08:39 → 4E 12:25 → EDBEDREQ 17:52 → 4E 08-13 11:23 → 3E 08-13 18:36
DX: R07.89 Other chest pain (principal); K86.1 Other chronic pancreatitis; F11.20 Opioid dependence, uncomplicated; K21.9 Gastro-esophageal reflux disease without esophagitis; K29.70 Gastritis, unspecified, without bleeding; K31.84 Gastroparesis; C76.0 Malignant neoplasm of head, face and neck; Z88.6 Allergy status to analgesic agent; Z88.1 Allergy status to other antibiotic agents; Z88.8 Allergy status to other drugs, medicaments and biological substances; I10 Essential (primary) hypertension; I25.10 Atherosclerotic heart disease of native coronary artery without angina pectoris; K59.00 Constipation, unspecified; Z85.41 Personal history of malignant neoplasm of cervix uteri; K63.5 Polyp of colon; Z96.643 Presence of artificial hip joint, bilateral; R10.9 Unspecified abdominal pain; K64.8 Other hemorrhoids; Z76.5 Malingerer [conscious simulation]
CPT/HCPCS: 36415; 71045; 74018; 74176; 80048; 80053; 80307; 81003; 83690; 83735; 83880; 84100; 84484; 85007; 85025; 85610; 85730; 93005; 93306; 96372; 96374; 96375; 99285; J2405